=== PATIENT | male | born 1960 | race Caucasian/White ===

== ENCOUNTER 2023-01-08 14:14 | Emergency (ER) | payer MEDICARE ==
[2023-01-08 14:33] VITALS: TEMP 98.4
[2023-01-08] MEDS ORDERED: FUROSEMIDE 10 MG/ML 4 ML VIAL IV STA (15:24)
--- NOTE | 2023-01-08 15:27 | ED ---
General Adult HPI - General Chief complaint: Extremity Problem,Nontraumatic Stated complaint: PAIN IN FEET AND SWOLLEN ANKELS Time Seen by Provider: 01/08/23 15:06 Source: patient, family, RN notes reviewed Mode of arrival: ambulatory Limitations: no limitations - History of Present Illness Initial comments: Patient is a pleasant 62-year-old male presenting to the emergency department with concern for edema. Patient mostly has edema of the legs, somewhat of the arms. Symptoms have been progressing over the past 2-3 weeks. Patient denies dyspnea or cough however family states patient does have occasional cough. No recent change in activity. Patient does have chronic MS. Patient states only mild discomfort in the skin of his legs. No calf pain. No fever. Patient did have ultrasound done within the last couple weeks negative for DVT. - Related Data Previous Rx's Medication Instructions Recorded Tamsulosin [Flomax] 0.4 mg PO DAILY #14 cap 01/08/23 Allergies Allergy/AdvReac Type Severity Reaction Status Date / Time No Known Allergies Allergy Verified 01/08/23 14:33 Review of Systems ROS Statement: Those systems with pertinent positive or pertinent negative responses have been documented in the HPI. ROS Other: All systems not noted in ROS Statement are negative. Constitutional: Denies: fever Eyes: Denies: eye pain ENT: Denies: ear pain Respiratory: Reports: as per HPI Cardiovascular: Reports: edema. Denies: chest pain Endocrine: Denies: fatigue Gastrointestinal: Denies: abdominal pain Genitourinary: Denies: dysuria Musculoskeletal: Denies: back pain Skin: Denies: rash Neurological: Denies: weakness Past Medical History Additional Past Medical History / Comment(s): MS. UTI History of Any Multi-Drug Resistant Organisms: None Reported Past Surgical History: No Surgical Hx Reported Past Psychological History: No Psychological Hx Reported Smoking Status: Never smoker Past Alcohol Use History: None Reported Past Drug Use History: None Reported General Exam Limitations: no limitations General appearance: alert, in no apparent distress Head exam: Present: normocephalic Eye exam: Present: normal appearance Neck exam: Present: normal inspection Respiratory exam: Present: normal lung sounds bilaterally Cardiovascular Exam: Present: regular rate, normal rhythm GI/Abdominal exam: Present: soft. Absent: tenderness Extremities exam: Present: pedal edema (+4 bilateral), other (+1 bilateral upper extremity edema) Neurological exam: Present: alert Psychiatric exam: Present: normal affect, normal mood Skin exam: Present: normal color Course Vital Signs 01/08/23 01/08/23 14:31 16:57 Temperature 98.4 F Pulse Rate 88 82 Respiratory 20 18 Rate Blood Pressure 139/85 137/75 O2 Sat by Pulse 96 97 Oximetry EKG Findings - EKG Results: EKG: interpreted by ERMD (L [place]. Poor R-wave progression. No acute ST change.), sinus rhythm Medical Decision Making - Medical Decision Making Was pt. sent in by a medical professional or institution (, SVETLANA, SHIPS OR BARGES LOADER, urgent care, hospital, or custodial...) When possible be specific @ -No Did you speak to anyone other than the patient for history (EMS, parent, family, police, friend...)? What history was obtained from this source @ -2 other family members are present supplement history including patient's history of MS Did you review nursing and triage notes (agree or disagree)? Why? @ -I reviewed and agree with nursing and triage notes Were old charts reviewed (outside hosp., previous admission, EMS record, old EKG, old radiological studies, urgent care reports/EKG's, custodial records)? Report findings @ -No old charts were reviewed Differential Diagnosis (chest pain, altered mental status, abdominal pain women, abdominal pain men, vaginal bleeding, weakness, fever, dyspnea, syncope, headache, dizziness, GI bleed, back pain, seizure, CVA, palpatations, mental health)? @ -not applicable EKG interpreted by me (3pts min.). @ -As above X-rays interpreted by me (1pt min.). @ -Chest x-ray shows no acute process CT interpreted by me (1pt min.). @ -None done U/S interpreted by me (1pt. min.). @ -Bladder scan by nursing had over 800 mL postvoid. What testing was considered but not performed or refused? (CT, X-rays, U/S, labs)? Why? @ -None What meds were considered but not given or refused? Why? @ -None Did you discuss the management of the patient with other professionals (professionals i.e. SVETLANA Parada, SHIPS OR BARGES LOADER, lab, RT, psych nurse, 7th grade social studies teacher, airline reservation agent, teacher, patrol community service officer, nurse case management)? Give summary @ -No Was smoking cessation discussed for >3mins.? @ -No Was critical care preformed (if so, how long)? @ -No Were there social determinants of health that impacted care today? How? ([place]ivid[place] elessness, low income, unemployed, alcoholism, drug addiction, transportation, low edu. Level, literacy, decrease access to med. care, senior living, rehab)? @ -No Was there de-escalation of care discussed even if they declined (Discuss DNR or withdrawal of care, Hospice)? DNR status @ -No What co-morbidities impacted this encounter? (DM, HTN, Smoking, COPD, CAD, Cancer, CVA, ARF, Chemo, Hep., AIDS, mental health diagnosis, sleep apnea, morbid obesity)? @ -None Was patient admitted / discharged? Hospital course, mention meds given and route, prescriptions, significant lab abnormalities, going to OR and other pertinent info. @ -Patient reevaluated with 2 L out through Ross catheter. Likely cause of edema and renal insufficiency. Patient is comfortable with discharge home. Patient is nice to return if symptoms worsen or shortness of breath. Patient also advised to follow-up with primary care physician and urology Undiagnosed new problem with uncertain prognosis? @ -No Drug Therapy requiring intensive monitoring for toxicity (Heparin, Nitro, Insulin, Cardizem)? @ -No Were any procedures done? @ -No Diagnosis/symptom? @ -Edema, urinary retention Acute, or Chronic, or Acute on Chronic? @ -Acute, acute Uncomplicated (without systemic symptoms) or Complicated (systemic symptoms)? @ -Urinary retention is complicated by generalized edema Side effects of treatment? @ -No Exacerbation, Progression, or Severe Exacerbation? @ -No Poses a threat to life or bodily function? How? (Chest pain, [place], [place], pneumonia, PE, COPD, DKA, ARF, appy, cholecystitis, CVA, Diverticulitis, Homicidal, Suicidal, threat to staff... and all critical care pts) @ -No - Lab Data Result diagrams: 01/08/23 15:35 01/08/23 15:35 Lab Results 01/08/23 01/08/23 01/08/23 Range/Units 15:35 15:35 15:35 WBC 10.4 (3.8-10.6) k/uL RBC 4.57 (4.30-5.90) m/uL Hgb 14.1 (13.0-17.5) gm/dL Hct 43.7 (39.0-53.0) % MCV 95.8 (80.0-100.0) fL MCH 30.9 (25.0-35.0) pg MCHC 32.3 (31.0-37.0) g/dL RDW 13.0 (11.5-15.5) % Plt Count 407 (150-450) k/uL MPV 7.5 Neutrophils % 60 % Lymphocytes % 17 % Monocytes % 8 % Eosinophils % 13 % Basophils % 0 % Neutrophils # 6.3 (1.3-7.7) k/uL Lymphocytes # 1.8 (1.0-4.8) k/uL Monocytes # 0.8 (0-1.0) k/uL Eosinophils # 1.4 H (0-0.7) k/uL Basophils # 0.0 (0-0.2) k/uL PT 10.7 (9.0-12.0) sec INR 1.0 (<1.2) APTT 24.4 (22.0-30.0) sec Sodium 139 (137-145) mmol/L Potassium 4.0 (3.5-5.1) mmol/L Chloride 102 (98-107) mmol/L Carbon Dioxide 30 (22-30) mmol/L Anion Gap 7 mmol/L BUN 28 H (9-20) mg/dL Creatinine 1.31 H (0.66-1.25) mg/dL Est GFR (CKD-EPI)AfAm 66 (>60 ml/min/1.73 sqM) Est GFR (CKD-EPI)NonAf 57 (>60 ml/min/1.73 sqM) Glucose 105 H (74-99) mg/dL Plasma Lactic Acid Cristian (0.7-2.0) mmol/L Calcium 9.1 (8.4-10.2) mg/dL Magnesium 2.4 H (1.6-2.3) mg/dL Total Bilirubin 0.2 (0.2-1.3) mg/dL AST 22 (17-59) U/L ALT 24 (4-49) U/L Alkaline Phosphatase 70 (38-126) U/L Troponin I (0.000-0.034) ng/mL NT-Pro-B Natriuret Pep pg/mL Total Protein 6.1 L (6.3-8.2) g/dL Albumin 3.4 L (3.5-5.0) g/dL 01/08/23 01/08/23 01/08/23 Range/Units 15:35 15:35 16:04 WBC (3.8-10.6) k/uL RBC (4.30-5.90) m/uL Hgb (13.0-17.5) gm/dL Hct (39.0-53.0) % MCV (80.0-100.0) fL MCH (25.0-35.0) pg MCHC (31.0-37.0) g/dL RDW (11.5-15.5) % Plt Count (150-450) k/uL MPV Neutrophils % % Lymphocytes % % Monocytes % % Eosinophils % % Basophils % % Neutrophils # (1.3-7.7) k/uL Lymphocytes # (1.0-4.8) k/uL Monocytes # (0-1.0) k/uL Eosinophils # (0-0.7) k/uL Basophils # (0-0.2) k/uL PT (9.0-12.0) sec INR (<1.2) APTT (22.0-30.0) sec Sodium (137-145) mmol/L Potassium (3.5-5.1) mmol/L Chloride (98-107) mmol/L Carbon Dioxide (22-30) mmol/L Anion Gap mmol/L BUN (9-20) mg/dL Creatinine (0.66-1.25) mg/dL Est GFR (CKD-EPI)AfAm (>60 ml/min/1.73 sqM) Est GFR (CKD-EPI)NonAf (>60 ml/min/1.73 sqM) Glucose (74-99) mg/dL Plasma Lactic Acid Cristian 1.3 (0.7-2.0) mmol/L Calcium (8.4-10.2) mg/dL Magnesium (1.6-2.3) mg/dL Total Bilirubin (0.2-1.3) mg/dL AST (17-59) U/L ALT (4-49) U/L Alkaline Phosphatase (38-126) U/L Troponin I <0.012 (0.000-0.034) ng/mL NT-Pro-B Natriuret Pep 89 pg/mL Total Protein (6.3-8.2) g/dL Albumin (3.5-5.0) g/dL Disposition Clinical Impression: Edema, Urinary retention Disposition: HOME SELF-CARE Condition: Stable Instructions (If sedation given, give patient instructions): Urinary Retention in Men (ED), Edema (ED) Additional Instructions: Please do follow-up through primary care physician in the next couple days for recheck. Please also follow-up with urology, phone number provided within the next week. Leave catheter in until follow-up. Prescription for medication for prostate has been sent to pharmacy. Prescriptions: Tamsulosin [Flomax] 0.4 mg PO DAILY #14 cap Is patient prescribed a controlled substance at d/c from ED?: No Referrals: Nonstaff,Physician [Primary Care Provider] - 1-2 days Carrillo Ohara MD [STAFF PHYSICIAN] - 1-2 days Dash Hoffman MD [STAFF PHYSICIAN] - 1-2 days Time of Disposition: 17:38
[2023-01-08 16:09] LABS: Albumin 3.4 g/dL (3.5-5.0); Calcium 9.1 mg/dL (8.4-10.2); Magnesium 2.4 mg/dL (1.6-2.3); Total Bilirubin 0.2 mg/dL (0.2-1.3); Total Protein 6.1 g/dL (6.3-8.2)
--- NOTE | 2023-01-08 16:25 | XR ---
EXAMINATION TYPE: XR chest 2V DATE OF EXAM: 01/08/2023 4:16 PM COMPARISON: None TECHNIQUE: XR chest 2V Frontal and lateral views of the chest. CLINICAL INDICATION:Male, 62 years old with history of difficulty breathing; FINDINGS: Lungs/Pleura: Bibasilar atelectasis. No evidence for pneumothorax, pleural effusion or focal consolid ation. Pulmonary vascularity: Unremarkable. Heart/mediastinum: Cardiomediastinal silhouette is unremarkable. Musculoskeletal: No acute osseous pathology. IMPRESSION: No acute cardiopulmonary disease/process.
[2023-01-08 16:26] LABS: Partial Thromboplastin Time 24.4 sec (22.0-30.0); Prothrombin Time 10.7 sec (9.0-12.0)
[2023-01-08 16:28] LABS: Basophils % (A) 0 %; Eosinophils # (A) 1.4 k/uL (0-0.7); Eosinophils % (A) 13 %; HCT 43.7 % (39.0-53.0); HGB 14.1 gm/dL (13.0-17.5); Lymphocytes # (A) 1.8 k/uL (1.0-4.8); Lymphocytes % (A) 17 %; MCH 30.9 pg (25.0-35.0); MCHC 32.3 g/dL (31.0-37.0); MCV 95.8 fL (80.0-100.0); Mean Platelet Volume 7.5; Monocytes # (A) 0.8 k/uL (0-1.0); Monocytes % (A) 8 %; Neutrophils # (A) 6.3 k/uL (1.3-7.7); Neutrophils % (A) 60 %; Platelet Count 407 k/uL (150-450); RBC 4.57 m/uL (4.30-5.90); WBC 10.4 k/uL (3.8-10.6)
[2023-01-08 16:58] VITALS: BP 137/75; PULSE 82; RESP 18
== END 2023-01-08 18:12 | disposition home or self-care (01) ==
LOC: EC 14:14
DX: R33.9 Retention of urine, unspecified (principal); R60.0 Localized edema
CPT/HCPCS: 36415; 51702; 51798; 71046; 80053; 83605; 83735; 83880; 84484; 85025; 85610; 85730; 93005; 96374; 99284

== ENCOUNTER 2023-01-27 18:15 | Emergency (ER) | payer MEDICARE ==
[2023-01-27] MEDS ORDERED: ACETAMINOPHEN TAB 500 MG TAB PO STA (19:42)
--- NOTE | 2023-01-27 19:44 | ED ---
General Adult HPI - General Source: patient, family, RN notes reviewed Mode of arrival: wheelchair Limitations: no limitations <Aurelia Watt - Last Filed: 01/28/23 01:05> <Saige Boyd - Last Filed: 01/28/23 05:33> - General Chief complaint: Urogenital Stated complaint: UTI Time Seen by Provider: 01/27/23 19:43 - History of Present Illness Initial comments: Patient is a 62-year-old male who presents to the emergency Department for possible urinary tract infection. Patient self caths due to urinary retention he does have history of multiple sclerosis. His urine has had a foul order and color the past couple days. Family used a UTI strip which showed positive nitrites. Patient states he otherwise feels well. He denies any abdominal pain, burning with urination, nausea, vomiting. Patient does have a fever in triage. (Aurelia Watt) 62-year-old male with past history of MS who presents to the emergency department reporting UTI. Sr. is at bedside and helps provide history. States that the patient recently started straight cathing himself a couple weeks ago. Today she noted that when she helped the patient's straight cath himself that there was some blood in the urine. She used a dipstick to check for infection which was positive. She decided to bring him to the emergency department for antibiotics. It was upon ER arrival that it was found that the patient had a fever. He does not complain of any pain or chills. He does have a follow-up appointment with his primary care doctor on Tuesday. Patient is also going to be seeing urology at [facility] on . He denies any abdominal distention. No vomiting. No changes in his bowel habits. No other alleviating, precipitating or modifying factors (Saige Boyd) - Related Data Previous Rx's Medication Instructions Recorded Tamsulosin [Flomax] 0.4 mg PO DAILY #14 cap 01/08/23 Cephalexin [Keflex] 500 mg PO Q6HR #28 cap 01/27/23 Allergies Allergy/AdvReac Type Severity Reaction Status Date / Time No Known Allergies Allergy Verified 01/27/23 19:16 Review of Systems ROS Other: All systems not noted in ROS Statement are negative. <Aurelia Watt - Last Filed: 01/28/23 01:05> ROS Other: All systems not noted in ROS Statement are negative. <Saige Boyd - Last Filed: 01/28/23 05:33> ROS Statement: Those systems with pertinent positive or pertinent negative responses have been documented in the HPI. Past Medical History Additional Past Medical History / Comment(s): MS. UTI History of Any Multi-Drug Resistant Organisms: None Reported Past Surgical History: No Surgical Hx Reported Past Psychological History: No Psychological Hx Reported Smoking Status: Never smoker Past Alcohol Use History: None Reported Past Drug Use History: None Reported <AlysaAurelia dawson - Last Filed: 01/28/23 01:05> General Exam Limitations: no limitations <Aurelia Watt - Last Filed: 01/28/23 01:05> - General Exam Comments Initial Comments: Visual Physical Exam Vital signs reviewed General: Well-appearing, nontoxic, no acute distress. Head: Normocephalic, atraumatic Eyes: PERRLA, EOMI ENT: Airway patent Chest: Nonlabored breathing Skin: No visual rash, normal skin tone Neuro: Alert and oriented 3 Musculoskeletal: No gross abnormalities (AlysaAurelia) Course Vital Signs 01/27/23 01/27/23 01/27/23 19:16 22:03 22:33 Temperature 101.5 F H 99.6 F 99.1 F Pulse Rate 107 H 91 Respiratory 18 16 Rate Blood Pressure 139/65 118/76 O2 Sat by Pulse 94 L 94 L Oximetry 01/27/23 01/27/23 23:02 23:44 Temperature 99.2 F Pulse Rate 88 Respiratory 18 Rate Blood Pressure 134/80 O2 Sat by Pulse 94 L Oximetry Medical Decision Making - Lab Data Result diagrams: 01/27/23 20:04 01/27/23 20:04 <Aurelia Watt - Last Filed: 01/28/23 01:05> - Lab Data Result diagrams: 01/27/23 20:04 01/27/23 20:04 <Saige Boyd - Last Filed: 01/28/23 05:33> - Medical Decision Making Was pt. sent in by a medical professional or institution (, PA, BOARD SETTER, urgent care, hospital, or shelter...) When possible be specific @ -[No] Did you speak to anyone other than the patient for history (EMS, parent, family, police, friend...)? What history was obtained from this source @ -[No] Did you review nursing and triage notes (agree or disagree)? Why? @ -[I reviewed and agree with nursing and triage notes] Were old charts reviewed (outside hosp., previous admission, EMS record, old EKG, old radiological studies, urgent care reports/EKG's, shelter records)? Report findings @ -[No old charts were reviewed] Differential Diagnosis (chest pain, altered mental status, abdominal pain women, abdominal pain men, vaginal bleeding, weakness, fever, dyspnea, syncope, headache, dizziness, GI bleed, back pain, seizure, CVA, palpatations, mental health, musculoskeletal)? @ -[not applicable] EKG interpreted by me (3pts min.). @ -[As above] X-rays interpreted by me (1pt min.). @ -[None done] CT interpreted by me (1pt min.). @ -[None done] U/S interpreted by me (1pt. min.). @ -[None done] What testing was considered but not performed or refused? (CT, X-rays, U/S, labs)? Why? @ -[None] What meds were considered but not given or refused? Why? @ -[None] Did you discuss the management of the patient with other professionals (professionals i.e. , PA, BOARD SETTER, lab, RT, psych nurse, social media campaign manager, program director/music director, teacher, special service officer, casework manager)? Give summary @ -[No] Was smoking cessation discussed for >3mins.? @ -[No] Was critical care preformed (if so, how long)? @ -[No] Were there social determinants of health that impacted care today? How? (Homelessness, low income, unemployed, alcoholism, drug addiction, transportation, low edu. Level, literacy, decrease access to med. care, longterm, rehab)? @ -[No] Was there de-escalation of care discussed even if they declined (Discuss DNR or withdrawal of care, Hospice)? DNR status @ -[No] What co-morbidities impacted this encounter? (DM, HTN, Smoking, COPD, CAD, Cancer, CVA, ARF, Chemo, Hep., AIDS, mental health diagnosis, sleep apnea, morbid obesity)? @ -[None] Was patient admitted / discharged? Hospital course, mention meds given and route , prescriptions, significant lab abnormalities, going to OR and other pertinent info. @ -Upon arrival patient is placed into room 8. A thorough history and physical exam is performed. Patient has had laboratory studies and a urinalysis performed in triage. White count 18.3. Urinalysis is positive for infection. I did give the patient the option of being observed overnight with repeat blood count in the morning. Patient would like to go home. He is given a gram of Rocephin IM. Patient will be placed on antibiotics. He is to continue straight cathing 4 times a day. He has a follow-up appointment with his primary care doctor on Tuesday and repeat laboratory studies need to be performed at that time. He needs to return should he be unable to drain his bladder due to bleeding. Sr. is at bedside and is agreeable to this. Patient discharged home in stable condition Undiagnosed new problem with uncertain prognosis? @ -[No] Drug Therapy requiring intensive monitoring for toxicity (Heparin, Nitro, Insulin, Cardizem)? @ -[No] Were any procedures done? @ -[No] Diagnosis/symptom? @ -[default] Acute, or Chronic, or Acute on Chronic? @ -[default] Uncomplicated (without systemic symptoms) or Complicated (systemic symptoms)? @ -[default] Side effects of treatment? @ -[No] Exacerbation, Progression, or Severe Exacerbation? @ -[No] Poses a threat to life or bodily function? How? (Chest pain, [place], [place], pneumonia, PE, COPD, DKA, ARF, appy, cholecystitis, CVA, Diverticulitis, Homicidal, Suicidal, threat to staff... and all critical care pts) @ -[No] (Saige Boyd) - Lab Data Lab Results 01/27/23 01/27/23 01/27/23 Range/Units 20:04 20:04 20:04 WBC 18.3 H (3.8-10.6) k/uL RBC 4.84 (4.30-5.90) m/uL Hgb 15.3 (13.0-17.5) gm/dL Hct 47.3 (39.0-53.0) % MCV 97.8 (80.0-100.0) fL MCH 31.7 (25.0-35.0) pg MCHC 32.4 (31.0-37.0) g/dL RDW 12.9 (11.5-15.5) % Plt Count 443 (150-450) k/uL MPV 7.0 Neutrophils % 87 % Lymphocytes % 5 % Monocytes % 5 % Eosinophils % 1 % Basophils % 0 % Neutrophils # 15.9 H (1.3-7.7) k/uL Lymphocytes # 0.9 L (1.0-4.8) k/uL Monocytes # 1.0 (0-1.0) k/uL Eosinophils # 0.2 (0-0.7) k/uL Basophils # 0.1 (0-0.2) k/uL Sodium 139 (137-145) mmol/L Potassium 4.2 (3.5-5.1) mmol/L Chloride 101 (98-107) mmol/L Carbon Dioxide 27 (22-30) mmol/L Anion Gap 11 mmol/L BUN 30 H (9-20) mg/dL Creatinine 1.43 H (0.66-1.25) mg/dL Est GFR (CKD-EPI)AfAm 60 (>60 ml/min/1.73 sqM) Est GFR (CKD-EPI)NonAf 52 (>60 ml/min/1.73 sqM) Glucose 142 H (74-99) mg/dL Calcium 9.7 (8.4-10.2) mg/dL Total Bilirubin 0.4 (0.2-1.3) mg/dL AST 24 (17-59) U/L ALT 27 (4-49) U/L Alkaline Phosphatase 72 (38-126) U/L Total Protein 7.5 (6.3-8.2) g/dL Albumin 4.3 (3.5-5.0) g/dL Lipase 155 (23-300) U/L Urine Color Light Red Urine Appearance Turbid (Clear) Urine pH 6.0 (5.0-8.0) Ur Specific Gilbert 1.018 (1.001-1.035) Urine Protein 2+ H (Negative) Urine Glucose (UA) Negative (Negative) Urine Ketones Negative (Negative) Urine Blood Large H (Negative) Urine Nitrite Positive (Negative) Urine Bilirubin Negative (Negative) Urine Urobilinogen <2.0 (<2.0) mg/dL Ur Leukocyte Esterase Large H (Negative) Urine RBC >182 H (0-5) /hpf Urine WBC >182 H (0-5) /hpf Urine WBC Clumps Many H (None) /hpf Urine Mucus Few H (None) /hpf Disposition <AlysaAurelia - Last Filed: 01/28/23 01:05> Is patient prescribed a controlled substance at d/c from ED?: No Time of Disposition: 23:18 <Saige Boyd - Last Filed: 01/28/23 05:33> Clinical Impression: UTI (urinary tract infection), Urinary retention, Multiple sclerosis Disposition: HOME SELF-CARE Condition: Stable Instructions (If sedation given, give patient instructions): Urinary Tract Infection in Men (ED) Additional Instructions: Please take the antibiotic as directed. You must straight cath every 6 hours. Follow-up with your primary care doctor on Tuesday and have them repeat your blood counts as your White blood cell count was high. Take Tylenol every 6-8 hours for fevers and return for any new or worsening symptoms Prescriptions: Cephalexin [Keflex] 500 mg PO Q6HR #28 cap Referrals: Elle Guadalupe DO [Primary Care Provider] - 1-2 days
[2023-01-27 20:26] LABS: Basophils # (A) 0.1 k/uL (0-0.2); Basophils % (A) 0 %; Eosinophils # (A) 0.2 k/uL (0-0.7); Eosinophils % (A) 1 %; HCT 47.3 % (39.0-53.0); HGB 15.3 gm/dL (13.0-17.5); Lymphocytes # (A) 0.9 k/uL (1.0-4.8); Lymphocytes % (A) 5 %; MCH 31.7 pg (25.0-35.0); MCHC 32.4 g/dL (31.0-37.0); MCV 97.8 fL (80.0-100.0); Monocytes % (A) 5 %; Neutrophils # (A) 15.9 k/uL (1.3-7.7); Neutrophils % (A) 87 %; Platelet Count 443 k/uL (150-450); RBC 4.84 m/uL (4.30-5.90); RDW 12.9 % (11.5-15.5); WBC 18.3 k/uL (3.8-10.6)
[2023-01-27 20:38] LABS: Albumin 4.3 g/dL (3.5-5.0); Calcium 9.7 mg/dL (8.4-10.2); Potassium 4.2 mmol/L (3.5-5.1); Total Bilirubin 0.4 mg/dL (0.2-1.3); Total Protein 7.5 g/dL (6.3-8.2)
[2023-01-27 20:42] LABS: Appearance,Urine Turbid (Clear); Bilirubin,Urine Negative (Negative); Blood,Urine Large (Negative); Color,Urine Light Red; Glucose,Urine (UA) Negative (Negative); Ketones,Urine Negative (Negative); Leukocyte Esterase,Urine Large (Negative); Mucus,Urine Few /hpf; Nitrite,Urine Positive (Negative); Protein,Urine 2+ (Negative); RBC,Urine >182 /hpf (0-5); Urobilinogen,Urine <2.0 mg/dL (<2.0); WBC,Urine >182 /hpf (0-5)
[2023-01-27 20:45] LABS: Specific Gravity,Urine 1.018 (1.001-1.035)
[2023-01-27] MEDS ORDERED: cefTRIAXone 1,000 MG VIAL (IM USE) IM STA (22:42)
[2023-01-27 23:03] VITALS: BP 134/80; PULSE 88; RESP 18
[2023-01-27 23:44] VITALS: TEMP 99.2
== END 2023-01-27 23:44 | disposition home or self-care (01) ==
LOC: EC 18:15
DX: N39.0 Urinary tract infection, site not specified (principal); G35 Multiple sclerosis; R33.9 Retention of urine, unspecified
CPT/HCPCS: 51798; 36415; 80053; 83690; 85025; 81001; 87086; 99283; 96372; J0696

== ENCOUNTER 2023-02-20 10:31 | Inpatient (IN) | payer MEDICARE ==
[2023-02-20 11:36] LABS: Appearance,Urine Turbid (Clear); Bacteria,Urine Few /hpf; Bilirubin,Urine Negative (Negative); Blood,Urine Large (Negative); Color,Urine Yellow; Glucose,Urine (UA) Negative (Negative); Ketones,Urine Negative (Negative); Leukocyte Esterase,Urine Large (Negative); Nitrite,Urine Positive (Negative); Protein,Urine 3+ (Negative); RBC,Urine >182 /hpf (0-5); Urobilinogen,Urine <2.0 mg/dL (<2.0); WBC,Urine >182 /hpf (0-5)
[2023-02-20 12:47] LABS: Basophils # (A) 0.1 k/uL (0-0.2); Basophils % (A) 0 %; Eosinophils # (A) 0.3 k/uL (0-0.7); Eosinophils % (A) 1 %; HGB 15.7 gm/dL (13.0-17.5); Lymphocytes # (A) 0.6 k/uL (1.0-4.8); Lymphocytes % (A) 2 %; MCH 31.1 pg (25.0-35.0); MCHC 31.5 g/dL (31.0-37.0); MCV 98.7 fL (80.0-100.0); Mean Platelet Volume 7.3; Monocytes # (A) 0.7 k/uL (0-1.0); Monocytes % (A) 3 %; Neutrophils # (A) 23.6 k/uL (1.3-7.7); Neutrophils % (A) 93 %; Platelet Count 462 k/uL (150-450); RBC 5.06 m/uL (4.30-5.90); RDW 13.1 % (11.5-15.5); WBC 25.4 k/uL (3.8-10.6)
[2023-02-20 12:58] LABS: ALT 32 U/L (4-49); AST 28 U/L (17-59); African American GFR (CKD) 51 (>60 ml/min/1.73 sqM); Albumin 4.3 g/dL (3.5-5.0); Alkaline Phosphatase 56 U/L (38-126); Anion Gap 12 mmol/L; Blood Urea Nitrogen 39 mg/dL (9-20); Calcium 9.7 mg/dL (8.4-10.2); Carbon Dioxide 25 mmol/L (22-30); Chloride 102 mmol/L (98-107); Glucose 179 mg/dL (74-99); Non-African American GFR(CKD) 44 (>60 ml/min/1.73 sqM); Sodium 139 mmol/L (137-145); Total Bilirubin 0.5 mg/dL (0.2-1.3); Total Protein 7.5 g/dL (6.3-8.2)
[2023-02-20] MEDS ORDERED: VANCOMYCIN IV PER PHARMACY 1 EACH MISC MISCELLANE PRN (15:02)
--- NOTE | 2023-02-20 15:08 | ED ---
General Adult HPI - General Chief complaint: Urogenital Stated complaint: UTI Time Seen by Provider: 02/20/23 11:30 Source: patient, RN notes reviewed, old records reviewed Mode of arrival: ambulatory Limitations: no limitations - History of Present Illness Initial comments: This is a 62-year-old male who presents emergency department stating that he has a long-standing history of urinary tract infections in his been on multiple antibiotics in the last month or 2 and he believes he has another urinary tract infection. Patient does self cath. 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 Patient states his urine became very cloudy and he is feeling a little ill but he denies any fever. Denies any back pain patient denies any abdominal pain. - Related Data Previous Rx's Medication Instructions Recorded Tamsulosin [Flomax] 0.4 mg PO DAILY #14 cap 01/08/23 Cephalexin [Keflex] 500 mg PO Q6HR #28 cap 01/27/23 Allergies Allergy/AdvReac Type Severity Reaction Status Date / Time No Known Allergies Allergy Verified 02/20/23 10:53 Review of Systems ROS Statement: Those systems with pertinent positive or pertinent negative responses have been documented in the HPI. ROS Other: All systems not noted in ROS Statement are negative. Past Medical History Past Medical History: Coronary Artery Disease (CAD), Heart Failure, Hypertension Additional Past Medical History / Comment(s): UTI History of Any Multi-Drug Resistant Organisms: MRSA Date of last positivie culture/infection: 01/27/23 MDRO Source:: Urine Past Surgical History: No Surgical Hx Reported Past Psychological History: No Psychological Hx Reported Smoking Status: Never smoker Past Alcohol Use History: None Reported Past Drug Use History: None Reported General Exam - General Exam Comments Initial Comments: GENERAL: Patient is well-developed and well-nourished. Patient is nontoxic and well- hydrated and is in mild distress. ENT: Neck is soft and supple. No significant lymphadenopathy is noted. Oropharynx is clear. Moist mucous membranes. Neck has full range of motion without eliciting any pain. EYES: The sclera were anicteric and conjunctiva were pink and moist. Extraocular movements were intact and pupils were equal round and reactive to light. Eyelids were unremarkable. PULMONARY: Unlabored respirations. Good breath sounds bilaterally. No audible rales rhonchi or wheezing was noted. CARDIOVASCULAR: There is a regular rate and rhythm without any murmurs gallops or rubs. ABDOMEN: Suprapubic abdominal tenderness SKIN: Skin is clear with no lesions or rashes and otherwise unremarkable. NEUROLOGIC: Patient is alert and oriented x3. Cranial nerves II through XII are grossly intact. Motor and sensory are also intact. Normal speech, volume and content. Symmetrical smile. MUSCULOSKELETAL: Normal extremities with adequate strength and full range of motion. LYMPHATICS: No significant lymphadenopathy is noted PSYCHIATRIC: Normal psychiatric evaluation. Limitations: no limitations Course Vital Signs 02/20/23 10:50 Temperature 99.4 F Pulse Rate 107 H Respiratory 22 Rate Blood Pressure 101/67 O2 Sat by Pulse 96 Oximetry Medical Decision Making - Medical Decision Making Was pt. sent in by a medical professional or institution (SVETLANA Parada, FLATBED PRESS OPERATOR, urgent care, hospital, or longterm...) When possible be specific @ -[No] Did you speak to anyone other than the patient for history (EMS, parent, family, police, friend...)? What history was obtained from this source @ -Sister gives quite a bit of a history Did you review nursing and triage notes (agree or disagree)? Why? @ -[I reviewed and agree with nursing and triage notes] Were old charts reviewed (outside hosp., previous admission, EMS record, old EKG, old radiological studies, urgent care reports/EKG's, longterm records)? Report findings @ -Reviewed prior lab work microbiology studies and previous charts Differential Diagnosis (chest pain, altered mental status, abdominal pain women, abdominal pain men, vaginal bleeding, weakness, fever, dyspnea, syncope, headache, dizziness, GI bleed, back pain, seizure, CVA, palpatations, mental health, musculoskeletal)? @ -M.D. EM fever EKG interpreted by me (3pts min.). @ -[As above] X-rays interpreted by me (1pt min.). @ -[None done] CT interpreted by me (1pt min.). @ -[None done] U/S interpreted by me (1pt. min.). @ -[None done] What testing was considered but not performed or refused? (CT, X-rays, U/S, labs)? Why? @ -[None] What meds were considered but not given or refused? Why? @ -[None] Did you discuss the management of the patient with other professionals (professionals i.e. DrEverett, PA, FLATBED PRESS OPERATOR, lab, RT, psych nurse, high school social studies tutor, clinic director, teacher, postal delivery officer, case making machine operator)? Give summary @ -I spoke with Dr. Marsh and he agreed to admit the patient Was smoking cessation discussed for >3mins.? @ -[No] Was critical care preformed (if so, how long)? @ -[No] Were there social determinants of health that impacted care today? How? (Homelessness, low income, unemployed, alcoholism, drug addiction, transportation, low edu. Level, literacy, decrease access to med. care, chcf, re hab)? @ -[No] Was there de-escalation of care discussed even if they declined (Discuss DNR or withdrawal of care, Hospice)? DNR status @ -[No] What co-morbidities impacted this encounter? (DM, HTN, Smoking, COPD, CAD, Cancer, CVA, ARF, Chemo, Hep., AIDS, mental health diagnosis, sleep apnea, morbid obesity)? @ -[None] Was patient admitted / discharged? Hospital course, mention meds given and route, prescriptions, significant lab abnormalities, going to OR and other pertinent info. @ -Because patient's urine showed MRSA I gave the patient a dose of vancomycin and admitted him with vancomycin per pharmacy. Dr. Marsh agreed to admit the patient Undiagnosed new problem with uncertain prognosis? @ -[No] Drug Therapy requiring intensive monitoring for toxicity (Heparin, Nitro, Insulin, Cardizem)? @ -[No] Were any procedures done? @ -[No] Diagnosis/symptom? @ -Urinary tract infection Acute, or Chronic, or Acute on Chronic? @ -Acute Uncomplicated (without systemic symptoms) or Complicated (systemic symptoms)? @ -Complicated Side effects of treatment? @ -[No] Exacerbation, Progression, or Severe Exacerbation? @ -[No] Poses a threat to life or bodily function? How? (Chest pain, [place], [place], pneumonia, PE, COPD, DKA, ARF, appy, cholecystitis, CVA, Diverticulitis, Homicidal, Suicidal, threat to staff... and all critical care pts) @ -Yes patient becomes septic which could cause end organ dysfunction - Lab Data Result diagrams: 02/20/23 12:36 02/20/23 12:36 Lab Results 02/20/23 02/20/23 02/20/23 Range/Units 10:56 12:36 12:36 WBC 25.4 H (3.8-10.6) k/uL RBC 5.06 (4.30-5.90) m/uL Hgb 15.7 (13.0-17.5) gm/dL Hct 50.0 (39.0-53.0) % MCV 98.7 (80.0-100.0) fL MCH 31.1 (25.0-35.0) pg MCHC 31.5 (31.0-37.0) g/dL RDW 13.1 (11.5-15.5) % Plt Count 462 H (150-450) k/uL MPV 7.3 Neutrophils % 93 % Lymphocytes % 2 % Monocytes % 3 % Eosinophils % 1 % Basophils % 0 % Neutrophils # 23.6 H (1.3-7.7) k/uL Lymphocytes # 0.6 L (1.0-4.8) k/uL Monocytes # 0.7 (0-1.0) k/uL Eosinophils # 0.3 (0-0.7) k/uL Basophils # 0.1 (0-0.2) k/uL Sodium 139 (137-145) mmol/L Potassium 5.0 (3.5-5.1) mmol/L Chloride 102 (98-107) mmol/L Carbon Dioxide 25 (22-30) mmol/L Anion Gap 12 mmol/L BUN 39 H (9-20) mg/dL Creatinine 1.63 H (0.66-1.25) mg/dL Est GFR (CKD-EPI)AfAm 51 (>60 ml/min/1.73 sqM) Est GFR (CKD-EPI)NonAf 44 (>60 ml/min/1.73 sqM) Glucose 179 H (74-99) mg/dL Calcium 9.7 (8.4-10.2) mg/dL Total Bilirubin 0.5 (0.2-1.3) mg/dL AST 28 (17-59) U/L ALT 32 (4-49) U/L Alkaline Phosphatase 56 (38-126) U/L Total Protein 7.5 (6.3-8.2) g/dL Albumin 4.3 (3.5-5.0) g/dL Urine Color Yellow Urine Appearance Turbid (Clear) Urine pH 6.0 (5.0-8.0) Ur Specific [place] 1.020 (1.001-1.035) Urine Protein 3+ H (Negative) Urine Glucose (UA) Negative (Negative) Urine Ketones Negative (Negative) Urine Blood Large H (Negative) Urine Nitrite Positive (Negative) Urine Bilirubin Negative (Negative) Urine Urobilinogen <2.0 (<2.0) mg/dL Ur Leukocyte Esterase Large H (Negative) Urine RBC >182 H (0-5) /hpf Urine WBC >182 H (0-5) /hpf Urine WBC Clumps Many H (None) /hpf Urine Bacteria Few H (None) /hpf Disposition Clinical Impression: Urinary tract infection Disposition: ADMITTED IP TO THIS HOSP Referrals: Elle Guadalupe DO [Primary Care Provider] - 1-2 days Time of Disposition: 15:07
[2023-02-20] MEDS ORDERED: VANCOMYCIN 1,500 MG in SODIUM CHLORIDE 0.9% 500 ML 500 ML IVPB STA (15:10)
[2023-02-20] MEDS: SODIUM CHLORIDE 0.9% 1,000 ML IV ONE (16:08)
[2023-02-20] MEDS ORDERED: ONDANSETRON 4 MG/2 ML VIAL IVP PRN (18:04)
[2023-02-20] MEDS ORDERED: ACETAMINOPHEN TAB 325 MG TAB PO PRN (19:38)
--- NOTE | 2023-02-21 01:50 | P.HPIM ---
History of Present Illness H&P Date: 02/20/23 Chief Complaint: Infection Patient is a 62-year-old male with a known history of multiple sclerosis, neurogenic bladder requiring straight catheterization 3-4 times daily, hyp ertension, history of UTIs presents to ER with complaints of cloudy urine and felt like getting another urinary tract infection. Patient was not feeling well yesterday but denied any fever or chills. No complaints of nausea or vomiting. No commerce of back pain. No abdominal pain. Patient was seen in the ER about a week ago and urine culture was sent at that time showed MRSA. Next and now complains of chest pain or shortness of breath. No diarrhea.. CT of the abdomen pelvis showed thickened urinary bladder decompressed with Ross catheter contains a small amount of age which could be related to recent instrumentation. Large fecal bolus of the rectum. Correlate for fecal impaction. Laboratory data showed WBC 25.4 hemoglobin 15.7 and platelets 462, sodium 1:30 potassium 5.0 chloride 102 bicarb is 25 BUN 39 and creatinine 1.63. Pressure was 179. Urinalysis showed 3+ protein and large blood nitrite positive and large leukocyte esterase with elevated RBCs and WBCs. Review of Systems Constitutional: Patient denies any fever or chills . No generalized weakness or weight loss. Abdomen: Patient denied nausea vomiting and diarrhea and abdominal pain. Cardiovascular: Patient denies any chest pain or short of breath no palpitations. Respiratory: patient denied any cough is from production. No shortness of breath Neurologic: Patient denied any numbness or tingling headache. Musculoskeletal: Patient denies any complaints of joint swelling or deformity. Skin: Negative Psychiatric: Negative Endocrine: No heat or cold intolerance. No recent weight gain. Genitourinary: No dysuria or hematuria. All other 14 point ROS negative except the above Past Medical History Past Medical History: Coronary Artery Disease (CAD), Heart Failure, Hypertension Additional Past Medical History / Comment(s): MS. UTI History of Any Multi-Drug Resistant Organisms: MRSA Date of last positivie culture/infection: 01/27/23 MDRO Source:: Urine Past Surgical History: No Surgical Hx Reported Additional Past Surgical History / Comment(s): Judd. Past Anesthesia/Blood Transfusion Reactions: No Reported Reaction Past Psychological History: No Psychological Hx Reported Smoking Status: Never smoker Past Alcohol Use History: None Reported Past Drug Use History: None Reported Medications and Allergies Home Medications Medication Instructions Recorded Confirmed Type Tamsulosin [Flomax] 0.4 mg PO DAILY #14 cap 01/08/23 02/20/23 Rx Ascorbic Acid [Vitamin C chew] 500 mg PO DAILY 02/20/23 02/20/23 History Atorvastatin [Lipitor] 10 mg PO HS 02/20/23 02/20/23 History Cholecalciferol [Vitamin D3 (25 25 mcg PO DAILY 02/20/23 02/20/23 History Mcg = 1000 Iu)] Dalfampridine [Dalfampridine ER] 10 mg PO Q12H 02/20/23 02/20/23 History Furosemide [Lasix] 20 mg PO DAILY 02/20/23 02/20/23 History lisinopriL [Zestril] 5 mg PO DAILY 02/20/23 02/20/23 History Allergies Allergy/AdvReac Type Severity Reaction Status Date / Time No Known Allergies Allergy Verified 02/20/23 15:48 Physical Exam Vitals: Vital Signs Temp Pulse Pulse Resp BP BP Pulse Ox 02/20/23 18:36 98.9 F 115 H 16 116/65 91 L 02/20/23 17:33 98.7 F 02/20/23 17:00 114 H 20 119/79 95 02/20/23 16:00 100 24 02/20/23 15:00 19 02/20/23 14:00 24 02/20/23 13:00 98 20 118/92 02/20/23 12:00 102 H 24 127/72 92 L 02/20/23 11:57 93 L 02/20/23 10:50 99.4 F 107 H 22 101/67 96 Intake and Output 02/20/23 02/20/23 02/20/23 06:59 14:59 22:59 Other: # Voids 1 Weight 85.729 kg 85.5 kg PHYSICAL EXAMINATION: Patient is lying in the bed comfortably, no acute distress, awake alert and oriented.. HEENT: Normocephalic. Neck is supple. Pupils reactive. Nostrils clear. Oral cavity is moist. Neck reveals no JVD, carotid bruits, or thyromegaly. CHEST EXAMINATION: Trachea is central. Symmetrical expansion. Lung beatty clear to auscultation and percussion. CARDIAC: Normal S1, S2 with no gallops. No murmurs ABDOMEN: Soft. Bowel sounds normal. No organomegaly. No abdominal bruits. Extremities: reveal no edema. No clubbing or cyanosis Neurologically awake, alert, oriented x3 with well-coordinated movements. No focal deficits noted Skin: No rash or skin lesions. Psychiatric: Coperative. Nonsuicidal Musculoskeletal: No joint swelling or deformity. Normal range of motion. Results CBC & Chem 7: 02/20/23 12:36 02/21/23 05:11 Labs: Abnormal Lab Results - Last 24 Hours (Table) 02/20/23 02/20/23 02/20/23 Range/Units 10:56 12:36 12:36 WBC 25.4 H (3.8-10.6) k/uL Plt Count 462 H (150-450) k/uL Neutrophils # 23.6 H (1.3-7.7) k/uL Lymphocytes # 0.6 L (1.0-4.8) k/uL BUN 39 H (9-20) mg/dL Creatinine 1.63 H (0.66-1.25) mg/dL Glucose 179 H (74-99) mg/dL Urine Protein 3+ H (Negative) Urine Blood Large H (Negative) Ur Leukocyte Esterase Large H (Negative) Urine RBC >182 H (0-5) /hpf Urine WBC >182 H (0-5) /hpf Urine WBC Clumps Many H (None) /hpf Urine Bacteria Few H (None) /hpf Thrombosis Risk Factor Assmnt - DVT/VTE Prophylaxis DVT/VTE Prophylaxis: Pharmacologic Prophylaxis ordered Assessment and Plan Assessment: Acute urinary tract infection sepsis secondary to UTI Recent UTI with cultures growing MRSA Prior history of multiple UTIs History of MS and chronic urinary retention requiring straight catheterization at home. Acute kidney injury likely prerenal Coronary artery disease with no prior history of stent placement Hypertension DVT prophylaxis with heparin subcu Plan: Patient will be continued on antibiotics in the form of vancomycin can with IV hydration. Urine culture will be sent.. Urology and ID will be consulted. Continue with home medications and follow closely. Time with Patient: Greater than 30
[2023-02-21 06:18] LABS: African American GFR (CKD) 63 (>60 ml/min/1.73 sqM); Non-African American GFR(CKD) 54 (>60 ml/min/1.73 sqM)
[2023-02-21] MEDS: HEPARIN SODIUM,PORCINE/PF 5,000 UNIT/0.5 ML SYRINGE SQ SCH ×3 (08:54→23:22)
[2023-02-21] MEDS: TAMSULOSIN 0.4 MG CAP.ER.24H PO SCH (08:54)
[2023-02-21] MEDS ORDERED: VANCOMYCIN 1,500 MG in SODIUM CHLORIDE 0.9% 500 ML 500 ML IVPB SCH ×2 (09:00→16:00)
--- NOTE | 2023-02-21 12:41 | CT ---
EXAMINATION TYPE: CT abdomen pelvis wo con DATE OF EXAM: 02/21/2023 COMPARISON: None INDICATION: vomiting stool. No contrast DLP: 608 mGycm, Automated exposure control for dose reduction was used. CONTRAST: 0 mL of Isovue 300. Study performed without Oral Contrast TECHNIQUE: Axial images were obtained from above the diaphragm to the pubic rami in the axial plane a t 5 mm thick sections. Reconstructed images are reviewed on the computer in the coronal plane. FINDINGS: Limited CT sections are obtained the lung bases. Bibasilar infiltrates are present. Correlate for at electasis. Minimal effusions may be present. CT ABDOMEN: Liver: Normal Spleen: Normal Pancreas: Normal Adrenal glands: The adrenal glands are normal. Gallbladder: Normal Kidneys: No masses are evident. No hydronephrosis is present. The renal pelvis is slightly prominent which could be related to an extrarenal pelvis. Ureter on the left appears to have a normal caliber. Some mild left perinephric stranding may be present. There is a 1.9 cm cyst on the anterior superior left kidney. Left kidney is somewhat small. This could be postsurgical or from prior scarring. Aorta: Minimal Vascular calcification is within the aorta. Inferior vena cava: Normal. CT PELVIS: Loops of bowel within the abdomen and pelvis are normal. There is a large fecal bolus in the rectum. This study is without oral contrast limiting bowel evaluation. No suspicious dilated loops of tonia l suggest obstruction are evident. Stomach and small amount of fluid within the dependent portion. Appendix: Normal as visualized. Urinary bladder: Urinary bladder thickening is present. There is air present within the urinary bladd er. Urinary bladder is decompressed with Ross catheter. There is a low density collection to the right of the urinary bladder. This could be a urinary bladde r diverticulum without drainage. Uroma could be considered. Abscess is felt to be unlikely without th ickening of the wall or focal inflammatory change around this area. There is diffuse increased lung markings adjacent to the urinary bladder. Inflammatory changes and mi nimal fluid could be considered. Genitourinary structures: Prostate appears normal. Osseous structures: No suspicious lytic or sclerotic lesions. Degenerative disc changes and spondylos is as through the scoliotic lumbar spine. Degenerative joint changes are at the bilateral hips. IMPRESSIONS: 1. Thickened urinary bladder decompressed with Ross catheter contains a small amount of air which c ould be related to recent instrumentation. Other laboratory changes adjacent. A uroma or non decompre ssed urinary bladder diverticulum just to the right of the urinary bladder is present. 2. Large fecal bolus of the rectum. Correlate for fecal impaction. 3. Somewhat small left kidney with mild perinephric stranding.
[2023-02-21] MEDS ORDERED: polyethylene glycoL 3350 17 GM POWD.PACK PO STA (14:20)
--- NOTE | 2023-02-21 15:15 | US ---
EXAMINATION TYPE: US kidneys/renal and bladder DATE OF EXAM: 02/21/2023 COMPARISON: NONE CLINICAL INDICATION: Male, 62 years old with history of UTI, Urinary Retention; UTI EXAM MEASUREMENTS: Right Kidney: 10.7 x 5.2 x 5.9 cm Left Kidney: 8.7 x 3.7 x 4.6 cm Right Kidney: No hydronephrosis or masses seen Left Kidney: superior pole cyst seen = 1.9cm, kidney is small in size Bladder: hermosillo cath seen, free fluid to the right of bladder IMPRESSION: 1. Left renal cyst
[2023-02-21] MEDS: DAPTOmycin 350 MG in SODIUM CHLORIDE 0.9% 50 ML IVPB SCH (15:36)
--- NOTE | 2023-02-21 16:06 | P.GSCN ---
History of Present Illness Consult date: 02/21/23 Reason for Consult: Ileus, constipation History of present illness: 62-year-old male admitted to the hospital with recurrent UTI. Brought to the hospital by his family with cloudy colored urine. Apparently had normal diet up until yesterday. After he was given vancomycin in the ER he had an episode of vomiting. Apparently he had another episode of vomiting this morning after Banko was given. CAT scan reviewed. Patient has a large amount of stool in the rectum with bladder wall thickening as well. White blood cell count elevated. Urinalysis suggestive of urinary infection. Review of Systems The patient denies any acute changes in vision or hearing, no dysphagia or odynophagia, no chest pain or shortness of breath, no dysuria or hematuria, no headache, no runny nose, no rectal bleeding or melena, no unexplained weight loss Past Medical History Past Medical History: Coronary Artery Disease (CAD), Heart Failure, Hypertension Additional Past Medical History / Comment(s): MS. UTI History of Any Multi-Drug Resistant Organisms: MRSA Year Discovered:: 01/27/23 MDRO Source:: Urine Past Surgical History: No Surgical Hx Reported Additional Past Surgical History / Comment(s): Judd. Past Anesthesia/Blood Transfusion Reactions: No Reported Reaction Past Psychological History: No Psychological Hx Reported Smoking Status: Never smoker Past Alcohol Use History: None Reported Past Drug Use History: None Reported Medications and Allergies Home Medications Medication Instructions Recorded Confirmed Type Tamsulosin [Flomax] 0.4 mg PO DAILY #14 cap 01/08/23 02/20/23 Rx Ascorbic Acid [Vitamin C chew] 500 mg PO DAILY 02/20/23 02/20/23 History Atorvastatin [Lipitor] 10 mg PO HS 02/20/23 02/20/23 History Cholecalciferol [Vitamin D3 (25 25 mcg PO DAILY 02/20/23 02/20/23 History Mcg = 1000 Iu)] Dalfampridine [Dalfampridine ER] 10 mg PO Q12H 02/20/23 02/20/23 History Furosemide [Lasix] 20 mg PO DAILY 02/20/23 02/20/23 History lisinopriL [Zestril] 5 mg PO DAILY 02/20/23 02/20/23 History Allergies Allergy/AdvReac Type Severity Reaction Status Date / Time No Known Allergies Allergy Verified 02/20/23 15:48 Surgical - Exam Vital Signs Temp Pulse Resp BP Pulse Ox 99.4 F 107 H 22 101/67 96 02/20/23 10:50 02/20/23 10:50 02/20/23 10:50 02/20/23 10:50 02/20/23 10:50 Physical exam: General: Well-developed, well-nourished HEENT: Normocephalic, sclerae nonicteric Abdomen: Mildly distended, nontender Extremities: No edema Neuro: Alert and oriented Rectal: Large volume of soft stool within the rectal vault Results - Labs 02/20/23 12:36 02/21/23 05:11 Abnormal Lab Results - Last 24 Hours (Table) 02/21/23 Range/Units 05:11 Creatinine 1.37 H (0.66-1.25) mg/dL Diabetes panel 02/21/23 Range/Units 05:11 Creatinine 1.37 H (0.66-1.25) mg/dL Pituitary panel 02/21/23 Range/Units 05:11 Creatinine 1.37 H (0.66-1.25) mg/dL Adrenal panel 02/21/23 Range/Units 05:11 Creatinine 1.37 H (0.66-1.25) mg/dL Assessment and Plan (1) Ileus Narrative/Plan: 62-year-old male admitted for urinary tract infection. Patient had episodes of vomiting while hospitalized. We were consulted for that reason. Suspect ileus related to the UTI. On top of the patient has some degree of fecal impaction although the stool is soft. Begin oral cathartic and soapsuds enemas this evening. Clear liquid diet. Current Visit: Yes Status: Acute Code(s): K56.7 - ILEUS, UNSPECIFIED SNOMED Code(s): 439132681 (2) Constipation Current Visit: Yes Status: Acute Code(s): K59.00 - CONSTIPATION, UNSPECIFIED SNOMED Code(s): 42509576
[2023-02-21] MEDS: METOCLOPRAMIDE 5 MG/ML 2 ML VIAL IVP SCH ×2 (17:22→23:22)
--- NOTE | 2023-02-21 20:27 | P.GSCN ---
History of Present Illness Consult date: 02/21/23 Reason for Consult: UTI Requesting physician: Juan Marsh History of present illness: The patient is a 62-year-old white male with a neurogenic bladder secondary to multiple sclerosis. He was found in December 2022 to be in urinary retention and was seen by Dr. Pollack last month. He was started on CIC (intermittent self- catheterization 3-4x daily), and was advised to keep a previously scheduled appointment at the [facility] Department of Urology. He was treated for a MRSA UTI last month. He was brought to the ER with foul-smelling urine and a positive dipstick urinalysis. Urine and blood cultures are currently pending. Review of Systems - Constitutional Denies chills, Denies fever - Genitourinary Denies dysuria, Denies hematuria Past Medical History Past Medical History: Coronary Artery Disease (CAD), Heart Failure, Hypertension Additional Past Medical History / Comment(s): MS. UTI History of Any Multi-Drug Resistant Organisms: MRSA Year Discovered:: 01/27/23 MDRO Source:: Urine Past Surgical History: No Surgical Hx Reported Additional Past Surgical History / Comment(s): Judd. Past Anesthesia/Blood Transfusion Reactions: No Reported Reaction Past Psychological History: No Psychological Hx Reported Smoking Status: Never smoker Past Alcohol Use History: None Reported Past Drug Use History: None Reported Medications and Allergies Home Medications Medication Instructions Recorded Confirmed Type Tamsulosin [Flomax] 0.4 mg PO DAILY #14 cap 01/08/23 02/20/23 Rx Ascorbic Acid [Vitamin C chew] 500 mg PO DAILY 02/20/23 02/20/23 History Atorvastatin [Lipitor] 10 mg PO HS 02/20/23 02/20/23 History Cholecalciferol [Vitamin D3 (25 25 mcg PO DAILY 02/20/23 02/20/23 History Mcg = 1000 Iu)] Dalfampridine [Dalfampridine ER] 10 mg PO Q12H 02/20/23 02/20/23 History Furosemide [Lasix] 20 mg PO DAILY 02/20/23 02/20/23 History lisinopriL [Zestril] 5 mg PO DAILY 02/20/23 02/20/23 History Allergies Allergy/AdvReac Type Severity Reaction Status Date / Time No Known Allergies Allergy Verified 02/20/23 15:48 Surgical - Exam Vital Signs Temp Pulse Resp BP Pulse Ox 99.4 F 107 H 22 101/67 96 02/20/23 10:50 02/20/23 10:50 02/20/23 10:50 02/20/23 10:50 02/20/23 10:50 - General well developed, well nourished, no distress - Respiratory normal respiratory effort - Abdomen Abdomen: soft, non tender, no guarding, no rigid, no rebound Hernia: umbilical - Genitourinary normal penis with no external lesions, testicles non-tender - Psychiatric oriented to time, oriented to person, oriented to place, speech is normal, memory intact Results - Labs 02/20/23 12:36 02/21/23 05:11 Abnormal Lab Results - Last 24 Hours (Table) 02/20/23 02/20/23 02/20/23 Range/Units 10:56 12:36 12:36 WBC 25.4 H (3.8-10.6) k/uL Plt Count 462 H (150-450) k/uL Neutrophils # 23.6 H (1.3-7.7) k/uL Lymphocytes # 0.6 L (1.0-4.8) k/uL BUN 39 H (9-20) mg/dL Creatinine 1.63 H (0.66-1.25) mg/dL Glucose 179 H (74-99) mg/dL Urine Protein 3+ H (Negative) Urine Blood Large H (Negative) Ur Leukocyte Esterase Large H (Negative) Urine RBC >182 H (0-5) /hpf Urine WBC >182 H (0-5) /hpf Urine WBC Clumps Many H (None) /hpf Urine Bacteria Few H (None) /hpf 02/21/23 Range/Units 05:11 WBC (3.8-10.6) k/uL Plt Count (150-450) k/uL Neutrophils # (1.3-7.7) k/uL Lymphocytes # (1.0-4.8) k/uL BUN (9-20) mg/dL Creatinine 1.37 H (0.66-1.25) mg/dL Glucose (74-99) mg/dL Urine Protein (Negative) Urine Blood (Negative) Ur Leukocyte Esterase (Negative) Urine RBC (0-5) /hpf Urine WBC (0-5) /hpf Urine WBC Clumps (None) /hpf Urine Bacteria (None) /hpf Diabetes panel 02/20/23 02/21/23 Range/Units 12:36 05:11 Sodium 139 (137-145) mmol/L Potassium 5.0 (3.5-5.1) mmol/L Chloride 102 (98-107) mmol/L Carbon Dioxide 25 (22-30) mmol/L BUN 39 H (9-20) mg/dL Creatinine 1.63 H 1.37 H (0.66-1.25) mg/dL Glucose 179 H (74-99) mg/dL Calcium 9.7 (8.4-10.2) mg/dL AST 28 (17-59) U/L ALT 32 (4-49) U/L Alkaline Phosphatase 56 (38-126) U/L Total Protein 7.5 (6.3-8.2) g/dL Albumin 4.3 (3.5-5.0) g/dL Calcium panel 02/20/23 Range/Units 12:36 Calcium 9.7 (8.4-10.2) mg/dL Albumin 4.3 (3.5-5.0) g/dL Pituitary panel 02/20/23 02/21/23 Range/Units 12:36 05:11 Sodium 139 (137-145) mmol/L Potassium 5.0 (3.5-5.1) mmol/L Chloride 102 (98-107) mmol/L Carbon Dioxide 25 (22-30) mmol/L BUN 39 H (9-20) mg/dL Creatinine 1.63 H 1.37 H (0.66-1.25) mg/dL Glucose 179 H (74-99) mg/dL Calcium 9.7 (8.4-10.2) mg/dL Adrenal panel 02/20/23 02/21/23 Range/Units 12:36 05:11 Sodium 139 (137-145) mmol/L Potassium 5.0 (3.5-5.1) mmol/L Chloride 102 (98-107) mmol/L Carbon Dioxide 25 (22-30) mmol/L BUN 39 H (9-20) mg/dL Creatinine 1.63 H 1.37 H (0.66-1.25) mg/dL Glucose 179 H (74-99) mg/dL Calcium 9.7 (8.4-10.2) mg/dL Total Bilirubin 0.5 (0.2-1.3) mg/dL AST 28 (17-59) U/L ALT 32 (4-49) U/L Alkaline Phosphatase 56 (38-126) U/L Total Protein 7.5 (6.3-8.2) g/dL Albumin 4.3 (3.5-5.0) g/dL - Imaging CT scan - abdomen: report reviewed, image reviewed Assessment and Plan Assessment: Review of the CT scan shows mild left renal pelvic fullness, mild left renal atrophy, and a right perivesical fluid collection which may represent a bladder diverticulum. (1) UTI (urinary tract infection) Current Visit: Yes Status: Acute Code(s): N39.0 - URINARY TRACT INFECTION, SITE NOT SPECIFIED SNOMED Code(s): 68995681 (2) Neurogenic bladder Current Visit: Yes Status: Acute Code(s): N31.9 - NEUROMUSCULAR DYSFUNCTION OF BLADDER, UNSPECIFIED SNOMED Code(s): 724508528 Plan: Continue IV antibiotics, pending the culture results. He should undergo cystoscopy at some point to evaluate the bladder abnormalities seen on CT scan. The left hydronephrosis is minimal and I do not believe that this warrants ureteral stent placement, and less he fails to respond to antibiotic therapy. Time with Patient: Greater than 30
[2023-02-21] MEDS ORDERED: ATORVASTATIN 10 MG TAB PO SCH (21:00)
--- NOTE | 2023-02-21 21:51 | P.CONS ---
History of Present Illness - Reason for Consult Consult date: 02/21/23 MRSA UTI Requesting physician: Juan Marsh - Chief Complaint Feeling weak and cloudy urine x few days - History of Present Illness Patient is a 62-year-old male with a past medical history significant for MS patient did have a urinary retention requiring intermittent self- catheterization apparently recently has been diagnosed with a UTI with a urine culture done on 01/27/2023 did grew positive for MRSA the patient was initially treated with the Keflex subsequently but it was switched over to Macrobid and recently switched over to Bactrim DS patient now presenting to the hospital yesterday afternoon for evaluation of feeling sick and urine has becoming more cloudy patient denies having any suprapubic or flank pain and no high-grade fever at home on presentation to hospital he did have a low-grade fever of 99.4 subsequent spike 100.9 F patient did have a white count of 25.4 with a left shift BUN/creatinine has been mildly elevated liver enzymes are normal urine has been positive with large leukocyte esterase more than 182 WBC patient was starte d on vancomycin and Rocephin apparently the patient started vomiting after he has been given a dose of vancomycin infectious disease has been consulted for further management patient currently denies having any abdominal pain patient did have a bowel movement and has been passing gas Review of Systems Positive point and negatives has been mentioned in the HPI, complete review of systems was performed and all other systems are negative Past Medical History Past Medical History: Coronary Artery Disease (CAD), Heart Failure, Hypertension Additional Past Medical History / Comment(s): MS. UTI History of Any Multi-Drug Resistant Organisms: MRSA Year Discovered:: 01/27/23 MDRO Source:: Urine Past Surgical History: No Surgical Hx Reported Additional Past Surgical History / Comment(s): Judd. Past Anesthesia/Blood Transfusion Reactions: No Reported Reaction Past Psychological History: No Psychological Hx Reported Smoking Status: Never smoker Past Alcohol Use History: None Reported Past Drug Use History: None Reported Medications and Allergies Home Medications Medication Instructions Recorded Confirmed Type Tamsulosin [Flomax] 0.4 mg PO DAILY #14 cap 01/08/23 02/20/23 Rx Ascorbic Acid [Vitamin C chew] 500 mg PO DAILY 02/20/23 02/20/23 History Atorvastatin [Lipitor] 10 mg PO HS 02/20/23 02/20/23 History Cholecalciferol [Vitamin D3 (25 25 mcg PO DAILY 02/20/23 02/20/23 History Mcg = 1000 Iu)] Dalfampridine [Dalfampridine ER] 10 mg PO Q12H 02/20/23 02/20/23 History Furosemide [Lasix] 20 mg PO DAILY 02/20/23 02/20/23 History polyethylene glycoL 3350 [Miralax] 17 gm PO DAILY packet 02/23/23 Rx Allergies Allergy/AdvReac Type Severity Reaction Status Date / Time No Known Allergies Allergy Verified 02/20/23 15:48 Physical Exam Vitals: Vital Signs Temp Pulse Pulse Resp BP BP Pulse Ox 02/21/23 07:30 99.2 F 91 18 108/63 92 L 02/21/23 01:21 99.6 F 97 15 111/51 93 L 02/20/23 22:35 98.9 F 02/20/23 19:13 100.9 F H 109 H 15 98/59 92 L 02/20/23 18:36 98.9 F 115 H 16 116/65 91 L 02/20/23 17:33 98.7 F 02/20/23 17:00 114 H 20 119/79 95 02/20/23 16:00 100 24 02/20/23 15:00 19 02/20/23 14:00 24 02/20/23 13:00 98 20 118/92 02/20/23 12:00 102 H 24 127/72 92 L 02/20/23 11:57 93 L Intake and Output 02/20/23 02/21/23 02/21/23 22:59 06:59 14:59 Output Total 500 Balance -500 Output: Urine 500 Other: Voiding Method Indwelling Catheter Indwelling Catheter # Voids 1 Weight 85.5 kg EGENERAL DESCRIPTION: Middle-aged male lying in bed, no distress. No tachypnea or accessory muscle of respiration use. HEENT: Shows Pallor , no scleral icterus. Oral mucous membrane is dry. No pharyngeal erythema or thrush NECK: Trachea central, no thyromegaly. LUNGS: Unlabored breathing. Clear to auscultation anteriorly. No wheeze or crackle. HEART: S1, S2, regular rate and rhythm. No loud murmur ABDOMEN: Soft, mild distention but no tenderness EXTREMITIES: No edema of feet. SKIN: No rash, no masses palpable. NEUROLOGICAL: The patient is awake, alert, oriented x3, mood and affect normal. Results CBC & Chem 7: 02/24/23 04:43 02/24/23 04:43 Labs: Abnormal Lab Results - Last 24 Hours (Table) 02/20/23 02/20/23 02/20/23 Range/Units 10:56 12:36 12:36 WBC 25.4 H (3.8-10.6) k/uL Plt Count 462 H (150-450) k/uL Neutrophils # 23.6 H (1.3-7.7) k/uL Lymphocytes # 0.6 L (1.0-4.8) k/uL BUN 39 H (9-20) mg/dL Creatinine 1.63 H (0.66-1.25) mg/dL Glucose 179 H (74-99) mg/dL Urine Protein 3+ H (Negative) Urine Blood Large H (Negative) Ur Leukocyte Esterase Large H (Negative) Urine RBC >182 H (0-5) /hpf Urine WBC >182 H (0-5) /hpf Urine WBC Clumps Many H (None) /hpf Urine Bacteria Few H (None) /hpf 02/21/23 Range/Units 05:11 WBC (3.8-10.6) k/uL Plt Count (150-450) k/uL Neutrophils # (1.3-7.7) k/uL Lymphocytes # (1.0-4.8) k/uL BUN (9-20) mg/dL Creatinine 1.37 H (0.66-1.25) mg/dL Glucose (74-99) mg/dL Urine Protein (Negative) Urine Blood (Negative) Ur Leukocyte Esterase (Negative) Urine RBC (0-5) /hpf Urine WBC (0-5) /hpf Urine WBC Clumps (None) /hpf Urine Bacteria (None) /hpf Assessment and Plan (1) UTI (urinary tract infection) Current Visit: Yes Status: Acute Code(s): N39.0 - URINARY TRACT INFECTION, SITE NOT SPECIFIED SNOMED Code(s): 81345372 Plan: 1patient presented to hospital with sepsis in this patient who did have a fever elevated white count predominantly urinary symptoms concerning for complicated UTI failing outpatient oral brachytherapy with a recent culture positive for MRSA could be the likely pathogen 2-patient did have episodes of vomiting and some abdominal distention possibly related to abdominal source rather than complication of vancomycin 3-we will wait for CT abdominal pelvis to be completed 4-discontinue vancomycin 5-start the patient on daptomycin while waiting for the culture to finalize We will follow on clinical condition and cultures to further adjust medication if needed Thank you for this consultation we will follow the patient along with you Time with Patient: Greater than 30
--- NOTE | 2023-02-21 23:04 | P.PN ---
Subjective Progress Note Date: 02/21/23 Pt on vancomycin, vomiting after medication infusion with stool coloration to vomit per nursing. His renal function is improved today. He denies fever, chills. Objective - Vital Signs Vital signs: Vital Signs Temp 98.5 F 02/21/23 19:49 Pulse 88 02/21/23 19:49 Resp 16 02/21/23 19:49 BP 118/72 02/21/23 19:49 Pulse Ox 95 02/21/23 19:49 FiO2 Intake & Output 02/21/23 02/21/23 02/22/23 06:59 18:59 06:59 Output Total 500 Balance -500 Output: Urine 500 Other: Voiding Method Indwelling Catheter Indwelling Catheter # Bowel Movements 1 - Exam Gen: elderly male in NAD CV: RRR, no murmur Lungs: CTAB Abd: distended, soft, tender suprapubic - Labs CBC & Chem 7: 02/20/23 12:36 02/21/23 05:11 Labs: Abnormal Lab Results - Last 24 Hours (Table) 02/21/23 Range/Units 05:11 Creatinine 1.37 H (0.66-1.25) mg/dL Assessment and Plan Assessment: Severe sepsis secondary to MRSA UTI Ileus TRUNG with ATN MS Urinary retention Plan: Continue with IV abx per ID, start miralax, order CT abd/pelvis wo contrast and consult to surgery. Follow blood counts and cultures
[2023-02-21] MEDS: LACTULOSE 20 GM/30 ML CUP PO SCH (23:21)
[2023-02-22] MEDS: METOCLOPRAMIDE 5 MG/ML 2 ML VIAL IVP SCH ×3 (05:08→17:58)
[2023-02-22 05:54] LABS: Basophils % (A) 0 %; Eosinophils # (A) 0.1 k/uL (0-0.7); Eosinophils % (A) 1 %; HCT 44.9 % (39.0-53.0); HGB 14.3 gm/dL (13.0-17.5); Lymphocytes % (A) 6 %; MCH 31.3 pg (25.0-35.0); MCHC 31.9 g/dL (31.0-37.0); MCV 98.1 fL (80.0-100.0); Mean Platelet Volume 7.4; Monocytes # (A) 0.6 k/uL (0-1.0); Monocytes % (A) 4 %; Neutrophils # (A) 15.4 k/uL (1.3-7.7); Neutrophils % (A) 89 %; Platelet Count 397 k/uL (150-450); RBC 4.58 m/uL (4.30-5.90); RDW 13.3 % (11.5-15.5); WBC 17.3 k/uL (3.8-10.6)
[2023-02-22] MEDS: HEPARIN SODIUM,PORCINE/PF 5,000 UNIT/0.5 ML SYRINGE SQ SCH ×2 (09:18→17:47)
[2023-02-22] MEDS: polyethylene glycoL 3350 17 GM POWD.PACK PO SCH (09:19)
[2023-02-22] MEDS: DAPTOmycin 350 MG in SODIUM CHLORIDE 0.9% 50 ML IVPB SCH (09:19)
[2023-02-22] MEDS: TAMSULOSIN 0.4 MG CAP.ER.24H PO SCH (09:19)
[2023-02-22] MEDS: LACTULOSE 20 GM/30 ML CUP PO SCH ×3 (09:19→21:25)
--- NOTE | 2023-02-22 11:40 | P.PN ---
Subjective Progress Note Date: 02/22/23 CHIEF COMPLAINT: Ileus, constipation HISTORY OF PRESENT ILLNESS: Patient sitting in bedside chair. Abdomen remains distended. Denies any abdominal pain. Patient has been having some vomiting yesterday and again this morning. Also complains of 2 cups. He did have a good bowel movement yesterday and did have flatus. Enema was not given. Patient refused enema due to the large bowel movement. Patient had a bedside disimpaction by Dr. Kruger. Afebrile. WBC trending down from 25.4-17.3 HgB 14.3 platelets 397 creatinine 1.37 PHYSICAL EXAM: VITAL SIGNS: Reviewed. GENERAL: Well-developed in no acute distress. HEENT: No sclera icterus. Extraocular movements grossly intact. Moist buccal mucosa. Head is atraumatic, normocephalic. ABDOMEN: Distended. Nontender. Tympanic NEUROLOGIC: Alert and oriented. Cranial nerves II through XII grossly intact. ASSESSMENT: 1. Ileus likely due to UTI 2. Fecal impaction PLAN: -Due to vomiting will make patient nothing by mouth. Repeat abdominal x-ray -Encourage patient to ambulate -Continue laxatives -Continue antibiotics for UTI Physician Heating Unit Installer note has been reviewed by physician. Signing provider agrees with the documented findings, assessment, and plan of care. I have personally seen and examined the patient, reviewed the CARD CUTTER /PAs history, exam and MDM and agree with the assessment and plan as written. Based on total visit time, I have performed more than 50% of the visit. As above: Patient had a large bowel movement yesterday after digital rectal examination. He refused the soapsuds enema. This morning patient had episodes of vomiting 2. Abdominal x-rays show persistent constipation and gastric distention. He is now agreeable to have enema. Continue clear liquids. Objective - Vital Signs Vital signs: Vital Signs Temp 99.3 F 02/22/23 08:05 Pulse 83 02/22/23 08:05 Resp 18 02/22/23 08:05 BP 120/70 02/22/23 08:05 Pulse Ox 95 02/22/23 08:05 FiO2 Intake & Output 02/21/23 02/22/23 02/22/23 18:59 06:59 18:59 Output Total 1100 Balance -1100 Output: Urine 900 Emesis 200 Other: Voiding Method Indwelling Catheter Indwelling Catheter # Bowel Movements 1 - Labs CBC & Chem 7: 02/22/23 05:17 02/21/23 05:11 Labs: Abnormal Lab Results - Last 24 Hours (Table) 02/22/23 Range/Units 05:17 WBC 17.3 H (3.8-10.6) k/uL Neutrophils # 15.4 H (1.3-7.7) k/uL Microbiology - Last 24 Hours (Table) 02/20/23 13:45 Blood Culture - Preliminary Blood 02/20/23 14:00 Blood Culture - Preliminary Blood
--- NOTE | 2023-02-22 11:56 | XR ---
EXAMINATION TYPE: XR abdomen 2V DATE OF EXAM: 02/22/2023 COMPARISON: CT abdomen and pelvis 02/21/2023 HISTORY: Abdominal distention, fecal impaction follow up. TECHNIQUE: Supine and upright views of the abdomen was obtained with 3 mg. FINDINGS: Gaseous distention of the stomach. Gas-filled large bowel identified. No evidence for bowel obstructi on. No sizable air fluid levels identified. Stool is present within the rectum. There is no evidence for pneumoperitoneum. A few pelvic phleboliths. No acute osseous abnormality. Multilevel degenerative changes of the thorac ic lumbar spine. Levoscoliotic curvature of the thoracolumbar spine. IMPRESSION: Nonobstructive bowel gas pattern with gaseous distention of the stomach. Moderate rectal stool burden .
[2023-02-22] MEDS: SODIUM CHLORIDE 0.9% 1,000 ML IV ONE (12:56)
--- NOTE | 2023-02-22 14:23 | CDI ---
Documentation Clarification Form Date: 02/22/2023 01:52:41 PM From: Caitlin Penaloza RN, CCDS Admit Date: 02/20/2023 03:08:00 PM Patient Name: Albert Mahmood Visit Number: [id number] Discharge Date: ATTENTION: The Clinical Documentation Specialists (CDI) and [facility] Coding Staff appreciate your assistance in clarifying documentation. Please respond to the clarification below the line at the bottom and electronically sign. The CDI & [facility] Coding staff will review the response and follow-up if needed. Please note: Queries are made part of the Legal Health Record. If you have any questions, please contact the author of this message via ITS. Dr. Misbah Del Rio UTI is documented in the H/P and subsequent progress note and patient require self-catherization. Additional clarification regarding the etiology of the UTI is requested. History/Risk Factors: Coronary artery disease, Heart failure Hypertension, Multiple Sclerosis, UTI, neurogenic bladder Clinical Indicators: 62-year-old male with previous history of urinary tract infections and does self catherization 3-4 times a day believes he has another UTI. ER with foul-smelling urine. 02/20 VS: 101/67 107 99.4 96 02/20 Urinalysis: Ur Leukocyte Esterase Large, Urine WBC >182 02/20 Lab results: WBC 25.4, Neutrophils 23.6, BUN 39, and Cr 1.63 Treatment: Rocephin 1 GM IVPB, Q 24 HRS 02/20-02/21 Vancomycin 1,500 MG IVPB Q 24 HRS Once, (PTD Daptomycin 350MG IVPB Q 24 HRE 02/21-02/22 Flomax 0.4 MG PO Daily 02/21-02/22 Please clarify the etiology of the UTI, if known: [X ] Intermittent self-catheterization [ ] UTI not related to self-catheter [ ] Other condition, please specify [ ] Unable to determine (Template Last Revised: November 2020) ULISESD
[2023-02-22] MEDS: SIMETHICONE 40 MG/0.6 ML DROPS 2,000 MG/30 ML BOTTLE PO SCH ×3 (14:31→21:26)
[2023-02-22] MEDS: SODIUM CHLORIDE 0.9% 1,000 ML IV SCH (14:32)
--- NOTE | 2023-02-22 17:59 | P.PN ---
Subjective Progress Note Date: 02/22/23 Principal diagnosis: UTI, Neurogenic Bladder The patient is a 62-year-old white male with a neurogenic bladder secondary to multiple sclerosis. He was found to be in urinary retention and was started on CIC (intermittent self-catheterization 3-4x daily), and was advised to keep a previously scheduled appointment at the [facility] Department of Urology. He was treated for a MRSA UTI last month. He is now being treated for a UTI. He has a Ross catheter in place and expresses no complaints at this time. Specifically, he denies abdominal pain. He is afebrile. Blood cultures are pending. Objective - Vital Signs Vital signs: Vital Signs Temp 99.9 F H 02/22/23 14:26 Pulse 82 02/22/23 14:26 Resp 18 02/22/23 14:26 BP 147/73 02/22/23 14:26 Pulse Ox 94 L 02/22/23 14:26 FiO2 Intake & Output 02/21/23 02/22/23 02/22/23 18:59 06:59 18:59 Output Total 1100 Balance -1100 Output: Urine 900 Emesis 200 Other: Voiding Method Indwelling Catheter Indwelling Catheter Indwelling Catheter # Bowel Movements 1 - Constitutional General appearance: Present: average body habitus, no acute distress - Gastrointestinal Gastrointestinal Comment(s): Soft, non-tender, non-distended, no mass. - Psychiatric Psychiatric: Present: A&O x's 3 - Labs CBC & Chem 7: 02/22/23 05:17 02/21/23 05:11 Labs: Abnormal Lab Results - Last 24 Hours (Table) 02/22/23 Range/Units 05:17 WBC 17.3 H (3.8-10.6) k/uL Neutrophils # 15.4 H (1.3-7.7) k/uL Microbiology - Last 24 Hours (Table) 02/20/23 13:45 Blood Culture - Preliminary Blood 02/20/23 14:00 Blood Culture - Preliminary Blood Assessment and Plan Assessment: Review of the CT scan shows mild left renal pelvic fullness, mild left renal atrophy, and a right perivesical fluid collection which may represent a bladder diverticulum. He is currently receiving daptomycin for treatment of a UTI. (1) UTI (urinary tract infection) Current Visit: Yes Status: Acute Code(s): N39.0 - URINARY TRACT INFECTION, SITE NOT SPECIFIED SNOMED Code(s): 75583154 (2) Neurogenic bladder Current Visit: Yes Status: Acute Code(s): N31.9 - NEUROMUSCULAR DYSFUNCTION OF BLADDER, UNSPECIFIED SNOMED Code(s): 962538379 Plan: Continue Daptomycin, pending the culture results. He should undergo cystoscopy at some point to evaluate the bladder abnormalities seen on CT scan. The left hydronephrosis is minimal and I do not believe that this warrants ureteral stent placement, and less he fails to respond to antibiotic therapy. The patient is a vague historian and is unsure whether he does indeed have an appointment at [facility]. I attempted to contact his sister by phone but was unable to reach her.
--- NOTE | 2023-02-22 18:27 | P.PN ---
Subjective Progress Note Date: 02/22/23 CT of abdomen and pelvis performed yesterday, none decompressed 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 Denies abdominal pain Nausea resolved. Denies cramping chills or sweats. T-max. 99.3, WBC decreased to 17.3. Blood cultures pending. Objective - Vital Signs Vital signs: Vital Signs Temp 99.9 F H 02/22/23 14:26 Pulse 82 02/22/23 14:26 Resp 18 02/22/23 14:26 BP 147/73 02/22/23 14:26 Pulse Ox 94 L 02/22/23 14:26 FiO2 Intake & Output 02/21/23 02/22/23 02/22/23 18:59 06:59 18:59 Output Total 1100 Balance -1100 Output: Urine 900 Emesis 200 Other: Voiding Method Indwelling Catheter Indwelling Catheter Indwelling Catheter # Bowel Movements 1 - Exam Gen: elderly male in NAD CV: RRR, no murmur Lungs: CTAB Abd: distended, soft, tender suprapubic - Labs CBC & Chem 7: 02/22/23 05:17 02/21/23 05:11 Labs: Abnormal Lab Results - Last 24 Hours (Table) 02/22/23 Range/Units 05:17 WBC 17.3 H (3.8-10.6) k/uL Neutrophils # 15.4 H (1.3-7.7) k/uL Microbiology - Last 24 Hours (Table) 02/20/23 13:45 Blood Culture - Preliminary Blood 02/20/23 14:00 Blood Culture - Preliminary Blood Assessment and Plan Assessment: Severe sepsis secondary to MRSA UTI secondary to patient self catheterizing Ileus Fecal impaction TRUNG with ATN MS Urinary retention Plan: Continue on current medication regime ,monitoring and symptomatic treatment. Antibiotics as per ID. continue on laxatives. Repeat abdominal x- ray ordered. Close monitoring of blood counts, renal function and cultures. The impression and plan of care has been dictated as directed. : I performed a history and examination of this patient, discussed the same with the dictator. I agree with the dictator's note ,documented as a scribe. Any additional findings or plans will be noted.
--- NOTE | 2023-02-22 22:20 | P.PN ---
Subjective Progress Note Date: 02/22/23 Principal diagnosis: Urinary tract infection Patient is a 62-year-old male with a past medical history significant for MS patient did have a urinary retention requiring intermittent self- catheterization apparently recently has been diagnosed with a UTI with a urine culture done on 01/27/2023 did grew positive for MRSA , patient has been treated with the Macrobid and Bactrim without improvement presenting to the hospital with worsening symptoms. On today's evaluation that is 02/22/2023 patient remains to be afebrile he is breathing comfortably no further vomiting has been reported having abdominal distention no chest pain shortness of breath or cough Objective - Vital Signs Vital signs: Vital Signs Temp 99.3 F 02/22/23 08:05 Pulse 83 02/22/23 08:05 Resp 18 02/22/23 08:05 BP 120/70 02/22/23 08:05 Pulse Ox 95 02/22/23 08:05 FiO2 Intake & Output 02/21/23 02/22/23 02/22/23 18:59 06:59 18:59 Output Total 1100 Balance -1100 Output: Urine 900 Emesis 200 Other: Voiding Method Indwelling Catheter Indwelling Catheter Indwelling Catheter # Bowel Movements 1 - Exam GENERAL DESCRIPTION: Middle-age male up in the chair in no distress RESPIRATORY SYSTEM: Unlabored breathing , decreased breath sounds at bases HEART: S1 S2 regular rate and rhythm , ABDOMEN: Soft , mild distention but no tenderness EXTREMITIES: No edema feet - Labs CBC & Chem 7: 02/22/23 05:17 02/21/23 05:11 Labs: Abnormal Lab Results - Last 24 Hours (Table) 02/22/23 Range/Units 05:17 WBC 17.3 H (3.8-10.6) k/uL Neutrophils # 15.4 H (1.3-7.7) k/uL Microbiology - Last 24 Hours (Table) 02/20/23 13:45 Blood Culture - Preliminary Blood 02/20/23 14:00 Blood Culture - Preliminary Blood Assessment and Plan (1) UTI (urinary tract infection) Current Visit: Yes Status: Acute Code(s): N39.0 - URINARY TRACT INFECTION, SITE NOT SPECIFIED SNOMED Code(s): 25996988 Plan: 1patient presented to hospital with sepsis in this patient who did have a fever elevated white count predominantly urinary symptoms concerning for complicated UTI failing outpatient oral brachytherapy with a recent culture positive for MRSA could be the likely pathogen 2-patient did have episodes of vomiting and some abdominal distention possibly related to abdominal source CT of abdominal pelvis did shows evidence of fecal retention Gen. surgery has been consulted and followed the patient 3patient to continue the daptomycin while waiting for the cultures to finalize Time with Patient: Less than 30
[2023-02-23] MEDS: METOCLOPRAMIDE 5 MG/ML 2 ML VIAL IVP SCH ×5 (00:05→23:59)
[2023-02-23] MEDS: HEPARIN SODIUM,PORCINE/PF 5,000 UNIT/0.5 ML SYRINGE SQ SCH ×4 (00:05→23:59)
[2023-02-23 05:54] LABS: Basophils % (A) 0 %; Eosinophils # (A) 0.2 k/uL (0-0.7); Eosinophils % (A) 2 %; HCT 39.4 % (39.0-53.0); HGB 12.7 gm/dL (13.0-17.5); Lymphocytes # (A) 0.5 k/uL (1.0-4.8); Lymphocytes % (A) 5 %; MCH 31.7 pg (25.0-35.0); MCHC 32.2 g/dL (31.0-37.0); MCV 98.3 fL (80.0-100.0); Mean Platelet Volume 7.3; Monocytes # (A) 0.6 k/uL (0-1.0); Monocytes % (A) 6 %; Neutrophils % (A) 87 %; Platelet Count 275 k/uL (150-450); RBC 4.01 m/uL (4.30-5.90); RDW 12.8 % (11.5-15.5); WBC 10.3 k/uL (3.8-10.6)
[2023-02-23 06:09] LABS: African American GFR (CKD) 82 (>60 ml/min/1.73 sqM); Anion Gap 7 mmol/L; Blood Urea Nitrogen 33 mg/dL (9-20); Calcium 8.2 mg/dL (8.4-10.2); Carbon Dioxide 26 mmol/L (22-30); Chloride 106 mmol/L (98-107); Glucose 101 mg/dL (74-99); Non-African American GFR(CKD) 71 (>60 ml/min/1.73 sqM); Potassium 3.4 mmol/L (3.5-5.1); Sodium 139 mmol/L (137-145)
[2023-02-23] MEDS ORDERED: Potassium Replacement Protocol 1 EACH MISC MISCELLANE PRN (08:09)
[2023-02-23] MEDS: LACTULOSE 20 GM/30 ML CUP PO SCH ×3 (09:17→21:33)
[2023-02-23] MEDS: DAPTOmycin 350 MG in SODIUM CHLORIDE 0.9% 50 ML IVPB SCH (09:18)
[2023-02-23] MEDS: TAMSULOSIN 0.4 MG CAP.ER.24H PO SCH (09:19)
[2023-02-23] MEDS: polyethylene glycoL 3350 17 GM POWD.PACK PO SCH (09:19)
[2023-02-23] MEDS: SIMETHICONE 40 MG/0.6 ML DROPS 2,000 MG/30 ML BOTTLE PO SCH ×4 (09:20→21:34)
[2023-02-23] MEDS: SODIUM CHLORIDE 0.9% 1,000 ML IV SCH (09:27)
--- NOTE | 2023-02-23 12:34 | P.PN ---
Subjective Progress Note Date: 02/23/23 CHIEF COMPLAINT: Ileus, constipation HISTORY OF PRESENT ILLNESS: Patient is sitting up at bedside chair. He did have 4 bowel movements yesterday. He did receive the enema. He denies any abdominal pain. The vomiting has resolved. Patient did have low-grade temps of 99.7. WBC has normalized from 17-10.3 Hgb is 12.7 platelets 275 potassium is 3.4 creatinine 1.10 abdominal x-ray a nonobstructive bowel gas pattern with gaseous distention of the stomach. Moderate rectal stool burden PHYSICAL EXAM: VITAL SIGNS: Reviewed. GENERAL: Well-developed in no acute distress. HEENT: No sclera icterus. Extraocular movements grossly intact. Moist buccal mucosa. Head is atraumatic, normocephalic. ABDOMEN: Distended. Nontender. Tympanic NEUROLOGIC: Alert and oriented. Cranial nerves II through XII grossly intact. ASSESSMENT: 1. Ileus likely due to UTI 2. Fecal impaction 3. Gastric distention 4. Hypokalemia PLAN: -Continue clear liquid diet -Encourage patient to ambulate -Continue laxatives -Continue antibiotics for UTI -Medicine replacing potassium Physician Assisted Living Coordinator note has been reviewed by physician. Signing provider agrees with the documented findings, assessment, and plan of care. Patient states he feels well today. He remains distended on exam however. He did have bowel function with the enema yesterday. Abdominal x-rays yesterday with gastric distention. Will avoid carbonation. Continue stool softeners. Continue antibiotics. We will follow. Objective - Vital Signs Vital signs: Vital Signs Temp 99.7 F H 02/23/23 11:40 Pulse 76 02/23/23 11:40 Resp 18 02/23/23 11:40 BP 116/63 02/23/23 11:40 Pulse Ox 93 L 02/23/23 11:40 FiO2 Intake & Output 02/22/23 02/23/23 02/23/23 18:59 06:59 18:59 Intake Total 250 Output Total 775 700 Balance -775 -450 Intake: Oral 250 Output: Urine 775 700 Other: Voiding Method Indwelling Catheter Indwelling Catheter Indwelling Catheter # Bowel Movements 1 - Labs CBC & Chem 7: 02/23/23 05:40 02/23/23 05:40 Labs: Abnormal Lab Results - Last 24 Hours (Table) 02/23/23 02/23/23 02/23/23 Range/Units 05:40 05:40 05:40 RBC 4.01 L (4.30-5.90) m/uL Hgb 12.7 L (13.0-17.5) gm/dL Neutrophils # 9.0 H (1.3-7.7) k/uL Lymphocytes # 0.5 L (1.0-4.8) k/uL Potassium 3.4 L (3.5-5.1) mmol/L BUN 33 H (9-20) mg/dL Glucose 101 H (74-99) mg/dL Calcium 8.2 L (8.4-10.2) mg/dL Magnesium 2.6 H (1.6-2.3) mg/dL Microbiology - Last 24 Hours (Table) 02/20/23 13:45 Blood Culture - Preliminary Blood 02/20/23 14:00 Blood Culture - Preliminary Blood 02/20/23 10:56 Urine Culture - Final Urine,Voided Methicillin resist S. aureus
--- NOTE | 2023-02-23 14:42 | P.PN ---
Subjective Progress Note Date: 02/23/23 Principal diagnosis: Urinary tract infection Patient is a 62-year-old male with a past medical history significant for MS patient did have a urinary retention requiring intermittent self- catheterization apparently recently has been diagnosed with a UTI with a urine culture done on 01/27/2023 did grew positive for MRSA , patient has been treated with the Macrobid and Bactrim without improvement presenting to the hospital with worsening symptoms. On today's evaluation that is 02/23/2023 patient continues to be afebrile, the patient is breathing comfortably on room air, no further vomiting has been reported having abdominal distention no chest pain shortness of breath or cough Objective - Vital Signs Vital signs: Vital Signs Temp 99.7 F H 02/23/23 11:40 Pulse 76 02/23/23 11:40 Resp 18 02/23/23 11:40 BP 116/63 02/23/23 11:40 Pulse Ox 93 L 02/23/23 11:40 FiO2 Intake & Output 02/22/23 02/23/23 02/23/23 18:59 06:59 18:59 Intake Total 250 Output Total 775 700 Balance -775 -450 Intake: Oral 250 Output: Urine 775 700 Other: Voiding Method Indwelling Catheter Indwelling Catheter Indwelling Catheter # Bowel Movements 1 - Exam GENERAL DESCRIPTION: Middle-age male up in the chair in no distress RESPIRATORY SYSTEM: Unlabored breathing , decreased breath sounds at bases HEART: S1 S2 regular rate and rhythm , ABDOMEN: Soft , mild distention but no tenderness EXTREMITIES: No edema feet - Labs CBC & Chem 7: 02/23/23 05:40 02/23/23 05:40 Labs: Abnormal Lab Results - Last 24 Hours (Table) 02/23/23 02/23/23 02/23/23 Range/Units 05:40 05:40 05:40 RBC 4.01 L (4.30-5.90) m/uL Hgb 12.7 L (13.0-17.5) gm/dL Neutrophils # 9.0 H (1.3-7.7) k/uL Lymphocytes # 0.5 L (1.0-4.8) k/uL Potassium 3.4 L (3.5-5.1) mmol/L BUN 33 H (9-20) mg/dL Glucose 101 H (74-99) mg/dL Calcium 8.2 L (8.4-10.2) mg/dL Magnesium 2.6 H (1.6-2.3) mg/dL Microbiology - Last 24 Hours (Table) 02/20/23 13:45 Blood Culture - Preliminary Blood 02/20/23 14:00 Blood Culture - Preliminary Blood 02/20/23 10:56 Urine Culture - Final Urine,Voided Methicillin resist S. aureus Assessment and Plan (1) UTI (urinary tract infection) Current Visit: Yes Status: Acute Code(s): N39.0 - URINARY TRACT INFECTION, SITE NOT SPECIFIED SNOMED Code(s): 88604546 Plan: 1patient presented to hospital with sepsis in this patient who did have a fever elevated white count predominantly urinary symptoms concerning for complicated UTI failing outpatient oral brachytherapy with a recent culture positive for MRSA could be the likely pathogen 2-patient did have episodes of vomiting and some abdominal distention possibly related to abdominal source CT of abdominal pelvis did shows evidence of fecal retention Gen. surgery has been consulted and followed the patient 3patient urine culture have been finalized with MRSA that is resistant to Bactrim DS the patient was on we will continue the patient on daptomycin while inpatient finishing therapy with oral Zyvox Time with Patient: Less than 30
--- NOTE | 2023-02-23 16:11 | P.DS ---
Providers Date of admission: 02/20/23 15:08 Expected date of discharge: 02/23/23 Attending physician: Misbah Del Rio MD Consults: 02/20/23 19:29 Consult Physician Routine Consulting Provider: Carrillo Ohara Consult Reason/Comments: chronic UTI, self cath at home Do you want consulting provider notified?: Yes 02/21/23 01:52 Consult Physician Routine Consulting Provider: Shant Oviedo Consult Reason/Comments: MRSA UTI Do you want consulting provider notified?: Yes, Notify in am 02/21/23 11:47 Consult Physician Routine Consulting Provider: Sammy Kruger Consult Reason/Comments: frequent stool like vomiting Do you want consulting provider notified?: Yes Primary care physician: Elle Guadalupe Hospital Course: Final Diagnoses: Severe sepsis secondary to MRSA UTI secondary to patient self catheterizing Ileus Fecal impaction TRUNG with ATN MS Urinary retention Hospital course:CT of abdomen and pelvis performed yesterday, none decompressed 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 Denies abdominal pain Nausea resolved. Denies cramping chills or sweats. T- max. 99.3, WBC decreased to 17.3. Blood cultures pending. Afebrile, abdominal distention improving. Multiple bowel movements yesterday. No further emesis. Denies abdominal pain. Abdominal x-ray reported nonobstructive bowel gas pattern with gaseous distention of the stomach, moderate rectal stool burden. Urine culture reporting MRSA, resistant to Bactrim DS, maintained on daptomycin as per ID. T-max 99.8, WBC within normal limits. Receiving potassium supplements. Creatinine down to 1.1. Significant clinical improvement. Patient will be discharged home today pending final DC recommendations and clearance per infectious disease and general surgery. The impression and plan of care has been dictated as directed. : I performed a history and examination of this patient, discussed the same with the dictator. I agree with the dictator's note ,documented as a scribe. Any additional findings or plans will be noted. Patient Condition at Discharge: Stable Plan - Discharge Summary Discharge Rx Participant: Yes New Discharge Prescriptions: New polyethylene glycoL 3350 [Miralax] 17 gm PO DAILY packet Continue Tamsulosin [Flomax] 0.4 mg PO DAILY #14 cap Ascorbic Acid [Vitamin C chew] 500 mg PO DAILY Furosemide [Lasix] 20 mg PO DAILY Dalfampridine [Dalfampridine ER] 10 mg PO Q12H Cholecalciferol [Vitamin D3 (25 Mcg = 1000 Iu)] 25 mcg PO DAILY Atorvastatin [Lipitor] 10 mg PO HS Discontinued lisinopriL [Zestril] 5 mg PO DAILY Discharge Medication List Tamsulosin [Flomax] 0.4 mg PO DAILY #14 cap 01/08/23 [Rx] Ascorbic Acid [Vitamin C chew] 500 mg PO DAILY 02/20/23 [History] Atorvastatin [Lipitor] 10 mg PO HS 02/20/23 [History] Cholecalciferol [Vitamin D3 (25 Mcg = 1000 Iu)] 25 mcg PO DAILY 02/20/23 [History] Dalfampridine [Dalfampridine ER] 10 mg PO Q12H 02/20/23 [History] Furosemide [Lasix] 20 mg PO DAILY 02/20/23 [History] polyethylene glycoL 3350 [Miralax] 17 gm PO DAILY packet 02/23/23 [Rx] Follow up Appointment(s)/Referral(s): Elle Guadalupe DO [Primary Care Provider] - 03/02/23 10:45 am Discharge/Stand Alone Forms: Who Do I Call?, Assisted Living Facilities, Community Resources, Help In The Home, Personal Foreign Language Instructor
[2023-02-24 06:18] LABS: Basophils % (A) 0 %; Eosinophils # (A) 0.5 k/uL (0-0.7); Eosinophils % (A) 6 %; HCT 37.5 % (39.0-53.0); Lymphocytes # (A) 1.4 k/uL (1.0-4.8); Lymphocytes % (A) 17 %; MCH 31.3 pg (25.0-35.0); MCV 97.9 fL (80.0-100.0); Mean Platelet Volume 7.9; Monocytes # (A) 0.9 k/uL (0-1.0); Monocytes % (A) 11 %; Neutrophils # (A) 5.2 k/uL (1.3-7.7); Neutrophils % (A) 64 %; Platelet Count 310 k/uL (150-450); RBC 3.83 m/uL (4.30-5.90); RDW 12.8 % (11.5-15.5)
[2023-02-24 06:26] LABS: African American GFR (CKD) 82 (>60 ml/min/1.73 sqM); Anion Gap 8 mmol/L; Blood Urea Nitrogen 28 mg/dL (9-20); Calcium 7.8 mg/dL (8.4-10.2); Carbon Dioxide 23 mmol/L (22-30); Chloride 107 mmol/L (98-107); Glucose 91 mg/dL (74-99); Non-African American GFR(CKD) 71 (>60 ml/min/1.73 sqM); Potassium 3.3 mmol/L (3.5-5.1); Sodium 138 mmol/L (137-145)
[2023-02-24] MEDS: METOCLOPRAMIDE 5 MG/ML 2 ML VIAL IVP SCH ×4 (06:30→23:56)
[2023-02-24] MEDS: SODIUM CHLORIDE 0.9% 1,000 ML IV SCH (06:32)
--- NOTE | 2023-02-24 08:09 | XR ---
EXAMINATION TYPE: XR abdomen 2V DATE OF EXAM: 02/24/2023 COMPARISON: Abdominal radiograph 02/22/2023, CT abdomen pelvis 02/21/2023 HISTORY: Gastric distention, ileus TECHNIQUE: Upright and supine images of the abdomen was obtained. FINDINGS: Decreased distention of the stomach from prior examination. Continued gas-filled dilatation of the co milagro measuring up to 6.8 cm. Gas is identified within the rectum. Few pelvic phleboliths. No acute oss eous abnormality. The visualized lung bases are clear. No convincing evidence for pneumoperitoneum. IMPRESSION: Improved gastric distention with continued ileus.
[2023-02-24] MEDS: TAMSULOSIN 0.4 MG CAP.ER.24H PO SCH (08:49)
[2023-02-24] MEDS: HEPARIN SODIUM,PORCINE/PF 5,000 UNIT/0.5 ML SYRINGE SQ SCH ×3 (08:49→23:55)
[2023-02-24] MEDS: polyethylene glycoL 3350 17 GM POWD.PACK PO SCH (08:49)
[2023-02-24] MEDS: SIMETHICONE 40 MG/0.6 ML DROPS 2,000 MG/30 ML BOTTLE PO SCH ×4 (08:49→23:58)
[2023-02-24] MEDS: DAPTOmycin 350 MG in SODIUM CHLORIDE 0.9% 50 ML IVPB SCH (08:49)
[2023-02-24] MEDS: LACTULOSE 20 GM/30 ML CUP PO SCH ×3 (08:49→20:42)
[2023-02-24] MEDS ORDERED: Potassium Replacement Protocol 1 EACH MISC MISCELLANE PRN ×2 (10:44→12:11)
[2023-02-24] MEDS: POTASSIUM CHLORIDE ER 20 MEQ TAB.ER PO SCH ×2 (11:21→12:18)
--- NOTE | 2023-02-24 11:34 | P.PN ---
Subjective Progress Note Date: 02/24/23 CHIEF COMPLAINT: Ileus, constipation HISTORY OF PRESENT ILLNESS: Patient is sitting up at bedside chair. His abdomen appears less distended. He did have 3 liquidy bowel movements yesterday. Denies any nausea or vomiting. He does report belching. Tolerating clear liquids. Abdominal x-ray shows improved gastric distention with continued ileus. Low-grade temps 99. WBCs 8.0 hgb 12.0 platelets 310 potassium 3.3 and being replaced PHYSICAL EXAM: VITAL SIGNS: Reviewed. GENERAL: Well-developed in no acute distress. HEENT: No sclera icterus. Extraocular movements grossly intact. Moist buccal mucosa. Head is atraumatic, normocephalic. ABDOMEN: Distended. Nontender. Tympanic NEUROLOGIC: Alert and oriented. Cranial nerves II through XII grossly intact. ASSESSMENT: 1. Ileus likely due to UTI 2. Fecal impaction 3. Gastric distention improved 4. Hypokalemia PLAN: -Advance diet to full liquids diet with no carbonation -Encourage patient to ambulate -Continue laxatives -Continue antibiotics for UTI -Medicine replacing potassium Physician Split Leather Mosser note has been reviewed by physician. Signing provider agrees with the documented findings, assessment, and plan of care. I have personally seen and examined the patient, reviewed the MANUFACTURING PROCESS ENGINEER /PAs history, exam and MDM and agree with the assessment and plan as written. Based on total visit time, I have performed more than 50% of the visit. As above: Patient is moving his bowels better. Abdominal x-rays show some improvement. On exam however remains somewhat distended. Keep on fulls for now. Increase activity as tolerated. Objective - Vital Signs Vital signs: Vital Signs Temp 98.7 F 02/24/23 07:25 Pulse 67 02/24/23 07:25 Resp 18 02/24/23 07:25 BP 114/62 02/24/23 07:25 Pulse Ox 97 02/24/23 07:25 FiO2 Intake & Output 02/23/23 02/24/23 02/24/23 18:59 06:59 18:59 Intake Total 500 Output Total 700 300 Balance -700 200 Intake: Oral 500 Output: Urine 700 300 Other: Voiding Method Indwelling Catheter Indwelling Catheter Indwelling Catheter # Bowel Movements 1 1 - Labs CBC & Chem 7: 02/24/23 04:43 02/24/23 04:43 Labs: Abnormal Lab Results - Last 24 Hours (Table) 02/24/23 02/24/23 Range/Units 04:43 04:43 RBC 3.83 L (4.30-5.90) m/uL Hgb 12.0 L (13.0-17.5) gm/dL Hct 37.5 L (39.0-53.0) % Potassium 3.3 L (3.5-5.1) mmol/L BUN 28 H (9-20) mg/dL Calcium 7.8 L (8.4-10.2) mg/dL Microbiology - Last 24 Hours (Table) 02/20/23 13:45 Blood Culture - Preliminary Blood 02/20/23 14:00 Blood Culture - Preliminary Blood
--- NOTE | 2023-02-24 12:24 | P.PN ---
Subjective Progress Note Date: 02/24/23 CT of abdomen and pelvis performed yesterday, none decompressed 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 Denies abdominal pain Nausea resolved. Denies cramping chills or sweats. T-max. 99.3, WBC decreased to 17.3. Blood cultures pending. 02/24/2023 Maintained on daptomycin, laxatives. Three loose bowel movements yesterday. Tolerating clear liquid diet, denies nausea, vomiting. Abdomen less distended. T-max 99.7, WBC within normal limits. Receiving potassium replacement for potassium of 3.3. Repeat abdomen x-ray completed, reporting improvement gastric distention with continued ileus. Objective - Vital Signs Vital signs: Vital Signs Temp 98.2 F 02/24/23 12:03 Pulse 68 02/24/23 12:03 Resp 17 02/24/23 12:03 BP 143/79 02/24/23 12:03 Pulse Ox 93 L 02/24/23 12:03 FiO2 Intake & Output 02/23/23 02/24/23 02/24/23 18:59 06:59 18:59 Intake Total 500 Output Total 700 300 750 Balance -700 200 -750 Intake: Oral 500 Output: Urine 700 300 750 Other: Voiding Method Indwelling Catheter Indwelling Catheter Indwelling Catheter # Bowel Movements 1 1 1 - Exam Gen: elderly male in NAD CV: RRR, no murmur Lungs: CTAB Abd: distended, soft, nontender - Labs CBC & Chem 7: 02/24/23 04:43 02/24/23 04:43 Labs: Abnormal Lab Results - Last 24 Hours (Table) 02/24/23 02/24/23 Range/Units 04:43 04:43 RBC 3.83 L (4.30-5.90) m/uL Hgb 12.0 L (13.0-17.5) gm/dL Hct 37.5 L (39.0-53.0) % Potassium 3.3 L (3.5-5.1) mmol/L BUN 28 H (9-20) mg/dL Calcium 7.8 L (8.4-10.2) mg/dL Microbiology - Last 24 Hours (Table) 02/20/23 13:45 Blood Culture - Preliminary Blood 02/20/23 14:00 Blood Culture - Preliminary Blood Assessment and Plan Assessment: Severe sepsis secondary to MRSA UTI secondary to patient self catheterizing Ileus Fecal impaction TRUNG with ATN MS Urinary retention Hypokalemia Plan: Continue on current medication regime ,monitoring and symptomatic treatment. Potassium replacement as ordered. Antibiotics as per ID. maintain laxatives. Diet advancement as per surgery. Close monitoring of electrolytes, renal function and final blood cultures. Discharge planning in progress pending final DC recommendations and clearance per surgery. The impression and plan of care has been dictated as directed. : I performed a history and examination of this patient, discussed the same with the dictator. I agree with the dictator's note ,documented as a scribe. Any additional findings or plans will be noted.
[2023-02-24] MEDS: PANTOPRAZOLE 40 MG/10 ML VIAL IVP SCH (13:09)
--- NOTE | 2023-02-24 15:52 | P.PN ---
Subjective Progress Note Date: 02/24/23 Principal diagnosis: Urinary tract infection Patient is a 62-year-old male with a past medical history significant for MS patient did have a urinary retention requiring intermittent self- catheterization apparently recently has been diagnosed with a UTI with a urine culture done on 01/27/2023 did grew positive for MRSA , patient has been treated with the Macrobid and Bactrim without improvement presenting to the hospital with worsening symptoms. On today's evaluation that is 02/24/2023 patient remains to be afebrile, the patient is breathing comfortably on room air, patient denies having any nausea no vomiting has been reported no abdominal pain no chest pain shortness breath or cough Objective - Vital Signs Vital signs: Vital Signs Temp 98.7 F 02/24/23 07:25 Pulse 67 02/24/23 07:25 Resp 18 02/24/23 07:25 BP 114/62 02/24/23 07:25 Pulse Ox 97 02/24/23 07:25 FiO2 Intake & Output 02/23/23 02/24/23 02/24/23 18:59 06:59 18:59 Intake Total 500 Output Total 700 300 Balance -700 200 Intake: Oral 500 Output: Urine 700 300 Other: Voiding Method Indwelling Catheter Indwelling Catheter Indwelling Catheter # Bowel Movements 1 1 - Exam GENERAL DESCRIPTION: Middle-age male up in the chair in no distress RESPIRATORY SYSTEM: Unlabored breathing , decreased breath sounds at bases HEART: S1 S2 regular rate and rhythm , ABDOMEN: Soft , mild distention but no tenderness EXTREMITIES: No edema feet - Labs CBC & Chem 7: 02/24/23 04:43 02/24/23 04:43 Labs: Abnormal Lab Results - Last 24 Hours (Table) 02/24/23 02/24/23 Range/Units 04:43 04:43 RBC 3.83 L (4.30-5.90) m/uL Hgb 12.0 L (13.0-17.5) gm/dL Hct 37.5 L (39.0-53.0) % Potassium 3.3 L (3.5-5.1) mmol/L BUN 28 H (9-20) mg/dL Calcium 7.8 L (8.4-10.2) mg/dL Microbiology - Last 24 Hours (Table) 02/20/23 13:45 Blood Culture - Preliminary Blood 02/20/23 14:00 Blood Culture - Preliminary Blood Assessment and Plan (1) UTI (urinary tract infection) Current Visit: Yes Status: Acute Code(s): N39.0 - URINARY TRACT INFECTION, SITE NOT SPECIFIED SNOMED Code(s): 31657674 Plan: 1patient presented to hospital with sepsis in this patient who did have a fever elevated white count predominantly urinary symptoms concerning for complicated UTI failing outpatient oral brachytherapy with a recent culture positive for MRSA could be the likely pathogen 2-patient did have episodes of vomiting and some abdominal distention possibly related to abdominal source CT of abdominal pelvis did shows evidence of fecal retention Gen. surgery has been consulted and followed the patient 3patient urine culture have been finalized with MRSA that is resistant to Bactrim DS 4- the patient will continue on daptomycin while inpatient finishing therapy with oral Zyvox 600 mg by mouth twice a day for 7 days Time with Patient: Less than 30
[2023-02-25 04:00] VITALS: PULSE 63
[2023-02-25] MEDS: SODIUM CHLORIDE 0.9% 1,000 ML IV SCH (06:11)
[2023-02-25] MEDS: METOCLOPRAMIDE 5 MG/ML 2 ML VIAL IVP SCH ×3 (06:12→17:25)
[2023-02-25] MEDS ORDERED: Potassium Replacement Protocol 1 EACH MISC MISCELLANE PRN (07:13)
[2023-02-25 07:56] VITALS: RESP 17; TEMP 98.4
[2023-02-25] MEDS: LACTULOSE 20 GM/30 ML CUP PO SCH ×2 (08:51→16:20)
[2023-02-25] MEDS: polyethylene glycoL 3350 17 GM POWD.PACK PO SCH (08:51)
[2023-02-25] MEDS: TAMSULOSIN 0.4 MG CAP.ER.24H PO SCH (08:52)
[2023-02-25] MEDS: HEPARIN SODIUM,PORCINE/PF 5,000 UNIT/0.5 ML SYRINGE SQ SCH ×2 (08:52→16:20)
[2023-02-25] MEDS: SIMETHICONE 40 MG/0.6 ML DROPS 2,000 MG/30 ML BOTTLE PO SCH ×3 (08:52→17:26)
[2023-02-25] MEDS: POTASSIUM CHLORIDE ER 20 MEQ TAB.ER PO SCH ×2 (08:52→10:31)
[2023-02-25] MEDS: PANTOPRAZOLE 40 MG/10 ML VIAL IVP SCH (08:52)
[2023-02-25] MEDS: DAPTOmycin 350 MG in SODIUM CHLORIDE 0.9% 50 ML IVPB SCH (08:52)
--- NOTE | 2023-02-25 10:52 | P.PN ---
Subjective Progress Note Date: 02/25/23 CHIEF COMPLAINT: Ileus, constipation HISTORY OF PRESENT ILLNESS: Patient is sitting up at bedside chair. He reports feeling better. His abdomen is softer, but still distended. He did have a bowel movement last night. He is tolerating full liquids. He denies any nausea or vomiting. Afebrile. WBC 8.0 potassium 3.4 PHYSICAL EXAM: VITAL SIGNS: Reviewed. GENERAL: Well-developed in no acute distress. HEENT: No sclera icterus. Extraocular movements grossly intact. Moist buccal mucosa. Head is atraumatic, normocephalic. ABDOMEN: Distended. But softer. Nontender. Tympanic NEUROLOGIC: Alert and oriented. Cranial nerves II through XII grossly intact. ASSESSMENT: 1. Ileus likely due to UTI 2. Fecal impaction 3. Gastric distention improved 4. Hypokalemia PLAN: -Diet advanced to dysphagia chopped -Encourage patient to ambulate -Continue laxatives -Continue Reglan -Continue antibiotics for UTI -Medicine replacing potassium Physician Biopharmaceutical Rep note has been reviewed by physician. Signing provider agrees with the documented findings, assessment, and plan of care. I have personally seen and examined the patient, reviewed the WARP BLEACHING VAT TENDER /PAs history, exam and MDM and agree with the assessment and plan as written. Based on total visit time, I have performed more than 50% of the visit. As above: Patient doing better today. No abdominal pain. Less distended. He did have a bowel movement last night. Advance diet. Continue antibiotics for urinary infection. Objective - Vital Signs Vital signs: Vital Signs Temp 98.4 F 02/25/23 07:35 Pulse 63 02/25/23 07:35 Resp 17 02/25/23 07:35 BP 131/74 02/25/23 07:35 Pulse Ox 93 L 02/25/23 07:35 FiO2 Intake & Output 02/24/23 02/25/23 02/25/23 18:59 06:59 18:59 Output Total 1150 350 Balance -1150 -350 Output: Urine 1150 350 Other: Voiding Method Indwelling Catheter Indwelling Catheter Indwelling Catheter # Bowel Movements 1 - Labs CBC & Chem 7: 02/24/23 04:43 02/25/23 05:51 Labs: Abnormal Lab Results - Last 24 Hours (Table) 02/25/23 Range/Units 05:51 Potassium 3.4 L (3.5-5.1) mmol/L
[2023-02-25 11:56] VITALS: BP 122/65
[2023-02-25 12:56] VITALS: BMI 27.0
--- NOTE | 2023-02-25 15:17 | P.DS ---
Providers Date of admission: 02/20/23 15:08 Expected date of discharge: 02/25/23 Attending physician: Misbah Del Rio MD Consults: 02/20/23 19:29 Consult Physician Routine Consulting Provider: Carrillo Ohara Consult Reason/Comments: chronic UTI, self cath at home Do you want consulting provider notified?: Yes 02/21/23 01:52 Consult Physician Routine Consulting Provider: Shant Oviedo Consult Reason/Comments: MRSA UTI Do you want consulting provider notified?: Yes, Notify in am 02/21/23 11:47 Consult Physician Routine Consulting Provider: Sammy Kruger Consult Reason/Comments: frequent stool like vomiting Do you want consulting provider notified?: Yes Primary care physician: Elle Guadaulpe Hospital Course: Pt a 62 yo M with hx MS, history of intermittent self catheterization, presented with fever, chills, nausea. CT of abdomen and pelvis performed, note decompressed 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 Denies abdominal pain Nausea resolved. Denies cramping chills or sweats. T-max. 99.3, WBC decreased to 17.3. Blood cultures pending. Urine culture positive for MRSA. 02/24/2023 Maintained on daptomycin, laxatives. Three loose bowel movements yesterday. Tolerating clear liquid diet, denies nausea, vomiting. Abdomen less distended. T-max 99.7, WBC within normal limits. Receiving potassium replacement for potassium of 3.3. Repeat abdomen x-ray completed, reporting improvement gastric distention with continued ileus. Pt evaluated by ID and recommended discharge on oral zyvox bid x7 days. His diet was advanced by surgery and pt discharged with miralax. Pt recommended to follow up with his PCP as an outpatient Patient Condition at Discharge: Stable Plan - Discharge Summary Discharge Rx Participant: Yes New Discharge Prescriptions: New polyethylene glycoL 3350 [Miralax] 17 gm PO DAILY packet Linezolid [Zyvox] 600 mg PO Q12H 7 Days #14 tab Continue Tamsulosin [Flomax] 0.4 mg PO DAILY #14 cap Ascorbic Acid [Vitamin C chew] 500 mg PO DAILY Furosemide [Lasix] 20 mg PO DAILY Dalfampridine [Dalfampridine ER] 10 mg PO Q12H Cholecalciferol [Vitamin D3 (25 Mcg = 1000 Iu)] 25 mcg PO DAILY Atorvastatin [Lipitor] 10 mg PO HS Discontinued lisinopriL [Zestril] 5 mg PO DAILY Discharge Medication List Tamsulosin [Flomax] 0.4 mg PO DAILY #14 cap 01/08/23 [Rx] Ascorbic Acid [Vitamin C chew] 500 mg PO DAILY 02/20/23 [History] Atorvastatin [Lipitor] 10 mg PO HS 02/20/23 [History] Cholecalciferol [Vitamin D3 (25 Mcg = 1000 Iu)] 25 mcg PO DAILY 02/20/23 [History] Dalfampridine [Dalfampridine ER] 10 mg PO Q12H 02/20/23 [History] Furosemide [Lasix] 20 mg PO DAILY 02/20/23 [History] polyethylene glycoL 3350 [Miralax] 17 gm PO DAILY packet 02/23/23 [Rx] Linezolid [Zyvox] 600 mg PO Q12H 7 Days #14 tab 02/25/23 [Rx] Follow up Appointment(s)/Referral(s): Elle Guadalupe DO [Primary Care Provider] - 03/02/23 10:45 am Discharge/Stand Alone Forms: Who Do I Call?, Assisted Living Facilities, Community Resources, Help In The Home, Personal Research Geologist Discharge Disposition: TRANSFER TO SNF/ECF
--- NOTE | 2023-02-25 15:43 | P.PN ---
Subjective Progress Note Date: 02/25/23 Principal diagnosis: Urinary tract infection Patient is a 62-year-old male with a past medical history significant for MS patient did have a urinary retention requiring intermittent self- catheterization apparently recently has been diagnosed with a UTI with a urine culture done on 01/27/2023 did grew positive for MRSA , patient has been treated with the Macrobid and Bactrim without improvement presenting to the hospital with worsening symptoms. On today's evaluation that is 02/25/2023 patient continues to be afebrile, the patient is breathing comfortably on room air, patient denies having any nausea no vomiting , patient has been tolerating his diet no abdominal pain no chest pain shortness of breath or cough Objective - Vital Signs Vital signs: Vital Signs Temp 98.4 F 02/25/23 07:35 Pulse 63 02/25/23 07:35 Resp 17 02/25/23 07:35 BP 131/74 02/25/23 07:35 Pulse Ox 93 L 02/25/23 07:35 FiO2 Intake & Output 02/24/23 02/25/23 02/25/23 18:59 06:59 18:59 Output Total 1150 350 Balance -1150 -350 Output: Urine 1150 350 Other: Voiding Method Indwelling Catheter Indwelling Catheter Indwelling Catheter # Bowel Movements 1 - Exam GENERAL DESCRIPTION: Middle-age male up in the chair in no distress RESPIRATORY SYSTEM: Unlabored breathing , decreased breath sounds at bases HEART: S1 S2 regular rate and rhythm , ABDOMEN: Soft , mild distention but no tenderness EXTREMITIES: No edema feet - Labs CBC & Chem 7: 02/24/23 04:43 02/25/23 05:51 Labs: Abnormal Lab Results - Last 24 Hours (Table) 02/25/23 Range/Units 05:51 Potassium 3.4 L (3.5-5.1) mmol/L Assessment and Plan (1) UTI (urinary tract infection) Current Visit: Yes Status: Acute Code(s): N39.0 - URINARY TRACT INFECTION, SITE NOT SPECIFIED SNOMED Code(s): 18901007 Plan: 1patient presented to hospital with sepsis in this patient who did have a fever elevated white count predominantly urinary symptoms concerning for complicated UTI failing outpatient oral brachytherapy with a recent culture positive for MRSA could be the likely pathogen 2-patient did have episodes of vomiting and some abdominal distention possibly related to abdominal source CT of abdominal pelvis did shows evidence of fecal retention Gen. surgery has been consulted and followed the patient 3patient urine culture have been finalized with MRSA that is resistant to Bactrim DS 4- the patient has shown clinical improvement on daptomycin , plan is to finish therapy with oral Zyvox 600 mg by mouth twice a day for 7 days on discharge Sister at the bedside questions were answered Time with Patient: Less than 30
== END 2023-02-25 18:35 | DRG 698 ==
LOC: EC 10:31 → 5NMEDONC 15:08
PROVIDERS: ADMIT Family Medicine; ATTEND Family Medicine
DX: T83.518A Infection and inflammatory reaction due to other urinary catheter, initial encounter (principal); A41.02 Sepsis due to Methicillin resistant Staphylococcus aureus; R65.20 Severe sepsis without septic shock; N17.0 Acute kidney failure with tubular necrosis; N39.0 Urinary tract infection, site not specified; K56.7 Ileus, unspecified; E87.6 Hypokalemia; G35 Multiple sclerosis; I11.0 Hypertensive heart disease with heart failure; I25.10 Atherosclerotic heart disease of native coronary artery without angina pectoris; I50.9 Heart failure, unspecified; K31.89 Other diseases of stomach and duodenum; K56.41 Fecal impaction; N31.9 Neuromuscular dysfunction of bladder, unspecified; N32.3 Diverticulum of bladder; Z53.20 Procedure and treatment not carried out because of patient's decision for unspecified reasons; Z79.899 Other long term (current) drug therapy; Z86.14 Personal history of Methicillin resistant Staphylococcus aureus infection; Z87.440 Personal history of urinary (tract) infections; R33.9 Retention of urine, unspecified; Z28.310 Unvaccinated for COVID-19; Z28.21 Immunization not carried out because of patient refusal
CPT/HCPCS: 36415; 74019; 74176; 76770; 80048; 80053; 81001; 82565; 83735; 84132; 85025; 87040; 87077; 87086; 87186; 96365; 96366; 99285

== ENCOUNTER 2023-03-07 12:49 | Inpatient (IN) | payer MEDICARE ==
[2023-03-07] MEDS ORDERED: IBUPROFEN 600 MG TAB PO STA (13:13)
[2023-03-07] MEDS ORDERED: ACETAMINOPHEN TAB 500 MG TAB PO STA (13:13)
--- NOTE | 2023-03-07 13:28 | ED ---
General Adult HPI - General Chief complaint: Fever Stated complaint: abn labs, fever Time Seen by Provider: 03/07/23 13:00 Source: patient, EMS, RN notes reviewed, old records reviewed Mode of arrival: EMS Limitations: physical limitation - History of Present Illness Initial comments: This is a 62-year-old male who presents emergency room with a past medical history significant for multiple sclerosis. Patient presents emergency department from the senior living because he's been spiking a fever and his urine has been cloudy. Patient was recently admitted to the hospital for urinary tract infection. Patient states she does feel hot and was told he has a fever. Patient denies any abdominal pain. Patient denies any cough patient denies chest pain difficulty breathing shortness of breath. Patient denies any back pain. - Related Data Home Medications Medication Instructions Recorded Confirmed Ascorbic Acid [Vitamin C chew] 500 mg PO DAILY@1200 02/20/23 03/07/23 Atorvastatin [Lipitor] 10 mg PO HS@2100 02/20/23 03/07/23 Cholecalciferol [Vitamin D3 (25 25 mcg PO DAILY@1200 02/20/23 03/07/23 Mcg = 1000 Iu)] Furosemide [Lasix] 20 mg PO DAILY@0800 02/20/23 03/07/23 Acetaminophen [Tylenol] 650 mg PO Q4H PRN 03/07/23 03/07/23 Magnesium Hydroxide [Milk of 7,200 mg PO Q48H PRN 03/07/23 03/07/23 Magnesia Concentrate] Menthol-Zinc Oxide Oint 1 applic TOPICAL BID 03/07/23 03/07/23 [Calmoseptine Ointment] Na Phos,M-B/Na Phos,Di-Ba [Fleet 133 ml RECTAL DAILY PRN 03/07/23 03/07/23 Adult] Tamsulosin [Flomax] 0.4 mg PO DAILY@0800 03/07/23 03/07/23 bisacodyL [Dulcolax] 10 mg RECTAL DAILY PRN 03/07/23 03/07/23 polyethylene glycoL 3350 [Miralax] 17 gm PO DAILY@0800 03/07/23 03/07/23 Allergies Allergy/AdvReac Type Severity Reaction Status Date / Time No Known Allergies Allergy Verified 03/07/23 16:15 Review of Systems ROS Statement: Those systems with pertinent positive or pertinent negative responses have been documented in the HPI. ROS Other: All systems not noted in ROS Statement are negative. Past Medical History Past Medical History: Coronary Artery Disease (CAD), Heart Failure, Hypertension Additional Past Medical History / Comment(s): UTI History of Any Multi-Drug Resistant Organisms: MRSA Date of last positivie culture/infection: 01/27/23 MDRO Source:: Urine Past Surgical History: No Surgical Hx Reported Additional Past Surgical History / Comment(s): Lasik. Past Anesthesia/Blood Transfusion Reactions: No Reported Reaction Past Psychological History: No Psychological Hx Reported Smoking Status: Never smoker Past Alcohol Use History: None Reported Past Drug Use History: None Reported General Exam - General Exam Comments Initial Comments: GENERAL: Patient is well-developed and well-nourished. Patient is nontoxic and well- hydrated and is in mild distress. ENT: Neck is soft and supple. No significant lymphadenopathy is noted. Oropharynx is clear. Moist mucous membranes. Neck has full range of motion without eliciting any pain. EYES: The sclera were anicteric and conjunctiva were pink and moist. Extraocular movements were intact and pupils were equal round and reactive to light. Eyelids were unremarkable. PULMONARY: Unlabored respirations. Good breath sounds bilaterally. No audible rales rhonchi or wheezing was noted. CARDIOVASCULAR: There is a regular rate and rhythm without any murmurs gallops or rubs. ABDOMEN: Soft and nontender with normal bowel sounds. SKIN: Skin is clear with no lesions or rashes and otherwise unremarkable. NEUROLOGIC: Patient is alert and oriented x3. Cranial nerves II through XII are grossly intact. Motor and sensory are also intact. Normal speech, volume and content. Symmetrical smile. MUSCULOSKELETAL: Normal extremities with adequate strength and full range of motion. No lower extremity swelling or edema. No calf tenderness. LYMPHATICS: No significant lymphadenopathy is noted PSYCHIATRIC: Normal psychiatric evaluation. Limitations: physical limitation Course Vital Signs 03/07/23 03/07/23 03/07/23 12:53 16:17 16:20 Temperature 102.5 F H Pulse Rate 100 84 Respiratory 16 22 Rate Blood Pressure 126/73 93/56 O2 Sat by Pulse 93 L 93 L 92 L Oximetry 03/07/23 03/07/23 16:40 17:00 Temperature Pulse Rate 83 78 Respiratory 20 22 Rate Blood Pressure 95/55 95/55 O2 Sat by Pulse 93 L 92 L Oximetry Medical Decision Making - Medical Decision Making EKG shows sinus tachycardia at 103 bpm [place] interval 142 QRS is under 90 QT intervals 370 QTC is 377. Patient's EKG shows no ST segment elevation or depression. Was pt. sent in by a medical professional or institution (, PA, CLEANING ATTENDANT, urgent care, hospital, or senior living...) When possible be specific @ -half-way sent the patient and Did you speak to anyone other than the patient for history (EMS, parent, family, police, friend...)? What history was obtained from this source @ -The sister gave quite a bit of the past medical history Did you review nursing and triage notes (agree or disagree)? Why? @ -I reviewed and agree with nursing and triage notes Were old charts reviewed (outside hosp., previous admission, EMS record, old EKG, old radiological studies, urgent care reports/EKG's, senior living records)? Report findings @ -I reviewed prior lab work and prior radiological studies and prior hospitalizations Differential Diagnosis (chest pain, altered mental status, abdominal pain women, abdominal pain men, vaginal bleeding, weakness, fever, dyspnea, syncope, headac he, dizziness, GI bleed, back pain, seizure, CVA, palpatations, mental health, musculoskeletal)? @ -Differential Fever: Pneumonia, viral URI, endocarditis, myocarditis, pericarditis, otitis, sinusitis, peritonsillar Abscess, retropharyngeal Abscess, epiglottitis, peritonitis, appendicitis, Leidy cystitis, diverticulitis, hepatitis, colitis, UTI, pyelonephritis, prostatitis, epididymitis, meningitis, encephalitis, pulmonary embolism, CVA, thyroid storm, pancreatitis, adrenal crisis, cavernous sinus thrombosis, this is not meant to be an all-inclusive list. EKG interpreted by me (3pts min.). @ -As above X-rays interpreted by me (1pt min.). @ -Chest x-ray shows no acute abnormality CT interpreted by me (1pt min.). @ -None done U/S interpreted by me (1pt. min.). @ -None done What testing was considered but not performed or refused? (CT, X-rays, U/S, labs)? Why? @ -None What meds were considered but not given or refused? Why? @ -None Did you discuss the management of the patient with other professionals (professionals i.e. DrEverett, PA, CLEANING ATTENDANT, lab, RT, psych nurse, social media project manager, survival specialist, teacher, foreign policy officer, counter caser)? Give summary @ -Spoke with Dr. Del Rio he agreed to admit the patient admitted the patient and I consulted infectious disease Was smoking cessation discussed for >3mins.? @ -No Was critical care preformed (if so, how long)? @ -No Were there social determinants of health that impacted care today? How? (Homelessness, low income, unemployed, alcoholism, drug addiction, transportation, low edu. Level, literacy, decrease access to med. care, halfway, rehab)? @ -No Was there de-escalation of care discussed even if they declined (Discuss DNR or withdrawal of care, Hospice)? DNR status @ -No What co-morbidities impacted this encounter? (DM, HTN, Smoking, COPD, CAD, Cancer, CVA, ARF, Chemo, Hep., AIDS, mental health diagnosis, sleep apnea, morbid obesity)? @ -None Was patient admitted / discharged? Hospital course, mention meds given and route, prescriptions, significant lab abnormalities, going to OR and other pertinent info. @ -Patient received antibiotics in the emergency department also had blood cultures done. Spoke with Dr. Del Rio and told them about urinary tract infection I looked at the old microbiology results and patient will be started on daptomycin and infectious disease will be consulted Undiagnosed new problem with uncertain prognosis? @ -No Drug Therapy requiring intensive monitoring for toxicity (Heparin, Nitro, Insulin, Cardizem)? @ -No Were any procedures done? @ -No Diagnosis/symptom? @ -Urinary tract infection Acute, or Chronic, or Acute on Chronic? @ -Acute Uncomplicated (without systemic symptoms) or Complicated (systemic symptoms)? @ -Complicated Side effects of treatment? @ -No Exacerbation, Progression, or Severe Exacerbation? @ -No Poses a threat to life or bodily function? How? (Chest pain, [place], [place], pneumonia, PE, COPD, DKA, ARF, appy, cholecystitis, CVA, Diverticulitis, Homicidal, Suicidal, threat to staff... and all critical care pts) @ -Yes this could lead to sepsis and end organ dysfunction - Lab Data Result diagrams: 03/07/23 14:08 03/07/23 14:08 Lab Results 03/07/23 03/07/23 03/07/23 Range/Units 14:08 14:08 14:08 WBC 22.9 H (3.8-10.6) k/uL RBC 4.44 (4.30-5.90) m/uL Hgb 14.0 (13.0-17.5) gm/dL Hct 43.0 (39.0-53.0) % MCV 96.8 (80.0-100.0) fL MCH 31.5 (25.0-35.0) pg MCHC 32.5 (31.0-37.0) g/dL RDW 12.9 (11.5-15.5) % Plt Count 314 (150-450) k/uL MPV 6.8 Neutrophils % 87 % Lymphocytes % 5 % Monocytes % 5 % Eosinophils % 1 % Basophils % 0 % Neutrophils # 20.0 H (1.3-7.7) k/uL Lymphocytes # 1.2 (1.0-4.8) k/uL Monocytes # 1.2 H (0-1.0) k/uL Eosinophils # 0.3 (0-0.7) k/uL Basophils # 0.1 (0-0.2) k/uL Sodium 135 L (137-145) mmol/L Potassium 4.2 (3.5-5.1) mmol/L Chloride 96 L (98-107) mmol/L Carbon Dioxide 30 (22-30) mmol/L Anion Gap 9 mmol/L BUN 19 (9-20) mg/dL Creatinine 1.39 H (0.66-1.25) mg/dL Est GFR (CKD-EPI)AfAm 62 (>60 ml/min/1.73 sqM) Est GFR (CKD-EPI)NonAf 53 (>60 ml/min/1.73 sqM) Glucose 103 H (74-99) mg/dL Plasma Lactic Acid Cristian 1.6 (0.7-2.0) mmol/L Calcium 9.3 (8.4-10.2) mg/dL Total Bilirubin 0.6 (0.2-1.3) mg/dL AST 19 (17-59) U/L ALT 29 (4-49) U/L Alkaline Phosphatase 65 (38-126) U/L Total Protein 7.0 (6.3-8.2) g/dL Albumin 3.9 (3.5-5.0) g/dL Urine Color Urine Appearance (Clear) Urine pH (5.0-8.0) Ur Specific [place] (1.001-1.035) Urine Protein (Negative) Urine Glucose (UA) (Negative) Urine Ketones (Negative) Urine Blood (Negative) Urine Nitrite (Negative) Urine Bilirubin (Negative) Urine Urobilinogen (<2.0) mg/dL Ur Leukocyte Esterase (Negative) Urine RBC (0-5) /hpf Urine WBC (0-5) /hpf Urine WBC Clumps (None) /hpf Urine Bacteria (None) /hpf Urine Mucus (None) /hpf 03/07/23 Range/Units 16:47 WBC (3.8-10.6) k/uL RBC (4.30-5.90) m/uL Hgb (13.0-17.5) gm/dL Hct (39.0-53.0) % MCV (80.0-100.0) fL MCH (25.0-35.0) pg MCHC (31.0-37.0) g/dL RDW (11.5-15.5) % Plt Count (150-450) k/uL MPV Neutrophils % % Lymphocytes % % Monocytes % % Eosinophils % % Basophils % % Neutrophils # (1.3-7.7) k/uL Lymphocytes # (1.0-4.8) k/uL Monocytes # (0-1.0) k/uL Eosinophils # (0-0.7) k/uL Basophils # (0-0.2) k/uL Sodium (137-145) mmol/L Potassium (3.5-5.1) mmol/L Chloride (98-107) mmol/L Carbon Dioxide (22-30) mmol/L Anion Gap mmol/L BUN (9-20) mg/dL Creatinine (0.66-1.25) mg/dL Est GFR (CKD-EPI)AfAm (>60 ml/min/1.73 sqM) Est GFR (CKD-EPI)NonAf (>60 ml/min/1.73 sqM) Glucose (74-99) mg/dL Plasma Lactic Acid Cristian (0.7-2.0) mmol/L Calcium (8.4-10.2) mg/dL Total Bilirubin (0.2-1.3) mg/dL AST (17-59) U/L ALT (4-49) U/L Alkaline Phosphatase (38-126) U/L Total Protein (6.3-8.2) g/dL Albumin (3.5-5.0) g/dL Urine Color Yellow Urine Appearance Cloudy (Clear) Urine pH 7.0 (5.0-8.0) Ur Specific [place] 1.022 (1.001-1.035) Urine Protein 1+ H (Negative) Urine Glucose (UA) Negative (Negative) Urine Ketones Negative (Negative) Urine Blood Negative (Negative) Urine Nitrite Negative (Negative) Urine Bilirubin Negative (Negative) Urine Urobilinogen <2.0 (<2.0) mg/dL Ur Leukocyte Esterase Large H (Negative) Urine RBC 3 (0-5) /hpf Urine WBC 140 H (0-5) /hpf Urine WBC Clumps Occasional H (None) /hpf Urine Bacteria Moderate H (None) /hpf Urine Mucus Rare H (None) /hpf Disposition Clinical Impression: Urinary tract infection Disposition: ADMITTED IP TO THIS HOSP Referrals: Elle Guadalupe DO [Primary Care Provider] - 1-2 days Time of Disposition: 17:55
[2023-03-07 14:14] LABS: Basophils # (A) 0.1 k/uL (0-0.2); Basophils % (A) 0 %; Eosinophils # (A) 0.3 k/uL (0-0.7); Eosinophils % (A) 1 %; Lymphocytes # (A) 1.2 k/uL (1.0-4.8); Lymphocytes % (A) 5 %; MCH 31.5 pg (25.0-35.0); MCHC 32.5 g/dL (31.0-37.0); MCV 96.8 fL (80.0-100.0); Mean Platelet Volume 6.8; Monocytes # (A) 1.2 k/uL (0-1.0); Monocytes % (A) 5 %; Neutrophils % (A) 87 %; Platelet Count 314 k/uL (150-450); RBC 4.44 m/uL (4.30-5.90); RDW 12.9 % (11.5-15.5); WBC 22.9 k/uL (3.8-10.6)
[2023-03-07 14:26] LABS: ALT 29 U/L (4-49); AST 19 U/L (17-59); African American GFR (CKD) 62 (>60 ml/min/1.73 sqM); Albumin 3.9 g/dL (3.5-5.0); Alkaline Phosphatase 65 U/L (38-126); Anion Gap 9 mmol/L; Blood Urea Nitrogen 19 mg/dL (9-20); Calcium 9.3 mg/dL (8.4-10.2); Carbon Dioxide 30 mmol/L (22-30); Chloride 96 mmol/L (98-107); Glucose 103 mg/dL (74-99); Non-African American GFR(CKD) 53 (>60 ml/min/1.73 sqM); Potassium 4.2 mmol/L (3.5-5.1); Sodium 135 mmol/L (137-145); Total Bilirubin 0.6 mg/dL (0.2-1.3)
[2023-03-07] MEDS: SODIUM CHLORIDE 0.9% 500 ML 500 ML IV SCH ×2 (14:41→16:19)
--- NOTE | 2023-03-07 15:40 | XR ---
EXAMINATION TYPE: XR chest 2V DATE OF EXAM: 03/07/2023 COMPARISON: 01/08/2023 INDICATION: Fever TECHNIQUE: Frontal and lateral views of the chest are obtained. FINDINGS: The heart size is normal. The pulmonary vasculature is normal. Posterior infiltrates. The present, likely on the basis of atelectasis. Consider pneumonia within the differential. Follow up exams can be performed.. IMPRESSION: 1. Severe infiltrates. Correlate for atelectasis or pneumonia.
[2023-03-07 17:11] LABS: Appearance,Urine Cloudy (Clear); Bacteria,Urine Moderate /hpf; Bilirubin,Urine Negative (Negative); Blood,Urine Negative (Negative); Color,Urine Yellow; Glucose,Urine (UA) Negative (Negative); Ketones,Urine Negative (Negative); Leukocyte Esterase,Urine Large (Negative); Mucus,Urine Rare /hpf; Nitrite,Urine Negative (Negative); Protein,Urine 1+ (Negative); RBC,Urine 3 /hpf (0-5); Specific Gravity,Urine 1.022 (1.001-1.035); Urobilinogen,Urine <2.0 mg/dL (<2.0); WBC,Urine 140 /hpf (0-5)
[2023-03-07] MEDS ORDERED: SODIUM CHLORIDE 0.9% 1,000 ML IV ONE (17:56)
[2023-03-07] MEDS ORDERED: DAPTOmycin 500 MG in SODIUM CHLORIDE 0.9% 50 ML IVPB ONE (19:00)
[2023-03-07 19:10] LABS: INR 1.2 (<1.2)
[2023-03-08] MEDS ORDERED: bisacodyL 10 MG SUPP RECTAL PRN (08:28)
[2023-03-08] MEDS ORDERED: MAGNESIUM HYDROXIDE 2,400 MG/30 ML CUP PO PRN (08:28)
[2023-03-08] MEDS: ACETAMINOPHEN TAB 325 MG TAB PO PRN ×2 (09:09→18:01)
[2023-03-08] MEDS: TAMSULOSIN 0.4 MG CAP.ER.24H PO SCH ×2 (09:10→09:29)
[2023-03-08] MEDS: FUROSEMIDE 20 MG TAB PO SCH (09:11)
[2023-03-08] MEDS: PANTOPRAZOLE 40 MG/10 ML VIAL IVP SCH (13:19)
--- NOTE | 2023-03-08 13:35 | P.GSCN ---
History of Present Illness Consult date: 03/08/23 Reason for Consult: UTI, urinary retention History of present illness: This is a 62-year-old male with history of multiple sclerosis, neurogenic bladder secondary to that. He was admitted to the hospital with UTI. Patient's been having altered mental status, and low-grade fever. Of note he was recently admitted on February 21 with a UTI urine culture at that time it showed evidence of MRSA and he was discharged to [facility]. He presented back to the hospital yesterday with UTI symptoms. Last hospital admission he underwent a renal ultrasound that showed bladder wall thickening mild dilation of the left collecting system. At baseline he does CIC 4, but during the last hospital admission hermosillo catheter was placed . He was discharged to subacute rehab with the Hermosillo catheter. the Hermosillo catheter was subsequently exchange in the ER Review of Systems - Constitutional Reports chills, Reports fever - Cardiovascular Reports as per HPI - Gastrointestinal Reports as per HPI - Genitourinary Denies dysuria, Denies hematuria - Integumentary Denies rash, Denies unusual bruising - Neurological Denies headaches, Denies syncope Past Medical History Past Medical History: Coronary Artery Disease (CAD), Heart Failure, Hypertension Additional Past Medical History / Comment(s): MS. UTI History of Any Multi-Drug Resistant Organisms: MRSA Year Discovered:: 01/27/23 MDRO Source:: Urine Past Surgical History: No Surgical Hx Reported Additional Past Surgical History / Comment(s): Judd. Past Anesthesia/Blood Transfusion Reactions: No Reported Reaction Past Psychological History: No Psychological Hx Reported Smoking Status: Never smoker Past Alcohol Use History: None Reported Past Drug Use History: None Reported Medications and Allergies Home Medications Medication Instructions Recorded Confirmed Type Ascorbic Acid [Vitamin C chew] 500 mg PO DAILY@1200 02/20/23 03/07/23 History Atorvastatin [Lipitor] 10 mg PO HS@2100 02/20/23 03/07/23 History Cholecalciferol [Vitamin D3 (25 25 mcg PO DAILY@1200 02/20/23 03/07/23 History Mcg = 1000 Iu)] Furosemide [Lasix] 20 mg PO DAILY@0800 02/20/23 03/07/23 History Acetaminophen [Tylenol] 650 mg PO Q4H PRN 03/07/23 03/07/23 History Magnesium Hydroxide [Milk of 7,200 mg PO Q48H PRN 03/07/23 03/07/23 History Magnesia Concentrate] Menthol-Zinc Oxide Oint 1 applic TOPICAL BID 03/07/23 03/07/23 History [Calmoseptine Ointment] Na Phos,M-B/Na Phos,Di-Ba [Fleet 133 ml RECTAL DAILY PRN 03/07/23 03/07/23 History Adult] Tamsulosin [Flomax] 0.4 mg PO DAILY@0800 03/07/23 03/07/23 History bisacodyL [Dulcolax] 10 mg RECTAL DAILY PRN 03/07/23 03/07/23 History polyethylene glycoL 3350 [Miralax] 17 gm PO DAILY@0800 03/07/23 03/07/23 History Allergies Allergy/AdvReac Type Severity Reaction Status Date / Time No Known Allergies Allergy Verified 03/07/23 16:15 Surgical - Exam Vital Signs Temp Pulse Resp BP Pulse Ox 102.5 F H 100 16 126/73 93 L 03/07/23 12:53 03/07/23 12:53 03/07/23 12:53 03/07/23 12:53 03/07/23 12:53 - General no distress, no pain - Eyes normal ocular movement, no pale - ENT normal nares, normal mucosa - Respiratory normal expansion, normal respiratory effort - Abdomen Abdomen: soft, non tender, no distended - Psychiatric oriented to time, oriented to person, oriented to place Results - Labs 03/07/23 14:08 03/07/23 14:08 Abnormal Lab Results - Last 24 Hours (Table) 03/07/23 03/07/23 03/07/23 Range/Units 14:08 14:08 16:47 WBC 22.9 H (3.8-10.6) k/uL Neutrophils # 20.0 H (1.3-7.7) k/uL Monocytes # 1.2 H (0-1.0) k/uL INR (<1.2) Sodium 135 L (137-145) mmol/L Chloride 96 L (98-107) mmol/L Creatinine 1.39 H (0.66-1.25) mg/dL Glucose 103 H (74-99) mg/dL Urine Protein 1+ H (Negative) Ur Leukocyte Esterase Large H (Negative) Urine WBC 140 H (0-5) /hpf Urine WBC Clumps Occasional H (None) /hpf Urine Bacteria Moderate H (None) /hpf Urine Mucus Rare H (None) /hpf 03/07/23 Range/Units 18:35 WBC (3.8-10.6) k/uL Neutrophils # (1.3-7.7) k/uL Monocytes # (0-1.0) k/uL INR 1.2 H (<1.2) Sodium (137-145) mmol/L Chloride (98-107) mmol/L Creatinine (0.66-1.25) mg/dL Glucose (74-99) mg/dL Urine Protein (Negative) Ur Leukocyte Esterase (Negative) Urine WBC (0-5) /hpf Urine WBC Clumps (None) /hpf Urine Bacteria (None) /hpf Urine Mucus (None) /hpf Diabetes panel 03/07/23 Range/Units 14:08 Sodium 135 L (137-145) mmol/L Potassium 4.2 (3.5-5.1) mmol/L Chloride 96 L (98-107) mmol/L Carbon Dioxide 30 (22-30) mmol/L BUN 19 (9-20) mg/dL Creatinine 1.39 H (0.66-1.25) mg/dL Glucose 103 H (74-99) mg/dL Calcium 9.3 (8.4-10.2) mg/dL AST 19 (17-59) U/L ALT 29 (4-49) U/L Alkaline Phosphatase 65 (38-126) U/L Total Protein 7.0 (6.3-8.2) g/dL Albumin 3.9 (3.5-5.0) g/dL Calcium panel 03/07/23 Range/Units 14:08 Calcium 9.3 (8.4-10.2) mg/dL Albumin 3.9 (3.5-5.0) g/dL Pituitary panel 03/07/23 Range/Units 14:08 Sodium 135 L (137-145) mmol/L Potassium 4.2 (3.5-5.1) mmol/L Chloride 96 L (98-107) mmol/L Carbon Dioxide 30 (22-30) mmol/L BUN 19 (9-20) mg/dL Creatinine 1.39 H (0.66-1.25) mg/dL Glucose 103 H (74-99) mg/dL Calcium 9.3 (8.4-10.2) mg/dL Adrenal panel 03/07/23 Range/Units 14:08 Sodium 135 L (137-145) mmol/L Potassium 4.2 (3.5-5.1) mmol/L Chloride 96 L (98-107) mmol/L Carbon Dioxide 30 (22-30) mmol/L BUN 19 (9-20) mg/dL Creatinine 1.39 H (0.66-1.25) mg/dL Glucose 103 H (74-99) mg/dL Calcium 9.3 (8.4-10.2) mg/dL Total Bilirubin 0.6 (0.2-1.3) mg/dL AST 19 (17-59) U/L ALT 29 (4-49) U/L Alkaline Phosphatase 65 (38-126) U/L Total Protein 7.0 (6.3-8.2) g/dL Albumin 3.9 (3.5-5.0) g/dL Assessment and Plan Assessment: 62-year-old male admitted to the hospital with UTI, does have history of a neurogenic bladder at baseline and he does CIC X4. Has been having recurrent UTIs, current urine cultures growing gram-negative bacilli -Antibiotics per infectious disease, patient is currently being evaluated by infectious disease -We'll repeat renal ultrasound given the finding of dilation of the left collecting system on previous hospital admission -He will eventually require cystoscopy and urodynamics as an outpatient given his neurogenic bladder. -Recommend keeping catheter in for a week, after that catheter can be removed and patient can restart CIC
--- NOTE | 2023-03-08 15:08 | P.HPIM ---
History of Present Illness H&P Date: 03/08/23 Chief Complaint: Fevers, suspected recurrent UTI This is a 62-year-old gentleman recently discharged on February 25 with MRSA UTI, to [facility] with Ross catheter,past medical history significant for neurogenic bladder secondary to multiple sclerosis, and multiple other medical issues, returned from the subacute rehab, to our ER with complaints of fever, cloudy urine. T-max on admission 102.5.,WBC 22.9. Denies any chills, sweats or shortness of breath. Denies flank or back pain. Denies any suprapubic pain. Denies hematuria. Denies fall or trauma. Denies any chest pain, palpitations or shortness of breath. Currently on 2 L nasal cannula O2, maintaining O2 sats in the 90s. Reports last bowel movement yesterday, small, formed. Ross catheter changed in the ER. UA reported moderate bacteria, 140 urine WBCs, large leukocytes, negative nitrates, culture pending.Urology and infectious disease consulted, antibiotics initiated. Creatinine currently 1.39, on discharge 1.1. Review of Systems ROS Statement: Those systems with pertinent positive or pertinent negative responses have been documented in the HPI. ROS Other: All systems not noted in ROS Statement are negative. Past Medical History Past Medical History: Coronary Artery Disease (CAD), Heart Failure, Hypertension Additional Past Medical History / Comment(s): MS. UTI History of Any Multi-Drug Resistant Organisms: MRSA Date of last positivie culture/infection: 01/27/23 MDRO Source:: Urine Past Surgical History: No Surgical Hx Reported Additional Past Surgical History / Comment(s): Judd. Past Anesthesia/Blood Transfusion Reactions: No Reported Reaction Past Psychological History: No Psychological Hx Reported Smoking Status: Never smoker Past Alcohol Use History: None Reported Past Drug Use History: None Reported Medications and Allergies Home Medications Medication Instructions Recorded Confirmed Type Ascorbic Acid [Vitamin C chew] 500 mg PO DAILY@1200 02/20/23 03/07/23 History Atorvastatin [Lipitor] 10 mg PO HS@2100 02/20/23 03/07/23 History Cholecalciferol [Vitamin D3 (25 25 mcg PO DAILY@1200 02/20/23 03/07/23 History Mcg = 1000 Iu)] Furosemide [Lasix] 20 mg PO DAILY@0800 02/20/23 03/07/23 History Acetaminophen [Tylenol] 650 mg PO Q4H PRN 03/07/23 03/07/23 History Magnesium Hydroxide [Milk of 7,200 mg PO Q48H PRN 03/07/23 03/07/23 History Magnesia Concentrate] Menthol-Zinc Oxide Oint 1 applic TOPICAL BID 03/07/23 03/07/23 History [Calmoseptine Ointment] Na Phos,M-B/Na Phos,Di-Ba [Fleet 133 ml RECTAL DAILY PRN 03/07/23 03/07/23 History Adult] Tamsulosin [Flomax] 0.4 mg PO DAILY@0800 03/07/23 03/07/23 History bisacodyL [Dulcolax] 10 mg RECTAL DAILY PRN 03/07/23 03/07/23 History polyethylene glycoL 3350 [Miralax] 17 gm PO DAILY@0800 03/07/23 03/07/23 History Allergies Allergy/AdvReac Type Severity Reaction Status Date / Time No Known Allergies Allergy Verified 03/07/23 16:15 Physical Exam Vitals: Vital Signs Temp Pulse Pulse Resp BP BP Pulse Ox 03/08/23 09:46 20 03/08/23 08:54 96 03/08/23 08:00 100.4 F H 108 H 18 134/78 89 L 03/08/23 06:14 99 F 101 H 16 116/75 95 03/08/23 04:44 101 H 16 125/80 95 03/08/23 00:04 98.1 F 92 18 113/64 95 03/07/23 22:36 97.7 F 03/07/23 20:30 71 19 104/65 91 L 03/07/23 20:00 61 15 87/57 96 03/07/23 19:30 65 19 99/63 94 L 03/07/23 19:00 63 17 92/57 03/07/23 18:30 64 19 89/53 95 03/07/23 18:00 68 19 94/56 93 L 03/07/23 17:30 68 20 93/54 94 L 03/07/23 17:00 78 22 95/55 92 L 03/07/23 16:40 83 20 95/55 93 L 03/07/23 16:20 84 22 93/56 92 L 03/07/23 16:17 93 L 03/07/23 15:25 99.1 F 03/07/23 12:53 102.5 F H 100 16 126/73 93 L Intake and Output 03/07/23 03/08/23 03/08/23 22:59 06:59 14:59 Other: Voiding Method Indwelling Catheter Weight 85.729 kg - Exam Gen: elderly male in NAD CV: RRR, no murmur Lungs: CTAB Abd: distended, soft, nontender Results CBC & Chem 7: 03/07/23 14:08 03/07/23 14:08 Labs: Abnormal Lab Results - Last 24 Hours (Table) 03/07/23 03/07/23 03/07/23 Range/Units 14:08 14:08 16:47 WBC 22.9 H (3.8-10.6) k/uL Neutrophils # 20.0 H (1.3-7.7) k/uL Monocytes # 1.2 H (0-1.0) k/uL INR (<1.2) Sodium 135 L (137-145) mmol/L Chloride 96 L (98-107) mmol/L Creatinine 1.39 H (0.66-1.25) mg/dL Glucose 103 H (74-99) mg/dL Urine Protein 1+ H (Negative) Ur Leukocyte Esterase Large H (Negative) Urine WBC 140 H (0-5) /hpf Urine WBC Clumps Occasional H (None) /hpf Urine Bacteria Moderate H (None) /hpf Urine Mucus Rare H (None) /hpf 03/07/23 Range/Units 18:35 WBC (3.8-10.6) k/uL Neutrophils # (1.3-7.7) k/uL Monocytes # (0-1.0) k/uL INR 1.2 H (<1.2) Sodium (137-145) mmol/L Chloride (98-107) mmol/L Creatinine (0.66-1.25) mg/dL Glucose (74-99) mg/dL Urine Protein (Negative) Ur Leukocyte Esterase (Negative) Urine WBC (0-5) /hpf Urine WBC Clumps (None) /hpf Urine Bacteria (None) /hpf Urine Mucus (None) /hpf Thrombosis Risk Factor Assmnt - Choose All That Apply Any of the Below Risk Factors Present?: Yes Other Risk Factors: Yes Each Risk Factor Represents 2 Points: Age 61-74 years Each Risk Factor Represents 3 Points: Family history of DVT/PE Other congenital or acquired thrombophilia - If yes, enter type in comment: No Thrombosis Risk Factor Assessment Total Risk Factor Score: 5 Thrombosis Risk Factor Assessment Level: High Risk Assessment and Plan Assessment: Acute recurrent UTI, 03/07 culture reporting gram-negative bacilli ,in a patient with recent MRSA UTI, with a neurogenic bladder secondary to MS. patient had been discharged with Ross catheter to subacute rehab. Ross catheter changed in ER. Acute renal injury, mild secondary to the above Plan: Continue on current medication regime ,monitoring and symptomatic treatment. PT/OT. Urology and infectious disease consult in place, recommendations pending. Antibiotics as per ID. Close monitoring of renal function, with repeat labs ordered for a.m. At this time given patient's history of CHF, will hold off on IV fluid hydration, as patient has good dietary intake with no nausea vomiting or diarrhea. The impression and plan of care has been dictated as directed. : I performed a history and examination of this patient, discussed the same with the dictator. I agree with the dictator's note ,documented as a scribe. Any additional findings or plans will be noted.
--- NOTE | 2023-03-08 16:02 | US ---
EXAMINATION TYPE: US kidneys/renal and bladder DATE OF EXAM: 03/08/2023 COMPARISON: US & CT CLINICAL INDICATION: Male, 62 years old with history of UTI and hydronephrosis; UTI EXAM MEASUREMENTS: Right Kidney: 11.6 x 5.4 x 5.5 cm Left Kidney: 8.7 x 4.8 x 3.7 cm Difficult exam- pt immobile due to MS, scanned in recliner Right Kidney: No evidence of hydro, lower pole gassed out Left Kidney: Small in size, cortical thinning, limited views Bladder: Cath in place There is no evidence for hydronephrosis at this point in time. No nephrolithiasis is seen. No anastasiia s are identified. The urinary bladder is anechoic. Bilateral ureteral jets are seen. IMPRESSION: Limited exam no evidence of obstructive uropathy. There is left renal atrophy changes similar to prio r exams.
[2023-03-08] MEDS: DAPTOmycin 500 MG in SODIUM CHLORIDE 0.9% 50 ML IVPB SCH (19:13)
--- NOTE | 2023-03-08 22:52 | P.CONS ---
History of Present Illness - Reason for Consult Consult date: 03/08/23 - History of Present Illness Patient is a 62-year-old male with a past medical history significant for MS recent admission to the hospital treated for MRSA urinary tract infection was treated with daptomycin subsequent discharge on Zyvox patient now presenting back to the hospital for a fever and the patient was noticed to have cloudy urine the patient however denied any fever or chills to the ER physician on a rrival to the ER patient did have a temperature of 102.5 F, patient was tachycardic with a heart rate of 108 white count of 22.9 with a left shift creatinine was mild elevated 1.39 electrolytes were normal urine was positive blood and urine cultures currently pending patient Ross catheter was changed in the ER patient was started on daptomycin infectious disease was consulted for further management of antibiotic therapy patient has been complaining of mostly feeling weak no headache or URI symptoms no chest pain shortness of breath or cough no nausea no vomiting no abdominal pain no diarrhea Past Medical History Past Medical History: Coronary Artery Disease (CAD), Heart Failure, Hypertension Additional Past Medical History / Comment(s): MS. UTI History of Any Multi-Drug Resistant Organisms: MRSA Year Discovered:: 01/27/23 MDRO Source:: Urine Past Surgical History: No Surgical Hx Reported Additional Past Surgical History / Comment(s): Judd. Past Anesthesia/Blood Transfusion Reactions: No Reported Reaction Past Psychological History: No Psychological Hx Reported Smoking Status: Never smoker Past Alcohol Use History: None Reported Past Drug Use History: None Reported Medications and Allergies Home Medications Medication Instructions Recorded Confirmed Type Ascorbic Acid [Vitamin C chew] 500 mg PO DAILY@1200 02/20/23 03/07/23 History Atorvastatin [Lipitor] 10 mg PO HS@2100 02/20/23 03/07/23 History Cholecalciferol [Vitamin D3 (25 25 mcg PO DAILY@1200 02/20/23 03/07/23 History Mcg = 1000 Iu)] Furosemide [Lasix] 20 mg PO DAILY@0800 02/20/23 03/07/23 History Acetaminophen [Tylenol] 650 mg PO Q4H PRN 03/07/23 03/07/23 History Magnesium Hydroxide [Milk of 7,200 mg PO Q48H PRN 03/07/23 03/07/23 History Magnesia Concentrate] Menthol-Zinc Oxide Oint 1 applic TOPICAL BID 03/07/23 03/07/23 History [Calmoseptine Ointment] Na Phos,M-B/Na Phos,Di-Ba [Fleet 133 ml RECTAL DAILY PRN 03/07/23 03/07/23 History Adult] Tamsulosin [Flomax] 0.4 mg PO DAILY@0800 03/07/23 03/07/23 History bisacodyL [Dulcolax] 10 mg RECTAL DAILY PRN 03/07/23 03/07/23 History polyethylene glycoL 3350 [Miralax] 17 gm PO DAILY@0800 03/07/23 03/07/23 History Allergies Allergy/AdvReac Type Severity Reaction Status Date / Time No Known Allergies Allergy Verified 03/07/23 16:15 Physical Exam Vitals: Vital Signs Temp Pulse Pulse Resp BP BP Pulse Ox 03/08/23 08:54 96 03/08/23 08:00 100.4 F H 108 H 18 134/78 89 L 03/08/23 06:14 99 F 101 H 16 116/75 95 03/08/23 04:44 101 H 16 125/80 95 03/08/23 00:04 98.1 F 92 18 113/64 95 03/07/23 22:36 97.7 F 03/07/23 20:30 71 19 104/65 91 L 03/07/23 20:00 61 15 87/57 96 03/07/23 19:30 65 19 99/63 94 L 03/07/23 19:00 63 17 92/57 03/07/23 18:30 64 19 89/53 95 03/07/23 18:00 68 19 94/56 93 L 03/07/23 17:30 68 20 93/54 94 L 03/07/23 17:00 78 22 95/55 92 L 03/07/23 16:40 83 20 95/55 93 L 03/07/23 16:20 84 22 93/56 92 L 03/07/23 16:17 93 L 03/07/23 15:25 99.1 F 03/07/23 12:53 102.5 F H 100 16 126/73 93 L Results CBC & Chem 7: 03/07/23 14:08 03/07/23 14:08 Labs: Abnormal Lab Results - Last 24 Hours (Table) 03/07/23 03/07/2303/07/23 Range/Units 14:08 14:08 16:47 WBC 22.9 H (3.8-10.6) k/uL Neutrophils # 20.0 H (1.3-7.7) k/uL Monocytes # 1.2 H (0-1.0) k/uL INR (<1.2) Sodium 135 L (137-145) mmol/L Chloride 96 L (98-107) mmol/L Creatinine 1.39 H (0.66-1.25) mg/dL Glucose 103 H (74-99) mg/dL Urine Protein 1+ H (Negative) Ur Leukocyte Esterase Large H (Negative) Urine WBC 140 H (0-5) /hpf Urine WBC Clumps Occasional H (None) /hpf Urine Bacteria Moderate H (None) /hpf Urine Mucus Rare H (None) /hpf 03/07/23 Range/Units 18:35 WBC (3.8-10.6) k/uL Neutrophils # (1.3-7.7) k/uL Monocytes # (0-1.0) k/uL INR 1.2 H (<1.2) Sodium (137-145) mmol/L Chloride (98-107) mmol/L Creatinine (0.66-1.25) mg/dL Glucose (74-99) mg/dL Urine Protein (Negative) Ur Leukocyte Esterase (Negative) Urine WBC (0-5) /hpf Urine WBC Clumps (None) /hpf Urine Bacteria (None) /hpf Urine Mucus (None) /hpf Assessment and Plan Plan: 1patient present to hospital with sepsis in this patient who did have a fever elevated white count tachycardia source likely catheter sensitivity the patient was noticed to have a cloudy urine with recent urine culture positive for MRSA could be the same pathogen 2-ultrasound of the kidney bladder related to motion evidence of any structural abnormalities and possible for recurrent UTIs 3-daptomycin 500 mg daily while waiting for the urine cultures to be finalized We will follow on clinical condition and cultures to further adjust medication if needed Thank you for this consultation we will follow the patient along with you Time with Patient: Greater than 30
[2023-03-09] MEDS: ACETAMINOPHEN TAB 325 MG TAB PO PRN ×2 (05:41→17:37)
[2023-03-09] MEDS: PANTOPRAZOLE 40 MG/10 ML VIAL IVP SCH (07:57)
[2023-03-09] MEDS: FUROSEMIDE 20 MG TAB PO SCH (07:58)
[2023-03-09] MEDS: polyethylene glycoL 3350 17 GM POWD.PACK PO SCH (07:58)
[2023-03-09] MEDS ORDERED: FUROSEMIDE 20 MG TAB PO SCH (08:00)
[2023-03-09] MEDS ORDERED: TAMSULOSIN 0.4 MG CAP.ER.24H PO SCH (08:00)
[2023-03-09 08:43] LABS: BUN/Creat Ratio 10.57 Ratio (12.00-20.00); Blood Urea Nitrogen 14.8 mg/dL (9.0-27.0); Calcium 8.6 mg/dL (8.7-10.3); Carbon Dioxide 24.4 mmol/L (21.6-31.8); Chloride 99 mmol/L (96-109); Glucose 107 mg/dL (70-110); Sodium 137 mmol/L (135-145)
[2023-03-09 08:50] LABS: Basophils # (A) 0.05 X 10*3/uL (0.00-0.10); Basophils % (A) 0.4 %; Eosinophils # (A) 0.16 X 10*3/uL (0.04-0.35); Eosinophils % (A) 1.4 %; HCT 39.4 % (39.6-50.0); HGB 12.8 d/dL (12.0-15.0); Lymphocytes # (A) 1.16 X 10*3/uL (0.90-5.00); Lymphocytes % (A) 10.2 %; MCH 31.1 pg (27.0-32.0); MCHC 32.5 d/dL (32.0-37.0); MCV 95.9 FL (80.0-97.0); Monocytes # (A) 1.29 X 10*3/uL (0.20-1.00); Monocytes % (A) 11.3 %; NRBC Per 100 WBC 0 X 10*3/uL (0.00-0.01); Neutrophils % (A) 76.3 %; Platelet Count 303 X 10*3/uL (140-440); RBC 4.11 X 10*6/uL (4.40-5.60); RDW 13.4 % (11.5-14.5); WBC 11.41 X 10*3/uL (4.50-10.00)
--- NOTE | 2023-03-09 10:18 | P.PN ---
Subjective Progress Note Date: 03/09/23 patient was febrile last night, renal ultrasound showed no hydronephrosis or kidney stones. Denies any flank pain, and culture is growing gram-negative bacilli Objective - Vital Signs Vital signs: Vital Signs Temp 99.1 F 03/09/23 07:45 Pulse 59 L 03/09/23 07:45 Resp 18 03/09/23 07:45 BP 102/56 03/09/23 07:45 Pulse Ox 93 L 03/09/23 07:45 FiO2 Intake & Output 03/08/23 03/09/23 03/09/23 18:59 06:59 18:59 Intake Total 200 170 120 Output Total 250 602 Balance -50 -432 120 Weight 85.729 kg Intake: Intake, IV Titration 170 Amount DAPTOmycin 500 mg In 50 Sodium Chloride 0.9% 50 ml @ 100 mls/hr IVPB Q24H [facility] Rx#:[id number] Sodium Chloride 0.9% 1, 120 000 ml @ 75 mls/hr IV . [id number] Rx#:[id number] Oral 200 120 Output: Urine 250 600 Stool 2 Other: Voiding Method Indwelling Catheter Indwelling Catheter Indwelling Catheter # Voids 2 # Bowel Movements 1 - Constitutional General appearance: Present: no acute distress - Gastrointestinal General gastrointestinal: Present: soft. Absent: tenderness - Labs CBC & Chem 7: 03/09/23 04:42 03/09/23 04:42 Labs: Abnormal Lab Results - Last 24 Hours (Table) 03/09/23 03/09/23 Range/Units 04:42 04:42 WBC 11.41 H (4.50-10.00) X 10*3/uL RBC 4.11 L (4.40-5.60) X 10*6/uL Hct 39.4 L (39.6-50.0) % MPV 9.0 L (9.5-12.2) FL Neutrophils # 8.70 H (1.80-7.70) X 10*3/uL Monocytes # 1.29 H (0.20-1.00) X 10*3/uL Anion Gap 13.60 H (4.00-12.00) mmol/L Est GFR (CKD-EPI) 56 L (>=60) BUN/Creatinine Ratio 10.57 L (12.00-20.00) Ratio Calcium 8.6 L (8.7-10.3) mg/dL C-Reactive Protein 14.30 H (0.00-0.80) mg/dL Microbiology - Last 24 Hours (Table) 03/07/23 13:40 Blood Culture - Preliminary Blood 03/07/23 14:08 Blood Culture - Preliminary Blood Assessment and Plan Assessment: 62-year-old male admitted to the hospital with UTI, does have history of a neurogenic bladder at baseline and he does CIC X4. Has been having recurrent UTIs, current urine cultures growing gram-negative bacilli. renal ultrasound showed no hydronephrosis or renal stones. -Antibiotics per infectious disease, patient is currently being evaluated by infectious disease -patient has been having some difficulties with CIC, dewe'll keep the Ross catheter in place and he can be discharged to subacute rehab with the Ross catheter -we'll start Hiprex as an outpatient for recurrent UTIs
--- NOTE | 2023-03-09 10:50 | CDI ---
Documentation Clarification Form Date: 03/09/2023 10:29:39 AM From: Bekah Kessler RN CCDS Phone: [phone] Admit Date: 03/07/2023 05:58:00 PM Patient Name: Albert Mahmood Visit Number: [id number] Discharge Date: ATTENTION: The Clinical Documentation Specialists (CDI) and [facility] Coding Staff appreciate your assistance in clarifying documentation. Please respond to the clarification below the line at the bottom and electronically sign. The CDI & [facility] Coding staff will review the response and follow-up if needed. Please note: Queries are made part of the Legal Health Record. If you have any questions, please contact the author of this message via ITS. Dr. Misbah Del Rio Sepsis is documented ID consult, 03/08 but is not noted in subsequent documentation. Clarification is requested. History/Risk Factors: 62-year-old male presents from subacute rehab with fever and cloudy urine. Medical History: Recent MRSA UTI sent to [facility] with Ross catheter, Neurogenic bladder secondary to multiple sclerosis. 03/08, H&P. Clinical Indicators: VSS, 03/07: B/P 126/73; HR 100; Temp 102.5; RR16; SpO2 93% room air LABS, 03/07: Wbc 22.9; Neutrophils 20.0 UA, 03/07: Protein 1+, Leukocyte Esterase Large, Wbc 140, Wbc Clumps Occasional, Bacteria Moderate, Mucus Rare. ID Consult, 03/08: patient present to hospital with sepsis in this patient who did have a fever elevated white count tachycardia source likely catheter sensitivity the patient was noticed to have a cloudy urine with recent urine culture positive for MRSA could be the same pathogen. Treatment: ID consult above; 03/07 Ceftriaxone IVPB x 1; 03/08 Daptomycin IVPB Q24H; 03/07 0.9NS 500cc Bolus x 2 Please clarify if the Sepsis is: [ X ] Sepsis confirmed, remains under treatment [ ] Sepsis confirmed, resolved [ ] Sepsis ruled out [ ] Other condition, please specify [ ] Unable to determine Documented 03/09 Medicine progress note: Sepsis secondary to acute recurrent UTI, gram negative bacilli possibly catheter related, 03/[address] Del Rio, Clarisa Ivey [employer] ADMINISTRATOR (Template Last Revised: November 2020) [place]
--- NOTE | 2023-03-09 11:06 | CDI ---
Documentation Clarification Form Date: 03/09/2023 10:52:48 AM From: Bekah eKssler RN CCDS Phone: [phone] Admit Date: 03/07/2023 05:58:00 PM Patient Name: Albert Mahmood Visit Number: [id number] Discharge Date: ATTENTION: The Clinical Documentation Specialists (CDI) and [facility] Coding Staff appreciate your assistance in clarifying documentation. Please respond to the clarification below the line at the bottom and electronically sign. The CDI & [facility] Coding staff will review the response and follow-up if needed. Please note: Queries are made part of the Legal Health Record. If you have any questions, please contact the author of this message via ITS. Dr. Misbah Del Rio UTI is documented 03/07, H&P and patient has a Ross catheter. Additional clarification regarding the etiology of the UTI is requested. History/Risk Factors: 62-year-old male presents from subacute rehab with fever and cloudy urine. Medical History: Recent MRSA UTI sent to [facility] 02/25 with Ross catheter, Neurogenic bladder secondary to multiple sclerosis. 03/08, H&P. Clinical Indicators: VSS, 03/07: B/P 126/73; HR 100; Temp 102.5; RR16; SpO2 93% room air Urinalysis,03/07: Protein 1+, Leukocyte Esterase Large, Wbc 140, Wbc Clumps Occasional, Bacteria Moderate, Mucus Rare. Lab results 03/07: LABS, 03/07: Wbc 22.9; Neutrophils 20.0 ID Consult, 03/08: patient present to hospital with sepsis in this patient who did have a fever elevated white count tachycardia source likely catheter sensitivity the patient was noticed to have a cloudy urine with recent urine culture positive for MRSA could be the same pathogen. H&P, 03/07: Ross catheter changed in ER. Treatment: ID consult see above; 03/07 Ceftriaxone IVPB x 1; 03/08 Daptomycin IVPB Q24H; 03/07 0.9NS 500cc Bolus x 2 Please clarify the etiology of the UTI, if known: [ ] Ross catheter [ ] UTI not related to catheter [ ] Other condition, please specify [ ] Unable to determine Documented 03/09 Medicine progress note: Sepsis secondary to acute recurrent UTI, gram negative bacilli possibly catheter related, 03/07 culture reporting ESBL Clarisa Carlisle FRUIT LOADER (Template Last Revised: November 2020) MTDD
--- NOTE | 2023-03-09 12:39 | P.PN ---
Subjective Progress Note Date: 03/09/23 H&P Date: 03/08/23 Chief Complaint: Fevers, suspected recurrent UTI This is a 62-year-old gentleman recently discharged on February 25 with MRSA UTI, to [facility] with Ross catheter,past medical history significant for neurogenic bladder secondary to multiple sclerosis, and multiple other medical issues, returned from the subacute rehab, to our ER with complaints of fever, cloudy urine. T-max on admission 102.5.,WBC 22.9. Denies any chills, sweats or shortness of breath. Denies flank or back pain. Denies any suprapubic pain. Denies hematuria. Denies fall or trauma. Denies any chest pain, palpitations or shortness of breath. Currently on 2 L nasal cannula O2, maintaining O2 sats in the 90s. Reports last bowel movement yesterday, small, formed. Ross catheter changed in the ER. UA reported moderate bacteria, 140 urine WBCs, large leukocytes, negative nitrates, culture pending.Urology and infectious disease consulted, antibiotics initiated. Creatinine currently 1.39, on discharge 1.1. 03/09/23 Maintained on daptomycin, blood cultures pending.apparently urine culture was never collected in the ER only the UA. Reordered. T-max 102.8, WBC improving, down to 11.41. CRP elevated 14.3. Family at bedside states during the night with fevers, patient became a little disoriented. Chest x-ray reporting posterior infiltrates, likely on the basis of atelectasis. Maintaining O2 sats in the low 90s on room air. Denies cough, congestion, chills or sweats. Denies lightheadedness dizziness or focal deficits, no blurred vision denies increased weakness. Denies abdominal/flank pain. Renal ultrasound reported limited, no evidence of obstructive uropathy, left renal atrophy changes similar to prior exam. BUN 14.8, creatinine 1.4. Objective - Vital Signs Vital signs: Vital Signs Temp 99.1 F 03/09/23 07:45 Pulse 59 L 03/09/23 07:45 Resp 18 03/09/23 07:45 BP 102/56 03/09/23 07:45 Pulse Ox 93 L 03/09/23 10:28 FiO2 Intake & Output 03/08/23 03/09/23 03/09/23 18:59 06:59 18:59 Intake Total 200 170 120 Output Total 250 602 Balance -50 -432 120 Weight 85.729 kg Intake: Intake, IV Titration 170 Amount DAPTOmycin 500 mg In 50 Sodium Chloride 0.9% 50 ml @ 100 mls/hr IVPB Q24H [facility] Rx#:[id number] Sodium Chloride 0.9% 1, 120 000 ml @ 75 mls/hr IV . [id number] ONE Rx#:[id number] Oral 200 120 Output: Urine 250 600 Stool 2 Other: Voiding Method Indwelling Catheter Indwelling Catheter Indwelling Catheter # Voids 2 # Bowel Movements 1 - Exam - Exam Gen: A&O X 3, sitting up in chair, NAD CV: RRR, no murmur Lungs: Equal air entry, Bibasilar crackles Abd: distended, soft, nontender - Labs CBC & Chem 7: 03/09/23 04:42 03/09/23 04:42 Labs: Abnormal Lab Results - Last 24 Hours (Table) 03/09/23 03/09/23 Range/Units 04:42 04:42 WBC 11.41 H (4.50-10.00) X 10*3/uL RBC 4.11 L (4.40-5.60) X 10*6/uL Hct 39.4 L (39.6-50.0) % MPV 9.0 L (9.5-12.2) FL Neutrophils # 8.70 H (1.80-7.70) X 10*3/uL Monocytes # 1.29 H (0.20-1.00) X 10*3/uL Anion Gap 13.60 H (4.00-12.00) mmol/L Est GFR (CKD-EPI) 56 L (>=60) BUN/Creatinine Ratio 10.57 L (12.00-20.00) Ratio Calcium 8.6 L (8.7-10.3) mg/dL C-Reactive Protein 14.30 H (0.00-0.80) mg/dL Microbiology - Last 24 Hours (Table) 03/07/23 13:40 Blood Culture - Preliminary Blood 03/07/23 14:08 Blood Culture - Preliminary Blood Assessment and Plan Assessment: Sepsis secondary to Acute recurrent UTI, possibly catheter related, 03/07 culture reporting gram-negative bacilli ,in a patient with recent MRSA UTI, with a neurogenic bladder secondary to MS. patient had been discharged with Ross cath eter to subacute rehab. Ross catheter changed in ER. Acute renal injury, mild secondary to the above Atelectasis Plan: Continue on current medication regime ,monitoring and symptomatic treatment.Aggressive pulmonary toileting, incentive spirometer ordered. Urine culture returned ordered stat. Antibiotics as per ID. The impression and plan of care has been dictated as directed. : I performed a history and examination of this patient, discussed the same with the dictator. I agree with the dictator's note ,documented as a scribe. Any additional findings or plans will be noted.
[2023-03-09 13:39] VITALS: BMI 27.1
[2023-03-09] MEDS: DAPTOmycin 500 MG in SODIUM CHLORIDE 0.9% 50 ML IVPB SCH (17:27)
--- NOTE | 2023-03-09 22:44 | P.PN ---
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 On today's evaluation that is 03/09/2023 patient overall feels better and has improved and down to 100.5 F this morning patient feeling slightly better complaining of some weakness no chest pain no shortness of breath or cough no abdominal pain no diarrhea Objective - Vital Signs Vital signs: Vital Signs Temp 99.1 F 03/09/23 07:45 Pulse 59 L 03/09/23 07:45 Resp 18 03/09/23 07:45 BP 102/56 03/09/23 07:45 Pulse Ox 93 L 03/09/23 07:45 FiO2 Intake & Output 03/08/23 03/09/23 03/09/23 18:59 06:59 18:59 Intake Total 200 170 120 Output Total 250 602 Balance -50 -432 120 Weight 85.729 kg Intake: Intake, IV Titration 170 Amount DAPTOmycin 500 mg In 50 Sodium Chloride 0.9% 50 ml @ 100 mls/hr IVPB Q24H [facility] Rx#:[id number] Sodium Chloride 0.9% 1, 120 000 ml @ 75 mls/hr IV . [id number] ONE Rx#:[id number] Oral 200 120 Output: Urine 250 600 Stool 2 Other: Voiding Method Indwelling Catheter Indwelling Catheter Indwelling Catheter # Voids 2 # Bowel Movements 1 - Exam GENERAL DESCRIPTION: Middle-age male up in the chair in no distress RESPIRATORY SYSTEM: Unlabored breathing , decreased breath sounds at bases HEART: S1 S2 regular rate and rhythm ,no loud murmurs ABDOMEN: Soft , no tenderness EXTREMITIES: No edema feet - Labs CBC & Chem 7: 03/09/23 04:42 03/09/23 04:42 Labs: Abnormal Lab Results - Last 24 Hours (Table) 03/09/23 03/09/23 Range/Units 04:42 04:42 WBC 11.41 H (4.50-10.00) X 10*3/uL RBC 4.11 L (4.40-5.60) X 10*6/uL Hct 39.4 L (39.6-50.0) % MPV 9.0 L (9.5-12.2) FL Neutrophils # 8.70 H (1.80-7.70) X 10*3/uL Monocytes # 1.29 H (0.20-1.00) X 10*3/uL Anion Gap 13.60 H (4.00-12.00) mmol/L Est GFR (CKD-EPI) 56 L (>=60) BUN/Creatinine Ratio 10.57 L (12.00-20.00) Ratio Calcium 8.6 L (8.7-10.3) mg/dL C-Reactive Protein 14.30 H (0.00-0.80) mg/dL Microbiology - Last 24 Hours (Table) 03/07/23 13:40 Blood Culture - Preliminary Blood 03/07/23 14:08 Blood Culture - Preliminary Blood Assessment and Plan (1) Sepsis Current Visit: Yes Status: Acute Code(s): A41.9 - SEPSIS, UNSPECIFIED ORGANISM SNOMED Code(s): 72214834 (2) UTI (urinary tract infection) Current Visit: Yes Status: Acute Code(s): N39.0 - URINARY TRACT INFECTION, SITE NOT SPECIFIED SNOMED Code(s): 25588747 Plan: 1patient present to hospital with sepsis in this patient who did have a fever elevated white count tachycardia source likely catheter sensitivity the patient was noticed to have a cloudy urine with recent urine culture positive for MRSA could be the same pathogen 2-ultrasound of the kidney bladder with no evidence of any structural abnormalities 3-Pt to continue with daptomycin 500 mg daily while waiting for the urine cultures to be finalized Family at the bedside multiple questions concerns were answered Time with Patient: Less than 30
[2023-03-10] MEDS: TAMSULOSIN 0.4 MG CAP.ER.24H PO SCH (08:42)
[2023-03-10] MEDS: FUROSEMIDE 20 MG TAB PO SCH (08:42)
[2023-03-10] MEDS: PANTOPRAZOLE 40 MG/10 ML VIAL IVP SCH (08:42)
[2023-03-10] MEDS: polyethylene glycoL 3350 17 GM POWD.PACK PO SCH (08:43)
[2023-03-10 09:49] LABS: HCT 38.6 % (39.0-53.0); HGB 12.5 gm/dL (13.0-17.5); MCH 31.1 pg (25.0-35.0); MCHC 32.5 g/dL (31.0-37.0); MCV 95.6 fL (80.0-100.0); Mean Platelet Volume 7.4; Platelet Count 303 k/uL (150-450); RBC 4.04 m/uL (4.30-5.90); RDW 13.4 % (11.5-15.5); WBC 7.6 k/uL (3.8-10.6)
[2023-03-10 09:52] LABS: African American GFR (CKD) 87 (>60 ml/min/1.73 sqM); Anion Gap 9 mmol/L; Blood Urea Nitrogen 14 mg/dL (9-20); Calcium 8.5 mg/dL (8.4-10.2); Carbon Dioxide 26 mmol/L (22-30); Chloride 102 mmol/L (98-107); Glucose 116 mg/dL (74-99); Non-African American GFR(CKD) 75 (>60 ml/min/1.73 sqM); Potassium 3.6 mmol/L (3.5-5.1); Sodium 137 mmol/L (137-145)
--- NOTE | 2023-03-10 13:06 | P.PN ---
Subjective Progress Note Date: 03/10/23 H&P Date: 03/08/23 Chief Complaint: Fevers, suspected recurrent UTI This is a 62-year-old gentleman recently discharged on February 25 with MRSA UTI, to [facility] with Ross catheter,past medical history significant for neurogenic bladder secondary to multiple sclerosis, and multiple other medical issues, returned from the subacute rehab, to our ER with complaints of fever, cloudy urine. T-max on admission 102.5.,WBC 22.9. Denies any chills, sweats or shortness of breath. Denies flank or back pain. Denies any suprapubic pain. Denies hematuria. Denies fall or trauma. Denies any chest pain, palpitations or shortness of breath. Currently on 2 L nasal cannula O2, maintaining O2 sats in the 90s. Reports last bowel movement yesterday, small, formed. Ross catheter changed in the ER. UA reported moderate bacteria, 140 urine WBCs, large leukocytes, negative nitrates, culture pending.Urology and infectious disease consulted, antibiotics initiated. Creatinine currently 1.39, on discharge 1.1. 03/09/23 Maintained on daptomycin, blood cultures pending.apparently urine culture was never collected in the ER only the UA. Reordered. T-max 102.8, WBC improving, down to 11.41. CRP elevated 14.3. Family at bedside states during the night with fevers, patient became a little disoriented. Chest x-ray reporting posterior infiltrates, likely on the basis of atelectasis. Maintaining O2 sats in the low 90s on room air. Denies cough, congestion, chills or sweats. Denies lightheadedness dizziness or focal deficits, no blurred vision denies increased weakness. Denies abdominal/flank pain. Renal ultrasound reported limited, no evidence of obstructive uropathy, left renal atrophy changes similar to prior exam. BUN 14.8, creatinine 1.4. 03/10/2023 urine culture currently growing gram-negative bacilli. T-max 100.5, WBC 7.6. Maintained on daptomycin. Renal function continues improving, BUN 14, creatinine 1.05. Blood sugars controlled. Ambulating with walker/physical therapy, requiring sitting breaks in between. Compliant with incentive spirometer. Denies chest pain, palpitations or shortness of breath. Maintaining O2 sats in the 90s on room air. Denies cough, congestion. Positive bowel movement yesterday. Denies abdominal pain. Objective - Vital Signs Vital signs: Vital Signs Temp 98.5 F 03/10/23 06:50 Pulse 75 03/10/23 06:50 Resp 18 03/10/23 06:50 BP 113/70 03/10/23 06:50 Pulse Ox 90 L 03/10/23 06:50 FiO2 Intake & Output 03/09/23 03/10/23 03/10/23 18:59 06:59 18:59 Intake Total 520 Output Total 2600 502 Balance -2079 Weight 85.729 kg Intake: Oral 520 Output: Urine 2600 501 Stool 1 Other: Voiding Method Indwelling Catheter Indwelling Catheter Indwelling Catheter # Bowel Movements 2 1 - Exam - Exam Gen: A&O X 3, sitting up in chair, NAD CV: RRR, no murmur Lungs: Equal air entry, equal air entry, bilateral bases diminished. Abd: distended, soft, nontender - Labs CBC & Chem 7: 03/10/23 09:14 03/10/23 09:14 Labs: Abnormal Lab Results - Last 24 Hours (Table) 03/10/23 03/10/23 Range/Units 09:14 09:14 RBC 4.04 L (4.30-5.90) m/uL Hgb 12.5 L (13.0-17.5) gm/dL Hct 38.6 L (39.0-53.0) % Glucose 116 H (74-99) mg/dL Microbiology - Last 24 Hours (Table) 03/07/23 13:40 Blood Culture - Preliminary Blood 03/07/23 14:08 Blood Culture - Preliminary Blood 03/08/23 11:00 Urine Culture - Preliminary Urine,Catheterized Gram Neg Bacilli Assessment and Plan Assessment: Sepsis secondary to Acute recurrent UTI, gram-negative bacilli possibly catheter related, 03/07 culture reporting ESBL,in a patient with recent MRSA UTI, with a neurogenic bladder secondary to MS. patient had been discharged with Ross catheter to subacute rehab. Ross catheter changed in ER. Acute renal injury, mild secondary to the above Atelectasis Plan: Continue on current medication regime ,monitoring and symptomatic elmer atment.maintain aggressive pulmonary toileting, incentive spirometer ordered.Antibiotics as per ID.03/07 culture reporting ESBL. The impression and plan of care has been dictated as directed. : I performed a history and examination of this patient, discussed the same with the dictator. I agree with the dictator's note ,documented as a scribe. Any additional findings or plans will be noted.
[2023-03-10 14:51] LABS: Appearance,Urine Cloudy (Clear); Bacteria,Urine Moderate /hpf; Bilirubin,Urine Negative (Negative); Blood,Urine Small (Negative); Color,Urine Light Yellow; Glucose,Urine (UA) Negative (Negative); Ketones,Urine Negative (Negative); Leukocyte Esterase,Urine Large (Negative); Mucus,Urine Rare /hpf; Nitrite,Urine Positive (Negative); PH, Urine 5.5 (5.0-8.0); Protein,Urine Negative (Negative); RBC,Urine 7 /hpf (0-5); Specific Gravity,Urine 1.013 (1.001-1.035); Squamous Epithelial Cell,Urine <1 /hpf (0-4); Urobilinogen,Urine <2.0 mg/dL (<2.0); WBC,Urine 88 /hpf (0-5)
[2023-03-10] MEDS ORDERED: ERTAPENEM 1 GM in SODIUM CHLORIDE 0.9% 50 ML IVPB SCH (16:00)
[2023-03-11] MEDS: polyethylene glycoL 3350 17 GM POWD.PACK PO SCH (08:05)
[2023-03-11 08:06] VITALS: BP 102/61; PULSE 68; RESP 16; TEMP 99.4
--- NOTE | 2023-03-11 08:12 | P.PN ---
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 On today's evaluation that is 03/10/2023 patient fever has resolved, with a temperature of 98 F this morning patient is feeling better he is breathing comfortably will be with patient denies having any chest pain shortness of breath or cough no abdominal pain no diarrhea Objective - Vital Signs Vital signs: Vital Signs Temp 98.5 F 03/10/23 06:50 Pulse 75 03/10/23 06:50 Resp 18 03/10/23 06:50 BP 113/70 03/10/23 06:50 Pulse Ox 90 L 03/10/23 06:50 FiO2 Intake & Output 03/09/23 03/10/23 03/10/23 18:59 06:59 18:59 Intake Total 520 Output Total 2600 502 Balance -2079 -502 Weight 85.729 kg Intake: Oral 520 Output: Urine 2600 501 Stool 1 Other: Voiding Method Indwelling Catheter Indwelling Catheter Indwelling Catheter # Bowel Movements 2 1 - Exam GENERAL DESCRIPTION: Middle-age male up in the chair in no distress RESPIRATORY SYSTEM: Unlabored breathing , decreased breath sounds at bases HEART: S1 S2 regular rate and rhythm ,no loud murmurs ABDOMEN: Soft , no tenderness EXTREMITIES: No edema feet - Labs CBC & Chem 7: 03/10/23 09:14 03/10/23 09:14 Labs: Abnormal Lab Results - Last 24 Hours (Table) 03/10/23 03/10/23 Range/Units 09:14 09:14 RBC 4.04 L (4.30-5.90) m/uL Hgb 12.5 L (13.0-17.5) gm/dL Hct 38.6 L (39.0-53.0) % Glucose 116 H (74-99) mg/dL Microbiology - Last 24 Hours (Table) 03/07/23 13:40 Blood Culture - Preliminary Blood 03/07/23 14:08 Blood Culture - Preliminary Blood 03/08/23 11:00 Urine Culture - Preliminary Urine,Catheterized Gram Neg Bacilli Assessment and Plan (1) Sepsis Current Visit: Yes Status: Acute Code(s): A41.9 - SEPSIS, UNSPECIFIED ORGANISM SNOMED Code(s): 68923716 (2) UTI (urinary tract infection) Current Visit: Yes Status: Acute Code(s): N39.0 - URINARY TRACT INFECTION, SITE NOT SPECIFIED SNOMED Code(s): 16592975 Plan: 1patient present to hospital with sepsis in this patient who did have a fever elevated white count tachycardia source likely catheter sensitivity the patient was noticed to have a cloudy urine with recent urine culture positive for MRSA could be the same pathogen 2-ultrasound of the kidney bladder with no evidence of any structural abnormalities 3-Patient has shown clinical improvement however urine cultures are now showing ESBL E. coli for which the patient did not receive any treatment and is not correlating with the clinical condition, this has been discussed with the WIRE FENCE BUILDER for admitting team we will repeat a UA and cultures discontinue daptomycin and switch to Invanz and follow-up on the repeat cultures
[2023-03-11] MEDS: TAMSULOSIN 0.4 MG CAP.ER.24H PO SCH (08:29)
[2023-03-11] MEDS: FUROSEMIDE 20 MG TAB PO SCH (08:29)
[2023-03-11] MEDS: PANTOPRAZOLE 40 MG/10 ML VIAL IVP SCH (08:29)
--- NOTE | 2023-03-11 10:52 | P.DS ---
Providers Date of admission: 03/07/23 17:58 Expected date of discharge: 03/11/23 Attending physician: Misbah Del Rio MD Consults: 03/07/23 17:56 Consult Physician Urgent Consulting Provider: Shant Oviedo Consult Reason/Comments: urinary tract infection Do you want consulting provider notified?: Yes 03/08/23 11:43 Consult Physician Routine Consulting Provider: Horace Pollack Consult Reason/Comments: urinary tract infection, chronic Ross Do you want consulting provider notified?: Yes Primary care physician: Elle Guadalupe Hospital Course: Final diagnoses Sepsis secondary to Acute recurrent UTI, ESBL,in a patient with recent MRSA UTI, with a neurogenic bladder secondary to MS. patient had been discharged with Ross catheter to subacute rehab. Ross catheter changed in ER. Acute renal injury, mild secondary to the above Atelectasis Hospital course:This is a 62-year-old gentleman recently discharged on February 25 with MRSA UTI, to [facility] with Ross catheter,past medical history significant for neurogenic bladder secondary to multiple sclerosis, and multiple other medical issues, returned from the subacute rehab, to our ER with complaints of fever, cloudy urine. T-max on admission 102.5.,WBC 22.9. Denies any chills, sweats or shortness of breath. Denies flank or back pain. Denies any suprapubic pain. Denies hematuria. Denies fall or trauma. Denies any chest pain, palpitations or shortness of breath. Currently on 2 L nasal cannula O2, maintaining O2 sats in the 90s. Reports last bowel movement yesterday, small, formed. Rsos catheter changed in the ER. UA reported moderate bacteria, 140 urine WBCs, large leukocytes, negative nitrates, culture pending.Urology and infectious disease consulted, antibiotics initiated. Creatinine currently 1.39, on discharge 1.1. 03/09/23 Maintained on daptomycin, blood cultures pending.apparently urine culture was never collected in the ER only the UA. Reordered. T-max 102.8, WBC improving, down to 11.41. CRP elevated 14.3. Family at bedside states during the night with fevers, patient became a little disoriented. Chest x-ray reporting posterior infiltrates, likely on the basis of atelectasis. Maintaining O2 sats in the low 90s on room air. Denies cough, congestion, chills or sweats. Denies lightheadedness dizziness or focal deficits, no blurred vision denies increased weakness. Denies abdominal/flank pain. Renal ultrasound reported limited, no evidence of obstructive uropathy, left renal atrophy changes similar to prior exam. BUN 14.8, creatinine 1.4. 03/10/2023 urine culture currently growing gram-negative bacilli. T-max 100.5, WBC 7.6. Maintained on daptomycin. Renal function continues improving, BUN 14, creatinine 1.05. Blood sugars controlled. Ambulating with walker/physical therapy, requiring sitting breaks in between. Compliant with incentive spirometer. Denies chest pain, palpitations or shortness of breath. Maintaining O2 sats in the 90s on room air. Denies cough, congestion. Positive bowel movement yesterday. Denies abdominal pain. Urine cultures reflecting ESBL, antibiotics adjusted to Invanz as per infectious disease. Midline placed. T-max 99. Significant clinical improvement. Denies any chest pain palpitations or shortness of breath. Denies lightheadedness dizziness or focal deficits. Patient has been cleared for discharge with recommendations of Invanz 1 g daily 2 weeks via midline as per infectious disease. Initiate Hiprex ( as ordered per urology) after Invanz completed. Patient will be discharged to [facility] subacute rehab today in a stable condition with guarded prognosis. Microbiology 03/07/23 13:40 Blood Blood Culture - Preliminary 03/07/23 14:08 Blood Blood Culture - Preliminary 03/09/23 14:30 Urine,Catheterized Urine Culture - Preliminary Gram Neg Bacilli 03/08/23 11:00 Urine,Catheterized Urine Culture - Final Escherichia coli The impression and plan of care has been dictated as directed. : I performed a history and examination of this patient, discussed the same with the dictator. I agree with the dictator's note ,documented as a scribe. Any additional findings or plans will be noted. Patient Condition at Discharge: Stable Plan - Discharge Summary Discharge Rx Participant: Yes New Discharge Prescriptions: New Methenamine Hippurate [Hiprex] 1 gm PO BID #60 tab Pantoprazole [Protonix] 40 mg PO DAILY #30 tab Ertapenem [INVanz] 1 gm IVPB DAILY@1600 14 Days #14 each Continue bisacodyL [Dulcolax] 10 mg RECTAL DAILY PRN PRN Reason: Constipation Acetaminophen [Tylenol] 650 mg PO Q4H PRN PRN Reason: Fever And/ Or Pain Ascorbic Acid [Vitamin C chew] 500 mg PO DAILY@1200 Furosemide [Lasix] 20 mg PO DAILY@0800 Cholecalciferol [Vitamin D3 (25 Mcg = 1000 Iu)] 25 mcg PO DAILY@1200 Atorvastatin [Lipitor] 10 mg PO HS@2100 Na Phos,M-B/Na Phos,Di-Ba [Fleet Adult] 133 ml RECTAL DAILY PRN PRN Reason: Constipation Menthol-Zinc Oxide Oint [Calmoseptine Ointment] 1 applic TOPICAL BID polyethylene glycoL 3350 [Miralax] 17 gm PO DAILY@0800 Tamsulosin [Flomax] 0.4 mg PO DAILY@0800 Magnesium Hydroxide [Milk of Magnesia Concentrate] 7,200 mg PO Q48H PRN PRN Reason: Constipation Discharge Medication List Ascorbic Acid [Vitamin C chew] 500 mg PO DAILY@1200 02/20/23 [History] Atorvastatin [Lipitor] 10 mg PO HS@2100 02/20/23 [History] Cholecalciferol [Vitamin D3 (25 Mcg = 1000 Iu)] 25 mcg PO DAILY@1200 02/20/23 [History] Furosemide [Lasix] 20 mg PO DAILY@0800 02/20/23 [History] Acetaminophen [Tylenol] 650 mg PO Q4H PRN 03/07/23 [History] Magnesium Hydroxide [Milk of Magnesia Concentrate] 7,200 mg PO Q48H PRN 03/07/23 [History] Menthol-Zinc Oxide Oint [Calmoseptine Ointment] 1 applic TOPICAL BID 03/07/23 [History] Na Phos,M-B/Na Phos,Di-Ba [Fleet Adult] 133 ml RECTAL DAILY PRN 03/07/23 [History] Tamsulosin [Flomax] 0.4 mg PO DAILY@0800 03/07/23 [History] bisacodyL [Dulcolax] 10 mg RECTAL DAILY PRN 03/07/23 [History] polyethylene glycoL 3350 [Miralax] 17 gm PO DAILY@0800 03/07/23 [History] Methenamine Hippurate [Hiprex] 1 gm PO BID #60 tab 03/09/23 [Rx] Ertapenem [INVanz] 1 gm IVPB DAILY@1600 14 Days #14 each 03/11/23 [Rx] Pantoprazole [Protonix] 40 mg PO DAILY #30 tab 03/11/23 [Rx] Follow up Appointment(s)/Referral(s): Misbah Del Rio MD [STAFF PHYSICIAN] - 1 Week (After DC from subacute rehab) Linwood &Olivia [NON-STAFF] - As Needed (Please call [facility] if you have questions about the hinged AFO ankle brace. )
[2023-03-11 11:29] LABS: BUN/Creat Ratio 10.92 Ratio (12.00-20.00); Blood Urea Nitrogen 13.1 mg/dL (9.0-27.0); Calcium 8.5 mg/dL (8.7-10.3); Carbon Dioxide 22.9 mmol/L (21.6-31.8); Chloride 99 mmol/L (96-109); Glucose 116 mg/dL (70-110); Potassium 4.3 mmol/L (3.5-5.5); Sodium 138 mmol/L (135-145)
[2023-03-11 12:08] LABS: Basophils # (A) 0.05 X 10*3/uL (0.00-0.10); Basophils % (A) 0.6 %; Eosinophils # (A) 0.65 X 10*3/uL (0.04-0.35); Eosinophils % (A) 8.4 %; HCT 40.5 % (39.6-50.0); HGB 13.1 d/dL (12.0-15.0); Lymphocytes # (A) 1.44 X 10*3/uL (0.90-5.00); Lymphocytes % (A) 18.7 %; MCH 31.3 pg (27.0-32.0); MCHC 32.3 d/dL (32.0-37.0); MCV 96.7 FL (80.0-97.0); Mean Platelet Volume 10.8 FL (9.5-12.2); Monocytes # (A) 1.23 X 10*3/uL (0.20-1.00); Monocytes % (A) 15.9 %; NRBC Per 100 WBC 0 X 10*3/uL (0.00-0.01); Neutrophils # (A) 4.25 X 10*3/uL (1.80-7.70); Neutrophils % (A) 55.1 %; Platelet Count 269 X 10*3/uL (140-440); RBC 4.19 X 10*6/uL (4.40-5.60); RBC Morphology Normal (Normal); RDW 13.5 % (11.5-14.5); WBC 7.72 X 10*3/uL (4.50-10.00)
== END 2023-03-11 12:57 | DRG 698 ==
LOC: EC 12:49 → 4SSUR 17:58
PROVIDERS: ADMIT Family Medicine; ATTEND Family Medicine
PROC: 05HB33Z Insertion of Infusion Device into Right Basilic Vein, Percutaneous Approach (ICD-10-PCS; principal; 2023-03-11 09:30)
DX: T83.511A Infection and inflammatory reaction due to indwelling urethral catheter, initial encounter (principal); A41.02 Sepsis due to Methicillin resistant Staphylococcus aureus; A41.51 Sepsis due to Escherichia coli [E. coli]; N17.9 Acute kidney failure, unspecified; J98.11 Atelectasis; Z16.12 Extended spectrum beta lactamase (ESBL) resistance; N30.90 Cystitis, unspecified without hematuria; N31.9 Neuromuscular dysfunction of bladder, unspecified; H66.90 Otitis media, unspecified, unspecified ear; Z87.440 Personal history of urinary (tract) infections; I11.0 Hypertensive heart disease with heart failure; I25.10 Atherosclerotic heart disease of native coronary artery without angina pectoris; I50.9 Heart failure, unspecified; G35 Multiple sclerosis; R33.8 Other retention of urine; Y84.6 Urinary catheterization as the cause of abnormal reaction of the patient, or of later complication, without mention of misadventure at the time of the procedure; Z79.899 Other long term (current) drug therapy
CPT/HCPCS: 36415; 71046; 76770; 80048; 80053; 81001; 83605; 85025; 85027; 85610; 85730; 86140; 87040; 87077; 87086; 87186; 93005; 94760; 96361; 96365; 99285

== ENCOUNTER 2023-07-17 19:29 | Inpatient (IN) | payer MEDICARE ==
[2023-07-17] MEDS ORDERED: ACETAMINOPHEN TAB 325 MG TAB PO STA (19:46)
[2023-07-17] MEDS ORDERED: IBUPROFEN 600 MG TAB PO STA (20:05)
[2023-07-17] MEDS ORDERED: SODIUM CHLORIDE 0.9% 1,000 ML IV STA (20:05)
--- NOTE | 2023-07-17 20:35 | XR ---
EXAMINATION TYPE: XR KUB portable DATE OF EXAM: 07/17/2023 8:25 PM CLINICAL INDICATION:Male, 62 years old with history of abd distension; [facility] COMPARISON: 02/21/2023. TECHNIQUE: One radiographic view of the abdomen was obtained. FINDINGS: Gaseous dilation of the stomach. Moderate stool throughout the colon. The bowel gas pattern is nonspecific without dilated loops of small or large bowel. There is no evidence for organomegaly or pneumoperitoneum. The osseous structures are intact. Probable phleboliths in the pelvis which are stable from prior CT 02/21/2023. Fecal material and gas are demonstrated throughout the colon and rec deandre. 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 IMPRESSION: 1. Gaseous distention of the stomach with moderate stool throughout the colon. 2. Degeneration changes of the hips.
[2023-07-17 21:10] LABS: Basophils % (A) 0 %; Eosinophils # (A) 0.2 k/uL (0-0.7); Eosinophils % (A) 1 %; HCT 45.5 % (39.0-53.0); HGB 14.9 gm/dL (13.0-17.5); Lymphocytes # (A) 1.3 k/uL (1.0-4.8); Lymphocytes % (A) 10 %; MCH 31.2 pg (25.0-35.0); MCHC 32.8 g/dL (31.0-37.0); MCV 95.1 fL (80.0-100.0); Mean Platelet Volume 7.8; Monocytes # (A) 0.9 k/uL (0-1.0); Monocytes % (A) 7 %; Neutrophils # (A) 10.1 k/uL (1.3-7.7); Neutrophils % (A) 79 %; Platelet Count 363 k/uL (150-450); RBC 4.79 m/uL (4.30-5.90); RDW 13.8 % (11.5-15.5); WBC 12.8 k/uL (3.8-10.6)
[2023-07-17 21:39] LABS: ALT 38 U/L (4-49); AST 28 U/L (17-59); African American GFR (CKD) 70 (>60 ml/min/1.73 sqM); Alkaline Phosphatase 71 U/L (38-126); Anion Gap 12 mmol/L; Blood Urea Nitrogen 20 mg/dL (9-20); Calcium 8.8 mg/dL (8.4-10.2); Carbon Dioxide 30 mmol/L (22-30); Chloride 97 mmol/L (98-107); Glucose 98 mg/dL (74-99); Non-African American GFR(CKD) 61 (>60 ml/min/1.73 sqM); Potassium 3.9 mmol/L (3.5-5.1); Sodium 139 mmol/L (137-145); Total Bilirubin 0.5 mg/dL (0.2-1.3); Total Protein 7.6 g/dL (6.3-8.2)
[2023-07-17 23:14] LABS: Appearance,Urine Cloudy (Clear); Bilirubin,Urine Negative (Negative); Blood,Urine Trace (Negative); Color,Urine Light Yellow; Glucose,Urine (UA) Negative (Negative); Ketones,Urine Negative (Negative); Leukocyte Esterase,Urine Large (Negative); Nitrite,Urine Positive (Negative); Protein,Urine Trace (Negative); RBC,Urine 3 /hpf (0-5); Specific Gravity,Urine 1.014 (1.001-1.035); Squamous Epithelial Cell,Urine <1 /hpf (0-4); Urobilinogen,Urine <2.0 mg/dL (<2.0); WBC,Urine 119 /hpf (0-5)
[2023-07-17] MEDS ORDERED: ONDANSETRON 4 MG/2 ML VIAL IVP STA (23:14)
[2023-07-17] MEDS ORDERED: ERTAPENEM 1 GM in SODIUM CHLORIDE 0.9% 50 ML IVPB STA (23:34)
--- NOTE | 2023-07-17 23:41 | CT ---
EXAM: CT Abdomen and Pelvis With Intravenous Contrast CLINICAL HISTORY: ITS.REASON CT Reason: abd pain/distention, sbo TECHNIQUE: Axial computed tomography images of the abdomen and pelvis with intravenous contrast. CTDI is 23.8 mGy and DLP is 1142.7 mGy-cm. This CT exam was performed using one or more of the following dose reduction techniques: automated exposure control, adjustment of the mA and/or kV according to patient size, and/or use of iterative reconstruction technique. COMPARISON: 02/21/2023 FINDINGS: Lung bases: Lung bases demonstrate bilateral dependent atelectasis. ABDOMEN: Liver: Fatty infiltration of the liver. 1.1 cm low density within the peripheral anterior right lobe of the liver stable from prior exam of 02/21/2023. Gallbladder and bile ducts: Unremarkable. No calcified stones. No ductal dilation. Pancreas: Unremarkable. No mass. No ductal dilation. Spleen: Unremarkable. No splenomegaly. Adrenals: Unremarkable. No mass. Kidneys and ureters: Cortical scarring of the left kidney. 2.0 cm simple cyst arising off the upper pole of the left kidney. No further workup is required. No hydronephrosis. Stomach and bowel: Unremarkable. No obstruction. No mucosal thickening. PELVIS: Appendix: No findings to suggest acute appendicitis. Bladder: Large right posterior lateral bladder diverticulum. Reproductive: Unremarkable as visualized. ABDOMEN and PELVIS: Intraperitoneal space: Unremarkable. No free air. No significant fluid collection. Bones/joints: No acute fracture. No dislocation. Soft tissues: Unremarkable. Vasculature: Unremarkable. No abdominal aortic aneurysm. Lymph nodes: Unremarkable. No enlarged lymph nodes. IMPRESSION: No acute findings in the abdomen or pelvis. 1.1 cm low-density lesion in the anterior right lobe the liver stable from prior study of 02/2023.
--- NOTE | 2023-07-17 23:44 | ED ---
Fever HPI - General Chief Complaint: Fever Stated Complaint: Fever Time Seen by Provider: 07/17/23 19:40 Source: EMS Mode of arrival: EMS Limitations: altered mental status - History of Present Illness Initial Comments: 62-year-old male with past history of MS, neurogenic bladder with straight cathing who presents to the emergency department with confusion and fever. Sisters are at bedside and provides the history. They state that the patient has been delayed somewhat today. He also felt warm and they found that he had a fever. They gave him Tylenol around 5:30. There are concern for urinary tract infection as patient does have recurrent urinary tract infections with his history of straight cathing. I also feel that the patient's abdomen has been distended. He had a bowel movement yesterday but does have a history of small bowel obstructions. They deny any other source of infection. No cough or shortness of breath. No chest pain. No abdominal pain. No other alleviating, precipitating or modifying factors - Related Data Home Medications Medication Instructions Recorded Confirmed Ascorbic Acid [Vitamin C chew] 500 mg PO DAILY@1200 02/20/23 03/07/23 Atorvastatin [Lipitor] 10 mg PO HS@2100 02/20/23 03/07/23 Cholecalciferol [Vitamin D3 (25 25 mcg PO DAILY@1200 02/20/23 03/07/23 Mcg = 1000 Iu)] Furosemide [Lasix] 20 mg PO DAILY@0800 02/20/23 03/07/23 Acetaminophen [Tylenol] 650 mg PO Q4H PRN 03/07/23 03/07/23 Magnesium Hydroxide [Milk of 7,200 mg PO Q48H PRN 03/07/23 03/07/23 Magnesia Concentrate] Menthol-Zinc Oxide Oint 1 applic TOPICAL BID 03/07/23 03/07/23 [Calmoseptine Ointment] Na Phos,M-B/Na Phos,Di-Ba [Fleet 133 ml RECTAL DAILY PRN 03/07/23 03/07/23 Adult] Tamsulosin [Flomax] 0.4 mg PO DAILY@0803/07/23 03/07/23 bisacodyL [Dulcolax] 10 mg RECTAL DAILY PRN 03/07/23 03/07/23 polyethylene glycoL 3350 [Miralax] 17 gm PO DAILY@0800 03/07/23 03/07/23 Previous Rx's Medication Instructions Recorded Methenamine Hippurate [Hiprex] 1 gm PO BID #60 tab 03/09/23 Ertapenem [INVanz] 1 gm IVPB DAILY@1600 14 Days #14 03/11/23 each Pantoprazole [Protonix] 40 mg PO DAILY #30 tab 03/11/23 Allergies Allergy/AdvReac Type Severity Reaction Status Date / Time No Known Allergies Allergy Verified 07/17/23 19:45 Review of Systems ROS Statement: Those systems with pertinent positive or pertinent negative responses have been documented in the HPI. ROS Other: All systems not noted in ROS Statement are negative. Past Medical History Past Medical History: Coronary Artery Disease (CAD), Heart Failure, Hypertension Additional Past Medical History / Comment(s): MS. UTI History of Any Multi-Drug Resistant Organisms: ESBL, MRSA Date of last positivie culture/infection: 05/20/23 MRSA; 03/09/23 ESBL-E.coli MDRO Source:: Urine-ESBL; Urine-MRSA Past Surgical History: No Surgical Hx Reported Additional Past Surgical History / Comment(s): Lasik. Past Anesthesia/Blood Transfusion Reactions: No Reported Reaction Past Psychological History: No Psychological Hx Reported Smoking Status: Never smoker Past Alcohol Use History: None Reported Past Drug Use History: None Reported General Exam Limitations: altered mental status General appearance: alert, in no apparent distress Head exam: Present: atraumatic, normocephalic, normal inspection Eye exam: Present: normal appearance, PERRL, EOMI. Absent: scleral icterus, conjunctival injection, periorbital swelling Respiratory exam: Present: normal lung sounds bilaterally. Absent: respiratory distress, wheezes, rales, rhonchi, stridor Cardiovascular Exam: Present: normal rhythm, tachycardia, normal heart sounds. Absent: systolic murmur, diastolic murmur, rubs, gallop, clicks GI/Abdominal exam: Present: soft, distended Extremities exam: Present: normal inspection, full ROM, normal capillary refill. Absent: tenderness, pedal edema, joint swelling, calf tenderness Neurological exam: Present: alert Psychiatric exam: Present: flat affect Skin exam: Present: warm, dry, intact, normal color. Absent: rash Course Vital Signs 07/17/23 07/17/23 07/17/23 19:37 21:30 21:45 Temperature 100.8 F H 99.9 F H Pulse Rate 109 H 111 H 107 H Respiratory 18 20 18 Rate Blood Pressure 143/69 153/87 148/84 O2 Sat by Pulse 97 94 L 95 Oximetry 07/17/23 07/18/23 07/18/23 23:00 00:00 01:00 Temperature Pulse Rate 107 H 106 H 104 H Respiratory 20 18 18 Rate Blood Pressure 144/84 136/81 117/87 O2 Sat by Pulse 95 97 97 Oximetry Medical Decision Making - Medical Decision Making Was pt. sent in by a medical professional or institution (, PA, RETAIL DEPARTMENT MANAGER, urgent care, hospital, or usp...) When possible be specific @ -No Did you speak to anyone other than the patient for history (EMS, parent, family, police, friend...)? What history was obtained from this source @ -I spoke with the patient sisters Did you review nursing and triage notes (agree or disagree)? Why? @ -I reviewed and agree with nursing and triage notes Were old charts reviewed (outside hosp., previous admission, EMS record, old EKG, old radiological studies, urgent care reports/EKG's, usp records)? Report findings @ -Old microbiology cultures were reviewed Differential Diagnosis (chest pain, altered mental status, abdominal pain women, abdominal pain men, vaginal bleeding, weakness, fever, dyspnea, syncope, headache, dizziness, GI bleed, back pain, seizure, CVA, palpatations, mental health, musculoskeletal)? @ -Differential Fever: Pneumonia, viral URI, endocarditis, myocarditis, pericarditis, otitis, sinusitis, peritonsillar Abscess, retropharyngeal Abscess, epiglottitis, peritonitis, appendicitis, Leidy cystitis, diverticulitis, hepatitis, colitis, UTI, PID, TOA, pyelonephritis, prostatitis, epididymitis, meningitis, encephali tis, pulmonary embolism, CVA, thyroid storm, pancreatitis, adrenal crisis, cavernous sinus thrombosis, this is not meant to be an all-inclusive list. EKG interpreted by me (3pts min.). @ -Not done X-rays interpreted by me (1pt min.). @ -Yes and demonstrates gaseous distention CT interpreted by me (1pt min.). @ -Yes and demonstrates gaseous distention U/S interpreted by me (1pt. min.). @ -None done What testing was considered but not performed or refused? (CT, X-rays, U/S, labs)? Why? @ -None What meds were considered but not given or refused? Why? @ -None Did you discuss the management of the patient with other professionals (felix glover i.e. , PA, RETAIL DEPARTMENT MANAGER, lab, RT, psych nurse, social service agency director, fan balancer, teacher, founder and chief executive officer, field nurse case manager)? Give summary @ -Spoke with [facility] for admission Was smoking cessation discussed for >3mins.? @ -No Was critical care preformed (if so, how long)? @ -No Were there social determinants of health that impacted care today? How? (Homelessness, low income, unemployed, alcoholism, drug addiction, transportation, low edu. Level, literacy, decrease access to med. care, half-way, rehab)? @ -No Was there de-escalation of care discussed even if they declined (Discuss DNR or withdrawal of care, Hospice)? DNR status @ -No What co-morbidities impacted this encounter? (DM, HTN, Smoking, COPD, CAD, Cancer, CVA, ARF, Chemo, Hep., AIDS, mental health diagnosis, sleep apnea, morbid obesity)? @ -MS, neurogenic bladder was patient admitted / discharged? Hospital course, mention meds given and route, prescriptions, significant lab abnormalities, going to OR and other pertinent info. @ -Upon arrival patient was placed into room 6. Thorough history and physical exam was performed. Patient given Motrin for fever control. Labs are conducted. Patient straight cath for urine sample which does demonstrate infection. Blood cultures obtained. Patient started on Invanz. Abdominal x- ray was followed up by CT as patient begins having projective vomiting with high concern for small bowel obstruction. CT is negative for obstruction. Recommended admission for infectious disease consult. Patient was agreeable. Patient taken to the floor in stable condition Undiagnosed new problem with uncertain prognosis? @ -No Drug Therapy requiring intensive monitoring for toxicity (Heparin, Nitro, Ins ulin, Cardizem)? @ -No Were any procedures done? @ -No Diagnosis/symptom? @ -Acute pyrexia, acute UTI, neurogenic bladder with straight cathing, leukocytosis Acute, or Chronic, or Acute on Chronic? @ -Acute, recurrent Uncomplicated (without systemic symptoms) or Complicated (systemic symptoms)? @ -complicated Side effects of treatment? @ -No Exacerbation, Progression, or Severe Exacerbation? @ -No Poses a threat to life or bodily function? How? (Chest pain, [place], [place], pneumonia, PE, COPD, DKA, ARF, appy, cholecystitis, CVA, Diverticulitis, Homicidal, Suicidal, threat to staff... and all critical care pts) @ -No - Lab Data Result diagrams: 07/17/23 20:00 07/17/23 20:00 Lab Results 07/17/23 07/17/23 07/17/23 Range/Units 20:00 20:00 20:21 WBC 12.8 H (3.8-10.6) k/uL RBC 4.79 (4.30-5.90) m/uL Hgb 14.9 (13.0-17.5) gm/dL Hct 45.5 (39.0-53.0) % MCV 95.1 (80.0-100.0) fL MCH 31.2 (25.0-35.0) pg MCHC 32.8 (31.0-37.0) g/dL RDW 13.8 (11.5-15.5) % Plt Count 363 (150-450) k/uL MPV 7.8 Neutrophils % 79 % Lymphocytes % 10 % Monocytes % 7 % Eosinophils % 1 % Basophils % 0 % Neutrophils # 10.1 H (1.3-7.7) k/uL Lymphocytes # 1.3 (1.0-4.8) k/uL Monocytes # 0.9 (0-1.0) k/uL Eosinophils # 0.2 (0-0.7) k/uL Basophils # 0.0 (0-0.2) k/uL Sodium 139 (137-145) mmol/L Potassium 3.9 (3.5-5.1) mmol/L Chloride 97 L (98-107) mmol/L Carbon Dioxide 30 (22-30) mmol/L Anion Gap 12 mmol/L BUN 20 (9-20) mg/dL Creatinine 1.25 (0.66-1.25) mg/dL Est GFR (CKD-EPI)AfAm 70 (>60 ml/min/1.73 sqM) Est GFR (CKD-EPI)NonAf 61 (>60 ml/min/1.73 sqM) Glucose 98 (74-99) mg/dL Plasma Lactic Acid Cristian 1.2 (0.7-2.0) mmol/L Calcium 8.8 (8.4-10.2) mg/dL Total Bilirubin 0.5 (0.2-1.3) mg/dL AST 28 (17-59) U/L ALT 38 (4-49) U/L Alkaline Phosphatase 71 (38-126) U/L Total Protein 7.6 (6.3-8.2) g/dL Albumin 4.0 (3.5-5.0) g/dL Urine Color Urine Appearance (Clear) Urine pH (5.0-8.0) Ur Specific [place] (1.001-1.035) Urine Protein (Negative) Urine Glucose (UA) (Negative) Urine Ketones (Negative) Urine Blood (Negative) Urine Nitrite (Negative) Urine Bilirubin (Negative) Urine Urobilinogen (<2.0) mg/dL Ur Leukocyte Esterase (Negative) Urine RBC (0-5) /hpf Urine WBC (0-5) /hpf Ur Squamous Epith Cells (0-4) /hpf 07/17/23 Range/Units 21:21 WBC (3.8-10.6) k/uL RBC (4.30-5.90) m/uL Hgb (13.0-17.5) gm/dL Hct (39.0-53.0) % MCV (80.0-100.0) fL MCH (25.0-35.0) pg MCHC (31.0-37.0) g/dL RDW (11.5-15.5) % Plt Count (150-450) k/uL MPV Neutrophils % % Lymphocytes % % Monocytes % % Eosinophils % % Basophils % % Neutrophils # (1.3-7.7) k/uL Lymphocytes # (1.0-4.8) k/uL Monocytes # (0-1.0) k/uL Eosinophils # (0-0.7) k/uL Basophils # (0-0.2) k/uL Sodium (137-145) mmol/L Potassium (3.5-5.1) mmol/L Chloride (98-107) mmol/L Carbon Dioxide (22-30) mmol/L Anion Gap mmol/L BUN (9-20) mg/dL Creatinine (0.66-1.25) mg/dL Est GFR (CKD-EPI)AfAm (>60 ml/min/1.73 sqM) Est GFR (CKD-EPI)NonAf (>60 ml/min/1.73 sqM) Glucose (74-99) mg/dL Plasma Lactic Acid Cristian (0.7-2.0) mmol/L Calcium (8.4-10.2) mg/dL Total Bilirubin (0.2-1.3) mg/dL AST (17-59) U/L ALT (4-49) U/L Alkaline Phosphatase (38-126) U/L Total Protein (6.3-8.2) g/dL Albumin (3.5-5.0) g/dL Urine Color Light Yellow Urine Appearance Cloudy (Clear) Urine pH 7.0 (5.0-8.0) Ur Specific [place] 1.014 (1.001-1.035) Urine Protein Trace H (Negative) Urine Glucose (UA) Negative (Negative) Urine Ketones Negative (Negative) Urine Blood Trace H (Negative) Urine Nitrite Positive (Negative) Urine Bilirubin Negative (Negative) Urine Urobilinogen <2.0 (<2.0) mg/dL Ur Leukocyte Esterase Large H (Negative) Urine RBC 3 (0-5) /hpf Urine WBC 119 H (0-5) /hpf Ur Squamous Epith Cells <1 (0-4) /hpf Disposition Clinical Impression: UTI (urinary tract infection), Sepsis, Nausea & vomiting, Neurogenic bladder Disposition: ADMITTED IP TO THIS HOSP Condition: Stable Is patient prescribed a controlled substance at d/c from ED?: No Time of Disposition: 00:16 Decision to Admit Reason: Admit from EC Decision Date: 07/18/23 Decision Time: 00:16
[2023-07-18] MEDS ORDERED: NALOXONE 0.4 MG/ML 1 ML VIAL IV PRN (00:17)
[2023-07-18] MEDS ORDERED: ONDANSETRON 4 MG/2 ML VIAL IVP PRN (00:17)
[2023-07-18] MEDS ORDERED: IBUPROFEN 400 MG TAB PO PRN (00:17)
[2023-07-18] MEDS ORDERED: ACETAMINOPHEN TAB 325 MG TAB PO PRN (00:17)
[2023-07-18] MEDS ORDERED: METOCLOPRAMIDE 5 MG/ML 2 ML VIAL IVP STA (00:44)
[2023-07-18] MEDS ORDERED: diphenhydrAMINE 50 MG/ML 1 ML VIAL IVP STA (00:44)
[2023-07-18] MEDS: polyethylene glycoL 3350 17 GM POWD.PACK PO SCH (09:49)
[2023-07-18] MEDS: METOCLOPRAMIDE 5 MG/ML 2 ML VIAL IVP SCH ×3 (09:50→21:07)
[2023-07-18] MEDS: PANTOPRAZOLE 40 MG/10 ML VIAL IVP SCH (09:50)
[2023-07-18] MEDS: SODIUM CHLORIDE 0.9% 1,000 ML IV SCH (09:51)
[2023-07-18] MEDS ORDERED: VANCOMYCIN IV PER PHARMACY 1 EACH MISC MISCELLANE PRN (10:04)
[2023-07-18] MEDS: TAMSULOSIN 0.4 MG CAP.ER.24H PO SCH (10:55)
[2023-07-18] MEDS: TROSPIUM CHLORIDE 20 MG TABLET PO SCH ×2 (10:55→21:07)
[2023-07-18] MEDS: NON FORMULARY DRUG (Dalfampridine [Dalfampridine Er] 10 MG Tab.Er.12h) PO SCH ×2 (11:27→19:18)
[2023-07-18] MEDS: VANCOMYCIN 1,500 MG in SODIUM CHLORIDE 0.9% 500 ML 500 ML IVPB SCH (11:57)
[2023-07-18] MEDS: CEFEPIME 2 GM in SODIUM CHLORIDE 0.9% 100 ML IVPB SCH ×2 (16:24→23:14)
--- NOTE | 2023-07-18 17:47 | P.HPIM ---
History of Present Illness H&P Date: 07/18/23 Chief Complaint: Altered mental status This is a 62-year-old gentleman ,past medical history significant for recurrent urinary tract infections ,neurogenic bladder secondary to multiple sclerosis, straight caths every 4 hours and multiple other medical issues, presented to the ER with complaints of fever, cloudy urine and confusion. Abdomen distended, last bowel movement reported as 2 days ago, passing flatus and denies abdominal pain. Denies nausea, reports emesis 1. T-max on admission 100.8.,WBC 12.8 Denies any chills, sweats or shortness of breath. Denies flank or back pain. Denies any suprapubic pain. Denies hematuria. Denies fall or trauma. Denies any chest pain, palpitations or shortness of breath. Currently on 2 L nasal cannula O2, maintaining O2 sats in the 90s. UA reported 119 urine WBCs, large leukocytes, positive nitrates, culture pending.Recent culture from 05/20/23 reporting pseudomonas aeruginosa, MRSA. Infectious disease consulted, antibiot ics initiated. Creatinine currently 1.25. Review of Systems ROS Statement: Those systems with pertinent positive or pertinent negative responses have been documented in the HPI. ROS Other: All systems not noted in ROS Statement are negative. Past Medical History Past Medical History: Coronary Artery Disease (CAD), Heart Failure, Hypertension Additional Past Medical History / Comment(s): MS. UTI History of Any Multi-Drug Resistant Organisms: ESBL, MRSA Date of last positivie culture/infection: 05/20/23 MRSA; 03/09/23 ESBL-E.coli MDRO Source:: Urine-ESBL; Urine-MRSA Past Surgical History: No Surgical Hx Reported Additional Past Surgical History / Comment(s): Judd. Past Anesthesia/Blood Transfusion Reactions: No Reported Reaction Past Psychological History: No Psychological Hx Reported Smoking Status: Never smoker Past Alcohol Use History: None Reported Past Drug Use History: None Reported Medications and Allergies Home Medications Medication Instructions Recorded Confirmed Type Atorvastatin [Lipitor] 10 mg PO HS 02/20/23 07/18/23 History Furosemide [Lasix] 20 mg PO DAILY 02/20/23 07/18/23 History Tamsulosin [Flomax] 0.4 mg PO DAILY 03/07/23 07/18/23 History Baclofen 10 mg PO 0900,1800 07/18/23 07/18/23 History Dalfampridine [Dalfampridine ER] 10 mg PO Q12H 07/18/23 07/18/23 History Metoprolol Succinate (ER) [Toprol 12.5 mg PO HS 07/18/23 07/18/23 History Xl] Potassium Chloride ER [K-Dur 10] 10 meq PO HS 07/18/23 07/18/23 History Trospium Chloride [Sanctura XR] 60 mg PO HS 07/18/23 07/18/23 History amLODIPine [Norvasc] 2.5 mg PO DAILY 07/18/23 07/18/23 History Allergies Allergy/AdvReac Type Severity Reaction Status Date / Time No Known Allergies Allergy Verified 07/18/23 09:30 Physical Exam Vitals: Vital Signs Temp Pulse Pulse Resp BP BP Pulse Ox 07/18/23 07:28 98.7 F 80 18 122/72 95 07/18/23 03:00 18 07/18/23 02:15 99.7 F H 95 18 110/73 94 L 07/18/23 01:00 104 H 18 117/87 97 07/18/23 00:00 106 H 18 136/81 97 07/17/23 23:00 107 H 20 144/84 95 07/17/23 21:45 107 H 18 148/84 95 07/17/23 21:30 99.9 F H 111 H 20 153/87 94 L 07/17/23 19:37 100.8 F H 109 H 18 143/69 97 Intake and Output 07/17/23 07/18/23 07/18/23 22:59 06:59 14:59 Intake Total 950 Output Total 450 Balance 500 Intake: Intake, IV Titration 550 Amount Ertapenem 1 gm In Sodium 50 Chloride 0.9% 50 ml @ 100 mls/hr IVPB ONCE STA Rx# :[id number] Sodium Chloride 0.9% 1, 500 000 ml @ 130 mls/hr IV . Q7H42M STA Rx#:[id number] Oral 400 Output: Urine 450 Uretheral (Ross) 450 Other: Voiding Method Self-Catheterization Weight 90.718 kg 90.718 kg - Exam Gen: elderly male in NAD CV: RRR, no murmur Lungs: CTAB Abd: distended, soft, nontender Results CBC & Chem 7: 07/17/23 20:00 07/17/23 20:00 Labs: Abnormal Lab Results - Last 24 Hours (Table) 07/17/23 07/17/23 07/17/23 Range/Units 20:00 20:00 21:21 WBC 12.8 H (3.8-10.6) k/uL Neutrophils # 10.1 H (1.3-7.7) k/uL Chloride 97 L (98-107) mmol/L Urine Protein Trace H (Negative) Urine Blood Trace H (Negative) Ur Leukocyte Esterase Large H (Negative) Urine WBC 119 H (0-5) /hpf Thrombosis Risk Factor Assmnt - Choose All That Apply Any of the Below Risk Factors Present?: Yes Each Factor Represents 1 point: Obesity (BMI >25), Swollen legs (current) Each Risk Factor Represents 2 Points: Age 61-74 years Other congenital or acquired thrombophilia - If yes, enter type in comment: No Thrombosis Risk Factor Assessment Total Risk Factor Score: 4 Thrombosis Risk Factor Assessment Level: Moderate Risk Assessment and Plan Assessment: Acute recurrent UTI, recent culture from 05/20/23 reporting pseudomonas aeruginosa, MRSA, related to self straight cathing every 4 hours, in a patient with a neurogenic bladder secondary to MS. Acute renal failure, secondary to the above Plan: Continue on current medication regime ,monitoring and symptomatic treatment. Urine culture ordered to be added onto initial urine sample. Blood cultures in progress. Gentle IV fluid hydration. Ross catheter ordered. Infectious disease consulted. Close monitoring of renal function, with repeat labs ordered for a.m. Reglan ordered for nausea in addition to Zofran. The impression and plan of care has been dictated as directed. : I performed a history and examination of this patient, discussed the same with the dictator. I agree with the dictator's note ,documented as a scribe. Any additional findings or plans will be noted.
[2023-07-19] MEDS: VANCOMYCIN 1,500 MG in SODIUM CHLORIDE 0.9% 500 ML 500 ML IVPB SCH ×2 (03:08→14:32)
[2023-07-19] MEDS: SODIUM CHLORIDE 0.9% 1,000 ML IV SCH (04:20)
--- NOTE | 2023-07-19 06:48 | P.CONS ---
History of Present Illness - Reason for Consult Consult date: 07/18/23 Acute UTI, history of MRSA Requesting physician: Saige Boyd - Chief Complaint Fever and cloudy urine x one day - History of Present Illness Patient is 62-year-old male with a past medical history significant for multiple sclerosis in this patient who did have a neurogenic bladder history of recurrent urinary tract infection patient apparently straight cath himself every 4 hours and the patient was noticed to have cloudiness of the urine recently patient presenting to the ER for evaluation of fever cloudy urine and confusion symptom has been getting worse over the last 2 days before presentation to the hospital patient denies having any headache did have some stuffy nose but no other URI symptoms denies any chest pain or shortness with minimal cough did have some nausea but no vomiting did have abdominal distention patient denies having any diarrhea or constipation patient on presentation to hospital have fever 100.8 F patient was not tachycardic or hypotensive patient did have a white count of 12.8 with a left shift creatinine was 1.25 did have a positive UA patient received a dose of ertapenem in the ER patient also have a CT of abdominal pelvis no acute findings in the abdominal pelvis 1.1 cm low- density lesion in the anterior right lobe liver stable infectious he was consulted for management of his antibiotic regimen as he did have a history of previous infection with Pseudomonas and MRSA Review of Systems Positive point and negatives has been mentioned in the HPI, complete review of systems was performed and all other systems are negative Past Medical History Past Medical History: Coronary Artery Disease (CAD), Heart Failure, Hypertension Additional Past Medical History / Comment(s): MS. UTI History of Any Multi-Drug Resistant Organisms: ESBL, MRSA Year Discovered:: 05/20/23 MRSA; 03/09/23 ESBL-E.coli MDRO Source:: Urine-ESBL; Urine-MRSA Past Surgical History: No Surgical Hx Reported Additional Past Surgical History / Comment(s): Judd. Past Anesthesia/Blood Transfusion Reactions: No Reported Reaction Past Psychological History: No Psychological Hx Reported Smoking Status: Never smoker Past Alcohol Use History: None Reported Past Drug Use History: None Reported Medications and Allergies Home Medications Medication Instructions Recorded Confirmed Type Atorvastatin [Lipitor] 10 mg PO HS 02/20/23 07/18/23 History Furosemide [Lasix] 20 mg PO DAILY 02/20/23 07/18/23 History Tamsulosin [Flomax] 0.4 mg PO DAILY 03/07/23 07/18/23 History Baclofen 10 mg PO 0900,1800 07/18/23 07/18/23 History Dalfampridine [Dalfampridine ER] 10 mg PO Q12H 07/18/23 07/18/23 History Metoprolol Succinate (ER) [Toprol 12.5 mg PO HS 07/18/23 07/18/23 History XL] Potassium Chloride ER [K-Dur 10] 10 meq PO HS 07/18/23 07/18/23 History Trospium Chloride [Sanctura XR] 60 mg PO HS 07/18/23 07/18/23 History amLODIPine [Norvasc] 2.5 mg PO DAILY 07/18/23 07/18/23 History Ertapenem [INVanz] 1 gm IVPB Q24H #8 each 07/22/23 Rx Lactulose 20 gm PO BID PRN #500 ml 07/22/23 Rx Omeprazole 20 mg PO DAILY #30 tab 07/22/23 Rx polyethylene glycoL 3350 [Miralax] 17 gm PO DAILY packet 07/22/23 Rx Allergies Allergy/AdvReac Type Severity Reaction Status Date / Time No Known Allergies Allergy Verified 07/18/23 09:30 Physical Exam Vitals: Vital Signs Temp Pulse Pulse Resp BP BP Pulse Ox 07/18/23 07:28 98.7 F 80 18 122/72 95 07/18/23 03:00 18 07/18/23 02:15 99.7 F H 95 18 110/73 94 L 07/18/23 01:00 104 H 18 117/87 97 07/18/23 00:00 106 H 18 136/81 97 07/17/23 23:00 107 H 20 144/84 95 07/17/23 21:45 107 H 18 148/84 95 07/17/23 21:30 99.9 F H 111 H 20 153/87 94 L 07/17/23 19:37 100.8 F H 109 H 18 143/69 97 Intake and Output 07/17/23 07/18/23 07/18/23 22:59 06:59 14:59 Intake Total 950 Output Total 450 Balance 500 Intake: Intake, IV Titration 550 Amount Ertapenem 1 gm In Sodium 50 Chloride 0.9% 50 ml @ 100 mls/hr IVPB [facility] Rx# :[id number] Sodium Chloride 0.9% 1, 500 000 ml @ 130 mls/hr IV . Q7H42M [facility] Rx#:[id number] Oral 400 Output: Urine 450 Uretheral (Ross) 450 Other: Voiding Method Self-Catheterization Weight 90.718 kg 90.718 kg GENERAL DESCRIPTION: Middle-aged male lying in bed, no distress. No tachypnea or accessory muscle of respiration use. HEENT: Shows Pallor , no scleral icterus. Oral mucous membrane is dry. No pharyngeal erythema or thrush NECK: Trachea central, no thyromegaly. LUNGS: Unlabored breathing. Clear to auscultation anteriorly. No wheeze or crack le. HEART: S1, S2, regular rate and rhythm. No loud murmur ABDOMEN: Soft, no tenderness EXTREMITIES: No edema of feet. SKIN: No rash, no masses palpable. NEUROLOGICAL: The patient is awake, alert, oriented x3, mood and affect normal. Results CBC & Chem 7: 07/22/23 05:28 07/22/23 05:28 Labs: Abnormal Lab Results - Last 24 Hours (Table) 07/17/23 07/17/23 07/17/23 Range/Units 20:00 20:00 21:21 WBC 12.8 H (3.8-10.6) k/uL Neutrophils # 10.1 H (1.3-7.7) k/uL Chloride 97 L (98-107) mmol/L Urine Protein Trace H (Negative) Urine Blood Trace H (Negative) Ur Leukocyte Esterase Large H (Negative) Urine WBC 119 H (0-5) /hpf Assessment and Plan (1) Sepsis Current Visit: Yes Status: Acute Code(s): A41.9 - SEPSIS, UNSPECIFIED ORGANISM SNOMED Code(s): 89088005 (2) UTI (urinary tract infection) Current Visit: Yes Status: Acute Code(s): N39.0 - URINARY TRACT INFECTION, SITE NOT SPECIFIED SNOMED Code(s): 12030438 Plan: 1patient presented to the hospital with sepsis in this patient who did have a fever elevated white count patient did have a cloudy urine history of neurogenic bladder requiring straight cath likely urinary source patient has previously grown Pseudomonas and MRSA with a recent culture on 05/20/2023 and will need to cover for those pathogen while waiting for the culture to finalize. 2we will start the patient on cefepime and vancomycin pharmacy to dose while waiting for the culture to finalize Family the bedside question concern answered We will follow on clinical condition and cultures to further adjust medication if needed Thank you for this consultation we will follow the patient along with you Dictation was produced using [employer] dictation software. please excuse any grammatical, word or spelling errors. Time with Patient: Greater than 30
[2023-07-19] MEDS: CEFEPIME 2 GM in SODIUM CHLORIDE 0.9% 100 ML IVPB SCH ×2 (09:05→18:17)
[2023-07-19] MEDS: METOCLOPRAMIDE 5 MG/ML 2 ML VIAL IVP SCH ×3 (09:08→21:57)
[2023-07-19] MEDS: PANTOPRAZOLE 40 MG/10 ML VIAL IVP SCH (09:08)
[2023-07-19] MEDS: NON FORMULARY DRUG (Dalfampridine [Dalfampridine Er] 10 MG Tab.Er.12h) PO SCH ×2 (09:08→20:41)
[2023-07-19] MEDS: TROSPIUM CHLORIDE 20 MG TABLET PO SCH ×2 (09:25→20:39)
[2023-07-19] MEDS: polyethylene glycoL 3350 17 GM POWD.PACK PO SCH (09:25)
[2023-07-19] MEDS: TAMSULOSIN 0.4 MG CAP.ER.24H PO SCH (09:25)
[2023-07-19 10:50] LABS: Basophils # (A) 0.04 X 10*3/uL (0.00-0.10); Basophils % (A) 0.4 %; Eosinophils # (A) 0.25 X 10*3/uL (0.04-0.35); Eosinophils % (A) 2.7 %; HGB 13.3 d/dL (13.0-17.0); Lymphocytes # (A) 1.52 X 10*3/uL (0.90-5.00); Lymphocytes % (A) 16.6 %; MCHC 32.4 d/dL (32.0-37.0); MCV 95.6 FL (80.0-97.0); Mean Platelet Volume 9.4 FL (9.5-12.2); Monocytes % (A) 15.3 %; NRBC Per 100 WBC 0 X 10*3/uL (0.00-0.01); Neutrophils # (A) 5.91 X 10*3/uL (1.80-7.70); Neutrophils % (A) 64.8 %; Platelet Count 312 X 10*3/uL (140-440); RBC 4.29 X 10*6/uL (4.40-5.60); RDW 13.3 % (11.5-14.5); WBC 9.14 X 10*3/uL (4.50-10.00)
[2023-07-19 11:31] LABS: BUN/Creat Ratio 14.18 Ratio (12.00-20.00); Blood Urea Nitrogen 15.6 mg/dL (9.0-27.0); Calcium 8.8 mg/dL (8.7-10.3); Carbon Dioxide 25.8 mmol/L (21.6-31.8); Chloride 106 mmol/L (96-109); Glucose 93 mg/dL (70-110); Potassium 3.8 mmol/L (3.5-5.5); Sodium 140 mmol/L (135-145)
[2023-07-19] MEDS ORDERED: bisacodyL 10 MG SUPP RECTAL PRN (12:00)
--- NOTE | 2023-07-19 12:23 | P.PN ---
Subjective Progress Note Date: 07/19/23 Principal diagnosis: Sepsis and UTI Patient is 62-year-old male with a past medical history significant for multiple sclerosis in this patient who did have a neurogenic bladder history of recurrent urinary tract infection patient apparently straight cath himself every 4 hours and the patient was noticed to have cloudiness of the urine recently patient presenting to the ER for evaluation of fever cloudy urine and confusion , patient has been diagnosed with a complicated urinary tract infection On today's evaluation that is 07/19/2023, the patient did have resolution of his fever and is afebrile today, the patient is breathing comfortably on room air and no need for supplemental oxygen, the patient denies any chest pain or cough , patient denies nausea/vomiting or diarrhea , no abdominal pain. Patient will call normalized to 9.14, creatinine 1.1 cultures currently pending Objective - Vital Signs Vital signs: Vital Signs Temp 98.8 F 07/19/23 07:01 Pulse 76 07/19/23 07:01 Resp 14 07/19/23 07:01 BP 133/74 07/19/23 07:01 Pulse Ox 90 L 07/19/23 07:01 FiO2 Intake & Output 07/18/23 07/19/23 07/19/23 18:59 06:59 18:59 Intake Total 1200 1200 360 Output Total 1100 900 Balance 100 300 360 Intake: Intake, IV Titration 1200 1200 Amount Cefepime 2 gm In Sodium 100 100 Chloride 0.9% 100 ml @ 25 mls/hr IVPB Q8HR [facility] Rx# :[id number] Sodium Chloride 0.9% 1, 600 600 000 ml @ 50 mls/hr IV . Q20H [facility] Rx#:[id number] Vancomycin 1,500 mg In 500 500 Sodium Chloride 0.9% 500 ml 500 ml @ 167 mls/hr IVPB Q16H [facility] Rx#: [id number] Oral 360 Output: Urine 1100 900 Uretheral (Ross) 700 Other: Voiding Method Indwelling Catheter Indwelling Catheter - Exam GENERAL DESCRIPTION: Middle-age male lying in bed in no distress RESPIRATORY SYSTEM: Unlabored breathing , clear to auscultation anteriorly HEART: S1 S2 regular rate and rhythm , ABDOMEN: Soft , no tenderness EXTREMITIES: No edema feet - Labs CBC & Chem 7: 07/19/23 06:57 07/19/23 06:57 Labs: Abnormal Lab Results - Last 24 Hours (Table) 07/18/23 Range/Units 10:34 Magnesium 2.5 H (1.6-2.3) mg/dL Assessment and Plan (1) Sepsis Current Visit: Yes Status: Acute Code(s): A41.9 - SEPSIS, UNSPECIFIED ORGANISM SNOMED Code(s): 54142480 (2) UTI (urinary tract infection) Current Visit: Yes Status: Acute Code(s): N39.0 - URINARY TRACT INFECTION, SITE NOT SPECIFIED SNOMED Code(s): 03809386 Plan: 1patient presented hospital with sepsis in this patient who did have a fever elevated white count patient did have a cloudy urine history of neurogenic bladder requiring straight cath likely urinary source patient has previously grown Pseudomonas and MRSA with a recent culture on 05/20/2023 and will need to cover for those pathogen while waiting for the culture to finalize. 2patient to continue with cefepime and vancomycin pharmacy to dose while waiting for the culture to finalize and monitor clinical course closely Dictation was produced using [email or web address] dictation software. please excuse any grammatical, word or spelling errors. Time with Patient: Less than 30
--- NOTE | 2023-07-19 16:17 | P.PN ---
Subjective Progress Note Date: 07/19/23 H&P Date: 07/18/23 Chief Complaint: Altered mental status This is a 62-year-old gentleman ,past medical history significant for recurrent urinary tract infections ,neurogenic bladder secondary to multiple sclerosis, straight caths every 4 hours and multiple other medical issues, presented to the ER with complaints of fever, cloudy urine and confusion. Abdomen distended, last bowel movement reported as 2 days ago, passing flatus and denies abdominal pain. Denies nausea, reports emesis 1. T-max on admission 100.8.,WBC 12.8 Denies any chills, sweats or shortness of breath. Denies flank or back pain. Denies any suprapubic pain. Denies hematuria. Denies fall or trauma. Denies any chest pain, palpitations or shortness of breath. Currently on 2 L nasal cannula O2, maintaining O2 sats in the 90s. UA reported 119 urine WBCs, large leukocytes, positive nitrates, culture pending.Recent culture from 05/20/23 reporting pseudomonas aeruginosa, MRSA. Infectious disease consulted, antibiotics initiated. Creatinine currently 1.25. 07/19/2023 maintained on IV antibiotics as per infectious disease, afebrile, normal WBC. Urine culture pending .Urine less cloudy. Denies any nausea vomiting. Denies abdominal pain Denies any chills or sweats. Sensorium significantly improved. No bowel movement, passing flatus. Client's sister at bedside and reports they had discontinued using his daily MiraLAX 3 days prior to admission. Renal function improving, Creatinine 1.1. Objective - Vital Signs Vital signs: Vital Signs Temp 98.4 F 07/19/23 14:39 Pulse 90 07/19/23 14:39 Resp 16 07/19/23 14:39 BP 134/75 07/19/23 14:39 Pulse Ox 93 L 07/19/23 14:39 FiO2 Intake & Output 07/18/23 07/19/23 07/19/23 18:59 06:59 18:59 Intake Total 1200 1200 360 Output Total 3022 805 0916 Balance 100 300 -940 Intake: Intake, IV Titration 1200 1200 Amount Cefepime 2 gm In Sodium 100 100 Chloride 0.9% 100 ml @ 25 mls/hr IVPB Q8HR [facility] Rx# :[id number] Sodium Chloride 0.9% 1, 600 600 000 ml @ 50 mls/hr IV . Q20H [facility] Rx#:[id number] Vancomycin 1,500 mg In 500 500 Sodium Chloride 0.9% 500 ml 500 ml @ 167 mls/hr IVPB Q16H [facility] Rx#: [id number] Oral 360 Output: Urine 1776 787 8359 Uretheral (Ross) 700 Other: Voiding Method Indwelling Catheter Indwelling Catheter # Bowel Movements 1 - Exam - Exam Gen: elderly male in NAD CV: RRR, no murmur Lungs: CTAB Abd: distended, soft, nontender, positive bowel sounds - Labs CBC & Chem 7: 07/19/23 06:57 07/19/23 06:57 Labs: Abnormal Lab Results - Last 24 Hours (Table) 07/19/23 Range/Units 06:57 RBC 4.29 L (4.40-5.60) X 10*6/uL MPV 9.4 L (9.5-12.2) FL Monocytes # 1.40 H (0.20-1.00) X 10*3/uL Microbiology - Last 24 Hours (Table) 07/17/23 20:00 Blood Culture - Preliminary Blood 07/17/23 20:15 Blood Culture - Preliminary Blood 07/17/23 21:21 Urine Culture - Preliminary Urine,Clean Catch Gram Neg Bacilli Assessment and Plan Assessment: Sepsis secondary to Acute recurrent complicated UTI, recent culture from 05/20/23 reporting pseudomonas aeruginosa, MRSA, related to self straight cathing every 4 hours, in a patient with a neurogenic bladder secondary to MS. Acute renal failure, secondary to the above Acute metabolic encephalopathy, secondary to all the above, significantly improved. Plan: Continue on current medication regime ,monitoring and symptomatic treatment. Urine and Blood cultures in progress. Antibiotics as per infectious disease. Close monitoring of renal function, with repeat labs ordered for a.m. The impression and plan of care has been dictated as directed. : I performed a history and examination of this patient, discussed the same with the dictator. I agree with the dictator's note ,documented as a scribe. Any additional findings or plans will be noted.
[2023-07-19] MEDS: ONDANSETRON 4 MG/2 ML VIAL IVP PRN (19:57)
[2023-07-20] MEDS: CEFEPIME 2 GM in SODIUM CHLORIDE 0.9% 100 ML IVPB SCH ×3 (00:38→17:32)
[2023-07-20] MEDS: VANCOMYCIN 1,500 MG in SODIUM CHLORIDE 0.9% 500 ML 500 ML IVPB SCH (01:57)
[2023-07-20] MEDS: SODIUM CHLORIDE 0.9% 1,000 ML IV SCH (02:03)
--- NOTE | 2023-07-20 09:47 | CT ---
EXAMINATION TYPE: CT abdomen wo con CT DLP: 509.9 mGycm, Automated exposure control for dose reduction was used. DATE OF EXAM: 07/20/2023 9:37 AM COMPARISON: CT abdomen pelvis most recent from 07/17/2023, 03/01/2023. CLINICAL INDICATION:Male, 62 years old with history of distended; Distended abdomen TECHNIQUE: Standard CT of the abdomen without IV or oral contrast. Lack of IV or oral contrast limi ts evaluation of solid and hollow organ viscera. Coronal and sagittal reformats were performed. FINDINGS: LOWER CHEST: Right lower lobe calcified granuloma. Aortic valvular calcifications. Right hilar calcif ied lymph node. ABDOMEN LIVER: Diffusely hypoattenuating parenchyma. Stable lateral right hepatic lobe hypodense 1.4 cm lesio n. GALLBLADDER AND BILE DUCTS: Unremarkable. PANCREAS: Unremarkable. SPLEEN: Unremarkable. ADRENAL GLANDS: Unremarkable. KIDNEYS AND URETERS: No evidence of hydronephrosis or renal calculus. Atrophy of the left kidney. Lef t superior pole 2.2 cm cyst. STOMACH AND BOWEL: Distended stomach. Duodenum is unremarkable. No evidence of bowel obstruction. Non dilated visualized colon and small bowel. PERITONEUM: No evidence of pneumoperitoneum or free fluid. VASCULATURE: No evidence of aortic aneurysm. MUSCULOSKELETAL: No acute osseous abnormalities. Mild to moderate disc degeneration changes are prese nt throughout the visualized thoracolumbar spine. LYMPH NODES: No gross evidence for lymphadenopathy. SOFT TISSUE/ABDOMINAL WALL: Unremarkable IMPRESSION: Similar gastric distention. No visualized evidence for bowel obstruction.
[2023-07-20] MEDS: NON FORMULARY DRUG (Dalfampridine [Dalfampridine Er] 10 MG Tab.Er.12h) PO SCH ×2 (10:09→21:43)
[2023-07-20] MEDS: polyethylene glycoL 3350 17 GM POWD.PACK PO SCH (10:09)
[2023-07-20] MEDS: TAMSULOSIN 0.4 MG CAP.ER.24H PO SCH (10:09)
[2023-07-20] MEDS: TROSPIUM CHLORIDE 20 MG TABLET PO SCH ×2 (10:09→21:42)
[2023-07-20] MEDS: METOCLOPRAMIDE 5 MG/ML 2 ML VIAL IVP SCH ×3 (10:11→21:42)
[2023-07-20] MEDS: PANTOPRAZOLE 40 MG/10 ML VIAL IVP SCH (10:13)
--- NOTE | 2023-07-20 10:22 | P.PN ---
Subjective Progress Note Date: 07/20/23 H&P Date: 07/18/23 Chief Complaint: Altered mental status This is a 62-year-old gentleman ,past medical history significant for recurrent urinary tract infections ,neurogenic bladder secondary to multiple sclerosis, straight caths every 4 hours and multiple other medical issues, presented to the ER with complaints of fever, cloudy urine and confusion. Abdomen distended, last bowel movement reported as 2 days ago, passing flatus and denies abdominal pain. Denies nausea, reports emesis 1. T-max on admission 100.8.,WBC 12.8 Denies any chills, sweats or shortness of breath. Denies flank or back pain. Denies any suprapubic pain. Denies hematuria. Denies fall or trauma. Denies any chest pain, palpitations or shortness of breath. Currently on 2 L nasal cannula O2, maintaining O2 sats in the 90s. UA reported 119 urine WBCs, large leukocytes, positive nitrates, culture pending.Recent culture from 05/20/23 reporting pseudomonas aeruginosa, MRSA. Infectious disease consulted, antibiotics initiated. Creatinine currently 1.25. 07/19/2023 maintained on IV antibiotics as per infectious disease, afebrile, normal WBC. Urine culture pending .Urine less cloudy. Denies any nausea vomiting. Denies abdominal pain Denies any chills or sweats. Sensorium significantly improved. No bowel movement, passing flatus. Client's sister at bedside and reports they had discontinued using his daily MiraLAX 3 days prior to admission. Renal function improving, Creatinine 1.1. 07/20/2023 maintained on cefepime as per ID. Preliminary blood cultures re porting no growth after 24 hours, urine culture reporting gram-negative bacilli. Reports abdomen more distended, dry heaves, hiccups, nausea ,vomiting last night, minimal bowel movement yesterday, T-max 100.7, WBC normalized. Didn't sleep well, positive chills. Maintained on gentle IV fluid hydration. Denies abdominal pain, currently denies nausea and vomiting. She needs on gentle IV fluid hydration. Renal function improving. Denies chest pain, palpitations or shortness of breath. Maintaining O2 sats in the low 90s on room air. Objective - Vital Signs Vital signs: Vital Signs Temp 98.0 F 07/20/23 07:03 Pulse 81 07/20/23 07:03 Resp 16 07/20/23 07:03 BP 143/81 07/20/23 07:03 Pulse Ox 93 L 07/20/23 07:03 FiO2 Intake & Output 07/19/23 07/20/23 07/20/23 18:59 06:59 18:59 Intake Total 1660 Output Total 2100 1175 350 Balance -440 -1175 -350 Intake: Intake, IV Titration 1300 Amount Cefepime 2 gm In Sodium 200 Chloride 0.9% 100 ml @ 25 mls/hr IVPB Q8HR [facility] Rx# :[id number] Sodium Chloride 0.9% 1, 600 000 ml @ 50 mls/hr IV . Q20H [facility] Rx#:[id number] Vancomycin 1,500 mg In 500 Sodium Chloride 0.9% 500 ml 500 ml @ 167 mls/hr IVPB Q12H [facility] Rx#: [id number] Oral 360 Output: Urine 2100 1175 350 Other: Voiding Method Indwelling Catheter Indwelling Catheter # Bowel Movements 1 - Exam - Exam Gen: elderly male in NAD CV: RRR, no murmur Lungs: Unlabored, fine basilar expiratory wheeze Abd: distended, soft, nontender, positive bowel sounds - Labs CBC & Chem 7: 07/19/23 06:57 07/19/23 06:57 Labs: Abnormal Lab Results - Last 24 Hours (Table) 07/19/23 Range/Units 06:57 RBC 4.29 L (4.40-5.60) X 10*6/uL MPV 9.4 L (9.5-12.2) FL Monocytes # 1.40 H (0.20-1.00) X 10*3/uL Microbiology - Last 24 Hours (Table) 07/17/23 20:00 Blood Culture - Preliminary Blood 07/17/23 20:15 Blood Culture - Preliminary Blood 07/17/23 21:21 Urine Culture - Preliminary Urine,Clean Catch Gram Neg Bacilli Assessment and Plan Assessment: Sepsis secondary to Acute recurrent complicated UTI with gram-negative bacilli, recent culture from 05/20/23 reporting pseudomonas aeruginosa, MRSA, related to self straight cathing every 4 hours, in a patient with a neurogenic bladder secondary to MS. Acute renal failure, secondary to the above, improving Acute metabolic encephalopathy, secondary to all the above, significantly improved. Atelectasis Constipation, patient's sister stated stopped using MiraLAX about 3 days prior to admission. Plan: Continue on current medication regime ,monitoring and symptomatic treatment. CT of abdomen ordered. Continue MiraLAX. Aggressive pulmonary toileting with Incentive spirometer ordered. Increase ambulation as tolerated, PT/OT consulted. Cultures finalizing.Antibiotics as pe r infectious disease. The impression and plan of care has been dictated as directed. : I performed a history and examination of this patient, discussed the same with the dictator. I agree with the dictator's note ,documented as a scribe. Any additional findings or plans will be noted.
[2023-07-20] MEDS: BACLOFEN 10 MG TAB PO SCH ×2 (11:34→17:54)
--- NOTE | 2023-07-20 12:35 | P.PN ---
Subjective Progress Note Date: 07/20/23 Principal diagnosis: Sepsis and UTI Patient is 62-year-old male with a past medical history significant for multiple sclerosis in this patient who did have a neurogenic bladder history of recurrent urinary tract infection patient apparently straight cath himself every 4 hours and the patient was noticed to have cloudiness of the urine recently patient presenting to the ER for evaluation of fever cloudy urine and confusion , patient has been diagnosed with a complicated urinary tract infection On today's evaluation that is 07/20/2023, the patient remains to be afebrile, the patient is breathing comfortably on room air and denies any shortness of breath, the patient denies any chest pain or cough , patient denies abdominal pain and no nausea/vomiting or diarrhea Patient will call normalized to 9.14 , creatinine 1.1 as of yesterday, urine is growing gram-negative Objective - Vital Signs Vital signs: Vital Signs Temp 98.0 F 07/20/23 07:03 Pulse 81 07/20/23 07:03 Resp 16 07/20/23 07:03 BP 143/81 07/20/23 07:03 Pulse Ox 93 L 07/20/23 07:03 FiO2 Intake & Output 07/19/23 07/20/23 07/20/23 18:59 06:59 18:59 Intake Total 1660 Output Total 2100 1175 350 Balance -440 -1175 -350 Intake: Intake, IV Titration 1300 Amount Cefepime 2 gm In Sodium 200 Chloride 0.9% 100 ml @ 25 mls/hr IVPB Q8HR [facility] Rx# :[id number] Sodium Chloride 0.9% 1, 600 000 ml @ 50 mls/hr IV . Q20H [facility] Rx#:[id number] Vancomycin 1,500 mg In 500 Sodium Chloride 0.9% 500 ml 500 ml @ 167 mls/hr IVPB Q12H [facility] Rx#: [id number] Oral 360 Output: Urine 2100 1175 350 Other: Voiding Method Indwelling Catheter Indwelling Catheter Indwelling Catheter # Bowel Movements 1 - Exam GENERAL DESCRIPTION: Middle-age male lying in bed in no distress RESPIRATORY SYSTEM: Unlabored breathing , clear to auscultation anteriorly HEART: S1 S2 regular rate and rhythm , ABDOMEN: Soft , no tenderness EXTREMITIES: No edema feet - Labs CBC & Chem 7: 07/19/23 06:57 07/19/23 06:57 Labs: Microbiology - Last 24 Hours (Table) 07/17/23 20:00 Blood Culture - Preliminary Blood 07/17/23 20:15 Blood Culture - Preliminary Blood 07/17/23 21:21 Urine Culture - Preliminary Urine,Clean Catch Gram Neg Bacilli Assessment and Plan (1) Sepsis Current Visit: Yes Status: Acute Code(s): A41.9 - SEPSIS, UNSPECIFIED ORGANISM SNOMED Code(s): 89752117 (2) UTI (urinary tract infection) Current Visit: Yes Status: Acute Code(s): N39.0 - URINARY TRACT INFECTION, SITE NOT SPECIFIED SNOMED Code(s): 02010058 Plan: 1patient presented hospital with sepsis in this patient who did have a fever elevated white count patient did have a cloudy urine history of neurogenic bladder requiring straight cath likely urinary source patient has previously grown Pseudomonas and MRSA with a recent culture on 05/20/2023 and will need to cover for those pathogen while waiting for the culture to finalize. 2patient did have shown clinical improvement, urinary showing gram-negative we will continue with cefepime and discontinue vancomycin discharge antibiotics on the basis of final culture Dictation was produced using [employer] dictation software. please excuse any grammatical, word or spelling errors. Time with Patient: Less than 30
[2023-07-20 13:32] LABS: African American GFR (CKD) 78 (>60 ml/min/1.73 sqM); Non-African American GFR(CKD) 67 (>60 ml/min/1.73 sqM)
[2023-07-20 13:50] LABS: BUN/Creat Ratio 12.17 Ratio (12.00-20.00); Blood Urea Nitrogen 14.6 mg/dL (9.0-27.0); Calcium 8.8 mg/dL (8.7-10.3); Carbon Dioxide 24.3 mmol/L (21.6-31.8); Chloride 103 mmol/L (96-109); Glucose 106 mg/dL (70-110); Potassium 3.8 mmol/L (3.5-5.5); Sodium 141 mmol/L (135-145)
[2023-07-20] MEDS ORDERED: BACLOFEN 10 MG TAB PO SCH (18:00)
[2023-07-21] MEDS: CEFEPIME 2 GM in SODIUM CHLORIDE 0.9% 100 ML IVPB SCH ×2 (00:26→09:33)
[2023-07-21] MEDS: SODIUM CHLORIDE 0.9% 1,000 ML IV SCH ×2 (00:32→17:16)
[2023-07-21 07:07] LABS: African American GFR (CKD) 78 (>60 ml/min/1.73 sqM); Non-African American GFR(CKD) 67 (>60 ml/min/1.73 sqM)
[2023-07-21] MEDS: BACLOFEN 10 MG TAB PO SCH ×2 (08:54→17:13)
[2023-07-21] MEDS: polyethylene glycoL 3350 17 GM POWD.PACK PO SCH (08:55)
[2023-07-21] MEDS: TAMSULOSIN 0.4 MG CAP.ER.24H PO SCH (08:55)
[2023-07-21] MEDS: TROSPIUM CHLORIDE 20 MG TABLET PO SCH ×2 (08:55→21:29)
[2023-07-21] MEDS: NON FORMULARY DRUG (Dalfampridine [Dalfampridine Er] 10 MG Tab.Er.12h) PO SCH ×2 (09:03→21:30)
[2023-07-21] MEDS: METOCLOPRAMIDE 5 MG/ML 2 ML VIAL IVP SCH ×3 (09:35→21:29)
[2023-07-21] MEDS: PANTOPRAZOLE 40 MG/10 ML VIAL IVP SCH (09:35)
[2023-07-21] MEDS: ERTAPENEM 1 GM in SODIUM CHLORIDE 0.9% 50 ML IVPB SCH (11:21)
--- NOTE | 2023-07-21 12:53 | P.PN ---
Subjective Progress Note Date: 07/21/23 H&P Date: 07/18/23 Chief Complaint: Altered mental status This is a 62-year-old gentleman ,past medical history significant for recurrent urinary tract infections ,neurogenic bladder secondary to multiple sclerosis, straight caths every 4 hours and multiple other medical issues, presented to the ER with complaints of fever, cloudy urine and confusion. Abdomen distended, last bowel movement reported as 2 days ago, passing flatus and denies abdominal pain. Denies nausea, reports emesis 1. T-max on admission 100.8.,WBC 12.8 Denies any chills, sweats or shortness of breath. Denies flank or back pain. Denies any suprapubic pain. Denies hematuria. Denies fall or trauma. Denies any chest pain, palpitations or shortness of breath. Currently on 2 L nasal cannula O2, maintaining O2 sats in the 90s. UA reported 119 urine WBCs, large leukocytes, positive nitrates, culture pending.Recent culture from 05/20/23 reporting pseudomonas aeruginosa, MRSA. Infectious disease consulted, antibiotics initiated. Creatinine currently 1.25. 07/19/2023 maintained on IV antibiotics as per infectious disease, afebrile, normal WBC. Urine culture pending .Urine less cloudy. Denies any nausea vomiting. Denies abdominal pain Denies any chills or sweats. Sensorium significantly improved. No bowel movement, passing flatus. Client's sister at bedside and reports they had discontinued using his daily MiraLAX 3 days prior to admission. Renal function improving, Creatinine 1.1. 07/20/2023 maintained on cefepime as per ID. Preliminary blood cultures re porting no growth after 24 hours, urine culture reporting gram-negative bacilli. Reports abdomen more distended, dry heaves, hiccups, nausea ,vomiting last night, minimal bowel movement yesterday, T-max 100.7, WBC normalized. Didn't sleep well, positive chills. Maintained on gentle IV fluid hydration. Denies abdominal pain, currently denies nausea and vomiting. She needs on gentle IV fluid hydration. Renal function improving. Denies chest pain, palpitations or shortness of breath. Maintaining O2 sats in the low 90s on room air. 07/21/2023 CT of abdomen performed yesterday reported similar gastric distention, no facial is evidence for bowel obstruction. IV antibiotics adjusted to ertapenem as per infectious disease. Urine culture reporting E. coli/ESBL. Afebrile, T-max 99. Creatinine 1.15. Maintaining O2 sats in the low 90s on room air. Positive bowel movements 3 yesterday. Sitting up in chair, eating breakfast. Denies nausea vomiting or diarrhea. Denies abdominal pain. Denies chest pain, palpitations or shortness of breath. Reports he ambulated in the hallway yesterday with PT, tolerated exertion well. Objective - Vital Signs Vital signs: Vital Signs Temp 98.4 F 07/21/23 11:45 Pulse 70 07/21/23 11:45 Resp 18 07/21/23 11:45 BP 120/64 07/21/23 11:45 Pulse Ox 92 L 07/21/23 11:45 FiO2 Intake & Output 07/20/23 07/21/23 07/21/23 18:59 06:59 18:59 Output Total 1550 1750 Balance -1550 -1750 Output: Urine 1550 1750 Other: Voiding Method Indwelling Catheter Indwelling Catheter Indwelling Catheter # Bowel Movements 1 1 - Exam - Exam Gen: elderly male, sitting up in chair, in NAD CV: RRR, no murmur Lungs: Unlabored, fine basilar expiratory wheeze Abd: distended, soft, nontender, positive bowel sounds - Labs CBC & Chem 7: 07/19/23 06:57 07/21/23 05:23 Labs: Abnormal Lab Results - Last 24 Hours (Table) 07/20/23 Range/Units 06:00 Anion Gap 13.70 H (4.00-12.00) mmol/L Microbiology - Last 24 Hours (Table) 07/17/23 20:00 Blood Culture - Preliminary Blood 07/17/23 20:15 Blood Culture - Preliminary Blood 07/17/23 21:21 Urine Culture - Final Urine,Clean Catch Escherichia coli Assessment and Plan Assessment: Sepsis secondary to Acute recurrent complicated UTI with Ecoli-ESBL, recent culture from 05/20/23 reporting pseudomonas aeruginosa, MRSA, related to self straight cathing every 4 hours, in a patient with a neurogenic bladder secondary to MS. Acute renal failure, secondary to the above, improving Acute metabolic encephalopathy, secondary to all the above, significantly improved. Atelectasis Constipation, patient's sister stated stopped using MiraLAX about 3 days prior to admission. Plan: Continue on current medication regime ,monitoring and symptomatic treatment. Continue MiraLAX. Maintain aggressive pulmonary toileting with Incentive spirometer reinforced. Cultures finalizing.Antibiotics as per infectious disease. Continue ambulating every shift, as tolerated. The impression and plan of care has been dictated as directed. : I performed a history and examination of this patient, discussed the same with the dictator. I agree with the dictator's note ,documented as a scribe. Any additional findings or plans will be noted.
--- NOTE | 2023-07-21 13:29 | P.PN ---
Subjective Progress Note Date: 07/21/23 Principal diagnosis: Sepsis and UTI Patient is 62-year-old male with a past medical history significant for multiple sclerosis in this patient who did have a neurogenic bladder history of recurrent urinary tract infection patient apparently straight cath himself every 4 hours and the patient was noticed to have cloudiness of the urine recently patient presenting to the ER for evaluation of fever cloudy urine and confusion , patient has been diagnosed with a complicated urinary tract infection On today's evaluation that is 07/21/2023, the patient denies any fever or any chills, the patient is breathing comfortably on room air and no need for supplemental oxygen, the patient denies any chest pain, cough or sputum production, patient denies abdominal pain and no nausea/vomiting and no diarrhea has been reported Patient will call normalized to 9.14 , creatinine 1.1 as of 07/19/2023, urine is growing ESBL E. coli Objective - Vital Signs Vital signs: Vital Signs Temp 98.2 F 07/21/23 08:15 Pulse 76 07/21/23 08:15 Resp 16 07/21/23 08:15 BP 124/72 07/21/23 08:15 Pulse Ox 93 L 07/21/23 08:15 FiO2 Intake & Output 07/20/23 07/21/23 07/21/23 18:59 06:59 18:59 Output Total 1550 1750 Balance -1550 -1750 Output: Urine 1550 1750 Other: Voiding Method Indwelling Catheter Indwelling Catheter # Bowel Movements 1 1 - Exam GENERAL DESCRIPTION: Middle-age male lying in bed in no distress RESPIRATORY SYSTEM: Unlabored breathing , clear to auscultation anteriorly HEART: S1 S2 regular rate and rhythm , ABDOMEN: Soft , no tenderness EXTREMITIES: No edema feet - Labs CBC & Chem 7: 07/19/23 06:57 07/21/23 05:23 Labs: Abnormal Lab Results - Last 24 Hours (Table) 07/20/23 Range/Units 06:00 Anion Gap 13.70 H (4.00-12.00) mmol/L Microbiology - Last 24 Hours (Table) 07/17/23 20:00 Blood Culture - Preliminary Blood 07/17/23 20:15 Blood Culture - Preliminary Blood 07/17/23 21:21 Urine Culture - Final Urine,Clean Catch Escherichia coli Assessment and Plan (1) Sepsis Current Visit: Yes Status: Acute Code(s): A41.9 - SEPSIS, UNSPECIFIED ORGANISM SNOMED Code(s): 54129244 (2) UTI (urinary tract infection) Current Visit: Yes Status: Acute Code(s): N39.0 - URINARY TRACT INFECTION, SITE NOT SPECIFIED SNOMED Code(s): 76202515 Plan: 1patient presented hospital with sepsis in this patient who did have a fever elevated white count patient did have a cloudy urine history of neurogenic bladder requiring straight cath likely urinary source patient has previously grown Pseudomonas and MRSA with a recent culture on 05/20/2023 and will need to cover for those pathogen while waiting for the culture to finalize. 2patient did have shown clinical improvement, however urine culture had been finalized with ESBL E. coli we will discontinue the cefepime started the patient on Invanz 1 g daily PICC line for outpatient IV Invanz discussed with the nursing staff Dictation was produced using [employer] dictation software. please excuse any grammatical, word or spelling errors. Time with Patient: Less than 30
[2023-07-22 09:02] LABS: BUN/Creat Ratio 10.29 Ratio (12.00-20.00); Blood Urea Nitrogen 14.4 mg/dL (9.0-27.0); Calcium 9.2 mg/dL (8.7-10.3); Carbon Dioxide 27.3 mmol/L (21.6-31.8); Chloride 103 mmol/L (96-109); Glucose 101 mg/dL (70-110); Sodium 141 mmol/L (135-145)
[2023-07-22 09:34] LABS: Basophils # (A) 0.05 X 10*3/uL (0.00-0.10); Basophils % (A) 0.6 %; Eosinophils # (A) 0.47 X 10*3/uL (0.04-0.35); Eosinophils % (A) 5.7 %; HCT 41.2 % (39.6-50.0); HGB 13.5 g/dL (13.0-17.0); Lymphocytes # (A) 1.63 X 10*3/uL (0.90-5.00); Lymphocytes % (A) 19.7 %; MCH 30.7 pg (27.0-32.0); MCHC 32.8 g/dL (32.0-37.0); MCV 93.6 FL (80.0-97.0); Mean Platelet Volume 9.2 FL (9.5-12.2); Monocytes # (A) 1.23 X 10*3/uL (0.20-1.00); Monocytes % (A) 14.8 %; NRBC Per 100 WBC 0 X 10*3/uL (0.00-0.01); Neutrophils # (A) 4.87 X 10*3/uL (1.80-7.70); Neutrophils % (A) 58.7 %; Platelet Count 382 X 10*3/uL (140-440); RDW 13.1 % (11.5-14.5); WBC 8.29 X 10*3/uL (4.50-10.00)
[2023-07-22] MEDS: ERTAPENEM 1 GM in SODIUM CHLORIDE 0.9% 50 ML IVPB SCH (10:27)
[2023-07-22] MEDS: METOCLOPRAMIDE 5 MG/ML 2 ML VIAL IVP SCH ×3 (10:27→20:40)
[2023-07-22] MEDS: PANTOPRAZOLE 40 MG/10 ML VIAL IVP SCH (10:27)
[2023-07-22] MEDS: TAMSULOSIN 0.4 MG CAP.ER.24H PO SCH (10:27)
[2023-07-22] MEDS: polyethylene glycoL 3350 17 GM POWD.PACK PO SCH (10:27)
[2023-07-22] MEDS: TROSPIUM CHLORIDE 20 MG TABLET PO SCH ×2 (10:28→20:40)
[2023-07-22] MEDS: BACLOFEN 10 MG TAB PO SCH ×2 (10:28→17:07)
--- NOTE | 2023-07-22 12:27 | P.PN ---
Subjective Progress Note Date: 07/22/23 Principal diagnosis: Sepsis and UTI Patient is 62-year-old male with a past medical history significant for multiple sclerosis in this patient who did have a neurogenic bladder history of recurrent urinary tract infection patient apparently straight cath himself every 4 hours and the patient was noticed to have cloudiness of the urine recently patient presenting to the ER for evaluation of fever cloudy urine and confusion , patient has been diagnosed with a complicated urinary tract infection On today's evaluation that is 07/22/2023, the patient remains to be afebrile, the patient is breathing comfortably on room air , the patient denies any chest pain or any cough , patient denies nausea/vomiting diarrhea and no abdominal pain Patient white count is 8.29 , creatinine is 1.4, urine is growing ESBL E. coli Objective - Vital Signs Vital signs: Vital Signs Temp 97.9 F 07/22/23 07:50 Pulse 79 07/22/23 07:50 Resp 16 07/22/23 07:50 BP 127/85 07/22/23 07:50 Pulse Ox 94 L 07/22/23 07:50 FiO2 Intake & Output 07/21/23 07/22/23 07/22/23 18:59 06:59 18:59 Output Total 1325 1600 Balance -1325 -1600 Output: Urine 1325 1600 Other: Voiding Method Indwelling Catheter Indwelling Catheter - Exam GENERAL DESCRIPTION: Middle-age male lying in bed in no distress RESPIRATORY SYSTEM: Unlabored breathing , clear to auscultation anteriorly HEART: S1 S2 regular rate and rhythm , ABDOMEN: Soft , no tenderness EXTREMITIES: No edema feet - Labs CBC & Chem 7: 07/22/23 05:28 07/22/23 05:28 Labs: Abnormal Lab Results - Last 24 Hours (Table) 07/22/23 07/22/23 Range/Units 05:28 05:28 MPV 9.2 L (9.5-12.2) FL Monocytes # 1.23 H (0.20-1.00) X 10*3/uL Eosinophils # 0.47 H (0.04-0.35) X 10*3/uL Est GFR (CKD-EPI) 56 L (>=60) BUN/Creatinine Ratio 10.29 L (12.00-20.00) Ratio Microbiology - Last 24 Hours (Table) 07/17/23 20:00 Blood Culture - Preliminary Blood 07/17/23 20:15 Blood Culture - Preliminary Blood Assessment and Plan (1) Sepsis Current Visit: Yes Status: Acute Code(s): A41.9 - SEPSIS, UNSPECIFIED ORGANISM SNOMED Code(s): 39650734 (2) UTI (urinary tract infection) Current Visit: Yes Status: Acute Code(s): N39.0 - URINARY TRACT INFECTION, SITE NOT SPECIFIED SNOMED Code(s): 20528652 Plan: 1patient presented hospital with sepsis in this patient who did have a fever elevated white count patient did have a cloudy urine history of neurogenic bladder requiring straight cath likely urinary source patient has previously grown Pseudomonas and MRSA with a recent culture on 05/20/2023 and will need to cover for those pathogen while waiting for the culture to finalize. 2patient did have shown clinical improvement, urine culture had been finalized with ESBL E. coli we will continue with Invanz 1 g daily, patient did get a midline prescription for Invanz 8 days has been provided to the business case analyst was arranged he'll be able to go home from ID standpoint Dictation was produced using [employer] dictation software. please excuse any grammatical, word or spelling errors. Time with Patient: Less than 30
[2023-07-22] MEDS: NON FORMULARY DRUG (Dalfampridine [Dalfampridine Er] 10 MG Tab.Er.12h) PO SCH ×2 (13:35→21:02)
[2023-07-22] MEDS: SODIUM CHLORIDE 0.9% 1,000 ML IV SCH (13:36)
--- NOTE | 2023-07-22 17:09 | XR ---
EXAMINATION TYPE: XR abdomen 2V DATE OF EXAM: 07/22/2023 4:56 PM CLINICAL INDICATION:Male, 62 years old with history of constipation; [facility] COMPARISON: CT abdomen 07/20/2023, KUB 07/17/2023 TECHNIQUE: Two views of the abdomen were obtained. FINDINGS: Gaseous distention of the stomach has decreased from the prior. Moderate stool throughout t he colon, similar to before. The bowel gas pattern is nonspecific without dilated loops of small or l arge bowel. There is no evidence for organomegaly or pneumoperitoneum. The osseous structures are int act. Probable phleboliths in the pelvis again noted. Mild/moderate bilateral hip osteoarthropathy. Mo derate degenerative changes of the lumbar spine with mild levoscoliosis. No evidence of pneumoperiton eum. IMPRESSION: 1. Nonspecific, nonobstructive bowel gas pattern. No free air detected. 2. Moderate colonic stool, correlate for constipation.
--- NOTE | 2023-07-22 18:50 | P.DS ---
Providers Date of admission: 07/18/23 00:17 Expected date of discharge: 07/22/23 Attending physician: Misbah Del Rio MD Consults: 07/18/23 00:17 Consult Physician Urgent Consulting Provider: Shant Oviedo Consult Reason/Comments: acute uti, hx mrsa, neurogenic bladder Do you want consulting provider notified?: Yes Primary care physician: Elle Guadalupe Hospital Course: This is a 62-year-old gentleman ,past medical history significant for recurrent urinary tract infections ,neurogenic bladder secondary to multiple sclerosis, straight caths every 4 hours and multiple other medical issues, presented to the ER with complaints of fever, cloudy urine and confusion. Abdomen distended, last bowel movement reported as 2 days ago, passing flatus and denies abdominal pain. Denies nausea, reports emesis 1. T-max on admission 100.8.,WBC 12.8 Denies any chills, sweats or shortness of breath. Denies flank or back pain. Denies any suprapubic pain. Denies hematuria. Denies fall or trauma. Denies any chest pain, palpitations or shortness of breath. Currently on 2 L nasal cannula O2, maintaining O2 sats in the 90s. UA reported 119 urine WBCs, large leukocytes, positive nitrates, culture pending.Recent culture from 05/20/23 reporting pseudomonas aeruginosa, MRSA. Infectious disease consulted, antibiotics initiated. Creatinine currently 1.25. 07/19/2023 maintained on IV antibiotics as per infectious disease, afebrile, normal WBC. Urine culture pending .Urine less cloudy. Denies any nausea vomiting. Denies abdominal pain Denies any chills or sweats. Sensorium s ignificantly improved. No bowel movement, passing flatus. Client's sister at bedside and reports they had discontinued using his daily MiraLAX 3 days prior to admission. Renal function improving, Creatinine 1.1. 07/20/2023 maintained on cefepime as per ID. Preliminary blood cultures reporting no growth after 24 hours, urine culture reporting gram-negative bacilli. Reports abdomen more distended, dry heaves, hiccups, nausea ,vomiting last night, minimal bowel movement yesterday, T-max 100.7, WBC normalized. Didn't sleep well, positive chills. Maintained on gentle IV fluid hydration. Denies abdominal pain, currently denies nausea and vomiting. She needs on gentle IV fluid hydration. Renal function improving. Denies chest pain, palpitations or shortness of breath. Maintaining O2 sats in the low 90s on room air. 07/21/2023 CT of abdomen performed yesterday reported similar gastric distention, no evidence for bowel obstruction. IV antibiotics adjusted to ertapenem as per infectious disease. Urine culture reporting E. coli/ESBL. Afebrile, T-max 99. Creatinine 1.15. Maintaining O2 sats in the low 90s on room air. Positive bowel movements 3 yesterday. Sitting up in chair, eating breakfast. Denies nausea vomiting or diarrhea. Denies abdominal pain. Denies chest pain, palpitations or shortness of breath. Reports he ambulated in the hallway yesterday with PT, tolerated exertion well. 07/22/2023. Pt and sister complain he has not had a bowel movement since the . He denies nausea, vomiting. He is tolerating breakfast. He remains afebrile and continues on IV ertapenem. He had midline placed without difficulty and cleared by ID to complete home course of invanz. Pt given soap suds enema with BM and recommended to continue with miralax and lactulose as needed. He is discharged in stable condition with guarded prognosis. Patient Condition at Discharge: Stable Plan - Discharge Summary Discharge Rx Participant: No New Discharge Prescriptions: New RX: Omeprazole 20 mg PO DAILY #30 tab RX: polyethylene glycoL 3350 [Miralax] 17 gm PO DAILY packet Ertapenem [INVanz] 1 gm IVPB Q24H #8 each RX: Lactulose 20 gm PO BID PRN #500 ml PRN Reason: Constipation Continue RX: Trospium Chloride [Sanctura XR] 60 mg PO HS RX: Potassium Chloride ER [K-Dur 10] 10 meq PO HS RX: Dalfampridine [Dalfampridine ER] 10 mg PO Q12H RX: Baclofen 10 mg PO 0900,1800 RX: amLODIPine [Norvasc] 2.5 mg PO DAILY RX: Metoprolol Succinate (ER) [Toprol XL] 12.5 mg PO HS RX: Furosemide [Lasix] 20 mg PO DAILY RX: Atorvastatin [Lipitor] 10 mg PO HS RX: Tamsulosin [Flomax] 0.4 mg PO DAILY Discharge Medication List RX: Atorvastatin [Lipitor] 10 mg PO HS 02/20/23 [History] RX: Furosemide [Lasix] 20 mg PO DAILY 02/20/23 [History] RX: Tamsulosin [Flomax] 0.4 mg PO DAILY 03/07/23 [History] RX: Baclofen 10 mg PO 0900,1800 07/18/23 [History] RX: Dalfampridine [Dalfampridine ER] 10 mg PO Q12H 07/18/23 [History] RX: Metoprolol Succinate (ER) [Toprol XL] 12.5 mg PO HS 07/18/23 [History] RX: Potassium Chloride ER [K-Dur 10] 10 meq PO HS 07/18/23 [History] RX: Trospium Chloride [Sanctura XR] 60 mg PO HS 07/18/23 [History] RX: amLODIPine [Norvasc] 2.5 mg PO DAILY 07/18/23 [History] Ertapenem [INVanz] 1 gm IVPB Q24H #8 each 07/22/23 [Rx] RX: Lactulose 20 gm PO BID PRN #500 ml 07/22/23 [Rx] RX: Omeprazole 20 mg PO DAILY #30 tab 07/22/23 [Rx] RX: polyethylene glycoL 3350 [Miralax] 17 gm PO DAILY packet 07/22/23 [Rx] Follow up Appointment(s)/Referral(s): [facility], [NON-STAFF] - 1 Week [facility], [REFERRING] - 1 Week Elle Guadalupe DO [Primary Care Provider] - 07/25/23 9:00 am Shant Oviedo MD [STAFF PHYSICIAN] - 1 Week (Please call the office to schedule a follow up appointment) Patient Instructions/Handouts: Urinary Tract Infection in Men (DC) Activity/Diet/Wound Care/Special Instructions: DIET TOLERATED Activity limited until seen by DR. Bautista Disposition: HOME SELF-CARE
[2023-07-22] MEDS ORDERED: LACTULOSE 20 GM/30 ML CUP PO ONE (21:00)
[2023-07-23] MEDS: METOCLOPRAMIDE 5 MG/ML 2 ML VIAL IVP SCH ×3 (08:37→21:08)
[2023-07-23] MEDS: polyethylene glycoL 3350 17 GM POWD.PACK PO SCH (08:38)
[2023-07-23] MEDS: BACLOFEN 10 MG TAB PO SCH ×2 (08:38→16:59)
[2023-07-23] MEDS: SODIUM CHLORIDE 0.9% 1,000 ML IV SCH (08:38)
[2023-07-23] MEDS: TAMSULOSIN 0.4 MG CAP.ER.24H PO SCH (08:38)
[2023-07-23] MEDS: ERTAPENEM 1 GM in SODIUM CHLORIDE 0.9% 50 ML IVPB SCH (08:38)
[2023-07-23] MEDS: PANTOPRAZOLE 40 MG/10 ML VIAL IVP SCH (08:38)
[2023-07-23] MEDS: NON FORMULARY DRUG (Dalfampridine [Dalfampridine Er] 10 MG Tab.Er.12h) PO SCH ×2 (08:39→21:07)
[2023-07-23] MEDS: TROSPIUM CHLORIDE 20 MG TABLET PO SCH ×2 (08:39→21:08)
[2023-07-23] MEDS: ONDANSETRON 4 MG/2 ML VIAL IVP PRN (10:58)
--- NOTE | 2023-07-23 11:53 | P.PN ---
Subjective Progress Note Date: 07/23/23 Principal diagnosis: Sepsis and UTI Patient is 62-year-old male with a past medical history significant for multiple sclerosis in this patient who did have a neurogenic bladder history of recurrent urinary tract infection patient apparently straight cath himself every 4 hours and the patient was noticed to have cloudiness of the urine recently patient presenting to the ER for evaluation of fever cloudy urine and confusion , patient has been diagnosed with a complicated urinary tract infection On today's evaluation that is 07/23/2023, the patient denies any fever or any chills, the patient is breathing comfortably on room air without any need for supplemental oxygen, the patient denies any chest pain or any cough , patient denies abdominal pain, no nausea/vomiting diarrhea Patient white count is 8.29 , creatinine is 1.4 as of 07/22/2023, urine is growing ESBL E. coli Objective - Vital Signs Vital signs: Vital Signs Temp 98.4 F 07/23/23 07:42 Pulse 82 07/23/23 07:42 Resp 21 07/23/23 07:42 BP 137/78 07/23/23 07:42 Pulse Ox 92 L 07/23/23 07:42 FiO2 Intake & Output 07/22/23 07/23/23 07/23/23 18:59 06:59 18:59 Intake Total 360 Output Total 1100 Balance -1100 360 Intake: Oral 360 Output: Urine 1100 Other: Voiding Method Indwelling Catheter Self-Catheterization Self-Catheterization - Exam GENERAL DESCRIPTION: Middle-age male lying in bed in no distress RESPIRATORY SYSTEM: Unlabored breathing , clear to auscultation anteriorly HEART: S1 S2 regular rate and rhythm , ABDOMEN: Soft , no tenderness EXTREMITIES: No edema feet - Labs CBC & Chem 7: 07/22/23 05:28 07/22/23 05:28 Assessment and Plan (1) Sepsis Current Visit: Yes Status: Acute Code(s): A41.9 - SEPSIS, UNSPECIFIED ORGANISM SNOMED Code(s): 84583363 (2) UTI (urinary tract infection) Current Visit: Yes Status: Acute Code(s): N39.0 - URINARY TRACT INFECTION, SITE NOT SPECIFIED SNOMED Code(s): 20178964 Plan: 1patient presented hospital with sepsis in this patient who did have a fever elevated white count patient did have a cloudy urine history of neurogenic bladder requiring straight cath likely urinary source, patient urine has been finalized with ESBL E. coli 2-patient is currently on Invanz 1 g daily and waiting for outpatient IV antibiotic arrangement Dictation was produced using [employer] dictation software. please excuse any grammatical, word or spelling errors. Time with Patient: Less than 30
[2023-07-23 12:58] VITALS: BMI 28.7
[2023-07-23] MEDS: LACTULOSE 20 GM/30 ML CUP PO SCH (12:58)
[2023-07-23] MEDS ORDERED: ZINC OXIDE PASTE (Z-GUARD) 1 APPLIC APPLIC TOPICAL PRN (21:41)
[2023-07-24] MEDS: SODIUM CHLORIDE 0.9% 1,000 ML IV SCH (04:53)
[2023-07-24] MEDS: BACLOFEN 10 MG TAB PO SCH ×2 (07:56→17:55)
[2023-07-24] MEDS: TROSPIUM CHLORIDE 20 MG TABLET PO SCH ×2 (07:57→21:54)
[2023-07-24] MEDS: TAMSULOSIN 0.4 MG CAP.ER.24H PO SCH (07:57)
[2023-07-24] MEDS: LACTULOSE 20 GM/30 ML CUP PO SCH (07:57)
[2023-07-24] MEDS: polyethylene glycoL 3350 17 GM POWD.PACK PO SCH (07:57)
[2023-07-24] MEDS: METOCLOPRAMIDE 5 MG/ML 2 ML VIAL IVP SCH ×3 (07:57→21:54)
[2023-07-24] MEDS: NON FORMULARY DRUG (Dalfampridine [Dalfampridine Er] 10 MG Tab.Er.12h) PO SCH ×2 (07:58→21:57)
[2023-07-24] MEDS: ERTAPENEM 1 GM in SODIUM CHLORIDE 0.9% 50 ML IVPB SCH (07:58)
[2023-07-24] MEDS: PANTOPRAZOLE 40 MG/10 ML VIAL IVP SCH (08:00)
--- NOTE | 2023-07-24 13:05 | P.PN ---
Subjective Progress Note Date: 07/23/23 62-year-old male with a past medical history significant for multiple sclerosis in this patient who did have a neurogenic bladder history of recurrent urinary tract infection patient apparently straight cath himself every 4 hours and the patient was noticed to have cloudiness of the urine recently patient presenting to the ER for evaluation of fever cloudy urine and confusion , patient has been diagnosed with a complicated urinary tract infection 07/23/2023 the patient is seen and evaluated sitting up in bedside chair; no specific complaints reported; denies any fever or any chills, the patient is breathing comfortably on room air without any need for supplemental oxygen, the patient denies any chest pain or any cough , patient denies abdominal pain, no nausea /vomiting diarrhea Vital signs are reviewed with a temperature of 98.7, pulse 89, blood pressure 1 42/68 Patient white count is 8.29 , creatinine is 1.4 as of 07/22/2023, urine is growing ESBL E. coli Abdominal x-ray completed yesterday reveals moderate colonic stool along with nonobstructive bowel gas pattern; patient is currently on MiraLAX 17 g by mouth daily; we will add lactulose 20 g by mouth daily -- Patient remains on IV Invanz for complicated UTI Objective - Vital Signs Vital signs: Vital Signs Temp 98.4 F 07/23/23 07:42 Pulse 82 07/23/23 07:42 Resp 21 07/23/23 07:42 BP 137/78 07/23/23 07:42 Pulse Ox 92 L 07/23/23 07:42 FiO2 Intake & Output 07/22/23 07/23/23 07/23/23 18:59 06:59 18:59 Intake Total 360 Output Total 1100 Balance -1100 360 Intake: Oral 360 Output: Urine 1100 Other: Voiding Method Indwelling Catheter Self-Catheterization Self-Catheterization # Bowel Movements 1 - Exam EENT: anicteric sclerae, EOMI, PERRLA, normal appearance Neck: Present: normal ROM. Absent: lymphadenopathy, rigidity, thyromegaly Carotids: negative: bruit present Respiratory: bilateral: CTA, negative: rales, rhonchi, wheezing Cardiovascular: regular: normal: S1, S2 Gastrointestinal: normal bowel sounds, soft. Absent: distended, organomegaly, tenderness Genitourinary Comment(s): deferred Neurologic: Present: CNII-XII intact. Absent: focal deficits Musculoskeletal: Present: gait normal, strength equal bilaterally - Labs CBC & Chem 7: 07/22/23 05:28 07/22/23 05:28 Assessment and Plan Assessment: Sepsis secondary to Acute recurrent complicated UTI with Ecoli-ESBL, recent culture from 05/20/23 reporting pseudomonas aeruginosa, MRSA, related to self straight cathing every 4 hours, in a patient with a neurogenic bladder secondary to MS. Acute renal failure, secondary to the above, improving Acute metabolic encephalopathy, secondary to all the above, significantly improved. Atelectasis Constipation, patient's sister stated stopped using MiraLAX about 3 days prior to admission. Patient is cleared for discharge; family is appealing patient's discharge; review is pending
--- NOTE | 2023-07-24 15:56 | P.PN ---
Subjective Progress Note Date: 07/24/23 Principal diagnosis: Sepsis and UTI Patient is 62-year-old male with a past medical history significant for multiple sclerosis in this patient who did have a neurogenic bladder history of recurrent urinary tract infection patient apparently straight cath himself every 4 hours and the patient was noticed to have cloudiness of the urine recently patient presenting to the ER for evaluation of fever cloudy urine and confusion , patient has been diagnosed with a complicated urinary tract infection On today's evaluation that is 07/24/2023, the patient remains to be afebrile , the patient is breathing comfortably on room air and denies any shortness of breath, the patient denies any chest pain cough or sputum production, patient denies nausea/vomiting/ diarrhea and no abdominal pain Patient white count is 8.29 , creatinine is 1.4 as of 07/22/2023 no new lab draw today, urine is growing ESBL E. coli Objective - Vital Signs Vital signs: Vital Signs Temp 98.9 F 07/24/23 12:40 Pulse 79 07/24/23 12:40 Resp 17 07/24/23 12:40 BP 147/78 07/24/23 12:40 Pulse Ox 95 07/24/23 12:40 FiO2 Intake & Output 07/23/23 07/24/23 07/24/23 18:59 06:59 18:59 Intake Total 240 830 Output Total 380 Balance 240 450 Weight 90.718 kg Intake: Oral 240 830 Output: Urine 380 Other: Voiding Method Self-Catheterization Self-Catheterization Self-Catheterization # Voids 1 # Bowel Movements 1 1 1 - Exam GENERAL DESCRIPTION: Middle-age male lying in bed in no distress RESPIRATORY SYSTEM: Unlabored breathing , clear to auscultation anteriorly HEART: S1 S2 regular rate and rhythm , ABDOMEN: Soft , no tenderness EXTREMITIES: No edema feet - Labs CBC & Chem 7: 07/22/23 05:28 07/22/23 05:28 Labs: Microbiology - Last 24 Hours (Table) 07/17/23 20:00 Blood Culture - Final Blood 07/17/23 20:15 Blood Culture - Final Blood Assessment and Plan (1) Sepsis Current Visit: Yes Status: Acute Code(s): A41.9 - SEPSIS, UNSPECIFIED ORGANISM SNOMED Code(s): 68064878 (2) UTI (urinary tract infection) Current Visit: Yes Status: Acute Code(s): N39.0 - URINARY TRACT INFECTION, SITE NOT SPECIFIED SNOMED Code(s): 84224847 Plan: 1patient presented hospital with sepsis in this patient who did have a fever elevated white count patient did have a cloudy urine history of neurogenic bladder requiring straight cath likely urinary source, patient urine has been finalized with ESBL E. coli 2-patient has shown clinical improvement and will continue with Invanz 1 g daily to finish a total of 2 week course of therapy and monitor clinical course closely Dictation was produced using [employer] dictation software. please excuse any gram matical, word or spelling errors. Time with Patient: Less than 30
--- NOTE | 2023-07-24 17:22 | P.PN ---
Subjective Progress Note Date: 07/24/23 62-year-old male with a past medical history significant for multiple sclerosis in this patient who did have a neurogenic bladder history of recurrent urinary tract infection patient apparently straight cath himself every 4 hours and the patient was noticed to have cloudiness of the urine recently patient presenting to the ER for evaluation of fever cloudy urine and confusion , patient has been diagnosed with a complicated urinary tract infection 07/23/2023 the patient is seen and evaluated sitting up in bedside chair; no specific complaints reported; denies any fever or any chills, the patient is breathing comfortably on room air without any need for supplemental oxygen, the patient denies any chest pain or any cough , patient denies abdominal pain, no nausea /vomiting diarrhea Vital signs are reviewed with a temperature of 98.7, pulse 89, blood pressure 1 42/68 Patient white count is 8.29 , creatinine is 1.4 as of 07/22/2023, urine is growing ESBL E. coli Abdominal x-ray completed yesterday reveals moderate colonic stool along with nonobstructive bowel gas pattern; patient is currently on MiraLAX 17 g by mouth daily; we will add lactulose 20 g by mouth daily -- Patient remains on IV Invanz for complicated UTI 07/24/2023 Taking over patient care from Dr. Del Rio -the patient remains to be afebrile , the patient is breathing comfortably on room air and denies any shortness of breath, the patient denies any chest pain cough or sputum production, patient denies nausea/vomiting/ diarrhea and no abdominal pain Patient white count is 8.29 , creatinine is 1.4 as of 07/22/2023 no new lab draw today, urine is growing ESBL E. coli patient presented hospital with sepsis in this patient who did have a fever elevated white count patient did have a cloudy urine history of neurogenic bladder requiring straight cath likely urinary source, patient urine has been finalized with ESBL E. coli -patient has shown clinical improvement and will continue with Invanz 1 g daily to finish a total of 2 week course of therapy and monitor clinical course closely Objective - Vital Signs Vital signs: Vital Signs Temp 97.9 F 07/24/23 07:45 Pulse 79 07/24/23 07:45 Resp 18 07/24/23 07:45 BP 131/71 07/24/23 07:45 Pulse Ox 93 L 07/24/23 07:45 FiO2 Intake & Output 07/23/23 07/24/23 07/24/23 18:59 06:59 18:59 Intake Total 240 830 Output Total 380 Balance 240 450 Weight 90.718 kg Intake: Oral 240 830 Output: Urine 380 Other: Voiding Method Self-Catheterization Self-Catheterization Self-Catheterization # Voids 1 # Bowel Movements 1 1 1 - Exam EENT: anicteric sclerae, EOMI, PERRLA, normal appearance Neck: Present: normal ROM. Absent: lymphadenopathy, rigidity, thyromegaly Carotids: negative: bruit present Respiratory: bilateral: CTA, negative: rales, rhonchi, wheezing Cardiovascular: regular: normal: S1, S2 Gastrointestinal: normal bowel sounds, soft. Absent: distended, organomegaly, tenderness Genitourinary Comment(s): deferred Neurologic: Present: CNII-XII intact. Absent: focal deficits Musculoskeletal: Present: gait normal, strength equal bilaterally - Labs CBC & Chem 7: 07/22/23 05:28 07/22/23 05:28 Labs: Microbiology - Last 24 Hours (Table) 07/17/23 20:00 Blood Culture - Final Blood 07/17/23 20:15 Blood Culture - Final Blood Assessment and Plan Assessment: Sepsis secondary to Acute recurrent complicated UTI with Ecoli-ESBL, recent culture from 05/20/23 reporting pseudomonas aeruginosa, MRSA, related to self straight cathing every 4 hours, in a patient with a neurogenic bladder secondary to MS. Acute renal failure, secondary to the above, improving Acute metabolic encephalopathy, secondary to all the above, significantly improved. Atelectasis Constipation, patient's sister stated stopped using MiraLAX about 3 days prior to admission. Patient is cleared for discharge; family is appealing patient's discharge; review is pending
[2023-07-25] MEDS: SODIUM CHLORIDE 0.9% 1,000 ML IV SCH (07:11)
[2023-07-25 07:46] VITALS: BP 133/66; PULSE 85; RESP 18; TEMP 97.4
[2023-07-25] MEDS: ERTAPENEM 1 GM in SODIUM CHLORIDE 0.9% 50 ML IVPB SCH (07:49)
[2023-07-25] MEDS: PANTOPRAZOLE 40 MG/10 ML VIAL IVP SCH (07:49)
[2023-07-25] MEDS: LACTULOSE 20 GM/30 ML CUP PO SCH (07:49)
[2023-07-25] MEDS: TAMSULOSIN 0.4 MG CAP.ER.24H PO SCH (07:50)
[2023-07-25] MEDS: NON FORMULARY DRUG (Dalfampridine [Dalfampridine Er] 10 MG Tab.Er.12h) PO SCH (07:50)
[2023-07-25] MEDS: BACLOFEN 10 MG TAB PO SCH (07:50)
[2023-07-25] MEDS: METOCLOPRAMIDE 5 MG/ML 2 ML VIAL IVP SCH (07:50)
[2023-07-25] MEDS: polyethylene glycoL 3350 17 GM POWD.PACK PO SCH (07:50)
[2023-07-25] MEDS: TROSPIUM CHLORIDE 20 MG TABLET PO SCH (07:51)
--- NOTE | 2023-07-25 12:46 | P.PN ---
Subjective Progress Note Date: 07/25/23 Principal diagnosis: Sepsis and UTI Patient is 62-year-old male with a past medical history significant for multiple sclerosis in this patient who did have a neurogenic bladder history of recurrent urinary tract infection patient apparently straight cath himself every 4 hours and the patient was noticed to have cloudiness of the urine recently patient presenting to the ER for evaluation of fever cloudy urine and confusion , patient has been diagnosed with a complicated urinary tract infection On today's evaluation that is 07/25/2023, the patient continues to be afebrile , the patient is not requiring any supplemental oxygen and is breathing comfortably on room air , the patient denies any chest pain no cough or sputum production, patient denies Abdominal pain and denies any nausea/vomiting/did have few bowel movements and feeling better Patient white count is 8.29 , creatinine is 1.4 as of 07/22/2023 no new lab draw today, urine is growing ESBL E. coli Objective - Vital Signs Vital signs: Vital Signs Temp 97.4 F L 07/25/23 07:25 Pulse 85 07/25/23 07:25 Resp 18 07/25/23 07:25 BP 133/66 07/25/23 07:25 Pulse Ox 91 L 07/25/23 07:25 FiO2 Intake & Output 07/24/23 07/25/23 07/25/23 18:59 06:59 18:59 Other: Voiding Method Self-Catheterization Self-Catheterization # Voids 1 1 # Bowel Movements 1 1 - Exam GENERAL DESCRIPTION: Middle-age male lying in bed in no distress RESPIRATORY SYSTEM: Unlabored breathing , clear to auscultation anteriorly HEART: S1 S2 regular rate and rhythm , ABDOMEN: Soft , no tenderness EXTREMITIES: No edema feet - Labs CBC & Chem 7: 07/22/23 05:28 07/22/23 05:28 Assessment and Plan (1) Sepsis Status: Acute Code(s): A41.9 - SEPSIS, UNSPECIFIED ORGANISM SNOMED Code(s): 80932353 (2) UTI (urinary tract infection) Status: Acute Code(s): N39.0 - URINARY TRACT INFECTION, SITE NOT SPECIFIED SNOMED Code(s): 43094734 Plan: 1patient presented hospital with sepsis in this patient who did have a fever elevated white count patient did have a cloudy urine history of neurogenic bladder requiring straight cath likely urinary source, patient urine has been finalized with ESBL E. coli 2-patient has shown clinical improvement , patient to continue with Invanz 1 g daily to finish a total of 2 week course of therapy , sister at the bedside requesting Zofran on discharge communicated with the patient nurse Dictation was produced using [employer] dictation software. please excuse any grammatical, word or spelling errors. Time with Patient: Less than 30
--- NOTE | 2023-07-25 19:46 | P.DS ---
Providers Date of admission: 07/18/23 00:17 Expected date of discharge: 07/25/23 Attending physician: Vickie Lanier MD Consults: 07/18/23 00:17 Consult Physician Urgent Consulting Provider: Shant Oviedo Consult Reason/Comments: acute uti, hx mrsa, neurogenic bladder Do you want consulting provider notified?: Yes Primary care physician: Elle Guadalupe Hospital Course: Final diagnosis Sepsis secondary to Acute recurrent complicated UTI with Ecoli-ESBL, recent culture from 05/20/23 reporting pseudomonas aeruginosa, MRSA, related to self straight cathing every 4 hours, in a patient with a neurogenic bladder secondary to MS. Acute renal failure, secondary to the above, improving Acute metabolic encephalopathy, secondary to all the above, significantly improved. Atelectasis Constipation, improved on bowel regimen and having bowel movements GI prophylaxis DVT prophylaxis Full code Discharge disposition Patient is being discharged in a stable condition with guarded prognosis to home with home care. Patient will follow-up with Dr. Guaadlupe in the outpatient setting upon discharge. Patient is to continue with IV antibiotics in the form of Invanz with close outpatient follow-up with infectious disease as scheduled. Total time taken is greater than 35 minutes. Hospital course This is a 62-year-old male who was recently admitted with sepsis secondary to recurrent urinary tract infections. Urine culture showing E. coli with ESBL and patient chronically self caths with history of multiple sclerosis. Patient was cleared for discharge on Tuesday although family was concerned as patient had been significantly constipated with abdominal distention and having pain and felt unsafe for discharge as he would be high risk for returning to the hospital. Family appealed the discharge and was monitored over the weekend. Patient was continued on bowel regimen and has had multiple bowel movements since last night. Patient reports to feeling better and ready for going home. Patient will follow-up with primary care provider in the outpatient setting along with infectious disease closely as patient is maintained on IV antibiotics in the form of Invanz and will continue for the next 8 days. Patient does feel slightly nauseated once receiving the antibiotics and will give Zofran along with Protonix on discharge. Patient has been cleared for discharge by consultations. Please refer to consultation notes for further HPI. Currently no reports of chest pain, shortness of breath, or palpitations. Patient is afebrile. No reports of nausea or vomiting and patient is tolerating diet. Patient will be discharged home today. Guarded prognosis. Physical exam: Gen: This is a 62-year-old male who is awake, alert and oriented 3, well- developed, well-nourished HEENT: Head is atraumatic, normocephalic. Pupils equal, round. Sclerae is anicteric. NECK: Supple. No JVD. No lymphadenopathy. No thyromegaly. LUNGS: Clear to auscultation. No wheezes or rhonchi. No intercostal retractions. HEART: Regular rate and rhythm. No murmur. ABDOMEN: Soft. Appears distended. Obese. Bowel sounds are present. No masses. No tenderness. EXTREMITIES: No pedal edema. No calf tenderness. NEUROLOGICAL: Patient is awake, alert and oriented x3. Cranial nerves 2 through 12 are grossly intact. Please refer to medication reconciliation sheet for a list of medications. The impression and plan of care has been dictated by Renata Arizmendi, Nurse Practitioner as directed. Dr. Phil MD I have performed a history and examination and MDM of this patient, discussed the same with the dictator, and agree with the dictator's assessment and plan as written ,documented as a scribe. Based on total visit time, I have performed more than 50% of the visit. Patient Condition at Discharge: Fair Plan - Discharge Summary Discharge Rx Participant: No New Discharge Prescriptions: New Omeprazole 20 mg PO DAILY #30 tab Pantoprazole [Protonix] 40 mg PO DAILY #30 tab polyethylene glycoL 3350 [Miralax] 17 gm PO DAILY packet Ertapenem [INVanz] 1 gm IVPB Q24H #8 each Lactulose 20 gm PO BID PRN #500 ml PRN Reason: Constipation Ondansetron Odt [Zofran Odt] 4 mg PO Q6H PRN #30 tab PRN Reason: Nausea Continue Trospium Chloride [Sanctura XR] 60 mg PO HS Potassium Chloride ER [K-Dur 10] 10 meq PO HS Dalfampridine [Dalfampridine ER] 10 mg PO Q12H Baclofen 10 mg PO 0900,1800 amLODIPine [Norvasc] 2.5 mg PO DAILY Metoprolol Succinate (ER) [Toprol XL] 12.5 mg PO HS Furosemide [Lasix] 20 mg PO DAILY Atorvastatin [Lipitor] 10 mg PO HS Tamsulosin [Flomax] 0.4 mg PO DAILY Discharge Medication List Atorvastatin [Lipitor] 10 mg PO HS 02/20/23 [History] Furosemide [Lasix] 20 mg PO DAILY 02/20/23 [History] Tamsulosin [Flomax] 0.4 mg PO DAILY 03/07/23 [History] Baclofen 10 mg PO 0900,1800 07/18/23 [History] Dalfampridine [Dalfampridine ER] 10 mg PO Q12H 07/18/23 [History] Metoprolol Succinate (ER) [Toprol XL] 12.5 mg PO HS 07/18/23 [History] Potassium Chloride ER [K-Dur 10] 10 meq PO HS 07/18/23 [History] Trospium Chloride [Sanctura XR] 60 mg PO HS 07/18/23 [History] amLODIPine [Norvasc] 2.5 mg PO DAILY 07/18/23 [History] Ertapenem [INVanz] 1 gm IVPB Q24H #8 each 07/22/23 [Rx] Lactulose 20 gm PO BID PRN #500 ml 07/22/23 [Rx] Omeprazole 20 mg PO DAILY #30 tab 07/22/23 [Rx] polyethylene glycoL 3350 [Miralax] 17 gm PO DAILY packet 07/22/23 [Rx] Ondansetron Odt [Zofran Odt] 4 mg PO Q6H PRN #30 tab 07/25/23 [Rx] Pantoprazole [Protonix] 40 mg PO DAILY #30 tab 07/25/23 [Rx] Follow up Appointment(s)/Referral(s): [facility], [NON-STAFF] - 1 Week [facility], [REFERRING] - 1 Week Elle Guadalupe DO [Primary Care Provider] - 07/28/23 10:45 am (appointment with Mallika QUIÑONES) Shant Oviedo MD [STAFF PHYSICIAN] - 08/03/23 1:15 pm () Patient Instructions/Handouts: Urinary Tract Infection in Men (DC) Activity/Diet/Wound Care/Special Instructions: DIET TOLERATED Activity limited until seen by DR. Bautista Disposition: HOME WITH HOME HEALTH SERVICES
== END 2023-07-25 12:00 | disposition home health service (06) | DRG 698 ==
LOC: EC 19:29 → 5NMEDONC 07-18 00:17
PROVIDERS: ADMIT Internal Medicine; ATTEND Internal Medicine
PROC: 05HD33Z Insertion of Infusion Device into Right Cephalic Vein, Percutaneous Approach (ICD-10-PCS; principal; 2023-07-21 14:50)
DX: T83.518A Infection and inflammatory reaction due to other urinary catheter, initial encounter (principal); A41.51 Sepsis due to Escherichia coli [E. coli]; G93.41 Metabolic encephalopathy; N17.9 Acute kidney failure, unspecified; Z16.12 Extended spectrum beta lactamase (ESBL) resistance; N31.9 Neuromuscular dysfunction of bladder, unspecified; G35 Multiple sclerosis; K59.00 Constipation, unspecified; Y84.6 Urinary catheterization as the cause of abnormal reaction of the patient, or of later complication, without mention of misadventure at the time of the procedure; Z87.440 Personal history of urinary (tract) infections
CPT/HCPCS: 36410; 36415; 74018; 74019; 74150; 74177; 76937; 80048; 80053; 80202; 81001; 82565; 83605; 83735; 85025; 87040; 87077; 87086; 87186; 96361; 96365; 96375; 99285

== ENCOUNTER 2023-08-08 11:10 | Day surgery (SDC) | payer MEDICARE ==
[2023-08-01 11:07] VITALS: BMI 28.1
[~2023-08-08 11:10] MED LIST: ALPRAZolam 0.25 MG TAB PO PRN; ALPRAZolam 0.5 MG TAB PO PRN; ASPIRIN 325 MG TAB PO STA; ATORVASTATIN 80 MG TAB PO STA; HEPARIN SODIUM,PORCINE (1 ML) 2,500 UNIT in SODIUM CHLORIDE 0.9% 250 ML IRRIGATION PRN; HEPARIN SODIUM,PORCINE 10,000 UNIT in SODIUM CHLORIDE 0.9% 1,000 ML IRRIGATION PRN; NITROGLYCERIN SL TABS 0.4 MG TAB SUBLINGUAL PRN; SODIUM CHLORIDE 0.9% 1,000 ML in EMPTY BAG 1 BAG IV SCH
[2023-08-08] MEDS ORDERED: SODIUM CHLORIDE 0.9% 1,000 ML IV ONE (11:26)
[2023-08-08 11:58] VITALS: RESP 16; TEMP 97.7
[2023-08-08] MEDS ORDERED: fentaNYL (PF) 50 MCG/ML 2 ML AMP ONE (12:07)
[2023-08-08 12:08] LABS: Basophils % (A) 0 %; Eosinophils # (A) 0.3 k/uL (0-0.7); Eosinophils % (A) 4 %; HCT 48.2 % (39.0-53.0); HGB 15.7 gm/dL (13.0-17.5); Lymphocytes # (A) 1.5 k/uL (1.0-4.8); Lymphocytes % (A) 19 %; MCH 31.1 pg (25.0-35.0); MCHC 32.6 g/dL (31.0-37.0); MCV 95.6 fL (80.0-100.0); Mean Platelet Volume 7.4; Monocytes # (A) 0.7 k/uL (0-1.0); Monocytes % (A) 9 %; Neutrophils # (A) 5.3 k/uL (1.3-7.7); Neutrophils % (A) 66 %; Platelet Count 337 k/uL (150-450); RBC 5.04 m/uL (4.30-5.90); RDW 13.5 % (11.5-15.5)
[2023-08-08] MEDS ORDERED: fentaNYL (PF) 50 MCG/1 ML VIAL IVP ONE ×2 (12:15)
[2023-08-08] MEDS ORDERED: MIDAZOLAM 2 MG/2 ML VIAL IVP ONE ×2 (12:15)
[2023-08-08] MEDS ORDERED: LIDOCAINE 1% INJ 10MG/ML (5 ML VIAL-PF) SQ ONE (12:17)
[2023-08-08] MEDS ORDERED: VERAPAMIL SYRINGE (5 MG/10 ML) INTRAARTER ONE (12:18)
[2023-08-08] MEDS ORDERED: HEPARIN SODIUM 1,000 UN/ML (10ML VL) IV ONE (12:20)
[2023-08-08] MEDS ORDERED: IOPAMIDOL-370 100ML BTL INJ ONE (12:27)
--- NOTE | 2023-08-08 12:42 | P.CARDCATH ---
Description of Procedure: PROCEDURES PERFORMED: Left heart catheterization, bilateral coronary angiography, ultrasound guided arterial access INDICATION: Abnormal stress test CONSENT:I have discussed the risks, benefits and alternative therapies for the above-mentioned procedure and for both sedation/analgesia as well as necessary blood product administration, if indicated, as they pertain to this patient. The patient has indicated understanding and acceptance of the risks and procedures discussed. PROCEDURE: After the risks, benefits and alternatives of the above mentioned procedure explained in detail with the patient, informed consent was obtained. Patient was taken to the catheterization lab and prepped and draped in usual fashion. Ultrasound guidance was used to assess for arterial access. 1% lidocaine was used to anesthetize the right radial artery. A 6-Uzbek sheath was placed in the right radial artery using modified Seldinger technique and ultrasound guidance. Left coronary angiography was performed with a 5-Uzbek JL 3.5 catheter and right coronary angiography was performed with a 5-Uzbek AR2 catheter in various views. A 5-Uzbek AR2 catheter was inserted into the left ventricle and pressure measurements were obtained. The right radial sheath was removed and a TR band was placed with hemostasis achieved. The patient to lerated the procedure well. Patient was transported back to the post catheterization holding area in stable condition. Conscious Sedation: Patient was monitored under the direct supervision of myself for conscious sedation using Versed and fentanyl for a total duration of 11 minutes HEMODYNAMICS: Aorta: 102/67 LV: 118/2, LVEDP 6, 15mmHg gradient across aortic valve SELECTIVE CORONARY ARTERIOGRAPHY: LEFT MAIN: The left main is a large caliber vessel which bifurcates into the LAD and circumflex. There is no significant stenosis. LEFT ANTERIOR DESCENDING CORONARY ARTERY: LAD is a large caliber vessel which wraps around to the apex. There is no significant stenosis. LEFT CIRCUMFLEX CORONARY ARTERY: Left circumflex is a moderate caliber vessel without significant stenosis. RIGHT CORONARY ARTERY: The right coronary artery is a large caliber vessel which gives off a PDA and PLV branch and is the dominant vessel. There is no significant stenosis. FINAL IMPRESSION: 1. Normal coronary arteries as described above. 2. Low normal left sided filling pressures 3. Mild aortic stenosis PLAN: 1. Aggressive risk factor modification per most recent ACC/AHA guidelines. 2. Given low normal LVEDP and lower extremity edema more likely related to venous insufficiency, we will hold Lasix and monitor response. Hold antianginal medications. 3. Follow-up in the office in 1-2 weeks.
[2023-08-08 16:01] VITALS: BP 123/67; PULSE 78
== END 2023-08-08 15:45 | disposition home or self-care (01) ==
LOC: CATHCVL 11:10
PROVIDERS: ATTEND Internal Medicine
DX: I35.0 Nonrheumatic aortic (valve) stenosis (principal); E78.5 Hyperlipidemia, unspecified; I11.0 Hypertensive heart disease with heart failure; I50.9 Heart failure, unspecified; G35 Multiple sclerosis; Z79.899 Other long term (current) drug therapy
CPT/HCPCS: 93458; 76937; 85025; C1769; C1894; J2250; J2001; J1644; Q9967; J3010

== ENCOUNTER 2024-07-19 20:01 | Inpatient (IN) | payer MEDICARE, OTHER ==
--- NOTE | 2024-07-19 20:41 | ED ---
Weakness HPI - General Chief complaint: Weakness Stated complaint: Fever Time Seen by Provider: 07/19/24 20:20 Source: EMS, RN notes reviewed Mode of arrival: EMS - History of Present Illness Initial comments: 63-year-old male with history of MS on palliative care presenting with sister for generalized weakness x 1 day with fever. Sister explains that patient lives with him and over the past day has had difficulty walking with his walker and increased fatigue. Patient does have a neurogenic bladder and performs self- catheterization. Patient has been following with a asw specialist regularly for sacral ulceration however denies new pain or redness at the sacrum. Patient denies chest pain, abdominal pain, leg swelling, cough. Sister does explain that patient has a history of UTI with sepsis. Denies blood thinners. Patient did take at home dose of Lasix today. - Related Data Home Medications Medication Instructions Recorded Confirmed Atorvastatin [Lipitor] 10 mg PO HS 02/20/23 08/08/23 Furosemide [Lasix] 20 mg PO DAILY 02/20/23 08/01/23 Tamsulosin [Flomax] 0.4 mg PO DAILY 03/07/23 08/01/23 Baclofen 10 mg PO BID 07/18/23 08/01/23 Metoprolol Succinate (ER) [Toprol 12.5 mg PO HS 07/18/23 08/08/23 XL] Potassium Chloride ER [K-Dur 10] 10 meq PO HS 07/18/23 08/08/23 Trospium Chloride [Sanctura XR] 60 mg PO HS 07/18/23 08/08/23 amLODIPine [Norvasc] 2.5 mg PO DAILY 07/18/23 08/01/23 Aspirin 325 mg PO ONCE 08/09/23 08/09/23 Previous Rx's Medication Instructions Recorded polyethylene glycoL 3350 [Miralax] 17 gm PO DAILY packet 07/22/23 Pantoprazole [Protonix] 40 mg PO DAILY #30 tab 07/25/23 Allergies Allergy/AdvReac Type Severity Reaction Status Date / Time No Known Allergies Allergy Verified 08/08/23 11:42 Review of Systems ROS Statement: Those systems with pertinent positive or pertinent negative responses have been documented in the HPI. ROS Other: All systems not noted in ROS Statement are negative. Past Medical History Past Medical History: Coronary Artery Disease (CAD), Heart Failure, Hypertension Additional Past Medical History / Comment(s): UTI History of Any Multi-Drug Resistant Organisms: ESBL, MRSA Date of last positivie culture/infection: 07/17/23 ESBL E.coli; 05/20/23 MRSA MDRO Source:: Urine-ESBL; Urine-MRSA Past Surgical History: No Surgical Hx Reported Additional Past Surgical History / Comment(s): Lasik. Past Anesthesia/Blood Transfusion Reactions: No Reported Reaction Past Psychological History: No Psychological Hx Reported Smoking Status: Never smoker Past Alcohol Use History: None Reported Past Drug Use History: None Reported General Exam General appearance: alert, in no apparent distress Head exam: Present: atraumatic, normocephalic, normal inspection Eye exam: Present: normal appearance, PERRL, EOMI. Absent: scleral icterus, conjunctival injection, periorbital swelling Respiratory exam: Present: normal lung sounds bilaterally. Absent: respiratory distress, wheezes, rales, rhonchi, stridor Cardiovascular Exam: Present: regular rate, normal rhythm, normal heart sounds. Absent: systolic murmur, diastolic murmur, rubs, gallop, clicks GI/Abdominal exam: Present: soft, normal bowel sounds. Absent: distended, tenderness, guarding, rebound, rigid Extremities exam: Present: normal inspection, full ROM, normal capillary refill. Absent: tenderness, pedal edema, joint swelling, calf tenderness Back exam: Present: other (Stage II decubitus ulceration present) Neurological exam: Present: alert, oriented X3 Psychiatric exam: Present: normal affect, normal mood Skin exam: Present: warm, dry, intact, normal color. Absent: rash Course Vital Signs 07/19/24 20:03 Temperature 103.2 F H Pulse Rate 115 H Respiratory 18 Rate Blood Pressure 168/78 O2 Sat by Pulse 92 L Oximetry EKG Findings - EKG Results: EKG: interpreted by ERMD (EKG reveals normal sinus rhythm with no ST changes. Ventricular rate 96 bpm, RI interval 150, QRS duration 107, QT/QTc 341/394) Medical Decision Making - Medical Decision Making Was pt. sent in by a medical professional or institution (, PA, MICROSTRATEGY DEVELOPER, urgent care, hospital, or [facility]...) When possible be specific @ -No Did you speak to anyone other than the patient for history (EMS, parent, family, police, friend...)? What history was obtained from this source @ -Patient's sister supplemented history Did you review nursing and triage notes (agree or disagree)? Why? @ -I reviewed and agree with nursing and triage notes Were old charts reviewed (outside hosp., previous admission, EMS record, old EKG, old radiological studies, urgent care reports/EKG's, [facility] records)? Report findings @ -No old charts were reviewed Differential Diagnosis (chest pain, altered mental status, abdominal pain women, abdominal pain men, vaginal bleeding, weakness, fever, dyspnea, syncope, headache, dizziness, GI bleed, back pain, seizure, CVA, palpatations, mental health, musculoskeletal)? @ -Differential Fever: Pneumonia, viral URI, endocarditis, myocarditis, pericarditis, otitis, sinusitis, peritonsillar Abscess, retropharyngeal Abscess, epiglottitis, peritonitis, appendicitis, Leidy cystitis, diverticulitis, hepatitis, colitis, UTI, PID, TOA, pyelonephritis, prostatitis, epididymitis, meningitis, encephalitis, pulmonary embolism, CVA, thyroid storm, pancreatitis, adrenal crisis, cavernous sinus thrombosis, this is not meant to be an all-inclusive list. EKG interpreted by me (3pts min.). @ -As above X-rays interpreted by me (1pt min.). @ -Chest x-ray reveals no acute process CT interpreted by me (1pt min.). @ -None done U/S interpreted by me (1pt. min.). @ -None done What testing was considered but not performed or refused? (CT, X-rays, U/S, labs)? Why? @ -None What meds were considered but not given or refused? Why? @ -None Did you discuss the management of the patient with other professionals (professionals i.e. , PA, MICROSTRATEGY DEVELOPER, lab, RT, psych nurse, social and human services assistant, stretcher helper, teacher, family preservation officer, embedded case manager)? Give summary @ -I spoke with sound physicians for admission Was smoking cessation discussed for >3mins.? @ -No Was critical care preformed (if so, how long)? @ -Yes, 45 minutes Were there social determinants of health that impacted care today? How? (Homelessness, low income, unemployed, alcoholism, drug addiction, transportation, low edu. Level, literacy, decrease access to med. care, fpc, rehab)? @ -No Was there de-escalation of care discussed even if they declined (Discuss DNR or withdrawal of care, Hospice)? DNR status @ -No What co-morbidities impacted this encounter? (DM, HTN, Smoking, COPD, CAD, Cancer, CVA, ARF, Chemo, Hep., AIDS, mental health diagnosis, sleep apnea, morbid obesity)? @ -None Was patient admitted / discharged? Hospital course, mention meds given and route, prescriptions, significant lab abnormalities, going to OR and other pertinent info. @ -Admitted. This is a 63-year-old male with history of MS presenting for fever x 1 day with generalized weakness. Initial temperature 103.2 F, heart rate 115 bpm, SpO2 92% on room air. Patient was given IV fluids and Ofirmev. Lab work remarkable for white blood cell count 17.5 with left shift, creatinine 1.40, BUN 23. UA reveals large amount of white blood cells, trace blood, 1+ protein. Patient meets sepsis criteria at this time and was started on IV Rocephin. I spoke with sound physicians for admission for UTI with sepsis. Patient and sister were updated on plan of care and agreed to plan. Case was discussed with my ED attending Dr. Anne. Undiagnosed new problem with uncertain prognosis? @ -No Drug Therapy requiring intensive monitoring for toxicity (Heparin, Nitro, Insulin, Cardizem)? @ -No Were any procedures done? @ -No Diagnosis/symptom? @ -UTI, sepsis Acute, or Chronic, or Acute on Chronic? @ -Acute Uncomplicated (without systemic symptoms) or Complicated (systemic symptoms)? @ -Complicated Side effects of treatment? @ -No Exacerbation, Progression, or Severe Exacerbation? @ -No Poses a threat to life or bodily function? How? (Chest pain, [place], [place], pneumonia, PE, COPD, DKA, ARF, appy, cholecystitis, CVA, Diverticulitis, Homicidal, Suicidal, threat to staff... and all critical care pts) @ -Yes - Lab Data Result diagrams: 07/19/24 20:35 07/19/24 20:35 Lab Results 07/19/24 07/19/24 07/19/24 Range/Units 20:35 20:35 20:35 WBC 17.5 H (3.8-10.6) k/uL RBC 4.74 (4.30-5.90) m/uL Hgb 15.1 (13.0-17.5) gm/dL Hct 46.9 (39.0-53.0) % MCV 98.9 (80.0-100.0) fL MCH 31.7 (25.0-35.0) pg MCHC 32.1 (31.0-37.0) g/dL RDW 13.3 (11.5-15.5) % Plt Count 295 (150-450) k/uL MPV 8.0 Neutrophils % 87 % Lymphocytes % 5 % Monocytes % 6 % Eosinophils % 1 % Basophils % 1 % Neutrophils # 15.3 H (1.3-7.7) k/uL Lymphocytes # 0.8 L (1.0-4.8) k/uL Monocytes # 1.0 (0-1.0) k/uL Eosinophils # 0.2 (0-0.7) k/uL Basophils # 0.1 (0-0.2) k/uL PT (10.0-12.5) sec INR (<1.2) APTT (22.0-30.0) sec Sodium (137-145) mmol/L Potassium (3.5-5.1) mmol/L Chloride (98-107) mmol/L Carbon Dioxide (22-30) mmol/L Anion Gap mmol/L BUN (9-20) mg/dL Creatinine (0.66-1.25) mg/dL Est GFR (CKD-EPI)AfAm (>60 ml/min/1.73 sqM) Est GFR (CKD-EPI)NonAf (>60 ml/min/1.73 sqM) Glucose (74-99) mg/dL Plasma Lactic Acid Cristian 1.5 (0.7-2.0) mmol/L Calcium (8.4-10.2) mg/dL Total Bilirubin (0.2-1.3) mg/dL AST (17-59) U/L ALT (4-49) U/L Alkaline Phosphatase (38-126) U/L Troponin I <0.012 (0.000-0.034) ng/mL Total Protein (6.3-8.2) g/dL Albumin (3.5-5.0) g/dL Urine Color Urine Appearance (Clear) Urine pH (5.0-8.0) Ur Specific Lamona (1.001-1.035) Urine Protein (Negative) Urine Glucose (UA) (Negative) Urine Ketones (Negative) Urine Blood (Negative) Urine Nitrite (Negative) Urine Bilirubin (Negative) Urine Urobilinogen (<2.0) mg/dL Ur Leukocyte Esterase (Negative) Urine RBC (0-5) /hpf Urine WBC (0-5) /hpf Urine WBC Clumps (None) /hpf Ur Squamous Epith Cells (0-4) /hpf Urine Bacteria (None) /hpf Urine Mucus (None) /hpf Influenza Type A (PCR) (Not Detectd) Influenza Type B (PCR) (Not Detectd) RSV (PCR) (Not Detectd) SARS-CoV-2 (PCR) (Not Detectd) 07/19/24 07/19/24 07/19/24 Range/Units 20:35 20:35 20:48 WBC (3.8-10.6) k/uL RBC (4.30-5.90) m/uL Hgb (13.0-17.5) gm/dL Hct (39.0-53.0) % MCV (80.0-100.0) fL MCH (25.0-35.0) pg MCHC (31.0-37.0) g/dL RDW (11.5-15.5) % Plt Count (150-450) k/uL MPV Neutrophils % % Lymphocytes % % Monocytes % % Eosinophils % % Basophils % % Neutrophils # (1.3-7.7) k/uL Lymphocytes # (1.0-4.8) k/uL Monocytes # (0-1.0) k/uL Eosinophils # (0-0.7) k/uL Basophils # (0-0.2) k/uL PT 11.9 (10.0-12.5) sec INR 1.1 (<1.2) APTT 23.5 (22.0-30.0) sec Sodium 140 (137-145) mmol/L Potassium 4.0 (3.5-5.1) mmol/L Chloride 105 (98-107) mmol/L Carbon Dioxide 27 (22-30) mmol/L Anion Gap 8 mmol/L BUN 23 H (9-20) mg/dL Creatinine 1.40 H (0.66-1.25) mg/dL Est GFR (CKD-EPI)AfAm 61 (>60 ml/min/1.73 sqM) Est GFR (CKD-EPI)NonAf 53 (>60 ml/min/1.73 sqM) Glucose 150 H (74-99) mg/dL Plasma Lactic Acid Cristian (0.7-2.0) mmol/L Calcium 8.8 (8.4-10.2) mg/dL Total Bilirubin 0.5 (0.2-1.3) mg/dL AST 23 (17-59) U/L ALT 41 (4-49) U/L Alkaline Phosphatase 69 (38-126) U/L Troponin I (0.000-0.034) ng/mL Total Protein 6.8 (6.3-8.2) g/dL Albumin 3.7 (3.5-5.0) g/dL Urine Color Urine Appearance (Clear) Urine pH (5.0-8.0) Ur Specific [place] (1.001-1.035) Urine Protein (Negative) Urine Glucose (UA) (Negative) Urine Ketones (Negative) Urine Blood (Negative) Urine Nitrite (Negative) Urine Bilirubin (Negative) Urine Urobilinogen (<2.0) mg/dL Ur Leukocyte Esterase (Negative) Urine RBC (0-5) /hpf Urine WBC (0-5) /hpf Urine WBC Clumps (None) /hpf Ur Squamous Epith Cells (0-4) /hpf Urine Bacteria (None) /hpf Urine Mucus (None) /hpf Influenza Type A (PCR) Not Detected (Not Detectd) Influenza Type B (PCR) Not Detected (Not Detectd) RSV (PCR) Not Detected (Not Detectd) SARS-CoV-2 (PCR) Not Detected (Not Detectd) 07/19/24 Range/Units 21:10 WBC (3.8-10.6) k/uL RBC (4.30-5.90) m/uL Hgb (13.0-17.5) gm/dL Hct (39.0-53.0) % MCV (80.0-100.0) fL MCH (25.0-35.0) pg MCHC (31.0-37.0) g/dL RDW (11.5-15.5) % Plt Count (150-450) k/uL MPV Neutrophils % % Lymphocytes % % Monocytes % % Eosinophils % % Basophils % % Neutrophils # (1.3-7.7) k/uL Lymphocytes # (1.0-4.8) k/uL Monocytes # (0-1.0) k/uL Eosinophils # (0-0.7) k/uL Basophils # (0-0.2) k/uL PT (10.0-12.5) sec INR (<1.2) APTT (22.0-30.0) sec Sodium (137-145) mmol/L Potassium (3.5-5.1) mmol/L Chloride (98-107) mmol/L Carbon Dioxide (22-30) mmol/L Anion Gap mmol/L BUN (9-20) mg/dL Creatinine (0.66-1.25) mg/dL Est GFR (CKD-EPI)AfAm (>60 ml/min/1.73 sqM) Est GFR (CKD-EPI)NonAf (>60 ml/min/1.73 sqM) Glucose (74-99) mg/dL Plasma Lactic Acid Cristian (0.7-2.0) mmol/L Calcium (8.4-10.2) mg/dL Total Bilirubin (0.2-1.3) mg/dL AST (17-59) U/L ALT (4-49) U/L Alkaline Phosphatase (38-126) U/L Troponin I (0.000-0.034) ng/mL Total Protein (6.3-8.2) g/dL Albumin (3.5-5.0) g/dL Urine Color Yellow Urine Appearance Cloudy (Clear) Urine pH 5.5 (5.0-8.0) Ur Specific Lamona 1.024 (1.001-1.035) Urine Protein 1+ H (Negative) Urine Glucose (UA) Negative (Negative) Urine Ketones Negative (Negative) Urine Blood Trace H (Negative) Urine Nitrite Positive (Negative) Urine Bilirubin Negative (Negative) Urine Urobilinogen <2.0 (<2.0) mg/dL Ur Leukocyte Esterase Large H (Negative) Urine RBC 5 (0-5) /hpf Urine WBC >182 H (0-5) /hpf Urine WBC Clumps Few H (None) /hpf Ur Squamous Epith Cells 1 (0-4) /hpf Urine Bacteria Many H (None) /hpf Urine Mucus Occasional H (None) /hpf Influenza Type A (PCR) (Not Detectd) Influenza Type B (PCR) (Not Detectd) RSV (PCR) (Not Detectd) SARS-CoV-2 (PCR) (Not Detectd) Disposition Clinical Impression: UTI (urinary tract infection), Sepsis Disposition: ADMITTED IP TO THIS HOSP Referrals: Patricia Zamora MD [Primary Care Provider] - 1-2 days Time of Disposition: 22:42
[2024-07-19] MEDS: SODIUM CHLORIDE 0.9% 1,000 ML IV STA ×2 (20:52→23:29)
[2024-07-19] MEDS: ACETAMINOPHEN IV (For NPO) 1,000 MG in EMPTY BAG 1 BAG IVPB STA (20:53)
[2024-07-19 21:06] LABS: Basophils # (A) 0.1 k/uL (0-0.2); Basophils % (A) 1 %; Eosinophils # (A) 0.2 k/uL (0-0.7); Eosinophils % (A) 1 %; HCT 46.9 % (39.0-53.0); HGB 15.1 gm/dL (13.0-17.5); Lymphocytes # (A) 0.8 k/uL (1.0-4.8); Lymphocytes % (A) 5 %; MCH 31.7 pg (25.0-35.0); MCHC 32.1 g/dL (31.0-37.0); MCV 98.9 fL (80.0-100.0); Monocytes % (A) 6 %; Neutrophils # (A) 15.3 k/uL (1.3-7.7); Neutrophils % (A) 87 %; Platelet Count 295 k/uL (150-450); RBC 4.74 m/uL (4.30-5.90); RDW 13.3 % (11.5-15.5); WBC 17.5 k/uL (3.8-10.6)
[2024-07-19 21:16] LABS: ALT 41 U/L (4-49); AST 23 U/L (17-59); African American GFR (CKD) 61 (>60 ml/min/1.73 sqM); Albumin 3.7 g/dL (3.5-5.0); Alkaline Phosphatase 69 U/L (38-126); Anion Gap 8 mmol/L; Blood Urea Nitrogen 23 mg/dL (9-20); Calcium 8.8 mg/dL (8.4-10.2); Carbon Dioxide 27 mmol/L (22-30); Chloride 105 mmol/L (98-107); Glucose 150 mg/dL (74-99); Non-African American GFR(CKD) 53 (>60 ml/min/1.73 sqM); Sodium 140 mmol/L (137-145); Total Bilirubin 0.5 mg/dL (0.2-1.3); Total Protein 6.8 g/dL (6.3-8.2)
[2024-07-19] MEDS ORDERED: VANCOMYCIN IV PER PHARMACY 1 EACH MISC MISCELLANE PRN (21:23)
[2024-07-19 21:43] LABS: INR 1.1 (<1.2); Partial Thromboplastin Time 23.5 sec (22.0-30.0); Prothrombin Time 11.9 sec (10.0-12.5)
[2024-07-19 21:47] LABS: Appearance,Urine Cloudy (Clear); Bacteria,Urine Many /hpf; Bilirubin,Urine Negative (Negative); Blood,Urine Trace (Negative); Color,Urine Yellow; Glucose,Urine (UA) Negative (Negative); Ketones,Urine Negative (Negative); Leukocyte Esterase,Urine Large (Negative); Mucus,Urine Occasional /hpf; Nitrite,Urine Positive (Negative); PH, Urine 5.5 (5.0-8.0); Protein,Urine 1+ (Negative); RBC,Urine 5 /hpf (0-5); Specific Gravity,Urine 1.024 (1.001-1.035); Squamous Epithelial Cell,Urine 1 /hpf (0-4); Urobilinogen,Urine <2.0 mg/dL (<2.0); WBC,Urine >182 /hpf (0-5)
--- NOTE | 2024-07-19 21:54 | XR ---
EXAMINATION TYPE: XR chest 2V DATE OF EXAM: 07/19/2024 9:50 PM COMPARISON: 03/07/2023 CLINICAL INDICATION: Male, 63 years old with history of fever, shortness of breath, TECHNIQUE: XR chest 2V view(s) obtained. FINDINGS: The heart size is normal. The pulmonary vasculature is normal. The lungs are clear. IMPRESSION: 1. No acute pulmonary process. [facility], , 07/19/2024 9:51 PM
[2024-07-19] MEDS: VANCOMYCIN 2,000 MG in SODIUM CHLORIDE 0.9% 500 ML 500 ML IVPB ONE (23:39)
--- NOTE | 2024-07-20 01:49 | P.HPIM ---
History of Present Illness H&P Date: 07/19/24 History of present illness; 63-year-old male with a past medical history significant for multiple sclerosis on palliative care, neurogenic bladder, CAD, history of abnormal stress test w/cath w/o stent placement and hypertension who presents to the emergency department with his sister with complaints of generalized weakness with associated fever for the past day. Sister explains the patient lives with her and over the past days had difficulty walking with his walker and increasing fatigue. Patient states that he himself was not feeling any symptoms, is unsure exactly why his sister took his temperature however does note that he had been feeling some weakness. He feels as though since this morning his weakness is has been improving. He states that while at home he ambulates using a walker, and did notice that he was having difficulty getting up and utilizing the walker. He does note that he has a history of UTIs, as he has been needing to self catheterize for a little while now, however he states he does not have any current symptoms of UTI that he is used to. He is currently resting comfortably in bed, with no acute complaints, stating that he is feeling better. Initial lab work done in the ER showed WBCs of 17.5, Hgb 15.1, hct 46.9, PLT 295; sodium 140, potassium 4.0, BUN 23, creatinine of 1.4 Urinalysis showed 1+ protein, trace blood, large amount of leukocyte esterase, > 182 WBC with few WBC clumps, many bacteria and occasional mucus Respiratory viral panel all negative EKG done in the ER showed heart rate of 96, QTc 394, no ST segment elevation or depression seen, no T-wave inversions seen. Chest x-ray done in the ER no acute pulmonary process Patient admitted to internal medicine service REVIEW OF SYSTEMS: CONSTITUTIONAL: Notes he has felt increased weakness, however better now, and had some increased fatigue. HEENT: No recent visual problems or hearing problems. Denied any sore throat. CARDIOVASCULAR: No chest pain, orthopnea, PND, no palpitations, no syncope. PULMONARY: No shortness of breath, no cough, no hemoptysis. GASTROINTESTINAL: No diarrhea, no nausea, no vomiting, no abdominal pain. NEUROLOGICAL: No headaches, no weakness, no numbness. HEMATOLOGICAL: Denies any bleeding or petechiae. GENITOURINARY: Denies any burning micturition, frequency, or urgency. MUSCULOSKELETAL/RHEUMATOLOGICAL: Denies any joint pain, swelling, or any muscle pain. ENDOCRINE: Denies any polyuria or polydipsia. The rest of the 14-point review of systems is negative. PHYSICAL EXAMINATION: GENERAL: The patient is alert and oriented x3, not in any acute distress. Well developed, well nourished. HEENT: Pupils are round and equally reacting to light. EOMI. No scleral icterus. No conjunctival pallor. Normocephalic, atraumatic. No pharyngeal erythema. No thyromegaly. CARDIOVASCULAR: S1 and S2 present. No murmurs, rubs, or gallops. PULMONARY: Chest is clear to auscultation, no wheezing or crackles. ABDOMEN: Soft, nontender, nondistended, normoactive bowel sounds. No palpable organomegaly. MUSCULOSKELETAL: No joint swelling or deformity. EXTREMITIES: 1+ pitting edema of his right lower leg up to the knee NEUROLOGICAL: Decreased strength in the upper extremity bilaterally, 3/5; BL strength in the lower extremity noted to be 5/5 SKIN: No rashes. Assessment and plan #Sepsis secondary to UTI #Weakness -WBC 17.5, Tmax 103.2 F, heart rate 115 on arrival -Extensive history of UTIs -History of MRSA positive, Pseudomonas positive and most recently E. Coli-ESBL positive on urinalysis -Blood culture and urine culture currently pending -Monitor CBC -Initiate Meropenem in setting of ESBL E. Coli #Acute kidney injury -Creatinine 1.40 -Receiving normal saline 130 cc/h -Monitor BMP #Right sided lower extremity edema -Continue patient home medications once verified by pharmacy -Takes Lasix 20 mg daily at home -Continue to monitor -Obtain RLE doppler #Coronary artery disease without history of stent placement -Continue home medications once verified by pharmacy #Hypertension -Continue home medications once verified by pharmacy #History of multiple sclerosis and chronic urinary retention requiring straight catheterization at home -Continue home medication once verified by pharmacy GI prohylaxis: Protonix 40 mg daily at home, continue home medication DVT prophylaxis: Lovenox 40 mg daily Continue to monitor vital signs, monitor CBC, monitor BMP Continue with symptomatic treatment Resume home medication Further condition as per the clinical course of the patient Dictation was produced using [employer] dictation software. please excuse any grammatical, word or spelling errors. Past Medical History Past Medical History: Coronary Artery Disease (CAD), Heart Failure, Hypertension Additional Past Medical History / Comment(s): MS. UTI History of Any Multi-Drug Resistant Organisms: ESBL, MRSA Date of last positivie culture/infection: 07/17/23 ESBL E.coli; 05/20/23 MRSA MDRO Source:: Urine-ESBL; Urine-MRSA Past Surgical History: No Surgical Hx Reported Additional Past Surgical History / Comment(s): [place]. Past Anesthesia/Blood Transfusion Reactions: No Reported Reaction Past Psychological History: No Psychological Hx Reported Smoking Status: Never smoker Past Alcohol Use History: None Reported Past Drug Use History: None Reported Medications and Allergies Home Medications Medication Instructions Recorded Confirmed Type Atorvastatin [Lipitor] 10 mg PO HS 02/20/23 08/08/23 History Furosemide [Lasix] 20 mg PO DAILY 02/20/23 08/01/23 History Tamsulosin [Flomax] 0.4 mg PO DAILY 03/07/23 08/01/23 History Baclofen 10 mg PO BID 07/18/23 08/01/23 History Metoprolol Succinate (ER) [Toprol 12.5 mg PO HS 07/18/23 08/08/23 History XL] Potassium Chloride ER [K-Dur 10] 10 meq PO HS 07/18/23 08/08/23 History Trospium Chloride [Sanctura XR] 60 mg PO HS 07/18/23 08/08/23 History amLODIPine [Norvasc] 2.5 mg PO DAILY 07/18/23 08/01/23 History polyethylene glycoL 3350 [Miralax] 17 gm PO DAILY packet 07/22/23 08/01/23 Rx Pantoprazole [Protonix] 40 mg PO DAILY #30 tab 07/25/23 08/01/23 Rx Aspirin 325 mg PO ONCE 08/09/23 08/09/23 History Allergies Allergy/AdvReac Type Severity Reaction Status Date / Time No Known Allergies Allergy Verified 08/08/23 11:42 Physical Exam Vitals: Vital Signs Temp Pulse Resp BP Pulse Ox 07/19/24 22:40 98.5 F 89 18 136/78 91 L 07/19/24 20:03 103.2 F H 115 H 18 168/78 92 L Intake and Output 07/19/24 07/19/24 07/20/24 14:59 22:59 06:59 Other: Weight 90.718 kg Results CBC & Chem 7: 07/19/24 20:35 07/19/24 20:35 Labs: Abnormal Lab Results - Last 24 Hours (Table) 07/19/24 07/19/24 07/19/24 Range/Units 20:35 20:35 21:10 WBC 17.5 H (3.8-10.6) k/uL Neutrophils # 15.3 H (1.3-7.7) k/uL Lymphocytes # 0.8 L (1.0-4.8) k/uL BUN 23 H (9-20) mg/dL Creatinine 1.40 H (0.66-1.25) mg/dL Glucose 150 H (74-99) mg/dL Urine Protein 1+ H (Negative) Urine Blood Trace H (Negative) Ur Leukocyte Esterase Large H (Negative) Urine WBC >182 H (0-5) /hpf Urine WBC Clumps Few H (None) /hpf Urine Bacteria Many H (None) /hpf Urine Mucus Occasional H (None) /hpf
--- NOTE | 2024-07-20 07:33 | US ---
EXAMINATION TYPE: US venous doppler duplex LE RT DATE OF EXAM: 07/20/2024 7:21 AM COMPARISON: NONE CLINICAL INDICATION: Male, 63 years old with history of RLE swelling; No redness, no hx DVT, Swelling TECHNIQUE: The lower extremity deep venous system is examined utilizing real time linear array sonog nayeli with graded compression, color doppler sonography, and spectral doppler. SIDE PERFORMED: Right FINDINGS: VESSELS IMAGED: Common Femoral Vein Deep Femoral Vein Greater Saphenous Vein * Femoral Vein Popliteal Vein Small Saphenous Vein * Proximal Calf Veins (* superficial vessels) Right Leg: , Color Doppler imaging shows patency of the vessels. Spectral waveforms are within normal limits. Unable to do popliteal compressions due to patient unable to bend or move leg. IMPRESSION: 1. Right lower extremity ultrasound negative for deep venous thrombosis. Dilatation through the popli teal region [facility], , 07/20/2024 7:30 AM
[2024-07-20] MEDS: ENOXAPARIN 40 MG/0.4 ML SYRINGE SQ SCH (08:39)
[2024-07-20] MEDS: MEROPENEM 1 GM in SODIUM CHLORIDE 0.9% 100 ML IVPB SCH (08:40)
[2024-07-20 08:43] LABS: Basophils % (A) 0 %; Eosinophils # (A) 0.3 k/uL (0-0.7); Eosinophils % (A) 2 %; HCT 46.5 % (39.0-53.0); HGB 14.8 gm/dL (13.0-17.5); Lymphocytes % (A) 7 %; MCH 31.6 pg (25.0-35.0); MCHC 31.9 g/dL (31.0-37.0); MCV 99.2 fL (80.0-100.0); Monocytes # (A) 0.7 k/uL (0-1.0); Monocytes % (A) 5 %; Neutrophils # (A) 11.5 k/uL (1.3-7.7); Neutrophils % (A) 85 %; Platelet Count 268 k/uL (150-450); RBC 4.69 m/uL (4.30-5.90); RDW 13.2 % (11.5-15.5); WBC 13.6 k/uL (3.8-10.6)
[2024-07-20 08:57] LABS: African American GFR (CKD) 69 (>60 ml/min/1.73 sqM); Anion Gap 6 mmol/L; Blood Urea Nitrogen 24 mg/dL (9-20); Calcium 8.7 mg/dL (8.4-10.2); Carbon Dioxide 25 mmol/L (22-30); Chloride 109 mmol/L (98-107); Glucose 104 mg/dL (74-99); Non-African American GFR(CKD) 59 (>60 ml/min/1.73 sqM); Potassium 4.4 mmol/L (3.5-5.1); Sodium 140 mmol/L (137-145)
[2024-07-20] MEDS: BACLOFEN 10 MG TAB PO SCH (16:52)
--- NOTE | 2024-07-20 17:33 | P.PN ---
Subjective Progress Note Date: 07/20/24 63-year-old male with a past medical history significant for multiple sclerosis on palliative care, neurogenic bladder, CAD, history of abnormal stress test w/cath w/o stent placement and hypertension presents to the ED for generalized weakness and fever. In The ED he underwent extensive evaluation. T 103.2F, HR 115, RR 18, BP 168/78, 92% on RA. Initial lab work done in the ER showed WBCs of 17.5, Hgb 15.1, hct 46.9, PLT 295, sodium 140, potassium 4.0, BUN 23, creatinine of 1.4. Urinalysis showed large LE. Respiratory viral panel all negative EKG done in the ER showed heart rate of 96, QTc 394, no ST segment elevation or depression seen, no T-wave inversions seen. Chest x-ray done in the ER no acute pulmonary process. Patient is started on Meropenem and admitted for treatment of UTI sepsis. 07/20 Patient was seen and examined. He reports no complaints. CBC and CMP significant for BUN 13.6, Cl 109, BUN 24, Cr 1.26, glu 104. General: non toxic, no distress, appears at stated age, obese Derm: no unusual rashes/lesions, warm Head: atraumatic, normocephalic, symmetric Eyes: EOMI, no lid lag, anicteric sclera ENT: Nose and ears atraumatic Neck: No cervical lymphadenopathy, trachea midline, supple Mouth: no lip lesion, mucus membranes moist Cardiovascular: good distal perfusion in all 4 extremities Lungs: breathing comfortably, no accessory muscle use Ext: no gross muscle atrophy, no contractures Neuro: no gross focal neuro deficits Psych: Alert, oriented, appropriate affect Based on my assessment of this patient, this patient meets a high complexity level of care. Sepsis secondary to UTI: History of straight cath for neurogenic bladder. Continue Meropenem 1g IV TID. Follow UCx, BCx. Telemetry monitoring. Acute kidney injury on CKD stage II: Status post NS at 130 cc/hr. Repeat BMP tomorrow. Right sided lower extremity edema: Negative for DVT. CAD: Lipitor 10 mg PO QHS. Not on ASA or beta mary jane? History of multiple sclerosis and chronic urinary retention requiring straight catheterization at home CODE STATUS: FULL CODE DVT Prophylaxis: Lovenox SQ GI Prophylaxis: Designated medical POA if patient is not able to make medical decisions for themselves: I have reviewed the following seo consultant notes: I have reviewed the results of the following tests: CBC, CMP, Venous doppler I have ordered the following tests: CBC, BMP in the AM I have discussed the care of this patient with the following independent historian: I have independently interpreted the following test below: I have discussed the management of this patient with the following physician: Objective - Vital Signs Vital signs: Vital Signs Temp 98.3 F 07/20/24 16:58 Pulse 100 07/20/24 16:58 Resp 18 07/20/24 16:58 BP 145/90 07/20/24 16:58 Pulse Ox 96 07/20/24 16:58 FiO2 Intake & Output 07/19/24 07/20/24 07/20/24 18:59 06:59 18:59 Output Total 900 Balance -900 Weight 90.718 kg Output: Urine 900 Other: Voiding Method Self-Catheterization - Labs CBC & Chem 7: 07/20/24 08:28 07/20/24 08:28 Labs: Abnormal Lab Results - Last 24 Hours (Table) 07/19/24 07/19/24 07/19/24 Range/Units 20:35 20:35 21:10 WBC 17.5 H (3.8-10.6) k/uL Neutrophils # 15.3 H (1.3-7.7) k/uL Lymphocytes # 0.8 L (1.0-4.8) k/uL Chloride (98-107) mmol/L BUN 23 H (9-20) mg/dL Creatinine 1.40 H (0.66-1.25) mg/dL Glucose 150 H (74-99) mg/dL Urine Protein 1+ H (Negative) Urine Blood Trace H (Negative) Ur Leukocyte Esterase Large H (Negative) Urine WBC >182 H (0-5) /hpf Urine WBC Clumps Few H (None) /hpf Urine Bacteria Many H (None) /hpf Urine Mucus Occasional H (None) /hpf 07/20/24 07/20/24 Range/Units 08:28 08:28 WBC 13.6 H (3.8-10.6) k/uL Neutrophils # 11.5 H (1.3-7.7) k/uL Lymphocytes # (1.0-4.8) k/uL Chloride 109 H (98-107) mmol/L BUN 24 H (9-20) mg/dL Creatinine 1.26 H (0.66-1.25) mg/dL Glucose 104 H (74-99) mg/dL Urine Protein (Negative) Urine Blood (Negative) Ur Leukocyte Esterase (Negative) Urine WBC (0-5) /hpf Urine WBC Clumps (None) /hpf Urine Bacteria (None) /hpf Urine Mucus (None) /hpf
[2024-07-20] MEDS: ATORVASTATIN 10 MG TAB PO SCH (20:44)
[2024-07-20] MEDS: TROSPIUM CHLORIDE 20 MG TABLET PO SCH (22:19)
[2024-07-20] MEDS: DALFAMPRIDINE 10 MG PO SCH (22:21)
[2024-07-21 05:11] LABS: HCT 44.3 % (39.0-53.0); HGB 14.6 gm/dL (13.0-17.5); MCH 32.2 pg (25.0-35.0); MCV 97.5 fL (80.0-100.0); Mean Platelet Volume 7.7; Platelet Count 239 k/uL (150-450); RBC 4.54 m/uL (4.30-5.90); RDW 13.5 % (11.5-15.5); WBC 10.1 k/uL (3.8-10.6)
[2024-07-21 05:21] LABS: African American GFR (CKD) 66 (>60 ml/min/1.73 sqM); Anion Gap 8 mmol/L; Blood Urea Nitrogen 21 mg/dL (9-20); Calcium 8.5 mg/dL (8.4-10.2); Carbon Dioxide 24 mmol/L (22-30); Chloride 104 mmol/L (98-107); Glucose 101 mg/dL (74-99); Non-African American GFR(CKD) 57 (>60 ml/min/1.73 sqM); Potassium 3.6 mmol/L (3.5-5.1); Sodium 136 mmol/L (137-145)
[2024-07-21] MEDS: ACETAMINOPHEN TAB 325 MG TAB PO PRN (07:02)
--- NOTE | 2024-07-21 08:48 | P.PN ---
Subjective Progress Note Date: 07/21/24 63-year-old male with a past medical history significant for multiple sclerosis on palliative care, neurogenic bladder, CAD, history of abnormal stress test w/cath w/o stent placement and hypertension presents to the ED for generalized weakness and fever. In The ED he underwent extensive evaluation. T 103.2F, HR 115, RR 18, BP 168/78, 92% on RA. Initial lab work done in the ER showed WBCs of 17.5, Hgb 15.1, hct 46.9, PLT 295, sodium 140, potassium 4.0, BUN 23, creatinine of 1.4. Urinalysis showed large LE. Respiratory viral panel all negative EKG done in the ER showed heart rate of 96, QTc 394, no ST segment elevation or depression seen, no T-wave inversions seen. Chest x-ray done in the ER no acute pulmonary process. Patient is started on Meropenem and admitted for treatment of UTI sepsis. 07/20 Patient was seen and examined. He reports no complaints. CBC and CMP significant for BUN 13.6, Cl 109, BUN 24, Cr 1.26, glu 104. 07/21 Patient was seen and examined. Feeling well. Has not gotten out of bed yet. UCx growing GNB. BCx prelim neg. Maintained on Meropenem. CBC and BMP significant for Na 136, BUN 21, Cr 1.3, glu 101. General: non toxic, no distress, appears at stated age, obese Derm: no unusual rashes/lesions, warm Head: atraumatic, normocephalic, symmetric Eyes: EOMI, no lid lag, anicteric sclera ENT: Nose and ears atraumatic Neck: No cervical lymphadenopathy, trachea midline, supple Mouth: no lip lesion, mucus membranes moist Cardiovascular: Normal S1 S2. Lungs: Clear to auscultation bilaterally, no accessory muscle use Ext: no gross muscle atrophy, no contractures Neuro: no gross focal neuro deficits Psych: Alert, oriented, appropriate affect Based on my assessment of this patient, this patient meets a high complexity level of care. Sepsis secondary to UTI: History of straight cath for neurogenic bladder. Continue Meropenem 1g IV TID. Follow final UCx, BCx. Telemetry monitoring. Acute kidney injury on CKD stage II: Encourage hydration by mouth. Avoid nephrotoxins. Right sided lower extremity edema: Negative for DVT. CAD: Lipitor 10 mg PO QHS. Not on ASA or beta mary jane? History of multiple sclerosis and chronic urinary retention requiring straight catheterization at home CODE STATUS: FULL CODE DVT Prophylaxis: Lovenox SQ GI Prophylaxis: Designated medical POA if patient is not able to make medical decisions for themselves: I have reviewed the following sap pp consultant notes: I have reviewed the results of the following tests: CBC, BMP, UCx, BCx. I have ordered the following tests: BMP in the AM I have discussed the care of this patient with the following independent historian: I have independently interpreted the following test below: I have discussed the management of this patient with the following physician: Objective - Vital Signs Vital signs: Vital Signs Temp 99.2 F 07/21/24 01:20 Pulse 97 07/21/24 01:20 Resp 16 07/21/24 01:20 BP 135/85 07/21/24 01:20 Pulse Ox 92 L 07/21/24 01:20 FiO2 Intake & Output 07/20/24 07/21/24 07/21/24 18:59 06:59 18:59 Output Total 900 1550 Balance -900 -1550 Weight 90.718 kg Output: Urine 900 1550 Other: Voiding Method Self-Catheterization Indwelling Catheter # Bowel Movements 2 - Labs CBC & Chem 7: 07/21/24 04:43 07/21/24 04:43 Labs: Abnormal Lab Results - Last 24 Hours (Table) 07/20/24 07/20/24 07/21/24 Range/Units 08:28 08:28 04:43 WBC 13.6 H (3.8-10.6) k/uL Neutrophils # 11.5 H (1.3-7.7) k/uL Sodium 136 L (137-145) mmol/L Chloride 109 H (98-107) mmol/L BUN 24 H 21 H (9-20) mg/dL Creatinine 1.26 H 1.30 H (0.66-1.25) mg/dL Glucose 104 H 101 H (74-99) mg/dL Microbiology - Last 24 Hours (Table) 07/19/24 20:35 Blood Culture - Preliminary Blood 07/19/24 21:10 Urine Culture - Preliminary Urine,Voided Gram Neg Bacilli
[2024-07-21] MEDS: TAMSULOSIN 0.4 MG CAP.ER.24H PO SCH (08:50)
[2024-07-21] MEDS: PANTOPRAZOLE 40 MG TABLET PO SCH (08:50)
[2024-07-21 12:15] VITALS: BMI 28.7
[2024-07-22 04:20] LABS: African American GFR (CKD) 66 (>60 ml/min/1.73 sqM); Anion Gap 6 mmol/L; Blood Urea Nitrogen 21 mg/dL (9-20); Calcium 8.3 mg/dL (8.4-10.2); Carbon Dioxide 27 mmol/L (22-30); Chloride 105 mmol/L (98-107); Glucose 120 mg/dL (74-99); Non-African American GFR(CKD) 57 (>60 ml/min/1.73 sqM); Potassium 3.4 mmol/L (3.5-5.1); Sodium 138 mmol/L (137-145)
[2024-07-22] MEDS ORDERED: Potassium Replacement Protocol 1 EACH MISC MISCELLANE PRN (04:35)
[2024-07-22] MEDS: POTASSIUM CHLORIDE ER 20 MEQ TAB.ER PO SCH (06:20)
--- NOTE | 2024-07-22 12:22 | P.PN ---
Subjective Progress Note Date: 07/22/24 63-year-old male with a past medical history significant for multiple sclerosis on palliative care, neurogenic bladder, CAD, history of abnormal stress test w/cath w/o stent placement and hypertension presents to the ED for generalized weakness and fever. In The ED he underwent extensive evaluation. T 103.2F, HR 115, RR 18, BP 168/78, 92% on RA. Initial lab work done in the ER showed WBCs of 17.5, Hgb 15.1, hct 46.9, PLT 295, sodium 140, potassium 4.0, BUN 23, creatinine of 1.4. Urinalysis showed large LE. Respiratory viral panel all negative EKG done in the ER showed heart rate of 96, QTc 394, no ST segment elevation or depression seen, no T-wave inversions seen. Chest x-ray done in the ER no acute pulmonary process. Patient is started on Meropenem and admitted for treatment of UTI sepsis. 07/20 Patient was seen and examined. He reports no complaints. CBC and CMP significant for BUN 13.6, Cl 109, BUN 24, Cr 1.26, glu 104. 07/21 Patient was seen and examined. Feeling well. Has not gotten out of bed yet. UCx growing GNB. BCx prelim neg. Maintained on Meropenem. CBC and BMP significant for Na 136, BUN 21, Cr 1.3, glu 101. 07/22 Patient was seen and examined. Still feeling weak. Has not gotten out of bed. He is having some liquid stool and abdomen appears distended, KUB has been ordered. UCx shows Klebsiella, Meropenem switched to Rocephin 1g IV QD. BMP shows K 3.4, BUN 21, Cr 1.3. General: non toxic, no distress, appears at stated age Derm: no unusual rashes/lesions, warm Head: atraumatic, normocephalic, symmetric Eyes: EOMI, no lid lag, anicteric sclera ENT: Nose and ears atraumatic Neck: No cervical lymphadenopathy, trachea midline, supple Mouth: no lip lesion, mucus membranes moist Cardiovascular: Normal S1 S2. Lungs: Clear to auscultation bilaterally, no accessory muscle use Abd: Distended. Sluggish BS. Non tender to palpation. Ext: no gross muscle atrophy, no contractures Neuro: no gross focal neuro deficits Psych: Alert, oriented, appropriate affect Based on my assessment of this patient, this patient meets a high complexity level of care. Sepsis secondary to UTI: History of straight cath for neurogenic bladder. UCx Klebsiella. Switch Meropenem to Rocephin 1g IV QD. Telemetry monitoring. Abdominal distention: Suspect ileus or constipation. Obtain KUB. HypoK: Replace per protocol. Acute kidney injury on CKD stage II: Encourage hydration by mouth. Avoid nephrotoxins. Right sided lower extremity edema: Negative for DVT. CAD: Lipitor 10 mg PO QHS. Not on ASA or beta mary jane? History of multiple sclerosis and chronic urinary retention requiring straight catheterization at home Will need PT and OT eval prior to discharge as patient appears debilitated and has not gotten out of bed since admission. CODE STATUS: FULL CODE DVT Prophylaxis: Lovenox SQ GI Prophylaxis: Designated medical POA if patient is not able to make medical decisions for themselves: I have reviewed the following international travel consultant notes: I have reviewed the results of the following tests: BMP, UCx, BCx. I have ordered the following tests: BMP in the AM. KUB I have discussed the care of this patient with the following independent historian: I have independently interpreted the following test below: I have discussed the management of this patient with the following physician: Objective - Vital Signs Vital signs: Vital Signs Temp 98.5 F 07/22/24 07:03 Pulse 75 07/22/24 07:03 Resp 18 07/22/24 07:03 BP 135/82 07/22/24 07:03 Pulse Ox 93 L 07/22/24 07:03 FiO2 Intake & Output 07/21/24 07/22/24 07/22/24 18:59 06:59 18:59 Output Total 1510 575 Balance -1510 -575 Weight 90.718 kg Output: Urine 1510 575 Other: Voiding Method Indwelling Catheter # Bowel Movements 2 1 - Labs CBC & Chem 7: 07/21/24 04:43 07/22/24 04:00 Labs: Abnormal Lab Results - Last 24 Hours (Table) 07/22/24 Range/Units 04:00 Potassium 3.4 L (3.5-5.1) mmol/L BUN 21 H (9-20) mg/dL Creatinine 1.30 H (0.66-1.25) mg/dL Glucose 120 H (74-99) mg/dL Calcium 8.3 L (8.4-10.2) mg/dL Microbiology - Last 24 Hours (Table) 07/19/24 20:35 Blood Culture - Preliminary Blood 07/19/24 21:10 Urine Culture - Final Urine,Voided Klebsiella pneumoniae
--- NOTE | 2024-07-22 13:04 | XR ---
KUB. HISTORY: Abdominal pain. COMPARISON: None. TECHNIQUE: 2 supine views of the abdomen were obtained. FINDINGS: There is marked gaseous distention of the stomach.. The bowel gas pattern is nonspecific and there is no evidence of obstruction. There is a moderate deshaun unt of dense stool scattered throughout the colon. No suspicious abdominal or pelvic calcifications are seen. The osseous structures are intact. IMPRESSION: Markedly distended air-filled stomach raising the question of gastric outlet obstruction. [facility], , 07/22/2024 1:02 PM
[2024-07-22 13:45] LABS: African American GFR (CKD) 74 (>60 ml/min/1.73 sqM); Anion Gap 8 mmol/L; Blood Urea Nitrogen 20 mg/dL (9-20); Calcium 8.5 mg/dL (8.4-10.2); Carbon Dioxide 25 mmol/L (22-30); Chloride 105 mmol/L (98-107); Glucose 171 mg/dL (74-99); Non-African American GFR(CKD) 64 (>60 ml/min/1.73 sqM); Potassium 3.8 mmol/L (3.5-5.1); Sodium 138 mmol/L (137-145)
[2024-07-22] MEDS ORDERED: ONDANSETRON 4 MG/2 ML VIAL IVP PRN (16:27)
[2024-07-22] MEDS ORDERED: MORPHINE SULFATE 2 MG/ML SYRINGE IVP PRN (16:27)
[2024-07-22] MEDS: PANTOPRAZOLE 40 MG/10 ML VIAL IVP SCH (16:58)
--- NOTE | 2024-07-22 18:29 | XR ---
EXAMINATION TYPE: XR chest 1V DATE OF EXAM: 07/22/2024 5:58 PM COMPARISON: Chest radiographs from 07/19/2024 CLINICAL INDICATION: Male, 63 years old with history of tube placement; [facility] TECHNIQUE: XR chest 1V Frontal view of the chest. FINDINGS: Lungs/Pleura: There is no evidence of pleural effusion, focal consolidation, or pneumothorax. Pulmonary vascularity: Unremarkable. Heart/mediastinum: Cardiomediastinal silhouette is unremarkable. Musculoskeletal: No acute osseous pathology. Other findings: None Lines/Tubes: Nasogastric tube with its distal tip and side-port projecting under the diaphragm. IMPRESSION: NG tube in appropriate position, No acute cardiopulmonary disease/process. [facility], , 07/22/2024 6:27 PM
[2024-07-22] MEDS: BENZOCAINE/MENTHOL LOZENG 1 EACH LOZENGE MUCOUS MEM PRN (21:53)
[2024-07-23 10:29] LABS: HCT 48.4 % (39.0-53.0); HGB 15.6 gm/dL (13.0-17.5); MCH 31.3 pg (25.0-35.0); MCHC 32.3 g/dL (31.0-37.0); Platelet Count 300 k/uL (150-450); RBC 4.99 m/uL (4.30-5.90); RDW 12.9 % (11.5-15.5); WBC 9.2 k/uL (3.8-10.6)
[2024-07-23 10:40] LABS: African American GFR (CKD) 78 (>60 ml/min/1.73 sqM); Anion Gap 9 mmol/L; Blood Urea Nitrogen 23 mg/dL (9-20); Calcium 8.9 mg/dL (8.4-10.2); Carbon Dioxide 27 mmol/L (22-30); Chloride 103 mmol/L (98-107); Glucose 101 mg/dL (74-99); Magnesium 2.5 mg/dL (1.6-2.3); Non-African American GFR(CKD) 68 (>60 ml/min/1.73 sqM); Potassium 3.7 mmol/L (3.5-5.1); Sodium 139 mmol/L (137-145)
[2024-07-23] MEDS: IOPAMIDOL CONTRAST (ORAL USE) VIAL PO PRN (10:56)
[2024-07-23] MEDS: BENZOCAINE SPRAY 1 CAN MUCOUS MEM PRN (11:02)
--- NOTE | 2024-07-23 12:11 | P.PN ---
Subjective Progress Note Date: 07/23/24 63-year-old male with a past medical history significant for multiple sclerosis on palliative care, neurogenic bladder, CAD, history of abnormal stress test w/cath w/o stent placement and hypertension presents to the ED for generalized weakness and fever. In The ED he underwent extensive evaluation. T 103.2F, HR 115, RR 18, BP 168/78, 92% on RA. Initial lab work done in the ER showed WBCs of 17.5, Hgb 15.1, hct 46.9, PLT 295, sodium 140, potassium 4.0, BUN 23, creatinine of 1.4. Urinalysis showed large LE. Respiratory viral panel all negative EKG done in the ER showed heart rate of 96, QTc 394, no ST segment elevation or depression seen, no T-wave inversions seen. Chest x-ray done in the ER no acute pulmonary process. Patient is started on Meropenem and admitted for treatment of UTI sepsis. UCx shows Klebsiella, Meropenem switched to Rocephin 1g IV QD. Patient noted to have increased abdominal distention and liquid stools with N/V on 07/22, KUB shows dilated stomach giving concerns for gastric outlet obstruction. Placed NPO and NG tube inserted, Surgery consulted. 07/23 Patient was seen and examined. KUB yesterday showed marked dilated stomach, NG tube inserted and placed NPO with surgery consult. UCx shows Klebsiella, maintained on Rocephin 1g IV QD. CBC, BMP shows BUN 23, glu 101. Mag 2.5. General: non toxic, no distress, appears at stated age Derm: no unusual rashes/lesions, warm Head: atraumatic, normocephalic, symmetric, NG tube in place Neck: No cervical lymphadenopathy, trachea midline, supple Mouth: no lip lesion, mucus membranes moist Cardiovascular: Normal S1 S2. Lungs: Clear to auscultation bilaterally, no accessory muscle use Abd: Distended. Sluggish BS. Non tender to palpation. Ext: no gross muscle atrophy, no contractures Neuro: no gross focal neuro deficits Psych: Alert, oriented, appropriate affect Based on my assessment of this patient, this patient meets a high complexity level of care. Gastric outlet obstruction: NPO and NG tube inserted, Surgery consulted. Zofran PRN for N/V. Morphine PRN pain. CT AP ordered by Surgery. Sepsis secondary to UTI: History of straight cath for neurogenic bladder. UCx Klebsiella. Switch Meropenem (2D) to Rocephin 1g IV QD (D2). Telemetry monitoring. Stage II pressure ulcer: Present on admission. Wound care consulted. Acute kidney injury on CKD stage II: Encourage hydration by mouth. Avoid nephrotoxins. Right sided lower extremity edema: Negative for DVT. CAD: Lipitor 10 mg PO QHS. Not on ASA or beta mary jane? History of multiple sclerosis and chronic urinary retention requiring straight catheterization at home Resolved: hypoK CODE STATUS: FULL CODE DVT Prophylaxis: Lovenox SQ GI Prophylaxis: Designated medical POA if patient is not able to make medical decisions for themselves: I have reviewed the following security and privacy consultant notes: I have reviewed the results of the following tests: CBC, BMP, Mag. I have ordered the following tests: I have discussed the care of this patient with the following independent historian: Family at bedside. I have independently interpreted the following test below: I have discussed the management of this patient with the following physician: Objective - Vital Signs Vital signs: Vital Signs Temp 97.7 F 07/23/24 07:49 Pulse 80 07/23/24 07:49 Resp 16 07/23/24 07:49 BP 151/89 07/23/24 07:49 Pulse Ox 98 07/23/24 07:49 FiO2 Intake & Output 07/22/24 07/23/24 07/23/24 18:59 06:59 18:59 Output Total 920 250 Balance -920 -250 Output: Urine 820 250 Emesis 100 Other: Voiding Method Indwelling Catheter # Bowel Movements 0 - Labs CBC & Chem 7: 07/23/24 09:55 07/23/24 09:55 Labs: Abnormal Lab Results - Last 24 Hours (Table) 07/22/24 Range/Units 13:08 Glucose 171 H (74-99) mg/dL Microbiology - Last 24 Hours (Table) 07/19/24 20:35 Blood Culture - Preliminary Blood
--- NOTE | 2024-07-23 12:43 | P.CON ---
Consult Note - . Consult date: 07/23/24 Assessment/Plan:: 63-year-old male with a PMHX significant for multiple sclerosis on palliative care who presented to the [facility] ED with his sister with complaints of generalized weakness with associated fever for the past day. Sister explains the patient l osvaldo with her and over the past few days he has had difficulty walking with his walker and increasing fatigue. He is having some vomiting. He had an AXR which showed a dilated stomach with possible gastric outlet obstruction. Review of Systems ROS Statement: Those systems with pertinent positive or pertinent negative responses have been documented in the HPI. Past Medical History Past Medical History: Coronary Artery Disease (CAD), Heart Failure, Hypertension Additional Past Medical History / Comment(s): MS. UTI History of Any Multi-Drug Resistant Organisms: ESBL, MRSA Date of last positivie culture/infection: 07/17/23 ESBL E.coli; 05/20/23 MRSA MDRO Source:: Urine-ESBL; Urine-MRSA Past Surgical History: No Surgical Hx Reported Additional Past Surgical History / Comment(s): Judd. Past Anesthesia/Blood Transfusion Reactions: No Reported Reaction Past Psychological History: No Psychological Hx Reported Smoking Status: Never smoker Past Alcohol Use History: None Reported Past Drug Use History: None Reported General Exam General appearance: alert, in no apparent distress Head exam: Present: atraumatic, normocephalic, normal inspection Eye exam: Present: normal appearance, PERRL, EOMI. Absent: scleral icterus, conjunctival injection, periorbital swelling Respiratory exam: Present: normal lung sounds bilaterally. Absent: respiratory distress, wheezes, rales, rhonchi, stridor Cardiovascular Exam: Present: regular rate, normal rhythm, normal heart sounds. Absent: systolic murmur, diastolic murmur, rubs, gallop, clicks GI/Abdominal exam: Present: soft, normal bowel sounds. Absent: distended, tenderness, guarding, rebound, rigid Extremities exam: Present: normal inspection, full ROM, normal capillary refill. Absent: tenderness, pedal edema, joint swelling, calf tenderness Back exam: Present: other (Stage II decubitus ulceration present) Neurological exam: Present: alert, oriented X3 Psychiatric exam: Present: normal affect, normal mood Skin exam: Present: warm, dry, intact, normal color. Absent: rash 63 year old male with PMHX of MS with AXR concerning for GOO -NGT-LIS -NPO -CT-AP with oral and IV contrast ordered -Further recs to follow CT-AP Kolby Zazueta DO [facility] [phone]
--- NOTE | 2024-07-23 13:08 | CT ---
EXAMINATION TYPE: CT abdomen pelvis w con CT DLP: 1229.6 mGycm, Automated exposure control for dose reduction was used. DATE OF EXAM: 07/23/2024 12:56 PM COMPARISON: CT abdomen 07/20/2023, CT abdomen and pelvis 07/17/2023, KUB radiograph 07/22/2024 CLINICAL INDICATION:Male, 63 years old with history of Gastric Outlet Obstruction; Gastric Outlet Obs truction TECHNIQUE: Standard CT of the abdomen and pelvis following the administration of 100 cc of Isovue 3 00 IV contrast material and oral contrast. Coronal and sagittal reformats were performed. FINDINGS: LOWER CHEST: Linear atelectasis within the right lower lobe and lingula. Minimal subsegmental atelect asis within the left lower lobe. Punctate calcified granuloma redemonstrated in the right lower lobe ABDOMEN LIVER: Diffusely hypoattenuating parenchyma. Stable anterior right hepatic dome 1.2 cm hypodense lesi on likely representing a cyst or hemangioma. GALLBLADDER AND BILE DUCTS: Unremarkable. PANCREAS: Unremarkable. SPLEEN: Unremarkable. ADRENAL GLANDS: Unremarkable. KIDNEYS AND URETERS: No evidence of hydronephrosis or renal calculus. The kidneys enhance symmetrical ly. Stable bilateral small renal cysts. Focal cortical thinning within the right renal upper pole and within different regions of the left kidney from prior insults. PELVIS BLADDER: Nondistended with Ross catheter in place. Nondependent gas within the bladder likely from c atheter placement. Right lateral urinary bladder diverticulum redemonstrated. REPRODUCTIVE: Unremarkable. ABDOMEN & PELVIS STOMACH AND BOWEL: NG tube terminates within the gastric body. Mild distention of the stomach. Enteri c contrast reaches the distal small bowel. There is some focal narrowing of the proximal duodenum sit uated between the pancreatic head and inferior left hepatic lobe. No obstructing mass identified. The appendix is within normal limits. Redundant sigmoid colon. Mild amount of stool is present of the co milagro. No evidence of bowel obstruction. PERITONEUM: No evidence of pneumoperitoneum. No free fluid. VASCULATURE: No evidence of aortic aneurysm. Right-sided pelvic phleboliths. MUSCULOSKELETAL: No acute osseous abnormalities. Mild S-shaped scoliotic curvature of the visualized cervical and lumbar spine. Moderate multilevel degenerative disc disease. LYMPH NODES: No evidence for lymphadenopathy. SOFT TISSUE/ABDOMINAL WALL: Patulous fat filled appearance of the opening to the bilateral inguinal r ings. IMPRESSION: 1. Mild distention of the stomach with enteric contrast passing through the stomach into the small b owel reaching the distal small bowel. There is focal narrowing from extrinsic compression of the prox imal duodenum situated between the left hepatic lobe and the pancreatic head. No obstructive mass jannie ntified. 2. Urinary bladder diverticulum. 3. Hepatic steatosis. [facility], , 07/23/2024 1:05 PM
--- NOTE | 2024-07-24 12:00 | CDI ---
Documentation Clarification Form Date: 07/24/2024 11:37:21 AM From: Bekah Kessler RN CCDS Phone: [phone] Admit Date: 07/20/2024 03:41:00 AM Patient Name: Albert Mahmood Visit Number: [id number] Discharge Date: ATTENTION: The Clinical Documentation Specialists (CDI) and [facility] Coding Staff appreciate your assistance in clarifying documentation. Please respond to the clarification below the line at the bottom and electronically sign. The CDI & [facility] Coding staff will review the response and follow-up if needed. Please note: Queries are made part of the Legal Health Record. If you have any questions, please contact the author of this message via ITS. Doctor: Alejandro Fish UTI is documented 07/20, Medicine progress note and the patient requires straight catheterization at home for neurogenic bladder. Additional clarification regarding the etiology of the UTI is requested. History/Risk Factors: 63 year old male presents to the ED with generalized weakness with a fever for one day. Medical History: MS with chronic urinary retention, CAD, CHF and HTN. 07/19 ,HP. Clinical Indicators: Urinalysis, 07/19: Protein 1+, blood trace, Nitrate positive, Leukocyte Esterase Large, Wbc >182, wbc clumps few, bacteria many. Urine culture, 07/19: Klebsiella pneumoniae Lab results, 07/19: Wbc 17.5, Neutrophils 15.3, Treatment: 07/19 Tylenol 1,000mg IVPB x 1; 07/19 Ceftriaxone 2gm IVPB x 1; 07/20 07/22 Meropenem 1gm IVPB Q8H; 07/23 Ceftriaxone 1gm IVPB Q24H. Please clarify the etiology of the UTI, if known: [ ] Straight catheter [ ] UTI not related to catheter [ ] Other condition, please specify [ ] Unable to determine (Template Last Revised: November 2020) Answered progress note 07/25 sepsis 2/2 uti from intermittent straight catheterization UTI. MTDD
--- NOTE | 2024-07-24 13:23 | P.PN ---
Subjective Progress Note Date: 07/24/24 Hospital course 63-year-old male with a past medical history significant for multiple sclerosis on palliative care, neurogenic bladder, CAD, history of abnormal stress test w/cath w/o stent placement and hypertension presents to the ED for generalized weakness and fever. In The ED he underwent extensive evaluation. T 103.2F, HR 115, RR 18, BP 168/78, 92% on RA. Initial lab work done in the ER showed WBCs of 17.5, Hgb 15.1, hct 46.9, PLT 295, sodium 140, potassium 4.0, BUN 23, creatinine of 1.4. Urinalysis showed large LE. Respiratory viral panel all negative EKG done in the ER showed heart rate of 96, QTc 394, no ST segment elevation or depression seen, no T-wave inversions seen. Chest x-ray done in the ER no acute pulmonary process. Patient is started on Meropenem and admitted for treatment of UTI sepsis. UCx shows Klebsiella, Meropenem switched to Rocephin 1g IV QD. Patient noted to have increased abdominal distention and liquid stools with N/V on 07/22, KUB shows dilated stomach giving concerns for gastric outlet obstruction. Placed NPO and NG tube inserted, Surgery consulted. CT abdomen pelvis showed mild gastric distention and contrast passing into the small bowel. He was also seen focal extrinsic stenosis of the proximal duodenum. Patient seen this morning. He states that the NG tube is uncomfortable. He states that he did have a bowel movement yesterday. 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 NG tube in place Surgery on board Zofran as needed Morphine as needed for pain I reviewed CT abdomen pelvis that showed mild gastric distention and contrast into the small bowel. There was also focal extrinsic stenosis of proximal duodenum. Patient reports having bowel movements Sepsis secondary to UTI from intermittent straight catheterization UTI Patient does straight cath at home While in the hospital patient is on Ross catheter Urine culture grew Klebsiella pneumonia that is sensitive to Rocephin Patient on IV Rocephin 1 g daily day 3 WBC normalized Patient afebrile Patient follows up at doctors at [facility] who manages recurrent UTIs. Per sister patient gets gentamicin infusions into his bladder on an outpatient basis Stage II pressure ulcer Wound care on board Acute kidney injury on CKD stage II Encourage oral hydration Resolved Right-sided lower extremity edema Ultrasound negative for DVT Coronary disease Continue with Lipitor 10 mg p.o. at bedtime History of multiple sclerosis Chronic urinary retention Patient does self-catheterization at home Stable DVT prophylaxis: Lovenox Labs unremarkable so no need to trend Objective - Vital Signs Vital signs: Vital Signs Temp 98.2 F 07/24/24 07:01 Pulse 91 07/24/24 07:01 Resp 15 07/24/24 07:01 BP 151/79 07/24/24 07:01 Pulse Ox 94 L 07/24/24 07:01 FiO2 Intake & Output 07/23/24 07/24/24 07/24/24 18:59 06:59 18:59 Output Total 500 Balance -500 Output: Urine 500 Other: Voiding Method Indwelling Catheter Indwelling Catheter Indwelling Catheter - Labs CBC & Chem 7: 07/23/24 09:55 07/23/24 09:55
--- NOTE | 2024-07-24 15:14 | P.PN ---
Subjective Progress Note Date: 07/24/24 SURGICAL PROGRESS NOTE CHIEF COMPLAINT: Abdominal distention HISTORY OF PRESENT ILLNESS: Patient continues to have abdominal distention. He denies any nausea. NG tube with 200 mL output. He is having flatus. Nursing staff did report a bowel movement yesterday. Afebrile. WBC 9.[address] scan abdomen pelvis reports mild distention of stomach with enteric contrast passing through the stomach into the small bowel reaching the distal small bowel. There is focal narrowing from extrinsic compression of the proximal duodenum between the left hepatic lobe and pancreatic head. No obstructive mass identified. PHYSICAL EXAM: VITAL SIGNS: Reviewed. GENERAL: Well-developed in no acute distress. ABDOMEN: Soft. Distended. Nontender NEUROLOGIC: awake and alert ASSESSMENT: 1. Abdominal distention. Initial concerns for possible gastric outlet obstruction on abdominal x-ray. CT scan reports mild distention of stomach with contrast passing through the stomach into the small bowel reaching distal small bowel. Focal narrowing from extrinsic compression of the proximal duodenum between the left hepatic lobe and pancreatic head 2. History of MS PLAN: -Continue NG tube for decompression -Keep patient n.p.o. -Further recommendations forthcoming per surgeon Physician Business Proposal Rep note has been reviewed by physician. Signing provider agrees with the documented findings, assessment, and plan of care. Attestation Patient seen and examined at bedside. No significant output from NG tube. CT of the abdomen and pelvis with oral contrast was reviewed with mild distention of the stomach with contrast passing through the stomach into the small bowel. No obvious dilation of the small bowel. This appears to be extrinsic compression creating a focal narrowing of the proximal duodenum. We will remove nasogastric tube and begin liquid diet. Patient may benefit from upper endoscop y, however we will evaluate tolerance of diet prior to making any decision. Inpatient versus outpatient as this appears to be extrinsic compression rather than intrinsic issue. I also did discuss the possibility of stenting should it be required. This would require GI service involvement. Priscilla Rivas, Objective - Vital Signs Vital signs: Vital Signs Temp 98.2 F 07/24/24 13:44 Pulse 87 07/24/24 13:44 Resp 16 07/24/24 13:44 BP 132/77 07/24/24 13:44 Pulse Ox 97 07/24/24 13:44 FiO2 Intake & Output 07/23/24 07/24/24 07/24/24 18:59 06:59 18:59 Output Total 500 Balance -500 Output: Urine 500 Other: Voiding Method Indwelling Catheter Indwelling Catheter Indwelling Catheter - Labs CBC & Chem 7: 07/23/24 09:55 07/23/24 09:55
--- NOTE | 2024-07-24 23:53 | P.CONS ---
History of Present Illness - Reason for Consult Consult date: 07/24/24 - History of Present Illness Albert is a right handed male who lives with his sister in a single story home with ramp access. He used a 2 ww at home. He doesnt drive. His sister is his support system and helps with advanced adls. He was independent with dressing/bathing up until a couple weeks ago when he began to start experience more weakness. He normally straight caths self at home. Has hermosillo now. He had palliative care for his MS at home. He has had home therapy in the past. He has a medical history of multiple sclerosis on palliative care, neurogenic bladder, CAD and hypertension presented to the ED for generalized weakness and fever. He was started on Meropenem and admitted for treatment of UTI sepsis. UCx shows Klebsiella, Meropenem and he was switched to Rocephin. Patient noted to have increased abdominal distention and liquid stools with N/V on 07/22, KUB shows dilated stomach giving concerns for gastric outlet obstruction. Placed NPO and NG tube inserted, Surgery consulted. CT abdomen pelvis showed mild gastric distention and contrast passing into the small bowel. He was also seen focal extrinsic stenosis of the proximal duodenum. PMR consulted for rehab recommendations post discharge. Therapies reviewed and he is requiring significant assistance- moderate to max assist for transfers and mobility. Past Medical History Past Medical History: Coronary Artery Disease (CAD), Heart Failure, Hypertension Additional Past Medical History / Comment(s): MS. UTI History of Any Multi-Drug Resistant Organisms: ESBL, MRSA Year Discovered:: 07/17/23 ESBL E.coli; 05/20/23 MRSA MDRO Source:: Urine-ESBL; Urine-MRSA Past Surgical History: No Surgical Hx Reported Additional Past Surgical History / Comment(s): Judd. Past Anesthesia/Blood Transfusion Reactions: No Reported Reaction Past Psychological History: No Psychological Hx Reported Smoking Status: Never smoker Past Alcohol Use History: None Reported Past Drug Use History: None Reported Medications and Allergies Home Medications Medication Instructions Recorded Confirmed Type Atorvastatin [Lipitor] 10 mg PO HS 02/20/23 07/20/24 History Furosemide [Lasix] 20 mg PO DAILY 02/20/23 07/20/24 History Tamsulosin [Flomax] 0.4 mg PO DAILY 03/07/23 07/20/24 History Baclofen 10 mg PO TID 07/18/23 07/20/24 History Potassium Chloride ER [K-Dur 10] 10 meq PO HS 07/18/23 07/20/24 History Trospium Chloride [Sanctura XR] 60 mg PO HS 07/18/23 07/20/24 History Pantoprazole [Protonix] 40 mg PO DAILY #30 tab 07/25/23 07/20/24 Rx Dalfampridine [Dalfampridine ER] 10 mg PO BID 07/20/24 07/20/24 History Gentamicin 40mg/Ml 1 dose IRRIGATION HS 07/20/24 07/20/24 History Allergies Allergy/AdvReac Type Severity Reaction Status Date / Time No Known Allergies Allergy Verified 07/20/24 09:11 Physical Exam Vitals: Vital Signs Temp Pulse Resp BP Pulse Ox 07/24/24 19:23 99.1 F 84 17 161/81 94 L 07/24/24 13:44 98.2 F 87 16 132/77 97 07/24/24 07:01 98.2 F 91 15 151/79 94 L 07/24/24 02:28 98.1 F 93 17 147/88 93 L Intake and Output 07/24/24 07/24/24 07/25/24 14:59 22:59 06:59 Output Total 1000 Balance -1000 Output: Urine 1000 Other: Voiding Method Indwelling Catheter Weight 90.718 kg General: Well-developed, well-nourished, male, in no acute distress HEENT:+NG tube to suction Cardiovascular: B/L calves are supple, nontender, no cords, without peripheral edema Respiratory: Even and unlabored breathing on RA Abdomen: Soft, +distension Genitourinary: +hermosillo Musculoskeletal: Neurological: Alert and oriented x 3. CN II-XII: Grossly intact. Speech is clear, fluent MMT: UE 5/5 b/l LE: HF 4/5, KE 5/5, DF 5/5 Skin: Skin intact where visible to head, neck, and bilateral upper and lower extremities Psychiatric: Mood calm, affect appropriate, cooperative Results CBC & Chem 7: 07/23/24 09:55 07/23/24 09:55 Assessment and Plan Assessment: Debility from sepsis secondary to ESBL E Coli UTI -Continue with PT/OT for mobilization while in acute care -History of MRSA positive, Pseudomonas positive and most recently E. Coli-ESBL positive on urinalysis -Blood culture and urine culture currently pending -On iv abx per ID #History of multiple sclerosis #Chronic urinary retention/neurogenic bladder -Straight caths at home, has indwelling hermosillo currently #TRUNG -Creatinine 1.40 #HTN #DVT prophylaxis: Lovenox 40 mg daily Disposition: Will f/u with therapy- if shows some improvement with therapy may be a good candidate for IPR. Currently max to total assist, if shows some progress he would be good candidate for IPR. We will continue to follow This encounter was done virtually with active audio and visual components. I was present for assessment. Nivia MOTA facilitated A/V encounter.
--- NOTE | 2024-07-25 12:11 | P.PN ---
Subjective Progress Note Date: 07/25/24 Hospital course 63-year-old male with a past medical history significant for multiple sclerosis on palliative care, neurogenic bladder, CAD, history of abnormal stress test w/cath w/o stent placement and hypertension presents to the ED for generalized weakness and fever. In The ED he underwent extensive evaluation. T 103.2F, HR 115, RR 18, BP 168/78, 92% on RA. Initial lab work done in the ER showed WBCs of 17.5, Hgb 15.1, hct 46.9, PLT 295, sodium 140, potassium 4.0, BUN 23, creatinine of 1.4. Urinalysis showed large LE. Respiratory viral panel all negative EKG done in the ER showed heart rate of 96, QTc 394, no ST segment elevation or depression seen, no T-wave inversions seen. Chest x-ray done in the ER no acute pulmonary process. Patient is started on Meropenem and admitted for treatment of UTI sepsis. UCx shows Klebsiella, Meropenem switched to Rocephin 1g IV QD. Patient noted to have increased abdominal distention and liquid stools with N/V on 07/22, KUB shows dilated stomach giving concerns for gastric outlet obstruction. Placed NPO and NG tube inserted, Surgery consulted. CT abdomen pelvis showed mild gastric distention and contrast passing into the small bowel. He was also seen focal extrinsic stenosis of the proximal duodenum. General surgery at this time is recommending to advance diet as tolerated. Patient states that he is tolerating his clear liquid diet. Patient denies having bowel movement yesterday or today. Patient overall is feeling better. 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 This is chronic Psych - Calm and cooperative Assessment and plan Gastric outlet obstruction NG tube removed on 07/24/2024 I reviewed general surgery note who is recommending to start patient on clear liquid diet Patient started on clear liquid diet and is tolerating it well Zofran as needed Morphine as needed for pain Sepsis secondary to UTI from intermittent straight catheterization UTI Patient does straight cath at home While in the hospital patient is on Ross catheter Urine culture grew Klebsiella pneumonia that is sensitive to Rocephin Continue with IV Rocephin 1 g daily. Last dose is tomorrow WBC normalized Patient afebrile Patient follows up at doctors at [facility] who manages recurrent UTIs. Per sister patient gets gentamicin infusions into his bladder on an outpatient basis Stage II pressure ulcer Wound care on board Acute kidney injury on CKD stage II Encourage oral hydration Resolved Right-sided lower extremity edema Ultrasound negative for DVT Coronary disease Continue with Lipitor 10 mg p.o. at bedtime History of multiple sclerosis Chronic urinary retention Patient does self-catheterization at home Stable DVT prophylaxis: Lovenox Labs unremarkable so no need to trend Patient is being evaluated by PM&R for possible IPR. Patient is motivated to go to IPR. Objective - Vital Signs Vital signs: Vital Signs Temp 97.9 F 07/25/24 07:56 Pulse 94 07/25/24 07:56 Resp 16 07/25/24 07:56 BP 152/90 07/25/24 07:56 Pulse Ox 96 07/25/24 07:56 FiO2 Intake & Output 07/24/24 07/25/24 07/25/24 18:59 06:59 18:59 Output Total 1000 800 Balance -1000 -800 Weight 90.718 kg Output: Urine 1000 800 Other: Voiding Method Indwelling Catheter Indwelling Catheter Indwelling Catheter # Bowel Movements 1 - Labs CBC & Chem 7: 07/23/24 09:55 07/23/24 09:55 Labs: Microbiology - Last 24 Hours (Table) 07/19/24 20:35 Blood Culture - Final Blood
--- NOTE | 2024-07-25 20:11 | P.PN ---
Subjective Progress Note Date: 07/25/24 Patient seen and examined at bedside. Nasogastric tube removed yesterday and clear liquid diet was started. Patient tolerating this. Does have abdominal distention. Objective - Vital Signs Vital signs: Vital Signs Temp 97.8 F 07/25/24 14:00 Pulse 84 07/25/24 14:00 Resp 16 07/25/24 14:00 BP 144/77 07/25/24 14:00 Pulse Ox 96 07/25/24 14:00 FiO2 Intake & Output 07/25/24 07/25/24 07/26/24 06:59 18:59 06:59 Output Total 800 700 Balance -800 -700 Output: Urine 800 700 Other: Voiding Method Indwelling Catheter Indwelling Catheter # Bowel Movements 1 - Constitutional General appearance: Present: cooperative, no acute distress - Gastrointestinal Gastrointestinal Comment(s): Soft, nontender, moderate distention, no rebound, no guarding - Psychiatric Psychiatric: Present: A&O x's 3 - Labs CBC & Chem 7: 07/23/24 09:55 07/23/24 09:55 Labs: Microbiology - Last 24 Hours (Table) 07/19/24 20:35 Blood Culture - Final Blood Assessment and Plan Plan: 63-year-old male with concern for gastric outlet obstruction. CT did show contrast passing through from some extrinsic compression of the proximal duodenum. Patient has been tolerating clear liquid diet and denies any nausea or vomiting. Based on extrinsic compression, patient may benefit from evaluation for duodenal stent. This is not performed in [facility]. [facility], Dr. Hazel or Dr[facility].
--- NOTE | 2024-07-26 09:19 | P.CONS ---
History of Present Illness - Reason for Consult Consult date: 07/26/24 wound care - History of Present Illness This is a 63-year-old patient known to the wound care center with a nonhealing ulceration to the left buttocks. Patient has been utilizing collagen to the site. Ulceration measures approximately 1 x 1.1 x 0.1 cm with granulation and nonviable tissue present to the wound bed. Patient sister helps him with dressing changes. The ulceration is exacerbated by shearing due to his movement. Patient is a paraplegic. Review Of Systems: Constitutional: No fever, no chills, no night sweats. No weight change. No weakness, fatigue or lethargy. No daytime sleepiness. Integumentary:reports wounds, no lesions. No rash or pruritus. No unusual bruising. No change in hair or nails. Physical exam: General Appearance: Alert, cooperative, no distress, appears stated age. Skin: See HPI all other Skin color, texture, tugor normal, no rashes or lesions. Neurologic: Alert oriented x3 Assessment: 1. Stage II pressure ulcer left buttocks 2. Paraplegia Plan: 1.Left Buttocks: Apply collagen moisten, saline moist gauze, dry gauze and tape with blue tape to secure. Thank you for the consultation any questions please contact the wound care center DNP note has been reviewed and discussed with Dr. Butcher and the impression and plan of care has been directed as dictated. Past Medical History Past Medical History: Coronary Artery Disease (CAD), Heart Failure, Hypertension Additional Past Medical History / Comment(s): UTI History of Any Multi-Drug Resistant Organisms: ESBL, MRSA Year Discovered:: 07/17/23 ESBL E.coli; 05/20/23 MRSA MDRO Source:: Urine-ESBL; Urine-MRSA Past Surgical History: No Surgical Hx Reported Additional Past Surgical History / Comment(s): Judd. Past Anesthesia/Blood Transfusion Reactions: No Reported Reaction Past Psychological History: No Psychological Hx Reported Smoking Status: Never smoker Past Alcohol Use History: None Reported Past Drug Use History: None Reported Medications and Allergies Home Medications Medication Instructions Recorded Confirmed Type Atorvastatin [Lipitor] 10 mg PO HS 02/20/23 07/20/24 History Furosemide [Lasix] 20 mg PO DAILY 02/20/23 07/20/24 History Tamsulosin [Flomax] 0.4 mg PO DAILY 03/07/23 07/20/24 History Baclofen 10 mg PO TID 07/18/23 07/20/24 History Potassium Chloride ER [K-Dur 10] 10 meq PO HS 07/18/23 07/20/24 History Trospium Chloride [Sanctura XR] 60 mg PO HS 07/18/23 07/20/24 History Pantoprazole [Protonix] 40 mg PO DAILY #30 tab 07/25/23 07/20/24 Rx Dalfampridine [Dalfampridine ER] 10 mg PO BID 07/20/24 07/20/24 History Gentamicin 40mg/Ml 1 dose IRRIGATION HS 07/20/24 07/20/24 History Allergies Allergy/AdvReac Type Severity Reaction Status Date / Time No Known Allergies Allergy Verified 07/20/24 09:11 Physical Exam Vitals: Vital Signs Temp Pulse Resp BP Pulse Ox 07/26/24 06:53 97.6 F 82 17 131/85 92 L 07/26/24 01:40 97.7 F 85 17 134/76 94 L 07/25/24 19:17 97.7 F 80 17 138/77 93 L 07/25/24 14:00 97.8 F 84 16 144/77 96 Intake and Output 07/25/24 07/26/24 07/26/24 22:59 06:59 14:59 Output Total 700 1100 Balance -700 -1100 Output: Urine 700 1100 Other: Voiding Method Indwelling Catheter Results CBC & Chem 7: 07/23/24 09:55 07/23/24 09:55 Labs: Microbiology - Last 24 Hours (Table) 07/19/24 20:35 Blood Culture - Final Blood Assessment and Plan (1) Pressure ulcer of left buttock, stage 2 Current Visit: Yes Status: Acute Code(s): L89.322 - PRESSURE ULCER OF LEFT BUTTOCK, STAGE 2 SNOMED Code(s): 51087929467496 (2) Paraplegia Current Visit: Yes Status: Acute Code(s): G82.20 - PARAPLEGIA, UNSPECIFIED SNOMED Code(s): 36192929
--- NOTE | 2024-07-26 10:11 | P.PN ---
Subjective Progress Note Date: 07/26/24 Principal diagnosis: MS poonam Price is a right handed male who lives with his sister in a single story home with ramp access. He used a 2 ww at home. He doesnt drive. His sister is his support system and helps with advanced adls. He was independent with dressing/bathing up until a couple weeks ago when he began to start experience more weakness. He normally straight caths self at home. Has hermosillo now. He had palliative care for his MS at home. He has had home therapy in the past. He has a medical history of multiple sclerosis on palliative care, neurogenic bladder, CAD and hypertension presented to the ED for generalized weakness and fever. He was started on Meropenem and admitted for treatment of UTI sepsis. UCx shows Klebsiella, Meropenem and he was switched to Rocephin. Patient noted to have increased abdominal distention and liquid stools with N/V on 07/22, KUB shows dilated stomach giving concerns for gastric outlet obstruction. Placed NPO and NG tube inserted, Surgery consulted. CT abdomen pelvis showed mild gastric distention and contrast passing into the small bowel. He was also seen focal extrinsic stenosis of the proximal duodenum. PMR consulted for rehab recommendations post discharge. Therapies reviewed and he is requiring significant assistance- moderate to max assist for transfers and mobility. 07/26/24: Patient states overall he is feeling better. He denies CP, SOB, and abdominal pain. patient's sister is at the bedside and reports his abdomen is still distended but it has been for as long as she can remember at home. He did have a small BM yesterday, is passing flatus. He still has a hermosillo catheter, normally straight caths himself at home 4 times a day, also does a gentamicin flush every night as prescribed by his Urologist at [facility]. He has no current complaints of pain. Sister hoping for diet to be advanced. Patient has been seen by wound care, Ulceration measures approximately 1 x 1.1 x 0.1 cm with granulation and nonviable tissue present to the wound bed. Patient's sister has been treating the wound at home and he has been seeing outpatient wound care. They are both in agreement for IPR, patient's sister would like wheelchair van for transportation when he is cleared for rehab. Patient's new therapy notes, Max assist with bathing and LB dressing, total assist ( 2 ppl Min A)for toileting, Gait 20 ft mod assist with 2 ppl (total assist), Transfers Min assist 2 ppl ( total assist) Objective - Vital Signs Vital signs: Vital Signs Temp 97.6 F 07/26/24 06:53 Pulse 82 07/26/24 06:53 Resp 17 07/26/24 06:53 BP 131/85 07/26/24 06:53 Pulse Ox 92 L 07/26/24 06:53 FiO2 Intake & Output 07/25/24 07/26/24 07/26/24 18:59 06:59 18:59 Output Total 700 1100 Balance -700 -1100 Output: Urine 700 1100 Other: Voiding Method Indwelling Catheter Indwelling Catheter # Bowel Movements 1 - Exam General: Well-developed, well-nourished, male sitting in chair, in no acute distress HEENT: NC/AT Cardiovascular: B/L calves are supple, nontender, no cords, without peripheral edema Respiratory: Even and unlabored breathing on RA Abdomen: Soft, +distension, non tender Genitourinary: +hermosillo Musculoskeletal: Functional ROM of UE, Decreased right leg, right ankle Neurological: Alert and conversational, Speech is clear, fluent MMT: B/L SABD/EE/EF/HG/ FABD 5/5 LE: R HF 3/5, KE 4/5, DF2-3/5, L HF 4/5, KE 5/5, DF 5/5 Skin: Skin intact where visible to head, neck, and bilateral upper and lower extremities, sacral region not assessed Psychiatric: Mood calm, affect flat, cooperative - Labs CBC & Chem 7: 07/23/24 09:55 07/23/24 09:55 Labs: Microbiology - Last 24 Hours (Table) 07/19/24 20:35 Blood Culture - Final Blood Assessment and Plan Assessment: # MS exacerbation secondary to Urosepsis, ESBL E Coli UTI -Therapies -Abx per NOV #Paraplegia # Gastric Outlet Obstruction Syndrome s/p NG tube -advance diet per Medical/Gen Sx team -patient takes miralax daily at home #History of multiple sclerosis #Chronic urinary retention/neurogenic bladder -Straight caths at home, has indwelling hermosillo currently #Sacral wound present on admission -Ulceration measures approximately 1 x 1.1 x 0.1 cm with granulation and nonviable tissue present to the wound bed -wound care following #TRUNG #HTN #DVT prophylaxis: Lovenox 40 mg daily Disposition: Patient has shown some improvements with therapies, although still needs quite a bit of assistance. He has a supportive sister who is able to physically assist him at home. Recommending IPR at this time as patient is motivated to get home and has support/ good home set up. [facility] is currently full, may have bed available Tuesday Afternoon. Patient's sister would like wheelchair van transport. Would like to see diet advanced as tolerated Patient seen in collaboration with Dr Borja
[2024-07-26] MEDS: DALFAMPRIDINE 10 MG PO SCH (11:28)
--- NOTE | 2024-07-26 12:15 | P.PN ---
Subjective Progress Note Date: 07/26/24 Hospital Course: 63-year-old male with a past medical history significant for multiple sclerosis on palliative care, neurogenic bladder, CAD, history of abnormal stress test w/cath w/o stent placement and hypertension presents to the ED for generalized weakness and fever. In The ED he underwent extensive evaluation. T 103.2F, HR 115, RR 18, BP 168/78, 92% on RA. Initial lab work done in the ER showed WBCs of 17.5, Hgb 15.1, hct 46.9, PLT 295, sodium 140, potassium 4.0, BUN 23, creatinine of 1.4. Urinalysis showed large LE. Respiratory viral panel all negative EKG done in the ER showed heart rate of 96, QTc 394, no ST segment elevation or depression seen, no T-wave inversions seen. Chest x-ray done in the ER no acute pulmonary process. Patient is started on Meropenem and admitted for treatment of UTI sepsis. UCx shows Klebsiella, Meropenem switched to Rocephin 1g IV QD. Patient noted to have increased abdominal distention and liquid stools with N/V on 07/22, KUB shows dilated stomach giving concerns for gastric outlet obstruction. Placed NPO and NG tube inserted, Surgery consulted. CT abdomen pelvis showed mild gastric distention and contrast passing into the small bowel. He was also seen focal extrinsic stenosis of the proximal duodenum. Bowel function returning. General surgery at this time is recommending to advance diet as tolerated. [facility]ely discharge to [facility]. Subjective: Patient seen and examined at bedside. No acute events overnight. Able to tolerate clear liquids, having bowel movements. Pertinent positives and negatives as discussed above, a complete review of systems was performed and all other systems are negative. Vitals Signs Reviewed. General: Nontoxic, no distress, appears at stated age Derm: Warm, dry Head: Atraumatic, normocephalic, symmetric Eyes: EOMI, no lid lag, anicteric sclera Mouth: No lip lesion, mucus membranes moist Cardiovascular: S1S2 reg, no murmur Lungs: CTA bilateral, no rhonchi, no rales, no accessory muscle use Abdominal: Soft, distended, nontender to palpation, no guarding, no appreciable organomegaly Ext: No gross muscle atrophy, no edema, no contractures Neuro: CN II-XI grossly intact, right lower extremity paresis Psych: Alert, oriented, appropriate affect Data Reviewed Today: Pertinent Labs: No new labs Imaging: No new imaging Assessment and Plan: Active: Sepsis, resolved Urinary tract infection, Klebsiella pneumonia Chronic urinary retention-currently has a Ross catheter in place BPH Overactive bladder -Patient does straight catheter at home -Continue IV Rocephin 1 g daily, day 4/ -Patient follows up at doctors at [facility] who manages recurrent UTIs. Per sister patient gets gentamicin infusions into his bladder on an outpatient basis -Continue Flomax 0.4 daily -Trospium 20 twice daily Gastric outlet obstruction, resolved -NG tube discontinued on -General Surgery following, advance to regular diet -Pain control with oral Tylenol as needed, IV morphine as needed, monitor for sedation -Zofran as needed for nausea vomiting Acute kidney injury, resolved -Continue to hold diuretics Stage II pressure ulcer left buttock, present on admission -Wound care following Chronic: MS Dyslipidemia DVT ppx: Lovenox Code status: Full code Anticipated discharge place: Pending clinical course Anticipated discharge time: Pending clinical course Objective - Vital Signs Vital signs: Vital Signs Temp 97.6 F 07/26/24 06:53 Pulse 82 07/26/24 07:50 Resp 17 07/26/24 07:50 BP 131/85 07/26/24 06:53 Pulse Ox 92 L 07/26/24 06:53 FiO2 Intake & Output 07/25/24 07/26/24 07/26/24 18:59 06:59 18:59 Output Total 700 1100 Balance -700 -1100 Output: Urine 700 1100 Other: Voiding Method Indwelling Catheter Indwelling Catheter Indwelling Catheter # Bowel Movements 1 - Labs CBC & Chem 7: 07/23/24 09:55 07/23/24 09:55
--- NOTE | 2024-07-26 15:07 | P.PN ---
Subjective Progress Note Date: 07/26/24 SURGICAL PROGRESS NOTE CHIEF COMPLAINT: Abdominal distention HISTORY OF PRESENT ILLNESS: No new complaints. Patient tolerating liquid diet. Denies any abdominal pain. Does have abdominal distention. He is having flatus. PHYSICAL EXAM: VITAL SIGNS: Reviewed. GENERAL: Well-developed in no acute distress. ABDOMEN: Soft. Distended. Nontender. No rebound, no guarding NEUROLOGIC: awake and alert ASSESSMENT: 1. Abdominal distention. Initial concerns for possible gastric outlet obstruction on abdominal x-ray. CT scan reports mild distention of stomach with contrast passing through the stomach into the small bowel reaching distal small bowel. Focal narrowing from extrinsic compression of the proximal duodenum between the left hepatic lobe and pancreatic head 2. History of MS PLAN: -Based on extrinsic compression, patient may benefit from evaluation for duodenal stent. This is not performed in [facility]. Would recommend evaluation by advanced GI at [facility], Dr. Hazel or Dr. Richardson at [facility]. -Advance diet to regular Physician Tension Machine Operator note has been reviewed by physician. Signing provider agrees with the documented findings, assessment, and plan of care. Objective - Vital Signs Vital signs: Vital Signs Temp 98 F 07/26/24 13:30 Pulse 97 07/26/24 13:30 Resp 17 07/26/24 13:30 BP 117/67 07/26/24 13:30 Pulse Ox 97 07/26/24 13:30 FiO2 Intake & Output 07/25/24 07/26/24 07/26/24 18:59 06:59 18:59 Output Total 700 1100 Balance -700 -1100 Output: Urine 700 1100 Other: Voiding Method Indwelling Catheter Indwelling Catheter Indwelling Catheter # Bowel Movements 1 - Labs CBC & Chem 7: 07/23/24 09:55 07/23/24 09:55 Assessment and Plan Assessment: 63 yo male w/ gastric outlet obstruction -recommend advance GI for upper scope -pt recalls having recommended a scope before but denied -advance diet as tolerated Time with Patient: Less than 30
--- NOTE | 2024-07-27 13:04 | P.DS ---
Providers Date of admission: 07/20/24 03:41 Expected date of discharge: 07/27/24 Attending physician: Sp Bran MD Consults: 07/22/24 14:09 Consult Physician Urgent Consulting Provider: Willie Cornejo Consult Reason/Comments: Abnormal abdominal xray Do you want consulting provider notified?: Yes 07/24/24 13:29 Consult Physician Routine Consulting Provider: Terry Cosby Consult Reason/Comments: evaluate for inpatient rehab Do you want consulting provider notified?: Yes Primary care physician: [facility] Course: Sepsis, resolved Urinary tract infection, Klebsiella pneumonia Chronic urinary retention-currently has a Ross catheter in place BPH Overactive bladder Gastric outlet obstruction, resolved Acute kidney injury, resolved Stage II pressure ulcer left buttock, present on admission MS Dyslipidemia Hospital Course: 63-year-old male with a past medical history significant for multiple sclerosis on palliative care, neurogenic bladder, CAD, history of abnormal stress test w/cath w/o stent placement and hypertension presents to the ED for generalized weakness and fever. In The ED he underwent extensive evaluation. T 103.2F, HR 115, RR 18, BP 168/78, 92% on RA. Initial lab work done in the ER showed WBCs of 17.5, Hgb 15.1, hct 46.9, PLT 295, sodium 140, potassium 4.0, BUN 23, creatinine of 1.4. Urinalysis showed large LE. Respiratory viral panel all negative EKG done in the ER showed heart rate of 96, QTc 394, no ST segment elevation or depression seen, no T-wave inversions seen. Chest x-ray done in the ER no acute pulmonary process. Patient is started on Meropenem and admitted for treatment of UTI sepsis. UCx shows Klebsiella, Meropenem switched to Rocephin 1g IV QD, received a total of 5 doses of this and completed course of treatment for this infection.. Patient noted to have increased abdominal distention and liquid stools with N/V on 07/22, KUB shows dilated stomach giving concerns for gastric outlet obstruction. Placed NPO and NG tube inserted, Surgery consulted. CT abdomen pelvis showed mild gastric distention and contrast passing into the small bowel. He was also seen focal extrinsic stenosis of the proximal duodenum. Bowel function returning. General surgery at this time is recommending to advance diet as tolerated, and outpatient evaluation for duodenal stent with advanced GI referral ( main or HF moross). Gen: In NAD, non-toxic HEENT: normocephalic, atraumatic, hearing acuity is intant, mucous membranes moist CVS: perfusing all extremities well, no pitting edema, Respiratory: symmetric chest expansion, no accessory muscle use, GI: soft, NTTP, ND, : no suprapubic tenderness, no CVA tenderness MSK/Derm: no rashes, cyanosis Neuro: CN II-XII intact, no motor weakness, Psych: cooperative, euthymic mood, judgment and insight is intact I spent 38 minutes coordinating this discharge Patient Condition at Discharge: Fair Plan - Discharge Summary Discharge Rx Participant: No New Discharge Prescriptions: New Benzocaine/Menthol Lozeng [Cepacol lozenge] 1 each MUCOUS MEM Q4HR PRN lozenge PRN Reason: Sore Throat Benzocaine [place] [Hurricaine [place]] 1 spray MUCOUS MEM QID PRN each PRN Reason: Mouth Irritation Acetaminophen Tab [Tylenol] 650 mg PO Q6HR PRN tab PRN Reason: Fever And/ Or Pain Continue Trospium Chloride [Sanctura XR] 60 mg PO HS Baclofen 10 mg PO TID Pantoprazole [Protonix] 40 mg PO DAILY #30 tab Dalfampridine [Dalfampridine ER] 10 mg PO BID Atorvastatin [Lipitor] 10 mg PO HS Tamsulosin [Flomax] 0.4 mg PO DAILY Discontinued Potassium Chloride ER [K-Dur 10] 10 meq PO HS Gentamicin 40mg/Ml 1 dose IRRIGATION HS Furosemide [Lasix] 20 mg PO DAILY Discharge Medication List Atorvastatin [Lipitor] 10 mg PO HS 02/20/23 [History] Tamsulosin [Flomax] 0.4 mg PO DAILY 03/07/23 [History] Baclofen 10 mg PO TID 07/18/23 [History] Trospium Chloride [Sanctura XR] 60 mg PO HS 07/18/23 [History] Pantoprazole [Protonix] 40 mg PO DAILY #30 tab 07/25/23 [Rx] Dalfampridine [Dalfampridine ER] 10 mg PO BID 07/20/24 [History] Acetaminophen Tab [Tylenol] 650 mg PO Q6HR PRN tab 07/27/24 [Rx] Benzocaine [place] [Hurricaine [place]] 1 spray MUCOUS MEM QID PRN each 07/27/24 [Rx] Benzocaine/Menthol Lozeng [Cepacol lozenge] 1 each MUCOUS MEM Q4HR PRN lozenge 07/27/24 [Rx] Follow up Appointment(s)/Referral(s): Patricia Zamora MD [Primary Care Provider] - 1-2 days [facility], [NON-STAFF] - As Needed ([facility] will call you to schedule your in home nursing, physical therapy, occupational therapy, and palliative care appointments. ) Care,[facility] Palliative [NON-STAFF] - 1 Week Discharge Disposition: TRANSFER TO SNF/ECF
--- NOTE | 2024-07-27 14:53 | P.PN ---
Subjective Progress Note Date: 07/27/24 SURGICAL PROGRESS NOTE CHIEF COMPLAINT: Abdominal distention HISTORY OF PRESENT ILLNESS: Patient denies abdominal pain. Tolerating regular diet. Denies any nausea or vomiting. He is scheduled for discharge today. Afebrile. PHYSICAL EXAM: VITAL SIGNS: Reviewed. GENERAL: Well-developed in no acute distress. ABDOMEN: Soft. Mildly distended. Nontender. No rebound, no guarding NEUROLOGIC: awake and alert ASSESSMENT: 1. Abdominal distention. Initial concerns for possible gastric outlet obs truction on abdominal x-ray. CT scan reports mild distention of stomach with contrast passing through the stomach into the small bowel reaching distal small bowel. Focal narrowing from extrinsic compression of the proximal duodenum between the left hepatic lobe and pancreatic head 2. History of MS PLAN: -Based on extrinsic compression, patient may benefit from evaluation for duodenal stent. This is not performed in [facility]. Would recommend evaluation by advanced GI at [facility], Dr. Hazel or Dr. Richardson at [facility]. -Continue regular diet -Patient is stable from surgical standpoint for discharge Physician Log Yard Derrick Operator note has been reviewed by physician. Signing provider agrees with the documented findings, assessment, and plan of care. Objective - Vital Signs Vital signs: Vital Signs Temp 97.4 F L 07/27/24 07:30 Pulse 87 07/27/24 07:30 Resp 16 07/27/24 07:30 BP 134/74 07/27/24 07:30 Pulse Ox 93 L 07/27/24 07:30 FiO2 Intake & Output 07/26/24 07/27/24 07/27/24 18:59 06:59 18:59 Output Total 701 500 Balance -701 -500 Weight 90.718 kg Output: Urine 700 500 Stool 1 Other: Voiding Method Indwelling Catheter Indwelling Catheter Indwelling Catheter - Labs CBC & Chem 7: 07/23/24 09:55 07/23/24 09:55
[2024-07-27 15:04] VITALS: BP 124/80; PULSE 82; RESP 15; TEMP 98
== END 2024-07-27 16:26 | DRG 698 ==
LOC: EC 20:01 → 4SSUR 07-20 03:41
PROVIDERS: ADMIT Internal Medicine; ATTEND Internal Medicine
DX: T83.518A Infection and inflammatory reaction due to other urinary catheter, initial encounter (principal); A41.51 Sepsis due to Escherichia coli [E. coli]; I13.0 Hypertensive heart and chronic kidney disease with heart failure and stage 1 through stage 4 chronic kidney disease, or unspecified chronic kidney disease; N17.9 Acute kidney failure, unspecified; N39.0 Urinary tract infection, site not specified; Z16.12 Extended spectrum beta lactamase (ESBL) resistance; G82.20 Paraplegia, unspecified; K31.1 Adult hypertrophic pyloric stenosis; E78.5 Hyperlipidemia, unspecified; I25.10 Atherosclerotic heart disease of native coronary artery without angina pectoris; G35 Multiple sclerosis; N18.2 Chronic kidney disease, stage 2 (mild); L89.322 Pressure ulcer of left buttock, stage 2; N31.9 Neuromuscular dysfunction of bladder, unspecified; N32.81 Overactive bladder; B96.1 Klebsiella pneumoniae [K. pneumoniae] as the cause of diseases classified elsewhere; I50.9 Heart failure, unspecified; N40.1 Benign prostatic hyperplasia with lower urinary tract symptoms; R33.8 Other retention of urine; Y84.6 Urinary catheterization as the cause of abnormal reaction of the patient, or of later complication, without mention of misadventure at the time of the procedure; E87.6 Hypokalemia; Z79.899 Other long term (current) drug therapy; Z86.14 Personal history of Methicillin resistant Staphylococcus aureus infection; Z86.19 Personal history of other infectious and parasitic diseases; Z87.440 Personal history of urinary (tract) infections
CPT/HCPCS: 36415; 71045; 71046; 74018; 74177; 80048; 80053; 81001; 83605; 83735; 84484; 85025; 85027; 85610; 85730; 87040; 87077; 87086; 87186; 87636; 93005; 96361; 96365; 96366; 96367; 96372; 96375; 99291